=== PATIENT | female | born 1955 | race Caucasian/White ===

== ENCOUNTER 2020-05-12 14:00 | Outpatient (RCR) | payer MEDICAID, SELFPAY | END 2020-06-28 23:59 | disposition home or self-care (01) | LOC: ANHBWCAUD 14:00 | DX: Z46.1 Encounter for fitting and adjustment of hearing aid (principal) | CPT/HCPCS: 99199; V5160; V5260 ==

== ENCOUNTER 2021-01-02 08:55 | Outpatient (RCR) | payer MEDICARE, MEDICAID, SELFPAY | END 2021-04-02 23:59 | disposition home or self-care (01) | LOC: ANHBWCAUD 08:55 | DX: Z46.1 Encounter for fitting and adjustment of hearing aid (principal) | CPT/HCPCS: 99199 ==

== ENCOUNTER 2023-01-16 10:05 | Outpatient (CLI) | payer MEDICARE, MEDICAID, SELFPAY | END 2023-01-16 10:06 | disposition home or self-care (01) | LOC: ANHAUDIO 10:08 | PROVIDERS: PCP Nurse Practitioner Family; Visit Provider Nurse Practitioner Family | DX: H91.90 Unspecified hearing loss, unspecified ear (principal) | CPT/HCPCS: 99199 ==

== ENCOUNTER 2024-01-12 16:28 | Emergency (ER) | payer MEDICARE, MEDICAID, SELFPAY ==
--- NOTE | ~2024-01-12 | XR_ITS ---
EXAMINATION: XR chest 2V DATE: 01/12/2024 17:15 INDICATION: Chest pain. TECHNIQUE: Frontal and lateral views of the chest were obtained. COMPARISON: Chest 2 views 10/07/2012 FINDINGS: There is mild atelectasis in the lower lung zones. No pleural effusion or pneumothorax. The heart size is normal. IMPRESSION: 1. Mild atelectasis in the lower lung zones. Reviewed, dictated and finalized at location E.
--- NOTE | 2024-01-12 16:34 | ECG_ITS ---
Test Date: 2024-01-12 16:39:19 Measurements Intervals [place] Rate: 79 P: 127 [place]: 227 QRS: 217 QRSD: 94 T: 78 QT: 377 QTc: 434 Interpretive Statements SINUS RHYTHM WITH FIRST DEGREE AV BLOCK ARM LEADS REVERSED BORDERLINE ST ABNORMALITY- ANTEROLATERAL LEADS BASELINE ARTIFACT- I, II, III, AVR, AVL, AVF BORDERLINE ECG No previous ECG available for comparison Electronically Signed On 01-12-2024 17:40:42 CDT by Pacheco Dumont D.O.
--- NOTE | 2024-01-12 16:35 | ED.CHESTPAIN ---
HPI - Chest Pain General Chief Complaint: Chest Pain <Cyndi Hunt PA-C - Last Filed: 01/12/24 16:38> Stated Complaint: nausea, indigestion, chest pain <Cyndi Hunt PA-C - Last Filed: 01/12/24 16:38> Time Seen by Provider: 01/12/24 16:35 <Cyndi Hunt PA-C - Last Filed: 01/12/24 16:38> Focused HPI: Patient is a 68-year-old female, with past medical history of ESRD on hemodialysis, Parkinson's disease, bipolar disorder, intellectual disability, who presents the ED via EMS with report of chest pain. Patient lives in [facility]. began complaining of chest pain after her dialysis appointment today. Reports pain is midsternal. No radiation. She does also report feeling mildly short of breath. No pain or swelling in legs. No cough. Patient was given ASA en route to the ED. GENERAL: Chronically ill appearing, and in no acute distress. HEAD: Normocephalic, atraumatic. CHEST: Clear to auscultation. ?No respiratory distress. Decreased lung sounds in bases HEART: Regular rate and rhythm.? MSK: TTP along lower midsternum, reproducing pain. NEURO: ?Alert, answers questions, follow commands. Patient screened in triage and initial orders placed.? ?Additional care and disposition to be based upon?diagnostic testing and treatment. <Cyndi Hunt PA-C - Last Filed: 01/12/24 16:38> Focused HPI: Patient is a 68-year-old female, with past medical history of ESRD on hemodialysis, Parkinson's disease, bipolar disorder, intellectual disability, who presents the ED via EMS with report of chest pain. Patient lives in [facility]. began complaining of chest pain after her dialysis appointment today. Reports pain is midsternal. No radiation. She does also report feeling mildly short of breath. No pain or swelling in legs. No cough. Patient was given ASA en route to the ED. GENERAL: Chronically ill appearing, and in no acute distress. HEAD: Normocephalic, atraumatic. CHEST: Clear to auscultation. ?No respiratory distress. Decreased lung sounds in bases HEART: Regular rate and rhythm.? MSK: TTP along lower midsternum, reproducing pain. NEURO: ?Alert, answers questions, follow commands. Patient screened in triage and initial orders placed.? ?Additional care and disposition to be based upon?diagnostic testing and treatment. Agree with assesment. <Joseph Gloria MD - Last Filed: 01/12/24 23:18> Source: patient and old records reviewed <Cyndi Hunt PA-C - Last Filed: 01/12/24 16:38> Mode of arrival: EMS <Cyndi Hunt PA-C - Last Filed: 01/12/24 16:38> Limitations: no limitations and clinical condition <Cyndi Hunt PA-C - Last Filed: 01/12/24 16:38> Related Data Home Medications: Home Medications Medication Instructions Recorded Confirmed Lactobacillus acidophilus 100 mmu cells PO DAILY 08/29/22 (Acidophilus capsule) acetaminophen 325 mg capsule 325 mg PO Q6H PRN 08/29/22 albuterol sulfate 90 mcg/actuation 1 inh inhalation Q4H 08/29/22 aerosol inhaler aluminum-mag hydroxide-simethicone 5 ml PO ONCE PRN 08/29/22 200 mg-200 mg-20 mg/5 mL oral susp (Yin-Lanta) azelastine 205.5 mcg (0.15 %) 2 spray intranasal DAILY 08/29/22 nasal spray (Astepro Allergy) bisacodyl 5 mg tablet,delayed 5 mg PO QHS PRN constipation 08/29/22 release bismuth subsalicylate 262 mg/15 mL 524 mg PO Q1H PRN 08/29/22 oral suspension (Stomach Relief) carbidopa 10 mg-levodopa 100 mg 1 tablet PO BID 08/29/22 tablet dextromethorphan HBr 15 mg/5 mL 15 mg PO Q8H PRN cough 08/29/22 oral syrup diphenhydramine HCl 25 mg capsule 25 mg PO QHS PRN 08/29/22 (Allergy (diphenhydramine)) divalproex 250 mg tablet,delayed 250 mg PO Q12H 08/29/22 release (Depakote) famotidine 20 mg tablet 20 mg PO DAILY PRN 08/29/22 fenofibrate 160 mg tablet 160 mg PO DAILY 08/29/22 fluticasone propionate 50 2 spray intranasal DAILY
[2024-01-12 16:39] VITALS: BP 139/64; PULSE 82; RESP 16; TEMP 36.2; O2SAT 100
[2024-01-12 21:02] LABS: Basophils Percent Auto 0.2 % (0.2-1.2); Eosinophils Absolute Auto 0.1 K/mm3 (0-0.3); Eosinophils Percent Auto 1.1 % (0-4.4); Hemoglobin 11.7 g/dL (12.0-15.0); Immature Granulocyte Absolute 0.04 K/mm3 (0.00-0.031); Immature Granulocyte Percent A 0.7 % (0-0.5); Immature Platelet Fraction Pct 2.2 % (0.9-11.2); Lymphocytes Absolute Auto 1.53 K/mm3 (0.9-3.2); Lymphocytes Percent Auto 26.9 % (18.3-44.2); Mean Corpuscular HGB Conc 32.5 g/dl (32-36); Mean Corpuscular Hemoglobin 29.7 pg (26-34); Mean Corpuscular Volume 91.4 fl (80-100); Mean Platelet Volume 9.7 fl (7.4-10.4); Monocytes Absolute Auto 0.4 K/mm3 (0.1-0.6); Monocytes Percent Auto 7.2 % (2.6-8.5); Neutrophils Absolute Auto 3.6 K/mm3 (1.3-6.7); Neutrophils Percent Auto 63.9 % (45.5-73.1); Platelet Count Result 97 k/mm3 (150-375); Red Blood Count 3.94 M/mm3 (4.2-5.4); Red Cell Distribution Width 13.8 % (11.5-14.5); White Blood Count 5.7 K/mm3 (4.5-10.0)
[2024-01-12 21:11] LABS: Prothrombin Time 13.9 Seconds (11.1-14.7)
[2024-01-12 21:12] LABS: Partial Thromboplastin Time 27.2 Seconds (22.3-36.8)
[2024-01-12 21:21] LABS: Alanine Aminotransferase 14 U/L (6-35); Albumin Level 4.4 g/dL (3.5-5.1); Alkaline Phosphatase 113 U/L (38-126); Anion Gap 9 mmol/L (4-12); Aspartate Amino Transferase 25 U/L (14-36); Bilirubin,Total 0.5 mg/dL (0.2-1.3); Blood Urea Nitrogen 18 mg/dL (7-17); Calcium 9.5 mg/dL (8.4-10.2); Carbon Dioxide 37 mmol/L (22-30); Chloride 94 mmol/L (98-107); Estimated CRCL calculation 18 ml/min; Estimated Glomerular Filt Rate 19; Glucose 103 mg/dL (65-110); Lipase 109 U/L (23-300); Potassium 4.3 mmol/L (3.4-5.0); Sodium 140 mmol/L (137-145)
[2024-01-12 21:30] LABS: NT Pro B Type Natriuretic Pept 2210 pg/mL (19.9-100)
[2024-01-12 21:32] LABS: Troponin I < 0.012 ng/mL (0.000-0.034)
[2024-01-12 22:08] VITALS: O2SAT 100
--- NOTE | 2024-01-12 22:26 | ECG_ITS ---
Test Date: 2024-01-12 22:35:06 Measurements Intervals [place] Rate: 71 P: 55 [place]: 246 QRS: -10 QRSD: 101 T: 38 QT: 431 QTc: 471 Interpretive Statements SINUS RHYTHM WITH FIRST DEGREE AV BLOCK NONSPECIFIC ST & T-WAVE ABNORMALITY- DIFFUSE LEADS BASELINE ARTIFACT- I, II, AVR, AVF BORDERLINE ECG Compared to ECG 01/12/2024 16:39:19 NO SIGNIFICANT CHANGE Electronically Signed On 01-13-2024 06:12:30 CDT by Pacheco Dumont D.O.
[2024-01-12 23:07] LABS: Troponin I < 0.012 ng/mL (0.000-0.034)
[2024-01-12 23:26] VITALS: BP 137/68; PULSE 76; RESP 18; TEMP 36.3; O2SAT 98
== END 2024-01-12 23:29 | disposition home or self-care (01) ==
PROVIDERS: Emergency Medicine; Physician Assistant; Emergency Provider Emergency Medicine; PCP Nurse Practitioner Family
DX: R07.89 Other chest pain (principal); F31.9 Bipolar disorder, unspecified; I12.9 Hypertensive chronic kidney disease with stage 1 through stage 4 chronic kidney disease, or unspecified chronic kidney disease; N18.9 Chronic kidney disease, unspecified; E03.9 Hypothyroidism, unspecified; J44.9 Chronic obstructive pulmonary disease, unspecified; G20.A1 Parkinson's disease without dyskinesia, without mention of fluctuations; R06.02 Shortness of breath
CPT/HCPCS: 36415; 71046; 80053; 83690; 83880; 84484; 85025; 85055; 85610; 85730; 93005; 99284

== ENCOUNTER 2024-02-17 08:18 | Outpatient (CLI) | payer MEDICARE, MEDICAID, SELFPAY | END 2024-02-17 08:19 | disposition home or self-care (01) | LOC: ANHAUDIO 08:18 | PROVIDERS: Visit Provider Nurse Practitioner Family | DX: Z76.89 Persons encountering health services in other specified circumstances (principal); H90.3 Sensorineural hearing loss, bilateral | CPT/HCPCS: 92557; 92567 ==

== ENCOUNTER 2024-06-07 15:02 | Emergency (ER) | payer MEDICARE, MEDICAID, SELFPAY ==
--- NOTE | ~2024-06-07 | US_ITS ---
LEFT UPPER EXTREMITY VENOUS ULTRASOUND Ordering provider: Keren Em APRN History: . dialysis cath removal, swollen, painful LUE . Comparison: None. FINDINGS: --JUGULAR: Patent and free of thrombus. Normal compressibility, phasic flow and augmentation. --SUBCLAVIAN: Patent and free of thrombus. Normal compressibility, phasic flow and augmentation. --AXILLARY: Patent and free of thrombus. Normal compressibility, phasic flow and augmentation. --BRACHIAL: Patent and free of thrombus. Normal compressibility, phasic flow and augmentation. --CEPHALIC: Acute thrombosis is noted. --BASILIC: Patent and free of thrombus. Normal compressibility, phasic flow and augmentation. --RADIAL: Patent and free of thrombus. Normal compressibility, phasic flow and augmentation. --ULNAR: Patent and free of thrombus. Normal compressibility, phasic flow and augmentation. Large complex fluid collection suggestive of a hematoma is seen with possible fistula. IMPRESSION: Thrombosis in the left cephalic vein. No deep vein thrombosis. Large complex collection suggestive of a hematoma seen with possible fistula. Clinical correlation ad vised. Reviewed, dictated and finalized at location A. [facility] IMPRESSION: Thrombosis in the left cephalic vein. No deep vein thrombosis. Large complex collection suggestive of a hematoma seen with possible fistula. C linical correlation advised.
[2024-06-07 15:11] VITALS: BP 152/62; PULSE 80; RESP 18; TEMP 36.3; O2SAT 100
--- NOTE | 2024-06-07 17:32 | ED_ITS ---
HPI - Extremity Problem General Chief complaint: Extremity Problem,Nontraumatic <Keren Em APRN - Last Filed: 06/07/24 17:40> Stated complaint: left arm swelling and pain <Keren Em APRN - Last Filed: 06/07/24 17:40> Time Seen by Provider: 06/07/24 17:20 <Keren Em APRN - Last Filed: 06/07/24 17:40> Focused HPI: patient is a 69-year-old female who presents ER with left upper extremity swelling. Her caregiver reports she recently had her dialysis catheter removed from her left upper arm. Over the weekend patient's left upper, left lower, and left hand started becoming red and swollen. Patient endorses significant pain on the left upper extremity, along with chills. Her caregiver reports she had dialysis today and has a new catheter in her right chest. Patient's caregiver denies fevers, shortness of breath, chest pain. GENERAL: Well-appearing, well-nourished, and in mild distress d/t pain and chills. HEAD: Normocephalic, atraumatic. CHEST: Clear to auscultation. ?No respiratory distress. HEART: Regular rate and rhythm.? NEURO: ?Alert and oriented x3. Patient screened in triage and initial orders placed.? ?Additional care and disposition to be based upon?diagnostic testing and treatment. <Keren Em APRN - Last Filed: 06/07/24 17:40> History of Present Illness HPI Narrative: patient 69-year-old female presents emergency department with chief complaint of left upper extremity swelling. Patient had a dialysis access place d in the left upper extremity and reports that they have noticed that there has been swelling in the left upper extremity. <Osbaldo Reis MD - Last Filed: 06/07/24 22:09> Related Data Home medications: Home Medications Medication Instructions Recorded Confirmed Lactobacillus acidophilus 100 mmu cells PO DAILY 08/29/22 (Acidophilus capsule) acetaminophen 325 mg capsule 325 mg PO Q6H PRN 08/29/22 albuterol sulfate 90 mcg/actuation 1 inh inhalation Q4H 08/29/22 aerosol inhaler aluminum-mag hydroxide-simethicone 5 ml PO ONCE PRN 08/29/22 200 mg-200 mg-20 mg/5 mL oral susp (Yni-Lanta) azelastine 205.5 mcg (0.15 %) 2 spray intranasal DAILY 08/29/22 nasal spray (Astepro Allergy) bisacodyl 5 mg tablet,delayed 5 mg PO QHS PRN constipation 08/29/22 release bismuth subsalicylate 262 mg/15 mL 524 mg PO Q1H PRN 08/29/22 oral suspension (Stomach Relief) carbidopa 10 mg-levodopa 100 mg 1 tablet PO BID 08/29/22 tablet dextromethorphan HBr 15 mg/5 mL 15 mg PO Q8H PRN cough 08/29/22 oral syrup diphenhydramine HCl 25 mg capsule 25 mg PO QHS PRN 08/29/22 (Allergy (diphenhydramine)) divalproex 250 mg tablet,delayed 250 mg PO Q12H 08/29/22 release (Depakote) famotidine 20 mg tablet 20 mg PO DAILY PRN 08/29/22 fenofibrate 160 mg tablet 160 mg PO DAILY 08/29/22 fluticasone propionate 50 2 spray intranasal DAILY 08/29/22 mcg/actuation nasal spray,suspension (Allergy Relief (fluticasone)) levothyroxine 88 mcg capsule 88 mcg PO DAILY 08/29/22 pantoprazole 40 mg tablet,delayed 40 mg PO QAM 08/29/22 release polyethylene glycol 3350 17 17 g PO DAILY 08/29/22 gram/dose oral powder risperidone 0.5 mg tablet 0.5 mg PO QHS 08/29/22 sertraline 100 mg tablet 100 mg PO DAILY 08/29/22 sevelamer carbonate 800 mg tablet 800 mg PO TID 08/29/22 (Renvela) simvastatin 20 mg tablet 20 mg PO DAILY 08/29/22 <Keren Em, MANAN - Last Filed: 06/07/24 17:40> Allergies/Adverse reactions: Allergies Allergy/AdvReac Type Severity Reaction Status Date / Time NSAIDS (Non-Steroidal Allergy Mild Unknown Verified 06/07/24 15:16 Anti-Inflamma <Keren Em APRN - Last Filed: 06/07/24 17:40> Review of Systems Review of Systems: A 10 system review of systems was completed on the patient and is negative except for what is stated in the HPI. Nursing and ancillary documentation was reviewed. <Osbaldo Reis MD - Last Filed: 06/07/24 22:09> PMFSH Past Medical History Medical History: Medical History Bipolar disorder Chronic kidney disease Chronic venous insufficiency COPD (chronic obstructive pulmonary disease) Cyclothymia H/O gastroesophageal reflux (GERD) Hyperlipidemia Hypertension Hypothyroidism Low back pain Mild intellectual disability Parkinsons disease Personal history of dysmenorrhea Seasonal allergies <Keren Em, MANUFACTURING TECH - Last Filed: 06/07/24 17:40> Surgical History Surgical History: Surgical History History of removal of cyst abdominal Burton teeth removed <Keren Em APRN - Last Filed: 06/07/24 17:40> Social History Social History: Social History Smoking status: Never smoker Second hand tobacco smoke exposure: No Alcohol intake: never Substance use: never Lack of Transportation: No Lack of Food: Never True Current Housing: I Have Housing Concerned About Future Housing: No Difficulty Paying Gas/Electric Bills: No Difficulty Paying for Meds: No Currently Unemployed: No Living arrangements: half-way Additional living arrangements comments: Residential options Occupation/Education: retired Gender identity (if verbalized by the patient): Female Sexual Orientation (if Verbalized by the Patient): Straight or Heterosexual Spiritual care concerns: No <Keren Em APRN - Last Filed: 06/07/24 17:40> Exam Narrative: GENERAL: Well-appearing, well-nourished, and in no acute distress. HEAD: Normocephalic, atraumatic. EYES: PERRLA and EOMI. ENT: Nares clear, no rhinorrhea or epistaxis. Mucous membranes moist. NECK: Supple. CHEST: Clear to auscultation. No respiratory distress. HEART: Regular rate and rhythm. No murmur heard. Normal peripheral pulses. ABDOMEN: Soft, nontender, nondistended, normal active bowel sounds. EXTREMITIES: Normal range of motion. There is swelling present to the left upper extremity there is a palpable thrill. SKIN: Warm, dry, no rash. NEURO: No focal deficits. Alert and oriented x3. PSYCH: Normal mood and affect. <Osbaldo Reis MD - Last Filed: 06/07/24 22:09> Course Vital Signs Vital signs: Vital Signs Temperature 36.3 C L 06/07/24 15:11 Pulse Rate 80 06/07/24 15:11 Respiratory Rate 18 06/07/24 15:11 Blood Pressure 152/62 H 06/07/24 15:11 Pulse Oximetry 100 06/07/24 15:11 Oxygen Delivery Room Air 06/07/24 15:11 Temperature 36.5 C 06/07/24 21:10 Pulse Rate 83 06/07/24 21:10 Respiratory Rate 18 06/07/24 21:10 Blood Pressure 137/74 06/07/24 21:10 Pulse Oximetry 100 06/07/24 21:10 Oxygen Delivery Room Air 06/07/24 15:11 <Keren Em APRN - Last Filed: 06/07/24 17:40> Vital Signs Temperature 36.3 C L 06/07/24 15:11 Pulse Rate 80 06/07/24 15:11 Respiratory Rate 18 06/07/24 15:11 Blood Pressure 152/62 H 06/07/24 15:11 Pulse Oximetry 100 06/07/24 15:11 Oxygen Delivery Room Air 06/07/24 15:11 Temperature 36.5 C 06/07/24 21:10 Pulse Rate 83 06/07/24 21:10 Respiratory Rate 18 06/07/24 21:10 Blood Pressure 137/74 06/07/24 21:10 Pulse Oximetry 100 06/07/24 21:10 Oxygen Delivery Room Air 06/07/24 15:11 <Osbaldo Reis MD - Last Filed: 06/07/24 22:09> MDM - Extremity (Nontraumatic) MDM Narrative Medical decision making narrative: venous duplex was obtained that showed evidence of a hematoma around the fistula. There was no evidence of DVT there was a superficial vein thrombus the case was discussed with the on-call vascular surgeon at [facility] who recommended the patient come to the vascular surgery clinic in the morning she should call the office and to get the clinic as early as possible <Osbaldo Reis MD - Last Filed: 06/07/24 22:09> Lab Data Result diagrams: 06/07/24 18:36 06/07/24 18:36 <Keren Em APRN - Last Filed: 06/07/24 17:40> Labs: Lab Results 06/07/24 Range/Units 18:36 WBC 6.8 (4.5-10.0) K/mm3 RBC 3.32 L (4.2-5.4) M/mm3 Hgb 10.1 L (12.0-15.0) g/dL Hct 30.8 L (37.0-47.0) % MCV 92.8 (80-100) fl MCH 30.4 (26-34) pg MCHC 32.8 (32-36) g/dl RDW 13.5 (11.5-14.5) % Plt Count 106 L (150-375) k/mm3 MPV 9.1 (7.4-10.4) fl Immature Gran % (Auto) 1.2 H (0-0.5) % Neut % (Auto) 70.4 (45.5-73.1) % Lymph % (Auto) 21.4 (18.3-44.2) % Norton % (Auto) 5.7 (2.6-8.5) % Eos % (Auto) 0.9 (0-4.4) % Baso % (Auto) 0.4 (0.2-1.2) % Lymph # (Auto) 1.46 (0.9-3.2) K/mm3 Norton # (Auto) 0.4 (0.1-0.6) K/mm3 Eos # (Auto) 0.1 (0-0.3) K/mm3 Baso # (Auto) 0.0 (0.0-0.1) K/mm3 Abs Immat Gran (auto) 0.08 H (0.00-0.031) K/mm3 Absolute Neuts (auto) 4.8 (1.3-6.7) K/mm3 Absolute Nucleated RBC 0.000 (0.0-0.012) K/mm3 Nucleated RBC % 0.0 (0.0-0.2) % % Immature Plt Fraction 1.8 (0.9-11.2) % PT 14.4 (11.1-14.7) Seconds INR 1.1 APTT 27.7 (22.3-36.8) Seconds Sodium 133 L (137-145) mmol/L Potassium 4.0 (3.4-5.0) mmol/L Chloride 96 L (98-107) mmol/L Carbon Dioxide 35 H (22-30) mmol/L Anion Gap 2 L (4-12) mmol/L BUN 12 D (7-17) mg/dL Creatinine 2.40 H (0.7-1.0) mg/dL Estim Creat Clear Calc 20 ml/min Estimated GFR 20 L (59 - ) Glucose 96 (65-110) mg/dL Lactic Acid 0.9 (0.7-2.0) mmol/L Calcium 8.8 (8.4-10.2) mg/dL Total Bilirubin 0.4 (0.2-1.3) mg/dL AST 22 (14-36) U/L ALT 6 (6-35) U/L Alkaline Phosphatase 126 (38-126) U/L C-Reactive Protein 0.6 (<1.0) mg/dL Total Protein 7.0 (6.3-8.2) g/dL Albumin 4.0 (3.5-5.1) g/dL <Keren Em, MANUFACTURING TECH - Last Filed: 06/07/24 17:40> Lab Results 06/07/24 Range/Units 18:36 WBC 6.8 (4.5-10.0) K/mm3 RBC 3.32 L (4.2-5.4) M/mm3 Hgb 10.1 L (12.0-15.0) g/dL Hct 30.8 L (37.0-47.0) % MCV 92.8 (80-100) fl MCH 30.4 (26-34) pg MCHC 32.8 (32-36) g/dl RDW 13.5 (11.5-14.5) % Plt Count 106 L (150-375) k/mm3 MPV 9.1 (7.4-10.4) fl Immature Gran % (Auto) 1.2 H (0-0.5) % Neut % (Auto) 70.4 (45.5-73.1) % Lymph % (Auto) 21.4 (18.3-44.2) % Norton % (Auto) 5.7 (2.6-8.5) % Eos % (Auto) 0.9 (0-4.4) % Baso % (Auto) 0.4 (0.2-1.2) % Lymph # (Auto) 1.46 (0.9-3.2) K/mm3 Norton # (Auto) 0.4 (0.1-0.6) K/mm3 Eos # (Auto) 0.1 (0-0.3) K/mm3 Baso # (Auto) 0.0 (0.0-0.1) K/mm3 Abs Immat Gran (auto) 0.08 H (0.00-0.031) K/mm3 Absolute Neuts (auto) 4.8 (1.3-6.7) K/mm3 Absolute Nucleated RBC 0.000 (0.0-0.012) K/mm3 Nucleated RBC % 0.0 (0.0-0.2) % % Immature Plt Fraction 1.8 (0.9-11.2) % PT 14.4 (11.1-14.7) Seconds INR 1.1 APTT 27.7 (22.3-36.8) Seconds Sodium 133 L (137-145) mmol/L Potassium 4.0 (3.4-5.0) mmol/L Chloride 96 L (98-107) mmol/L Carbon Dioxide 35 H (22-30) mmol/L Anion Gap 2 L (4-12) mmol/L BUN 12 D (7-17) mg/dL Creatinine 2.40 H (0.7-1.0) mg/dL Estim Creat Clear Calc 20 ml/min Estimated GFR 20 L (59 - ) Glucose 96 (65-110) mg/dL Lactic Acid 0.9 (0.7-2.0) mmol/L Calcium 8.8 (8.4-10.2) mg/dL Total Bilirubin 0.4 (0.2-1.3) mg/dL AST 22 (14-36) U/L ALT 6 (6-35) U/L Alkaline Phosphatase 126 (38-126) U/L C-Reactive Protein 0.6 (<1.0) mg/dL Total Protein 7.0 (6.3-8.2) g/dL Albumin 4.0 (3.5-5.1) g/dL <Osbaldo Reis MD - Last Filed: 06/07/24 22:09> Discharge Plan Discharge Clinical Impression: Hematoma of left upper extremity <Keren Em APRN - Last Filed: 06/07/24 17:40> Patient Disposition: NH Intermediate/Asst Living <Keren Em APRN - Last Filed: 06/07/24 17:40> Condition: Stable <Keren Em APRN - Last Filed: 06/07/24 17:40> Instructions: Antibiotic Form <Keren Em APRN - Last Filed: 06/07/24 17:40> Additional Instructions: please call the vascular surgery clinic at [facility] in the morning where y bryant had your procedure at. They would like to see you in the morning please do not eat or drink after midnight as they may want to possibly remove the hematoma At the fistula site. Ideally they would like you to be there ideally around 9:00 a.m. but do try to be at the clinic as early as possible <Keren Em APRN - Last Filed: 06/07/24 17:40> Prescriptions: No Action Acidophilus Capsule 100 mmu cells PO DAILY albuterol sulfate 90 mcg/actuation HFA aerosol inhaler 1 inh inhalation Q4H azelastine [Astepro Allergy] 205.5 mcg (0.15 %) spray,non-aerosol 2 spray intranasal DAILY Rx Instructions: administer into each nostril carbidopa-levodopa 10-100 mg tablet 1 tablet PO BID divalproex [Depakote] 250 mg tablet,delayed release (DR/EC) 250 mg PO Q12H fenofibrate 160 mg tablet 160 mg PO DAILY fluticasone propionate [Allergy Relief (fluticasone)] 50 mcg/actuation spray,suspension 2 spray intranasal DAILY Rx Instructions: administer into each nostril levothyroxine 88 mcg capsule 88 mcg PO DAILY pantoprazole 40 mg tablet,delayed release (DR/EC) 40 mg PO QAM sevelamer carbonate [Renvela] 800 mg tablet 800 mg PO TID Rx Instructions: must administer with a meal/food risperidone 0.5 mg tablet 0.5 mg PO QHS sertraline 100 mg tablet 100 mg PO DAILY simvastatin 20 mg tablet 20 mg PO DAILY acetaminophen 325 mg capsule 325 mg PO Q6H PRN bisacodyl 5 mg tablet,delayed release (DR/EC) 5 mg PO QHS PRN (Reason: constipation) dextromethorphan HBr 15 mg/5 mL syrup 15 mg PO Q8H PRN (Reason: cough) diphenhydramine HCl [Allergy (diphenhydramine)] 25 mg capsule 25 mg PO QHS PRN famotidine 20 mg tablet 20 mg PO DAILY PRN alum-mag hydroxide-simeth [Yin-Lanta] 200-200-20 mg/5 mL suspension 5 ml PO ONCE PRN Rx Instructions: administer between meals and at bedtime polyethylene glycol 3350 17 gram/dose powder 17 g PO DAILY bismuth subsalicylate [Stomach Relief] 262 mg/15 mL suspension 524 mg PO Q1H PRN Rx Instructions: do not exceed 8 doses in a 24 hour period <Keren Em APRN - Last Filed: 06/07/24 17:40> Follow-up/Referrals: PHYSICIAN,SHIPPING AND RECEIVING SPECIALIST [Non-Staff] - <eKren Em APRN - Last Filed: 06/07/24 17:40>
[2024-06-07 18:34] VITALS: BP 136/57; PULSE 76; RESP 19; TEMP 36.5; O2SAT 100
[2024-06-07 18:49] LABS: Basophils Percent Auto 0.4 % (0.2-1.2); Eosinophils Absolute Auto 0.1 K/mm3 (0-0.3); Eosinophils Percent Auto 0.9 % (0-4.4); Hematocrit 30.8 % (37.0-47.0); Hemoglobin 10.1 g/dL (12.0-15.0); Immature Granulocyte Absolute 0.08 K/mm3 (0.00-0.031); Immature Granulocyte Percent A 1.2 % (0-0.5); Immature Platelet Fraction Pct 1.8 % (0.9-11.2); Lymphocytes Absolute Auto 1.46 K/mm3 (0.9-3.2); Lymphocytes Percent Auto 21.4 % (18.3-44.2); Mean Corpuscular HGB Conc 32.8 g/dl (32-36); Mean Corpuscular Hemoglobin 30.4 pg (26-34); Mean Corpuscular Volume 92.8 fl (80-100); Mean Platelet Volume 9.1 fl (7.4-10.4); Monocytes Absolute Auto 0.4 K/mm3 (0.1-0.6); Monocytes Percent Auto 5.7 % (2.6-8.5); Neutrophils Absolute Auto 4.8 K/mm3 (1.3-6.7); Neutrophils Percent Auto 70.4 % (45.5-73.1); Platelet Count Result 106 k/mm3 (150-375); Red Blood Count 3.32 M/mm3 (4.2-5.4); Red Cell Distribution Width 13.5 % (11.5-14.5); White Blood Count 6.8 K/mm3 (4.5-10.0)
[2024-06-07 18:59] LABS: INR 1.1; Partial Thromboplastin Time 27.7 Seconds (22.3-36.8); Prothrombin Time 14.4 Seconds (11.1-14.7)
[2024-06-07 19:02] VITALS: BP 154/62; PULSE 85; RESP 18; TEMP 35.9; O2SAT 100
[2024-06-07 19:04] LABS: Alanine Aminotransferase 6 U/L (6-35); Alkaline Phosphatase 126 U/L (38-126); Anion Gap 2 mmol/L (4-12); Aspartate Amino Transferase 22 U/L (14-36); Bilirubin,Total 0.4 mg/dL (0.2-1.3); Blood Urea Nitrogen 12 mg/dL (7-17); CRP 0.6 mg/dL (<1.0); Calcium 8.8 mg/dL (8.4-10.2); Carbon Dioxide 35 mmol/L (22-30); Chloride 96 mmol/L (98-107); Estimated CRCL calculation 20 ml/min; Estimated Glomerular Filt Rate 20; Glucose 96 mg/dL (65-110); Lactic Acid Reflex 0.9 mmol/L (0.7-2.0); Sodium 133 mmol/L (137-145)
[2024-06-07 21:10] VITALS: BP 137/74; PULSE 83; RESP 18; TEMP 36.5; O2SAT 100
== END 2024-06-07 22:16 ==
PROVIDERS: Registered Nurse; Emergency Provider Emergency Medicine
DX: S40.022A Contusion of left upper arm, initial encounter (principal); F31.9 Bipolar disorder, unspecified; J44.9 Chronic obstructive pulmonary disease, unspecified; E78.5 Hyperlipidemia, unspecified; E03.9 Hypothyroidism, unspecified; G20.A1 Parkinson's disease without dyskinesia, without mention of fluctuations; N18.9 Chronic kidney disease, unspecified; I12.9 Hypertensive chronic kidney disease with stage 1 through stage 4 chronic kidney disease, or unspecified chronic kidney disease; Z99.2 Dependence on renal dialysis
CPT/HCPCS: 36415; 80053; 83605; 85025; 85055; 85610; 85730; 86140; 93971; 99284

== ENCOUNTER 2024-11-30 22:09 | Emergency (ER) | payer MEDICARE, MEDICAID, SELFPAY ==
--- NOTE | ~2024-11-30 | XR_ITS ---
Clinical Indication: Wheezing AP and lateral views of the chest: Comparison: 01/12/2024 Findings:, Mild bibasilar pulmonary edema/atelectatic change. No pleural effusions.. Cardiomediastin al silhouette is within normal limits. Bones and soft tissues are unremarkable. Impression: Mild bibasilar pulmonary edema/atelectatic change. Reviewed, dictated and finalized at location . Impression: Mild bibasilar pulmonary edema/atelectatic change.
[2024-11-30 22:13] VITALS: BP 140/47; PULSE 109; RESP 18; TEMP 37.1; O2SAT 99
--- OUTSIDE RECORDS SUMMARY | 2024-11-30 22:13 | XMS_ITS | Encounter Summary ---
Author Organization [facility] Address [address] [place] [address] Care Team Providers Care Special Events Assistant Name Role Phone Billy Brewer COMMERCIAL LOAN CLOSER-BLOCKER AND POLISHER Primary Care Provider [phone]- [phone] Reason for Visit * Auth/Cert (Routine) Specialty Diagnoses / Procedures Referred By Rocio t Referred To Contact Procedures NV ANASTOMOSIS,AV,ANY SITE CREATION ARTERIOVENOUS (AV) FISTULA DIRECT Referral ID Status Reason Start Date Expiration Date Visits Re quested Visits Authorized [id number] 1 1 Encounter Details Date Type Department Care Team (Late st Contact Info) Description 11/30/2024 12:24 PM CDT Anesthesia Event [facility] - Perioperative Surgery [address] [place] [address] Oswaldo Uriarte MD [address] [place] [address] Woo Maria DO [address] [place] [address] Anesthesia Record Procedure Summary Procedure Name Responsible Anesthesiologist Anesthesia Start Time Anesthesia Stop Time EXPLORATION CEPHALIC VEIN AND CREATION BRACHIOBASILIC FISTULA (Right: Arm) Oswaldo Uriarte MD 11/30/24 1224 11/30/24 1344 Events Date Time Event Comment 11/30/2024 1212 1224 An Start 1224 An Start Data 1224 PT Reassessment 1230 An Induction 1231 LMA 1236 Timeout Anesthesia part icipated in timeout at the time documented in the record by nursing. 1330 An Emergence 1334 AN LMA REMOVE 1335 Electnc Sig This record is electronically signed by the providers listed under staff. 1335 an stop data 1335 ANPTO2 1344 An Stop Meds Name Total midazolam 2 mg/2mL injection 2 mg fentaNYL 100 mcg/2mL injection 100 mcg lidocaine 1% (PF) injection (50 mg/5mL) 100 mg propofol 200 mg/20mL injection 100 mg ondansetron 4 mg/2mL injection 4 mg phenylephrine 100 mcg/mL solution 500 mc g dexamethasone 4 mg/mL injection 4 mg heparin 1,000 units/mL - 1mL injection 3 ,000 Units ceFAZolin (Ancef) 2,000 mg in NaCl IV 0. 9 % 50 mL IVPB 2 g 0.9% NaCl infusion 0 mL * Agents Name Exp. Sevoflurane Exp. N2O O2 Insp. Sevoflurane * Blood No blood administrations on file. Lines, Drains, and Airways Type Details Placement Removal Hemodialysis AV Access 05/25/24; 1239; Graft; Left Upper Arm 05/25/24 1239 by Loida Broussard, JYOTI Peripheral IV Date: 11/30/24; Time : 1211; Orientation: Left, Posterior; Location: Hand; Gauge: 20 G 11/30/24 1211 by Pratima Motley RN 11/30/24 1454 by Emilie Mar, RN LMA 11/30/24; 1235 (created via procedure documentation); DEDE Green; 100% O2; Standard IV; mask not attempted; Gel LMA; 4.0; CO2 Monitor; 11/30/24; 1334 11/30/24 1235 by Naima Sanford APRN-CRNA 11/30/24 1334 by Naima Sanford APRN-CRNA Procedural Site (Incision) 11/30/24; 1240; Anterior, Right; Elbow; incision 1; 11/30/24; 205611/30/24 1240 by Domonique Nagel, JYOTI 11/30/242056 by Generic, Auto Release Hemodialysis AV Access 11/30/24; 1357; Fistula; Right Forearm; 11/30/24; 1417 11/30/24 1357 by Carley Hayes RN 11/30/24 1417 by Emilie Mar RN documented in this encounter Social History Tobacco Use Types Packs/Day Years Used Date Smoking Tobacco: Never Passive Smoke Exposure: Never Smokeless Tobacco: Never Alcohol Use Standard Drinks/Week Comments Never 0 (1 standard drink = 0.6 oz pur e alcohol) Comments No Sex and Gender Information Value Date Recorded Sex Assigned at Not on file Legal Sex Female 2:58 PM CDT Gender Identity Not on file Sexual Orientation Not on file documented as of this encounter Functional Status * Is person deaf or have serious hearing difficulty? Answer Date of Assessment Author Yes 05/25/2024 1:08 PM Gaston Andres RN * Is person blind or have serious difficulty seeing? Answer Date of Assessment Author No 05/25/2024 1:08 PM Gaston Andres RN * Does person have serious difficulty walking/climbing stairs? Answer Date of Assessment Author Yes 05/25/2024 1:08 PM Gaston Andres RN * Does person have difficulty dressing/bathing? Answer Date of Assessment Author No 05/25/2024 1:08 PM Gaston Andres RN * Does person have difficulty doing errands alone? Answer Date of Assessment Author Yes 05/25/2024 1:08 PM Gaston Andres RN documented as of this encounter Mental Status * Does person have difficulty concentrating/remembering/making decisions? Answer Entry Date Author Yes 05/25/2024 1:08 PM Gaston Andres RN documented in this encounter Progress Notes * Naima Sanford, COMMERCIAL LOAN CLOSER-ENGINEERING TECHNICIAN - 11/30/2024 1:45 PM CDT ANESTHESIA POSTOP EVALUATION NOTE Procedure: EXPLORATION CEPHALIC VEIN AND CREATION BRACHIOBASILIC FISTULA (Right: Arm) Aaliyah Enriquez is a 69 year old female Patient Vitals for the past 6 hrs: BP Temp Pulse Resp SpO2 Pain Rating Score #1 Pain Scale/Observation Pulse - (SPO2/Cuff) 11/30/24 1204 (!) 205/81 36.5 ??C 77 18 98 % -- No/denies pain -- 11/30/24 1342 133/76 36.5 ??C 76 21 100 % 0 No/denies pain;N 78 bpm Anesthesia Type: general LMA * No Diagnosis Codes entered * Mental Status: awake and neurologic status has returned to expected level of consciousness Neuro Status: No numbess, tingling or visual disturbances Respiratory Function: natural Cardiac Function: stable Postop Pain: adequate Postop Hydration: adequate Postop Nausea: none Assessment: no apparent anesthetic complications and patient tolerated procedure well Patient Disposition: Release from Anesthesia Care NOTABLE EVENTS: There were no known notable events for this encounter. Cosigned by Oswaldo Uriarte MD at 11/30/2024 2:01 PM CDT * Renetta Land DO - 11/30/2024 12:11 PM CDT ANESTHESIA PREOPERATIVE EVALUATION NOTE Procedure: RIGHT UPPER ARM ARTERIOVENOUS (AV) FISTULA DIRECT (Right: Arm) NPO status: Since Midnight (11/30/2024 12:07 PM) Vitals: Patient Vitals for the past 6 hrs: BP Temp Pulse Resp SpO2 11/30/24 1204 (!) 205/81 36.5 ??C 77 18 98 % LMP: No LMP recorded. Patient is postmenopausal. OB Status: Postmenopausal ANESTHESIA PRE-EVALUATION NOTE Physical Exam: No Orientation X3 Airway/Mallampati Score: II Mouth Opening Distance: 3 fingerwidths Neck ROM: full Teeth: chipped Heart: normal - S1 S2 Lungs: clear to ausculation bilaterally ANESTHESIA PLAN ASA Score: 4 NPO Status: No solids since midnight and No liquids within 2 hours Anesthesia Plan: MAC Planned Induction: intravenous Planned Postop Destination: OPS Anesthetic plan was discussed with: patient Anesthetic Plan discussion was: Consented (consents obtained from family) BMI, Height, Weight Tobacco History Estimated body mass index is 32.37 kg/m?? as calculated from the following: Height as of this encounter: 1.575 m (5' 2). Weight as of this encounter: 80.3 kg (177 lb). History[1] Alcohol History Drug History Social History Substance and Sexual Activity Alcohol Use Never Social History Substance and Sexual Activity Drug Use Never Outpatient Medications: Inpatient Medications: Medications[2] Medications[3] Allergies: Allergies[4] Relevant Problems Problem List: There are no active problems to display for this patient. Medical History: Past Medical History: Diagnosis Date Arthritis Bipolar disorder (HCC) Chronic venous insufficiency COPD (chronic obstructive pulmonary disease) ([facility]) Cyclothymic disorder Disorder of thyroid ESRD (end stage renal disease) ([facility]) [facility] 11/16/2024 ESRD on dialysis ([facility]) GERD (gastroesophageal reflux disease) [place] (hard of hearing) HTN (hypertension) Hypothyroidism Mild developmental delay Parkinson's disease ([facility]) Pure hypercholesterolemia Surgical History: Past Surgical History: Procedure Laterality Date A-V SHUNT CREATION Left 09/02/2023 Left; LEFT UPPER ARM CEPHALIC VEIN TRANSPOSITION Appendectomy INSERTION DIALYSIS CATHETER VASCULAR PROCEDURE/SURGERY Left 06/04/2023 Left; LEFT UPPER ARM DIALYSIS FISTULA VASCULAR PROCEDURE/SURGERY Left 05/25/2024 Left; LEFT UPPER ARM ARTERIOVENOUS (AV) GRAFT TOSSER Status: No LMP recorded. Patient is postmenopausal. Postmenopausal OB History No obstetric history on file. Covid Vaccine: Lab Results: Recent Labs Component Name 11/30/24 1210 PH 7.48* PO2VEN 39 JOO0WYG 46 IJQ5GPR 34.3* BEVEN 9.7* Z2IREOSGW 9.6 [id number] 66* No results found for requested labs within last 120 days. Recent Labs Result Component Current Result Anion Gap (AG) Arterial 6 (L) (11/30/2024) [1] Social History Tobacco Use Smoking Status Never Passive exposure: Never Smokeless Tobacco Never [2] Outpatient Medications Marked as Taking for the 11/30/24 encounter (Hospital Encounter) Medication Sig Last Dose/Taking acetaminophen Take 2 (two) tablets by mouth every 4 hours as needed Unknown alum & mag hydroxide-simeth Take 30 mL by mouth every 4 hours as needed for Heartburn Unknown azelastine Paris 2 (two) sprays into the nose 2 times daily 3pm & 9pm 11/29/2024 at 9:00 PM bisacodyl EC Take 1 (one) tablet by mouth as needed Unknown bismuth subsalicylate Take 524 mg by mouth every 1 hour as needed for Diarrhea Taking As Needed carbidopa-levodopa Take 1 (one) tablet by mouth 2 times daily 3pm and 9pm Taking vitamin D3 Take 1 (one) capsule by mouth every 14 days Taking diphenhydrAMINE Take 1 (one) tablet by mouth every 6 hours as needed Taking As Needed divalproex ER 24hr 1 (one) tablet 2 times daily 3 pm and 9 pm Taking famotidine Take 1 (one) tablet by mouth nightly as needed Taking As Needed fluticasone propionate Paris 2 (two) sprays into each nostril 2 times daily Taking guaiFENesin Take 10 mL by mouth every 4 hours as needed Taking As Needed Lactobacillus (ACIDOPHILUS PO) Take 75 mm by mouth once daily At 3 pm Taking levothyroxine Take 1 (one) tablet by mouth daily before breakfast 11/30/2024 at 6:00 AM nwzavqvs-otwgxralux-vubauetwt Apply to affected area every 4 hours as needed Affected area: topically to minor wounds every 4 hours as needed until healed max 2 doses 24 hours Taking As Needed nystatin Apply to affected area 3 times daily Taking pantoprazole EC Take 1 (one) tablet by mouth 2 times daily 3pm and 9pm Taking polyethylene glycol 3350 once daily as needed Taking As Needed Renvela Take 1 (one) tablet by mouth 3 times daily with meals Taking risperiDONE 1 (one) tablet at bedtime Taking sertraline Take 1 (one) tablet by mouth every afternoon At 3 pm Taking sevelamer Take 1 (one) tablet by mouth as needed With snacks Taking As Needed simvastatin Take 1 (one) tablet by mouth at bedtime Taking terbinafine 2 times daily Taking Ventolin HFA Inhale 2 (two) puffs by mouth at bedtime Taking [3] Current Facility-Administered Medications Medication Dose Last Admin NaCl IV 0.9% NaCl 3 mL And 0.9% NaCl 1-10 mL acetaminophen 1,000 mg ceFAZolin 2 g insulin regular (HumuLIN R; NovoLIN R) 100 units/mL subcutaneous injection 0-6 Units lidocaine 0.2 mL [4] Allergies Allergen Reactions Nsaids Other Hx, GI ulcers due to kidney function documented in this encounter Procedure Notes * Naima Sanford, COMMERCIAL LOAN CLOSER-ENGINEERING TECHNICIAN - 11/30/2024 12:34 PM CDTAssociated Order(s): LMA Placement LMA Placement Procedure/LDA Note: Patient Location: OR. Procedure: LMA Pretreatment: 100% O2 Induction: standard IV Patient position: supine. Mask Ventilation: not attempted Type: gel LMA Size: 4 Number of Attempts: 1. Placement verified by: CO2 monitor Dentition unchanged? Yes Staff Section Anesthesia Provider: Naima Sanford APRN-CRNA, Performed the procedure documented in this encounter Miscellaneous Notes * Anesthesia Transfer of Care - Naima Sanford APRN-CRNA - 11/30/2024 1:44 PM CDT ANESTHESIA TRANSFER OF CARE NOTE Today's Date: 11/30/2024 Date of : 1955 Patient: Aaliyah Enriquez Procedure(s): EXPLORATION CEPHALIC VEIN AND CREATION BRACHIOBASILIC FISTULA Surgeon(s): Primary: Chung Stinson MD Preop Diagnosis: * No Diagnosis Codes entered * Pre-op Meds (From admission, onward) Start Stop Status Route Frequency Ordered 11/30/24 1217 0.9% NaCl infusion -- Sent IV CONTINUOUS PRN 11/30/24 1236 11/30/24 1339 albuterol-ipratropium (Duo-Neb) nebulizer solution 3 mL 11/30/25 1338 Verified IN POST-OP MULTIPLE 11/30/24 1340 11/30/24 1232 ceFAZolin (Ancef) 2,000 mg in NaCl IV 0.9 % 50 mL IVPB -- Sent IV CONTINUOUS PRN 11/30/24 1236 11/30/24 1235 dexAMETHasone (Decadron) injection -- Sent IV PRN 11/30/24 1235 11/30/24 1339 dextrose IV 12.5 g Placed in Or Linked Group -- Verified IV PRN 11/30/24 1340 11/30/24 1339 dextrose IV 25 g Placed in Or Linked Group -- Verified IV PRN 11/30/24 1340 11/30/24 1339 diphenhydrAMINE (Benadryl) injection 25 mg 11/30/25 1338 Verified IV ONCE PRN 11/30/24 1340 11/30/24 1227 fentaNYL (PF) (Sublimaze) injection -- Sent IV PRN 11/30/24 1235 11/30/24 1340 fentaNYL (PF) (Sublimaze) injection 25 mcg -- Verified IV EVERY 10 MIN PRN 11/30/24 1340 11/30/24 1339 glucagon (Glucagen) injection 1 mg Placed in Or Linked Group -- Verified SC PRN 11/30/24 1340 11/30/24 1339 glucose (Diabetic Use) oral gel -- Verified PO PRN 11/30/24 1340 11/30/24 1251 heparin injection -- Sent IV PRN 11/30/24 1252 11/30/24 1339 HYDROmorphone (Dilaudid) injection 0.2 mg -- Verified IV EVERY 15 MIN PRN 11/30/24 1340 11/30/24 1339 HYDROmorphone (Dilaudid) injection 0.5 mg -- Verified IV EVERY 10 MIN PRN 11/30/24 1340 11/30/24 1339 insulin regular human 1 unit/mL injection -- Verified IV PRN 11/30/24 1340 11/30/24 1230 lidocaine PF (Xylocaine MPF) 1 % injection -- Sent IV PRN 11/30/24 1235 11/30/24 1222 midazolam (Versed) injection -- Sent IV PRN 11/30/24 1235 11/30/24 1339 naloxone (Narcan) injection 0.04 mg -- Verified IV POST-OP MULTIPLE 11/30/24 1340 11/30/24 1235 ondansetron (Zofran) injection -- Sent IV PRN 11/30/24 1235 11/30/24 1339 ondansetron (Zofran) injection 4 mg 11/30/25 1338 Verified IV ONCE PRN 11/30/24 1340 11/30/24 1250 phenylephrine 100 mcg/mL injection -- Sent IV PRN 11/30/24 1250 11/30/24 1339 prochlorperazine (Compazine) injection 10 mg 11/30/25 1338 Verified IV ONCE PRN 11/30/24 1340 11/30/24 1230 propofol (Diprivan) injection -- Sent IV PRN 11/30/24 1235 * No Diagnosis Codes entered * . Allergies[1] Vitals: Patient Vitals for the past 3 hrs: BP Temp Pulse Resp SpO2 11/30/24 1342 133/76 36.5 ??C 76 21 100 % 11/30/24 1204 (!) 205/81 36.5 ??C 77 18 98 % Lines, Drains, and Airways Type Details Placement Removal Peripheral IV Date: 11/30/24; Time: 1211; Orientation: Left, Posterior; Location: Hand; Gauge: 20 G011/30/24 1211 by Pratima Motley, RN LMA 11/30/24; 1235 (created via procedure documentation); DAVID Green CRNA; 100% O2; Standard IV; mask not attempted; Gel LMA; 4.0; CO2 Monitor; 11/30/24; 1334 11/30/24 1235 by Ivon Sanford APRN-CRNA 11/30/24 1334 by Naima Sanford APRN-CRNA Intraprocedure I/O Totals None Patient Transfer Location: PACU Transport Airway: spontaneous respirations and supplemental O2 Notable Events: None Handoff Given? Yes Checklist or Protocol - The sanchez handoff elements that must be included in the transfer of care checklist include: 1. Identification of patient. 2. Identification of responsible practitioner (PACU nurse or advanced practitioner). 3. Discussion of pertinent medical history. 4. Discussion of the surgical/procedure course (procedure, reason for surgery, procedure performed). 5. Intraoperative anesthetic management and issue/concerns. 6. Expectations/Plans for the early post-procedure period. 7. Opportunity for questions and acknowledgement of understanding of report from the receiving PACUteam. NOTABLE EVENTS: No notable events documented. DEDE Green [1] Allergies Allergen Reactions ??? Nsaids Other Hx, GI ulcers due to kidney function documented in this encounter Plan of Treatment Upcoming Encounters Date Type Department Care Team (Late st Contact Info) Description 12/14/2024 10:20 AM CDT Office Visit [facility] - Surgery [address] [place] [address], [address] [place] [address] [place] [address] [facility] [address] [place] [address] 01/25/2025 2:45 PM CDT Appointment [facility] Vascular Services [address] [facility] [place], [place] [id number] [place] [address] [facility] [address] [place] [address] [place] [address] [facility] [address] [place] [address] [place] [address] [place] [address] [place] [address] [facility] [address] [place] [address] Scheduled Procedures Name Priority Associated Diagnoses Date/Ti me CREATION ARTERIOVENOUS (AV) FISTULA DIRECT 11/30/2024 12:14 PM CDT documented as of this encounter Procedures Procedure Name Priority Date/Time Associated Diagnosis Comments LARYNGEAL MASK AIRWAY Routine 11/30/2024 12:34 PM CDT documented in this encounter Results * LARYNGEAL MASK AIRWAY (11/30/2024 12:34 PM CDT) Narrative Naima Sanford APRN-CRNA - 11/30/2024 12:34 PM CDT Naima Sanford APRN-CRNA 11/30/2024 12:35 PM LMA Placement Procedure/LDA Note: Patient Location: OR. Procedure: LMA Pretreatment: 100% O2 Induction: standard IV Patient position: supine. Mask Ventilation: not attempted Type: gel LMA Size: 4 Number of Attempts: 1. Placement verified by: CO2 monitor Dentition unchanged? Yes Staff Section Anesthesia Provider: Naima Sanford APRN-CRNA, Performed the procedure us Oswaldo Uriarte MD GENERAL ANESTHESIA ORDERABLES Fi nal Result documented in this encounter Visit Diagnoses Not on filedocumented in this encounter Administered Medications Inactive Administered Medications - up to 3 most recent administrations Medication Order MAR Action Action Date Dose Rate Site 0.9% NaCl infusion Intravenous, CONTINUOUS PRN, Starting on Fri11/30/24 at 1217, Until Fri11/30/24 at 1344, Anesthesia Intra-op $ New Bag/Syringe 11/30/2024 12:17 PM CDT ceFAZolin (Ancef) 2,000 mg in NaCl IV 0.9 % 50 mL IVPB Intravenous, CONTINUOUS PRN, Starting on Fri11/30/24 at 1232, Until Fri11/30/24 at 1344, Anesthesia Intra-op $ New Bag/Syringe 11/30/2024 12:32 PM CDT 2 g dexAMETHasone (Decadron) injection Intravenous, PRN, Starting on Fri11/30/24 at 1235, Until Fri11/30/24 at 1344, Anesthesia Intra-op $ Given 11/30/2024 12:35 PM CDT 4 mg fentaNYL (PF) (Sublimaze) injection Intravenous, PRN, Starting on Fri11/30/24 at 1227, Until Fri11/30/24 at 1344, Anesthesia Intra-op $ Given 11/30/2024 12:27 PM CDT 100 mcg heparin injection Intravenous, PRN, Starting on Fri11/30/24 at 1251, Until Fri11/30/24 at 1344, Anesthesia Intra-op $ Given 11/30/2024 12:51 PM CDT 3,000 Units lidocaine PF (Xylocaine MPF) 1 % injection Intravenous, PRN, Starting on Fri11/30/24 at 1230, Until Fri11/30/24 at 1344, Anesthesia Intra-op $ Given 11/30/2024 12:30 PM CDT 100 mg midazolam (Versed) injection Intravenous, PRN, Starting on Fri11/30/24 at 1222, Until Fri11/30/24 at 1344, Anesthesia Intra-op $ Given 11/30/2024 12:27 PM CDT 1 mg $ Given 11/30/2024 12:22 PM CDT 1 mg ondansetron (Zofran) injection Intravenous, PRN, Starting on Fri11/30/24 at 1235, Until Fri11/30/24 at 1344, Anesthesia Intra-op $ Given 11/30/2024 12:35 PM CDT 4 mg phenylephrine 100 mcg/mL injection Intravenous, PRN, Starting on Fri11/30/24 at 1250, Until Fri11/30/24 at 1344, Anesthesia Intra-op $ Given 11/30/2024 12:57 PM CDT 200 mcg $ Given 11/30/2024 12:52 PM CDT 200 mcg $ Given 11/30/2024 12:50 PM CDT 100 mcg propofol (Diprivan) injection Intravenous, PRN, Starting on Fri11/30/24 at 1230, Until Fri11/30/24 at 1344, Anesthesia Intra-op $ Given 11/30/2024 12:30 PM CDT 100 mg documented in this encounter Care Teams Special Events Assistant Relationship Specialty Start Date End Date Billy Brewer APRN-BLOCKER AND POLISHER [address] [place] [address] PCP - General 06/03/23 documented as of this encounter
--- OUTSIDE RECORDS SUMMARY | 2024-11-30 22:13 | XMS_ITS | Encounter Summary ---
Author Organization [facility] Address [address] [facility] [place] [address] Care Team Providers Care Appeals Representative Name Role Phone Billy Brewer REGIONAL ACCOUNT MANAGER-COSTUME SHOP COORDINATOR Primary Care Provider [phone]- [phone] Reason for Referral * Radiology Services (Routine) - Closed Specialty Diagnoses / Procedures Referred By Rocio dupree Referred To Contact Vascular Lab Diagnoses ESRD (end stage renal disease) on dialysis (HCC) Procedures IR Angio [facility] [place] [id number] [place] [address] [place] [address] Phone: tel: fax: [facility] Vascular Services [address] [place] [address], [address] [place] [address] Phone: tel: fax: Referral ID Status Reason Start Date Expiration Date Visits Re quested Visits Authorized [id number] Closed 11/16/2024 11/18/2024 1 1 Encounter Details Date Type Department Care Team (Late st Contact Info) Description 11/16/2024 Telephone [facility] Vascular Services [address] [place] [address], [address] [place] [address] Gloria Allen, RN Social History Tobacco Use Types Packs/Day Years [...] Gaston Andres RN documented in this encounter Plan of Treatment Upcoming Encounters Date Type Department Care Team (Late st Contact Info) Description 12/14/2024 10:20 AM CDT Office Visit [facility] - Surgery [address] [facility], [address] [place] [address] [place] [address] [address] 01/25/2025 2:45 PM CDT Appointment [facility] Vascular Services [id number] [place] [address], [address] [place] [address] [place] [address] [address] [place] [address] [facility] [address] [place] [address] [place] [address] [facility] [address] [place] [address] [place] [address] [facility] [address] [place] [address] Pending Results Name Type Priority Associated Diagnoses Date /Time IR Angio Av Shunt Imaging Imaging Routine ESRD (end stage renal disease) on dialysis ([facility]) 11/18/2024 3:24 PM CDT Scheduled Orders Name Type Priority Associated Diagnoses Orde r Schedule IR Angio Av Shunt Imaging Imaging Routine ESRD (end stage renal disease) on dialysis ([facility]) 1 Occurrences starting 11/16/2024 until 11/16/2025 Scheduled Procedures Name Priority Associated Diagnoses Date/Ti me CREATION ARTERIOVENOUS (AV) FISTULA DIRECT 11/30/2024 12:14 PM CDT documented as of this encounter Visit Diagnoses Diagnosis ESRD (end stage renal disease) on dialysis (HCC)- Primary End stage renal disease documented in this encounter Care Teams Appeals Representative Relationship Specialty Start Date End Date Billy Brewer APRN-COSTUME SHOP COORDINATOR [address] [place] [address] PCP - General 06/03/23 documented as of this encounter
--- OUTSIDE RECORDS SUMMARY | 2024-11-30 22:13 | XMS_ITS | Encounter Summary ---
Author Organization [facility] Address [address] [facility] [place] [address] Care Team Providers Care Consultant Intern Name Role Phone Billy Brewer BRAKE DRUM LATHE OPERATOR-FOLD SKIVER Primary Care Provider [phone] Reason for Visit * Auth/Cert (Routine) Specialty Diagnoses / Procedures Referred By Rocio t Referred To Contact Procedures DE ANASTOMOSIS,AV,ANY SITE CREATION ARTERIOVENOUS (AV) FISTULA DIRECT Referral ID Status Reason Start Date Expiration Date Visits Re quested Visits Authorized [id number] 1 1 Encounter Details Date Type Department Care Team (Late st Contact Info) Description 11/30/2024 1:22 PM CDT - 11/30/2024 2:54 PM CDT Surgery [facility] - Perioperative Surgery [address] [place] [address] [place] [id number] [facility] [address] [place] [id number] EXPLORATION CEPHALIC VEIN AND CREATION BRACHIOBASILIC FISTULA Social History Tobacco Use Types Packs/Day Years [...] on file documented as of this encounter Last Filed Vital Signs Vital Sign Reading Time Taken Comments Blood Pressure 188/87 11/30/2024 2:13 PM CDT Pulse 77 11/30/2024 2:13 PM CDT Temperature 36.1 C (96.9 F) 11/30/2024 2:13 PM CDT Respiratory Rate 16 11/30/2024 2:13 PM CDT Oxygen Saturation 93% 11/30/2024 2:13 PM CDT Inhaled Oxygen Concentration - - Weight 80.3 kg (177 lb) 11/30/2024 12:04 PM CDT Height 157.5 cm (5' 2) 11/30/2024 12:04 PM CDT Body Mass Index 32.37 11/30/2024 12:04 PM CDT documented in this encounter Functional Status * Is person [...] Gaston Andres RN documented in this encounter Medications at Time of Discharge acetaminophen (Tylenol) 500 MG tablet Take 1 (one) tablet by mouth every 6 hours as needed for Fever or Pain Maximum allowable Acetaminophen amount = 4 Grams (4000 mg) / 24 hours. alum & mag hydroxide-simeth (Maalox Advanced) 200-200-20 MG/5ML suspension Take 30 mL by mouth every 4 hours as needed for Heartburn azelastine (Astepro) 205.5 MCG/SPRAY nasal spray [place] 2 (two) sprays into the nose 2 times daily 3pm & 9pm bisacodyl EC (Dulcolax) 5 MG tablet Take 1 (one) tablet by mouth as needed bismuth subsalicylate (Pepto-Bismol) 262 MG/15ML suspension Take 524 mg by mouth every 1 hour as needed for Diarrhea carbidopa-levodopa (Sinemet) 10-100 MG tablet Take 1 (one) tablet by mouth 2 times daily 3pm and 9pm 3 Cholecalciferol (vitamin D3) 1.25 MG (30139 UT) capsule Take 1 (one) capsule by mouth every 14 days diphenhydrAMINE (Benadryl) 25 MG tablet Take 1 (one) tablet by mouth every 6 hours as needed divalproex ER 24hr (Depakote ER) 250 MG tablet 1 (one) tablet 2 times daily 3 pm and 9 pm 3 Doxercalciferol (HECTOROL IV) 2 mcg 4 12/30/19 25 famotidine (Pepcid) 20 MG tablet Take 1 (one) tablet by mouth nightly as needed 3 fluticasone propionate (Flonase) 50 MCG/ACT nasal spray [place] 2 (two) sprays into each nostril 2 times daily 3 guaiFENesin (Robitussin) 100 MG/5ML syrup Take 10 mL by mouth every 4 hours as needed HYDROcodone-acetam inophen (Sharon) 5-325 MG tabletIndications: Pre-op exam Take 1 (one) tablet by mouth every 6 hours as needed for Pain 12 tablet 5 HYDROcodone-acetam inophen (Sharon) 5-325 MG tabletIndications: ESRD (end stage renal disease) ([facility]) Take 1 (one) tablet by mouth every 6 hours as needed for Pain 30 tablet 4 HYDROcodone-acetam inophen (Sharon) 5-325 MG tabletIndications: ESRD (end stage renal disease) ([facility]) Take 1 (one) tablet by mouth every 6 hours as needed for Pain 30 tablet 4 Lactobacillus (ACIDOPHILUS PO) Take 75 mm by mouth once daily At 3 pm Lactobacillus (Acidophilus Probiotic) 10 MG CAPS 4 levothyroxine (Synthroid) 88 MCG tablet Take 1 (one) tablet by mouth daily before breakfast 3 Methoxy PEG-Epoetin Beta (MIRCERA IJ) 30 mcg 4 04/11/20 25 neomycin-bacitraci n-polymyxin (Neosporin) 3.5-400-5000 topical ointment Apply to affected area every 4 hours as needed Affected area: topically to minor wounds every 4 hours as needed until healed max 2 doses 24 hours nystatin (Mycostatin) 029454 UNIT/GM powder Apply to affected area 3 times daily 3 pantoprazole EC (Protonix) 40 MG tablet Take 1 (one) tablet by mouth 2 times daily 3pm and 9pm polyethylene glycol 3350 (Miralax) 17 GM/SCOOP powder once daily as needed 3 Renvela 800 MG Take 1 (one) tablet by mouth 3 times daily with meals 3 risperiDONE (RisperDAL) 0.5 MG tablet 1 (one) tablet at bedtime 3 sertraline (Zoloft) 100 MG tablet Take 1 (one) tablet by mouth every afternoon At 3 pm 3 sevelamer (Renagel) 800 MG tablet Take 1 (one) tablet by mouth as needed With snacks simvastatin (Zocor) 20 MG tablet Take 1 (one) tablet by mouth at bedtime 4 terbinafine (LamISIL) 1 % cream 2 times daily 3 Ventolin HFA 108 (90 Base) MCG/ACT inhaler Inhale 2 (two) puffs by mouth at bedtime 3 documented as of this encounter H&P Notes * Chung Stinson MD - 11/30/2024 11:47 AM CDT Patient examined, H&P reviewed and remains current and/or changes noted Chung Stinson MD 11/30/2024 11:48 AM * Chung Stinson MD - 11/23/2024 12:32 PM CDT Surgical H&P Chief Complaint: Left arm swelling History and Physical: Aaliyah Enriquez is a 69 year old female who is referred by Juan J Obregon MD. Patient with ESRD ondialysis via left arm dialysis graft (by Dr. Schilling 05/2024). Presents with swelling and redness left forearm. Patient last had fistulogram 10/26/2024 showing moderately high stenosis was identifiedat the venous anastomosis between the graft and the brachial veins. Past Medical & Surgical History Past Medical History: Diagnosis Date Arthritis Bipolar disorder ([facility]) Chronic venous insufficiency COPD (chronic obstructive pulmonary disease) ([facility]) Cyclothymic disorder Disorder of thyroid ESRD (end stage renal disease) ([facility]) [facility] 11/16/2024 ESRD on dialysis ([facility]) GERD (gastroesophageal reflux disease) SALAMATOF (hard of hearing) HTN (hypertension) Hypothyroidism Mild developmental delay Parkinson's disease ([facility]) Pure hypercholesterolemia [Past Medical & Surgical History] [Past Medical & Surgical History] Past Surgical History Procedure Laterality Date A-V SHUNT CREATION Left 09/02/2023 Left; LEFT UPPER ARM CEPHALIC VEIN TRANSPOSITION Appendectomy INSERTION DIALYSIS CATHETER VASCULAR PROCEDURE/SURGERY Left 06/04/2023 Left; LEFT UPPER ARM DIALYSIS FISTULA VASCULAR PROCEDURE/SURGERY Left 05/25/2024 Left; LEFT UPPER ARM ARTERIOVENOUS (AV) GRAFT [Allergies] [Allergies] Allergen Reactions Nsaids Other Hx, GI ulcers due to kidney function [Medications] [Medications] Outpatient Medications Marked as Taking for the 11/16/24 encounter (Office Visit) with Chung Stinson MD Medication Sig Dispense Refill acetaminophen (Tylenol) 325 MG tablet Take 2 (two) tablets by mouth every 4 hours as needed acetaminophen (Tylenol) 500 MG tablet Take 1 (one) tablet by mouth every 6 hours as needed for Fever or Pain Maximum allowable Acetaminophen amount = 4 Grams (4000 mg) / 24 hours. alum & mag hydroxide-simeth (Maalox Advanced) 200-200-20 MG/5ML suspension Take 20 mL by mouth every 4 hours as needed azelastine (Astepro) 205.5 MCG/SPRAY nasal spray [place] 2 (two) sprays into the nose 2 times daily 3pm & 9pm bisacodyl EC (Dulcolax) 5 MG tablet Take 1 (one) tablet by mouth as needed carbidopa-levodopa (Sinemet) 10-100 MG tablet Take 1 (one) tablet by mouth 2 times daily 3pm and 9pm diphenhydrAMINE (Benadryl) 25 MG tablet Take 1 (one) tablet by mouth every 6 hours as needed divalproex ER 24hr (Depakote ER) 250 MG tablet 1 (one) tablet 2 times daily 3 pm and 9 pm Doxercalciferol (HECTOROL IV) 2 mcg famotidine (Pepcid) 20 MG tablet Take 1 (one) tablet by mouth as needed fluticasone propionate (Flonase) 50 MCG/ACT nasal spray [place] 2 (two) sprays into each nostril 2 times daily guaiFENesin (Robitussin) 100 MG/5ML syrup Take 10 mL by mouth every 4 hours as needed HYDROcodone-acetaminophen (Sharon) 5-325 MG tablet Take 1 (one) tablet by mouth every 6 hours as needed for Pain 30 tablet 0 HYDROcodone-acetaminophen (Sharon) 5-325 MG tablet Take 1 (one) tablet by mouth every 6 hours as needed for Pain 30 tablet 0 Lactobacillus (Acidophilus Probiotic) 10 MG CAPS levothyroxine (Synthroid) 88 MCG tablet Methoxy PEG-Epoetin Beta (MIRCERA IJ) 30 mcg nystatin (Mycostatin) 309397 UNIT/GM powder Apply to affected area 3 times daily pantoprazole EC (Protonix) 40 MG tablet Take 1 (one) tablet by mouth 2 times daily 3pm and 9pm polyethylene glycol 3350 (Miralax) 17 GM/SCOOP powder once daily as needed Renvela 800 MG Take 1 (one) tablet by mouth 3 times daily with meals risperiDONE (RisperDAL) 0.5 MG tablet 1 (one) tablet at bedtime sertraline (Zoloft) 100 MG tablet Take 1 (one) tablet by mouth every afternoon simvastatin (Zocor) 20 MG tablet Take 1 (one) tablet by mouth at bedtime Ventolin HFA 108 (90 Base) MCG/ACT inhaler Inhale 2 (two) puffs by mouth at bedtime [Social History] [Social History] Tobacco Use Smoking status: Never Passive exposure: Never Smokeless tobacco: Never Vaping Use Vaping status: Never Used Substance Use Topics Alcohol use: Never Drug use: Never [Family History] [Family History] Problem Relation Name Age of Onset Other Neg Hx neg family history Physical Examination: BMI Body mass index is 31.09 kg/m??. Constitutional: Awake and alert in no acute distress Respiratory: Lungs are clear, no distress Cardiovascular:Regular rate and rhythm. GI: Abdomen is soft and non tender. Musculoskeletal:All four extremities are warm and well perfused. Left arm with swelling down to thelevel of the wrist. There is a palpable thrill in the dialysis graft. Superficial veins and scarring noted left chest wall. Neurologic: Intact. Data Reviewed Today: fistulogram 10/26/2024 reviewed today in Epic Vein mapping ordered today and results reviewed today, showed patent right upper arm cephalic vein Impression/Plan: ESRD on hemodialysis via left arm access. It is my concern that due to recurrent central venous stenoses on the left the longevity of the access is questionable. She does have a good right arm cephalic vein. I will plan right upper arm dialysis fistula brachial artery to cephalic vein. I have discussed the risks, benefits and alternatives to surgery with the patient who understands and wishes to proceed. We will try to continue to preserve the left extremity access until the right extremity access matures. documented in this encounter OR Notes * Brief Op Note - Chung Stinson MD - 11/30/2024 12:40 PM CDT Post-Operative Note Preoperative Diagnosis: ESRD Postoperative Diagnosis: ESRD Procedure: Exploration right cephalic vein. Creation brachiobasilic fistula Surgeon: Chung Stinson MD Electrolysis Operator: MASSIEL Type of anesthesia: General, Local Complications: none EBL: 25 cc documented in this encounter Plan of Treatment Upcoming Encounters Date Type Department Care Team (Late st Contact Info) Description 12/14/2024 10:20 AM CDT Office Visit [facility] - Surgery [address] [place] [address], [address] [place] [address] [place] [address] [address] 01/25/2025 2:45 PM CDT Appointment [facility] Services [address] [facility], [address] [place] [address] [place] [address] [facility] [address] [address] [place] [id number] [place] [address] [place] [address] [address] [place] [id number] [place] [address] Scheduled Orders Name Type Priority Associated Diagnoses Orde r Schedule BASIC METABOLIC PANEL (CALCIUM TOTAL) Lab STAT Pre-op exam ONCE for 1 Occurrences starting 11/30/2024 until 11/30/2024 Scheduled Procedures Name Priority Associated Diagnoses Date/Ti me CREATION ARTERIOVENOUS (AV) FISTULA DIRECT 11/30/2024 12:14 PM CDT documented as of this encounter Procedures Procedure Name Priority Date/Time Associated Diagnosis Comments BLOOD GAS+COOX+ELECTROLYT ES+METAB VENOUS Routine 11/30/2024 12:10 PM CDT documented in this encounter Results * (ABNORMAL) BLOOD GAS+COOX+ELECTROLYTES+METAB VENOUS (11/30/2024 12:10 PM CDT) pH Venous 7.48(H) 7.32 - 7.42 pH 11/30/2024 12:10 PM CDT [facility] pO2 Venous 39 35 - 40 mmHg 11/30/2024 12:10 PM CDT [facility] pCO2 Venous 46 40 - 50 mmHg 11/30/2024 12:10 PM CDT [facility] HCO3 Venous 34.3(H) 24 - 26 mmol/L 11/30/2024 12:10 PM CDT [facility] Base Excess Venous 9.7(H) -2.0 - 2.0 mmol/L 11/30/2024 12:10 PM CDT [facility] Oxyhemoglobin Venous 64.7 % 11/05 12:10 PM CDT [facility] Deoxyhemoglobin (HHB) Venous % 33.4 % 11/30/2024 12:10 PM CDT [facility] Methemoglobin <0.8 0.0 - 2.0 % 11/30/2024 12:10 PM CDT [facility] Carboxyhemoglobin 1.9 0.0 - 2.0 % 11/30/2024 12:10 PM CDT [facility] O2 Content Venous 9.6 ml/dL 025 12:10 PM CDT [facility] Hemoglobin by COOX 10.5(L) 12.0 - 15.6 g/dL 11/30/2024 12:10 PM CDT [facility] O2 Saturation Venous 66(L) >=70 % 11/05 12:10 PM CDT [facility] Sodium Whole Blood 137 135 - 145 mmol/L 11/30/2024 12:10 PM CDT [facility] Potassium Whole Blood 4.6 3.5 - 5.5 mmol/L 11/30/2024 12:10 PM CDT [facility] Chloride WB 101 101 - 111 mmol/L 11/30/2024 12:10 PM CDT [facility] Calcium Ionized 1.18 mmol/L 12:10 PM CDT [facility] Ionized Calcium pH Adjusted 1.22 1.19 - 1.34 mmol/L 11/30/2024 12:10 PM CDT [facility] Anion Gap (AG) Arterial 6(L) 8 - 18 mmol/L 11/30/2024 12:10 PM CDT [facility] Glucose WB 88 70 - 99 mg/dL 11/30/2024 12:10 PM CDT [facility] Lactic Acid Whole Blood 1.7 <=2.0 mmol/L 11/30/2024 12:10 PM CDT [facility] Blood BLOOD SPECIMEN / Unknown 11/30/2024 12:10 PM CDT 11/30/2024 12:11 PM CDT Narrative [facility] - 11/30/2024 12:10 PM CDT Test performed by a Licensed Healthcare Provider us Chung Stinson MD LAB - BLOOD GASES ORDERA BLES Final Result [facility] [address] [phone] documented in this encounter Visit Diagnoses Not on filedocumented in this encounter Administered Medications Inactive Administered Medications - up to 3 most recent administrations Medication Order MAR Action Action Date Dose Rate Site 0.9% NaCl infusion at 20 mL/hr, Intravenous, PRE-OP CONTINUOUS, Starting on Fri11/30/24 at 1200, Until Fri11/30/24 at 1339, For Dialysis or Chronic Renal Failure patients. Use 500 ml bag and micro drip tubing Please order 2 bags for all dialysis robotic patients, Pre-op $ New Bag/Syringe 11/30/2024 12:14 PM CDT 20 mL/hr 0.9% NaCl irrigation solution PRN, Starting on Fri11/30/24 at 1246, Until Fri11/30/24 at 1339, Intra-op $ Given 11/30/2024 12:46 PM CDT 1,000 mL fentaNYL (PF) (Sublimaze) injection 25 mcg 25 mcg, Intravenous, EVERY 10 MIN PRN, Mild Pain, 4 doses, Starting on Fri11/30/24 at 1340, Until Fri11/30/24 at 1404, Maximum total of 4 doses. If patient reaches max total dose, please consult anesthesiologist prior to further administration of pain meds. Hold pain meds if there are signs of hypoventilation. Patient preference for lesser PRN pain meds may be honored when the patient requests a less strong medication, a lower dose, or a less intrusive route of administration when the lesser drug, dose and route have been ordered for the patient. This patient request must be documented in the MAR. If both oral and IV options are ordered for the same pain severity, give oral first unless patient cannot tolerate oral intake, PACU $ Given 11/30/2024 1:46 PM CDT 25 mcg heparin 5,000 Units in 0.9% NaCl irrigation 500 mL irrigation PRN, Starting on Fri11/30/24 at 1250, Until Fri11/30/24 at 1339, Intra-op $ Given 11/30/2024 12:50 PM CDT lidocaine 1% (Xylocaine) - EPINEPHrine 1:100,000 injection PRN, Starting on Fri11/30/24 at 1240, Until Fri11/30/24 at 1339, Intra-op $ Given 11/30/2024 12:40 PM CDT 2 mL thrombin (Thrombogen; Thrombostat) kit PRN, Starting on Fri11/30/24 at 1325, Until Fri11/30/24 at 1339, Intra-op $ Given 11/30/2024 1:25 PM CDT 5,000 Units documented in this encounter Active and Recently Administered Medications Times are shown in CDT. Continuous Medication Order 11/28/2024 11/29/2024 11/30/2024 0.9% NaCl infusion (CANCELED) at 20 mL/hr, Intravenous, PRE-OP CONTINUOUS, Starting on Fri11/30/24 at 1200, Until Fri11/30/24 at 1339, For Dialysis or Chronic Renal Failure patients. Use 500 ml bag and micro drip tubing Please order 2 bags for all dialysis robotic patients, Pre-op 1214 ($ New Bag/Syri nge - Provider: Pratima Motley RN) PRN Medication Order 11/28/2024 11/29/2024 11/30/2024 0.9% NaCl irrigation solution (CANCELED) PRN, Starting on Fri11/30/24 at 1246, Until Fri11/30/24 at 1339, Intra-op 1246 ($ Given - Prov ider: Chung Stinson MD) fentaNYL (PF) (Sublimaze) injection 25 mcg (CANCELED) 25 mcg, Intravenous, EVERY 10 MIN PRN, Mild Pain, 4 doses, Starting on 11/30/24 at 1340, Until 11/30/24 at 1404, Maximum total of 4 doses. If patient reaches max total dose, please consult anesthesiologist prior to further administration of pain meds. Hold pain meds if there are signs of hypoventilation. Patient preference for lesser PRN pain meds may be honored when the patient requests a less strong medication, a lower dose, or a less intrusive route of administration when the lesser drug, dose and route have been ordered for the patient. This patient request must be documented in the MAR. If both oral and IV options are ordered for the same pain severity, give oral first unless patient cannot tolerate oral intake, PACU 1346 ($ Given - Prov ider: Carley Hayes RN) heparin 5,000 Units in 0.9% NaCl irrigation 500 mL irrigation (CANCELED) PRN, Starting on 11/30/24 at 1250, Until 11/30/24 at 1339, Intra-op 1250 ($ Given - Prov ider: Chung Stinson MD) lidocaine 1% (Xylocaine) - EPINEPHrine 1:100,000 injection (CANCELED) PRN, Starting on e 11/30/24 at 1240, Until 11/30/24 at 1339, Intra-op 1240 ($ Given - Prov ider: Chung Stinson MD) thrombin (Thrombogen; Thrombostat) kit (CANCELED) PRN, Starting on e 11/30/24 at 1325, Until 11/30/24 at 1339, Intra-op 1325 ($ Given - Prov ider: Chung Stinson MD) documented in this encounter Care Teams Consultant Intern Relationship Specialty Start Date End Date Billy Brewer APRN-ELVIA [address] [id number] PCP - General 06/03/23 documented as of this encounter
--- OUTSIDE RECORDS SUMMARY | 2024-11-30 22:13 | XMS_ITS | Data Portability ---
Author Organization [place] - [facility] Mashed jobs, Main Office Address [address] [place] [address] Care Team Providers Care Public Relations Account Executive Name Role Phone FRANCK WHATLEY Primary Care Provider Assessment No assessment recorded. Plan of Treatment Reminders Order Date Submit Date Provider Last Modified By Organization Details Last Modified Time Details Appointments Follow Up 30 2024 09:30A M MAXIME Wallace Not available Not available Not available Lab lipid panel, serum 2024 025 [facility] (Lab), [address] [place], [address], 10/08/2024 05:28:50 CMP, serum or plasma 2024 025 [facility] (Lab), [address] [place], [address], 10/08/2024 05:28:50 CBC w/ auto diff 2024 025 [facility] (Lab), [address] [place], [address], 10/08/2024 05:28:50 glycohemo globin, total, blood [address] (Lab), [address] [place], [address], 10/14/2024 08:07:08 noninvasi ve colorecta l cancer DNA + occult blood screening , QL, stool 2024 025 [place] [id number] [place] (Cologuard Orders Only), [address], [address], [place], [address], 10/14/2024 08:07:08 TSH, serum or plasma 2024 025 [facility] (Lab), [address] [place], [address], 10/08/2024 05:28:50 hepatic function panel, serum 2023 024 [facility] (Lab), [address] [place], [address], 04/29/2024 19:20:12 Referral pulmonolo gist referral - Please call patient to schedule an appointme nt. Thank you. 2024 025 [email or web address] Bharat Bowen MD, [address] [place], [address], 10/14/2024 12:45:59 Procedures None recorded. Surgeries None recorded. Imaging None recorded. Medication Orders None recorded. Patient TargetsNo targets recorded. Patient InstructionsNo instructions recorded. 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 Thank you. Referring Physician: Heather Owusu, Family Medicine, Encounter Date: 10/07/2024 Results Created Date Observation Date Name Description Value Unit Range Abnormal Flag Note LastModifiedBy Organization Detail LastModifiedTime 09/30/1909/30/2023 COMPR EHENS JENNIE METAB OLIC PANEL sodium 135 mmol/ L 137-14 5 low Not Available [facility] (Lab) [address] [place], [address], 09/30/2023 20:11:21 09/30/19 24 09/30/2023 COMPR EHENS JENNIE METAB OLIC PANEL potassium 4.4 mmol/ L 3.5-5. 1 Not Available [facility] (Lab) [address] [place], [address], 09/30/2023 20:11:21 09/30/19 24 09/30/2023 COMPR EHENS JENNIE METAB OLIC PANEL chloride 100 mmol/ L 98-107 Not Available [facility] (Lab) [address] [place], [address], 09/30/2023 20:11:21 09/30/19 24 09/30/2023 COMPR EHENS JENNIE METAB OLIC PANEL carbon dioxide 33 mmol/ L 22-30 high Not Available [facility] (Lab) [address] [place], [address], 09/30/2023 20:11:21 09/30/19 24 09/30/2023 COMPR EHENS JENNIE METAB OLIC PANEL anion gap 6.4 mmol/ L 14-22 low Not Available [facility] (Lab) [address] [place], [address], 09/30/2023 20:11:21 09/30/19 24 09/30/2023 COMPR EHENS JENNIE METAB OLIC PANEL glucose 94 mg/dL 70-99 Not Available [facility] (Lab) [address] [place], [address], 09/30/2023 20:11:21 09/30/19 24 09/30/2023 COMPR EHENS JENNIE METAB OLIC PANEL BUN 14 mg/dL 8-19 Not Available [facility] (Lab) [address] [place], [address], 09/30/2023 20:11:21 09/30/19 24 09/30/2023 COMPR EHENS JENNIE METAB OLIC PANEL creatinine 2.96 mg/dL 0.66-1 .25 high Not Available [facility] (Lab) [address] [place], [address], 09/30/2023 20:11:21 09/30/19 24 09/30/2023 COMPR EHENS JENNIE METAB OLIC PANEL GFR 16 Refer ence Range : [place] ge GFR Healt hy Adult : >60 mL/mi n/1.7 3 m2 Chron ic Kidne y Disea se: 15-60 mL/mi n/1.7 3 m2 Kidne y Failu re: <15/m L/min /1.73 m2 www.n iddk. nih.g ov The MDRD study equat ion has not been valid ated in child piyush <18 years of age; pregn ant women ; the elder ly >85 years of age; or in some racia l or ethni c subgr oups, such as Hispa nics. Outsi de the valid ated sanket eters , estim ated GFR is less accur ate, requi ring clini uzair judgm ent on a case- by-ca se basis . Clini uzair inter preta tion for other races and ages must be made by the clini sammy. The MDRD study equat ion has not been valid ated for the evalu ation of serum creat inine relat ed to nutri nia l statu s or medic ation usage . For perso ns <18 years of age, a pedia tric GFR calcu lator is avail able on the [facility] websi te: https ://marie w.isma steven.o bhanu/pr ofess ional s/kdo qi/gf r_cal culat or Not Available [facility] (Lab) [address] [place], [address], 09/30/2023 20:11:21 09/30/19 24 09/30/2023 COMPR EHENS JENNIE METAB OLIC PANEL alkaline phosphatase 129 U/L 38-126 high Not Available [facility] (Lab) [address] [place], [address], 09/30/2023 20:11:21 09/30/19 24 09/30/2023 COMPR EHENS JENNIE METAB OLIC PANEL alanine aminotransfe rase 13 U/L 0-35 Not Available [facility] (Lab) [address] [place], [address], 09/30/2023 20:11:21 09/30/19 24 09/30/2023 COMPR EHENS JENNIE METAB OLIC PANEL aspartate aminotransfe rase 25 U/L 15-37 Not Available [facility] (Lab) [address] [place], [address], 09/30/2023 20:11:21 09/30/19 24 09/30/2023 COMPR EHENS JENNIE METAB OLIC PANEL bilirubin, total 0.40 mg/dL 0.20-1 .30 Not Available [facility] (Lab) [address] [place], [address], 09/30/2023 20:11:21 09/30/19 24 09/30/2023 COMPR EHENS JENNIE METAB OLIC PANEL calcium 9.8 mg/dL 8.4-10 .2 Not Available [facility] (Lab) [address] [place], [address], 09/30/2023 20:11:21 09/30/19 24 09/30/2023 COMPR EHENS JENNIE METAB OLIC PANEL total protein 6.6 g/dL 6.3-8. 2 Not Available [facility] (Lab) [address] [place], [address], 09/30/2023 20:11:21 09/30/19 24 09/30/2023 COMPR EHENS JENNIE METAB OLIC PANEL albumin 4.0 g/dL 3.0-4. 4 Not Available [facility] (Lab) [address] [place], [address], 09/30/2023 20:11:21 09/30/19 24 09/30/2023 COMPR EHENS JENNIE METAB OLIC PANEL globulin 2.6 g/dL 2.6-4. 2 Not Available [facility] (Lab) [address] [place], [address], 09/30/2023 20:11:21 09/30/19 24 09/30/2023 COMPR EHENS JENNIE METAB OLIC PANEL A/G ratio 1.5 ratio 1.0-2. 0 Not Available [facility] (Lab) [address] [place], [address], 09/30/2023 20:11:21 09/30/19 24 09/30/2023 LIPID PANEL cholesterol 103 mg/dL 140-19 9 low NIH TORSTEN NSUS RECOM MENDA TION FOR BIBIANA STERO L: ADULT CHILD LOW RISK: <200 <170 BORDE RLINE : <200- 239 ----- HIGH RISK: >240 >200 Not Available [facility] (Lab) [address] [place], [address], 09/30/2023 20:11:22 09/30/19 24 09/30/2023 LIPID PANEL triglyceride s 187 mg/dL 0-150 high NIH TORSTEN NSUS REPOR T RECOM MENDA TION FOR TRIGL YCERI SHEN: ADULT CHILD LOW RISK: <150 ----- BODER LINE: 150-1 99 ----- HIGH RISK: >200 ----- Not Available [facility] (Lab) [address] [place], [address], 09/30/2023 20:11:22 09/30/19 24 09/30/2023 LIPID PANEL HDL cholesterol 52 mg/dL 40- Not Available [facility] (Lab) [address] [place], [address], 09/30/2023 20:11:22 09/30/19 24 09/30/2023 LIPID PANEL LDL cholesterol, calculated 14 mg/dL 0-130 NIH TORSTEN NSUS REPOR T RECOM MENDA TIONS FOR LDL: ADULT CHILD LOW RISK <130 <110 (OPTI MAL LDL) <100 ----- BORDE RLINE : 130-1 59 ----- HIGH RISK: >160 >130 A TRIGL YCERI DE RESUL T >400 INVAL IDATE S THE CALCU LATIO N FOR LDL FRACT IONAT ION - THE LDL RESUL T WILL NOT BE REPOR ZAY. Not Available [facility] (Lab) [address] [place], [address], 09/30/2023 20:11:22 09/30/19 24 09/30/2023 TSH thyroid-stim ulating hormone 4.200 uIU/m L 0.465- 4.680 Not Available [facility] (Lab) [address] [place], [address], 09/30/2023 20:40:10 09/30/19 24 09/30/2023 CBC/C OMPLE TE BLD COUNT W/DIF F white blood cells 5.0 x10'3 /uL 4.2-10 .8 Not Available [facility] (Lab) [address] [place], [address], 09/30/2023 21:17:27 09/30/19 24 09/30/2023 CBC/C OMPLE TE BLD COUNT W/DIF F red blood cells 4.14 x10'6 /uL 3.80-5 .20 Not Available [facility] (Lab) [address] [place], [address], 09/30/2023 21:17:27 09/30/19 24 09/30/2023 CBC/C OMPLE TE BLD COUNT W/DIF F hemoglobin 12.2 g/dL 12.0-1 5.6 Not Available [facility] (Lab) [address] [place], [address], 09/30/2023 21:17:27 09/30/19 24 09/30/2023 CBC/C OMPLE TE BLD COUNT W/DIF F hematocrit 38.2 % 35.7-4 5.7 Not Available [facility] (Lab) [address] [place], [address], 09/30/2023 21:17:27 09/30/19 24 09/30/2023 CBC/C OMPLE TE BLD COUNT W/DIF F mean red cell volume 92.3 fL 82.0-9 9.0 Not Available [facility] (Lab) [address] [place], [address], 09/30/2023 21:17:27 09/30/19 24 09/30/2023 CBC/C OMPLE TE BLD COUNT W/DIF F mean red cell hemoglobin 29.5 pg 27.0-3 3.0 Not Available [facility] (Lab) [address] [place], [address], 09/30/2023 21:17:27 09/30/19 24 09/30/2023 CBC/C OMPLE TE BLD COUNT W/DIF F mean RBC HGB concentratio n 31.9 g/dL 31.0-3 6.0 Not Available [facility] (Lab) [address] [place], [address], 09/30/2023 21:17:27 09/30/19 24 09/30/2023 CBC/C OMPLE TE BLD COUNT W/DIF F red cell distribution width 14.3 % 11.8-1 5.5 Not Available [facility] (Lab) [address] [place], [address], 09/30/2023 21:17:27 09/30/19 24 09/30/2023 CBC/C OMPLE TE BLD COUNT W/DIF F platelets 81 x10'3 /uL 150-40 0 low Not Available [facility] (Lab) [address] [place], [address], 09/30/2023 21:17:27 09/30/19 24 09/30/2023 CBC/C OMPLE TE BLD COUNT W/DIF F mean platelet volume 11.4 fL 9.0-12 .4 Not Available [facility] (Lab) [address] [place], [address], 09/30/2023 21:17:27 09/30/19 24 09/30/2023 CBC/C OMPLE TE BLD COUNT W/DIF F neutrophils 49.0 % 39.0-7 2.0 Not Available [facility] (Lab) [address] [place], [address], 09/30/2023 21:17:27 09/30/19 24 09/30/2023 CBC/C OMPLE TE BLD COUNT W/DIF F lymphocytes 39.3 % 16.0-4 7.0 Not Available [facility] (Lab) [address] [place], [address], 09/30/2023 21:17:27 09/30/19 24 09/30/2023 CBC/C OMPLE TE BLD COUNT W/DIF F monocytes 8.5 % 5.0-12 .0 Not Available [facility] (Lab) [address] [place], [address], 09/30/2023 21:17:27 09/30/19 24 09/30/2023 CBC/C OMPLE TE BLD COUNT W/DIF F eosinophils 2.4 % 1.0-7. 0 Not Available [facility] (Lab) [address] [place], [address], 09/30/2023 21:17:27 09/30/19 24 09/30/2023 CBC/C OMPLE TE BLD COUNT W/DIF F basophils 0.6 % 0.0-2. 0 Not Available [facility] (Lab) [address] [place], [address], 09/30/2023 21:17:27 09/30/19 24 09/30/2023 CBC/C OMPLE TE BLD COUNT W/DIF F immature granulocytes 0.2 % 0.00-0 .50 Not Available [facility] (Lab) [address] [place], [address], 09/30/2023 21:17:27 09/30/19 24 09/30/2023 CBC/C OMPLE TE BLD COUNT W/DIF F neutrophils, absolute count 2.47 x10'3 /uL 1.5-8. 0 Not Available [facility] (Lab) [address] [place], [address], 09/30/2023 21:17:27 09/30/19 24 09/30/2023 CBC/C OMPLE TE BLD COUNT W/DIF F lymphocytes, absolute count 1.98 x10'3 /uL 1.07-3 .43 Not Available [facility] (Lab) [address] [place], [address], 09/30/2023 21:17:27 09/30/19 24 09/30/2023 CBC/C OMPLE TE BLD COUNT W/DIF F monocytes, absolute count 0.43 x10'3 /uL 0.29-0 .99 Not Available [facility] (Lab) [address] [place], [address], 09/30/2023 21:17:27 09/30/19 24 09/30/2023 CBC/C OMPLE TE BLD COUNT W/DIF F eosinophils, absolute count 0.12 x10'3 /uL 0.02-0 .53 Not Available [facility] (Lab) [address] [place], [address], 09/30/2023 21:17:27 09/30/19 24 09/30/2023 CBC/C OMPLE TE BLD COUNT W/DIF F basophils, absolute count 0.03 x10'3 /uL 0.01-0 .08 Not Available [facility] (Lab) [address] [place], [address], 09/30/2023 21:17:27 09/30/19 24 09/30/2023 CBC/C OMPLE TE BLD COUNT W/DIF F immature granulocytes ,absolute 0.01 x10'3 /uL 0.00-0 .05 Not Available [facility] (Lab) [address] [place], [address], 09/30/2023 21:17:27 09/30/19 24 09/30/2023 CBC/C OMPLE TE BLD COUNT W/DIF F nucleated red blood cells 0.0 % -0 Not Available [facility] (Lab) [address] [place], [address], 09/30/2023 21:17:27 09/30/19 24 09/30/2023 CBC/C OMPLE TE BLD COUNT W/DIF F NRBC# 0.00 x10'3 /uL Not Available [facility] (Lab) [address] [place], [address], 09/30/2023 21:17:27 09/30/19 24 09/30/2023 HEMOG LOBIN A1C HA1C 4.5 % 4.0-6. 0 Diabe rory Screjerald ivania Crite vitor: <5.7% Consi stent with absen ce of diabe rory 5.7-6 .4% Consi stent with incre ased risk for diabe rory (pred iabet es) >OR=6 .5% Consi stent with diabe rory REFER ENCE: Diabe rory Care 2016, 39(Ralph ppl.1 ):s13 -s22 Not Available [facility] (Lab) [address] [place], [address], 09/30/2023 22:12:47 10/16/19 25 10/15/2024 COLOG UARD cologuard result reportable NEGATI VE negati ve normal The Colog uard Plus (TM) test was perfo rmed on this speci men. NEGAT JENNIE TEST RESUL T. A negat jennie (norm al) Colog uard Plus resul t means the patie nt has a less- than- avera ge chanc e of havin g color ectal cance r (CRC) or advan aminah preca ncer (poly ps or lesio ns that could becom e cance r). Negat jennie is the donald l value (refe rence range ) for this assay . Guide lines recom mend jona redd again 3 years after a negat jennie Colog uard Plus resul t. Rose nued scree ivania incre ases the [facility] [facility] e of findi ng CRC early or preve nting it entir karla. A clini uzair valid ation study showe d the Colog uard Plus test is effec tive at [facility] g out CRC. Out of every 10,00 0 patie nts testi ng negat jennie, appro ximat karla 2 will be false ly reass ured that they do not have CRC, and out of every 100 patie nts testi ng negat jennie, appro ximat karla 7 patie nts will be false ly reass ured they do not have advan aminah preca ncer. TEST DESCR IPTIO N: The Colog uard Plus test is a multi -targ et stool DNA (mt-s DNA) test that zabrina zes DNA and hemog lobin bioma rkers in stool . It uses a propr ietar y algor ithm to quali tativ karla detec t CRC and advan aminah preca ncer. It is FDA-a pprov ed and indic ated for use in adult s 45 years or older at [facility] risk for CRC. A posit jennie (abno rmal) resul t shoul d be follo wed by a colon oscop y. Patie nts with a negat jennie (norm al) resul t shoul d scree n again in 3 years . False posit jennie and false negat jennie resul ts may occur . The USPST F recom mends the Colog uard test as a CRC scree ivania optio n. Their model ing estim ates that scree ivania with the test every 3 years from ages 45-85 could preve nt up to 73% of CRC and avoid up to 85% of CRC s. A 18 1-pat ient clini uzair trial found the Colog uard Plus test effec tivel y detec ts CRC and preca ncer. The study found the test was 95% sensi tive for CRC, 43% sensi tive for advan aminah preca ncer, and had a 91% speci ficit y ([facility] sammy Moore ure. Exact Scien sarah Corpo ratio joshua [place], [place] Visit www.c [facility] pPaciniancom /abou t/acc uracy -sens itivi ty-sp avera [facility] for more test infor duke siu, refer al boles, and elio acosta s. Not Available [facility] (Cologuard Orders Only) [address], [place], [address], 10/23/2024 23:16:59 01/12/20 24 01/12/2024 XR, chest , 2 view No observ ation record ed. [address], [place], [address], 01/27/2024 09:22:40 Result Notes None recorded. Problems Name Problem SNOMED Code Status Onset Date Resolution Date Notes Provider Name and Address Organization Details Recorded Time Hearing difficult y 646872921 Active 2022 MAXIME Moreau [address], [address], [place], [address] , [employer] 3 11:24:18 Chronic kidney disease 578250172 Active 2022 MAXIME Moreau [address], [address], [place], [address] , [employer] 3 11:24:43 Mild intellect ual disabilit y 83644426 Active 2022 MAXIME Moreau [address], [place], [address] , [employer] 3 11:26:22 Cyclothym ia 13628100 Active 2022 MAXIME Moreau [address], [address], [place], [address] , [employer] 3 11:26:31 Essential hypertens ion 23887306 Active 2022 MAXIME Moreau [address], [address], [place], [address] , [employer] 3 11:26:34 Hypothyro idism 40601806 Active 2022 MAXIME Moreau [address], [address], [place], [address] , [facility] 3 11:26:40 Dysmenorr hea 304758829 Active 2022 MAXIME Moreau [address], [address], [place], [address] , [place] [facility] 3 11:26:47 Arthritis 9995361 Active 2022 MAXIME Moreau [address], [address], [place], [address] , [facility] 3 11:27:40 Chronic obstructi ve pulmonary disease 06436442 Active 2022 MAXIME Moreau [address], [address], [place], [address] , [facility] - [facility] 3 11:27:47 Seasonal allergy 875783696 Active 2022 MAXIME Moreau [address], [address], [place], [address] , [facility] 3 11:27:54 Gastroeso phageal reflux disease without esophagit is 509865850 Active 2022 MAXIME Moreau [address], [address], [place], [address] , [facility] - [facility] 3 11:28:03 Hyperlipi demia 17278904 Active 2022 MAXIME Moreau [address], [address], [place], [address] , [facility] 3 11:28:09 Bipolar disorder 41603310 Active 2022 MAXIME Moreau [address], [address], [place], [address] , [facility] 3 11:28:16 Parkinson 's disease 35802691 Active 2022 MAXIME Moreau [address], [address], [place], [address] , [facility] [employer] [facility] 3 11:28:25 Low back pain 997184841 Active 2022 MAXIME Moreau [address], [address], [place], [address] , [facility] [employer] [facility] [employer] [facility] 3 11:39:56 Elevated blood-pre ssure reading without diagnosis of hypertens ion 228467027 Completed 202210/07/2024 MAXIME Wallace [address], [address], [place], [address] , [facility] [employer] [facility] [employer] [facility] 5 11:21:38 Impacted cerumen of bilateral ears 09252487216 [address] Active 2022 MAXIME Moreau [address], [address], [place], [address] , [facility] [employer] [facility] 3 11:21:33 Hearing loss 42865551 Active 2022 MAXIME Moreau [address], [address], [place], [address] , [facility] [employer] [facility] [employer] [facility] 3 11:22:26 Hearing loss 86048897 Active 2022 MAXIME Moreau [address], [place], [address] , [facility] [employer] [facility] 3 11:25:53 Toenail thickened 191482003 Active 2022 MAXIME Moreau [address], [address], [place], [address] , [facility] 3 16:54:13 Periphera l venous insuffici ency 52759102 Active 2022 Randa alarcon, [facility] 3 12:12:34 Foot callus 207456227 Active 2022 Frank Maza DPM [address], [address], [place], [address] , [employer] 3 15:24:47 Dystrophi a unguium 27217489 Active 2022 Frank Maza DPM [address], [address], [place], [address] , [employer] 3 15:24:51 Bunion 350017605 Active 2022 Frank Maza DPM [address], [address], [place], [address] , [employer] 3 15:24:54 Bunion 934674250 Active 2022 Frank Maza DPM [address], [address], [place], [address] , [employer] 3 15:25:00 Liver enzymes level above reference range 946153696 Active 2023 Billy Brewer [employer] [address], [address], [place], [address] , [employer] 4 11:46:53 Sleep apnea 85743418 Active 2024 MAXIME Wallace [address], [address], [place], [address] , [employer] 5 11:19:01 Problem Notes None recorded. Procedures Surgical History Date Name Laterality Status Provider Name and Address Organization Details Recorded Time 02/10/20 24 Ear Irrigation completed Billy Brewer [employer] [address], [address], [place], [address], [employer] 02/10/2024 14:16:41 09/30/19 24 Medicare Wellness CPT Code, subsequent completed Billy Brewer [employer] [address], [address], [place], [address], [employer] 10/07/2023 09:39:16 05/13/20 23 Nail Debridement completed Frank Maza DPM [address], [address], [place], [address], [facility] [employer] [facility] 05/13/2023 15:23:14 05/13/20 23 Callus Debridement, One completed Frank Maza DPM [address], [place], [address], [facility] [employer] [facility] 05/13/2023 15:23:06 02/12/20 23 Ear Irrigation completed MAXIME Moreau [address], [address], [place], [address], [facility] [employer] [facility] 02/11/2023 12:42:54 Appendectomy completed Randa Rendon [facility] [employer] [facility] 05/13/2023 12:09:57 Imaging Results None recorded. Procedure Notes None recorded. Medical Equipment None Reported. Allergies Allergen ID Allergen Name Allergen Category Reaction Reaction Severity Criticality Documentation Date Start Date Code Code System Note Provider Name and Address Organization Details Recorded Time 91992 Non-stero idal anti-infl ammatory agent (product) medicatio n Not available Not available Not available 11/19/2022 46409 005 SNOMED Ana Bhatt RN [facility], [facility] [employer] [facility] 11:02:22 Medications Name Sig Start Date Stop Date Status Note LastModified by Organization Details LastModified Time terbinafine HCl 1 % topical cream 10/07 completed Not Available Not Available Not Available divalproex 250 mg tablet,delay ed release Take 1 tablet twice a day by oral route. active Not Available Not Available No t Available ofloxacin 0.3 % eye drops 05/13 completed Not Available Not Available Not Available benzonatate 200 mg capsule 05/13 completed Not Available Not Available Not Available hydrocodone 5 mg-acetamino phen 325 mg tablet active Not Available Not Available Not Available Nystop 100,000 unit/gram topical powder 10/07 completed Not Available Not Available Not Available sertraline 100 mg tablet active Not Available Not Available Not Available clopidogrel 75 mg tablet 10/07 completed Not Available Not Available Not Available fenofibrate micronized 134 mg capsule 05/13 completed Not Available Not Available Not Available ketorolac 0.5 % eye drops 05/13 completed Not Available Not Available Not Available levothyroxin e 88 mcg tablet active Not Available Not Available Not Available amoxicillin 875 mg tablet 11/19 completed Not Available Not Available Not Available famotidine 20 mg tablet active Not Available Not Available Not Available prednisolone acetate 1 % eye drops,suspen bashir 05/13 completed Not Available Not Available Not Available hydrocodone 7.5 mg-acetamino phen 325 mg tablet 10/07 completed Not Available Not Available Not Available pantoprazole 40 mg tablet,delay ed release 10/07 completed Not Available Not Available Not Available simvastatin 20 mg tablet active Not Available Not Available Not Available diphenhydram ine 25 mg capsule Take 1 capsule every 4 hours by oral route. active Not Available Not Available No t Available carbidopa 10 mg-levodopa 100 mg tablet active Not Available Not Available Not Available polyethylene glycol 3350 17 gram/dose oral powder active Not Available Not Available Not Available fluticasone propionate 50 mcg/actuatio n nasal spray,suspen bashir 2024 active Not Available Not Available Not Avai lable risperidone 0.5 mg tablet 1 tab at bedtime active Not Available Not Available No t Available Ventolin HFA 90 mcg/actuatio n aerosol inhaler 10/07 completed Not Available Not Available Not Available bisacodyl 5 mg tablet Take 1 tablet as needed by oral route. active Not Available Not Available No t Available divalproex ER 250 mg tablet,exten ded release 24 hr active Not Available Not Available Not Available fenofibrate 160 mg tablet 05/13 completed Not Available Not Available Not Available Acidophilus 05/13 completed Not Available Not Available Not Available polyethylene glycol 3350 05/13 completed Not Available Not Available Not Available Yin-Lanta 10/07 completed Not Available Not Available Not Available Renvela 800 mg tablet 3 tabs TID active Not Available Not Available No t Available acetaminophe n 325 mg capsule Take as needed by oral route. active Not Available Not Available No t Available Acidophilus- Pectin 75 million cell-100 mg capsule active Not Available Not Available Not Available Lactobacillu s acidophilus 500 million cell capsule 10/07 completed Not Available Not Available Not Available Astepro Allergy 205.5 mcg (0.15 %) nasal spray active Not Available Not Available Not Available Vitals Date Recorded Body height Body mass index (BMI) Body weight Body temperature Heart rate Respiratory rate Oxygen saturation Oxygen saturation in Arterial blood by Pulse oximetry Systolic And Diastolic Provider Name and Address Organization Details Last Updated DateTime 5 162.56 cm 29.8 kg/m2 50137.6 3 g 96.9 [degF] 78 /min 20 /min 97 % 97 % 124/62 mm[Hg] Rani Zamudio RN [facility] [employer] [facility] 5 10:52:26 Date Recorded Body height Body mass index (BMI) Body weight Body temperature Heart rate Oxygen saturation Oxygen saturation in Arterial blood by Pulse oximetry Systolic And Diastolic Provider Name and Address Organization Details Last Updated DateTime 4 162.56 cm 28.7 kg/m2 84058.9 3 g 95.8 [degF] 80 /min 97 % 97 % 162/94 mm[Hg] Dina Ballesteros RN [facility] [employer] [facility] 4 11:25:10 Date Recorded Body height Body mass index (BMI) Body weight Body temperature Heart rate Oxygen saturation Oxygen saturation in Arterial blood by Pulse oximetry Systolic And Diastolic Provider Name and Address Organization Details Last Updated DateTime 4 162.56 cm 29.4 kg/m2 59243.3 g 96.3 [degF] 82 /min 98 % 98 % 142/84 mm[Hg] Dina Ballesteros RN [facility] [employer] [facility] 4 10:30:15 Date Recorded Body height Body mass index (BMI) Body weight Body temperature Heart rate Oxygen saturation Oxygen saturation in Arterial blood by Pulse oximetry Systolic And Diastolic Provider Name and Address Organization Details Last Updated DateTime 4 162.56 cm 29.2 kg/m2 68477.7 g 96.2 [degF] 89 /min 96 % 96 % 146/84 mm[Hg] Dina Ballesteros RN [facility] [employer] [facility] 4 14:07:18 Date Recorded Body height Body mass index (BMI) Body weight Body temperature Heart rate Oxygen saturation Oxygen saturation in Arterial blood by Pulse oximetry Systolic And Diastolic Provider Name and Address Organization Details Last Updated DateTime 4 162.56 cm 29.5 kg/m2 76666.8 9 g 96.8 [degF] 88 /min 96 % 96 % 140/72 mm[Hg] Dina Ballesteros RN [facility] [employer] [facility] 11:30:08 Social History Question Answer Notes LastModified by Aigou Details LastModified Time Tobacco Smoking Status Never Smoker Ana Bhatt RN [facility], [facility] [employer] [facility] 11/19/2022 11:07:45 Are You Blind Or Do You Have Difficulty Seeing? No Information n ot available 10/07/2024 In The 14 Days Before Symptom Onset, Have You Had Close Contact With A Laboratory-confirm ed COVID-19 While That Case Was Ill? No Information n ot available 10/07/2024 In The 14 Days Before Symptom Onset, Have You Had Close Contact With A Person Who Is Under Investigation For COVID-19 While That Person Was Ill? No Information not available 10/07/2024 Are You Deaf Or Do You Have Serious Difficulty Hearing? Yes Information not available 10/07/2024 Do You Have Any Pets? No Information not available 10/07/2024 What Is Your Relationship Status? Single Information not available 10/07/2024 Do You Use Your Seat Belt Or Car Seat Routinely? Yes Information not available 10/07/2024 Do You Have Smoke And Carbon Monoxide Detectors In Your Home? Yes Information not available 10/07/2024 Do You Participate In Social Media? No Information not available 10/07/2024 Have You Recently Traveled Abroad? No Information not available 10/07/2024 Do You Have Difficulty Walking Or Climbing Stairs? Yes Information not available 10/07/2024 Sex: Unknown Functional Status Question Answer Note LastModified by A[employer]ou Details LastModified Time What is your level of alcohol consumption? None [email or web address] Information not available 11/19/2022 Are you currently employed? No Information not available 10/07/2024 Do you have transportation difficulties? Yes Information not available 10/07/2024 Are you able to walk? YESLIMIT Information not available 10/07/2024 Do you have difficulty doing errands alone? Yes Information not available 10/07/2024 Are you able to care for yourself? Yes Information not available 10/07/2024 Do you have difficulty dressing or bathing? Yes Information not available 10/07/2024 Mental Status Question Answer Note LastModified by Organizat ion Details LastModified Time Do you feel stressed (tense, restless, nervous, or anxious, or unable to sleep at night)? [id number] Information not available 10/07/2024 Do you have difficulty concentrating, remembering or making decisions? Yes Information no t available 10/07/2024 Family History Nothing Reported. Medical History Condition Response ALLERGIES/HAYFEVER Y OBESITY Y DIALYSIS Y MUSCLE,JOINT OR BONE PROBLEMS Y Gynecological HistoryNo gynecological history recorded. Obstetrics History GPAL:G 0 P 0 0 0 0 Immunizations Vaccine Type Date Status Note Provider Nam e and Address Organization Details Recorded Time Tdap 5 completed Rani Zamudio RN [facility], [place] [employer] [facility] [employer] 10/07/2024 11:58:14 Influenza, split virus, quadrivalent, preservative 6 completed Heather Vegas APRN [address], [address], [facility] [employer] 03/16/2024 13:44:51 COVID-19, mRNA, LNP-S, PF, 100 mcg/0.5mL dose or 50 mcg/0.25mL dose 1 completed Heather Vegas APRN [address], [address], [place], [address], [facility] [employer] 03/16/2024 13:44:51 COVID-19, mRNA, LNP-S, PF, 100 mcg/0.5mL dose or 50 mcg/0.25mL dose 1 completed Heather Vegas APRN [address], [address], [place], [address], [facility] 03/16/2024 13:44:51 COVID-19, mRNA, LNP-S, PF, 100 mcg/0.5mL dose or 50 mcg/0.25mL dose 1 completed Heather Vegas APRN [address], [address], [place], [address], [facility] [employer] [facility] 03/16/2024 13:44:51 Pneumococcal conjugate PCV20, polysaccharide [id number] conjugate, adjuvant, PF 3 completed Heather Vegas APRN [address], [address], [place], [address], [facility] [employer] [facility] 03/16/2024 13:44:51 pneumococcal polysaccharide PPV23 4 completed Heather Vegas APRN [address], [address], [place], [address], [facility] [employer] [facility] 03/16/2024 13:44:51 influenza, unspecified formulation 8 completed Heather Vegas APRN [address], [address], [place], [address], [facility] [employer] [facility] 03/16/2024 13:44:51 Tdap 8 miguel Vegas APRN [address], [address], [place], [address], [facility] [employer] [facility] 03/16/2024 13:44:51 Pneumococcal conjugate PCV 13 5 completed Heather Vegas APRN [address], [address], [place], [address], [facility] 03/16/2024 13:44:51 varicella [address], [place], [address], [facility] 03/16/2024 13:44:51 varicella 4 completed Heather Vegas APRN [address], [address], [place], [address], [facility] [employer] [facility] 03/16/2024 13:44:51 zoster live 6 completed Heather Vegas APRN [address], [address], [place], [address], [facility] [employer] [facility] 03/16/2024 13:44:51 zoster live 9 completed Heather Vegas APRN [address], [address], [place], [address], [facility] [employer] [facility] 03/16/2024 13:44:51 Influenza, split virus, trivalent, preservative 3 completed Heather Vegas APRN [address], [address], [place], [address], [facility] [employer] [facility] 03/16/2024 13:44:51 Influenza, split virus, trivalent, preservative 4 completed [address], [place], [address], [facility] [employer] [facility] [employer] [facility] 03/16/2024 13:44:51 Td (adult), 2 Lf tetanus toxoid, preservative free, adsorbed 8 completed Heather Vegas APRN [address], [address], [place], [address], [facility] [employer] [facility] 03/16/2024 13:44:51 DTaP [address], [place], [address], [facility] [employer] [facility] 03/16/2024 13:44:51 Influenza, split virus, quadrivalent, PF 2 completed Heather Vegas APRN [address], [address], [place], [address], [facility] [employer] [facility] 03/16/2024 13:44:51 Influenza, split virus, quadrivalent, PF 7 completed Heather Vegas APRN [address], [place], [address], [place] [facility] [employer] [facility] 03/16/2024 13:44:51 Influenza, split virus, quadrivalent, PF 1 completed Heather Vegas APRN [address], [place], [address], [employer] [facility] [employer] [facility] 03/16/2024 13:44:51 Influenza, split virus, quadrivalent, PF 5 completed Heather Vegas APRN [address], [place], [address], [employer] [facility] 03/16/2024 13:44:51 COVID-19, mRNA, LNP-S, PF, 50 mcg/0.5 mL 3 completed Heather Vegas APRN [address], [place], [address], [employer] [facility] [employer] 03/16/2024 13:44:58 Influenza, split virus, quadrivalent, PF 3 completed Heather Vegas APRN [address] [facility] [address], [place], [address], [employer] 03/16/2024 13:44:58 Past Encounters Encounter ID Performer Location Encounter Start Date Encounter Closed Date Diagnosis/Indication Diagnosis SNOMED-CT Code Diagnosis ICD10 Code Diagnosis Note [id number] MAXIME Moreau [facility] Primary Care [address] [place] [address] 11/19/2022 10:52:25 11/19/2022 11:52:47 Hearing difficulty 046612100 H91.90 ChronicRec ommend f/u with audiology. Referral generated. Chronic ki dney disease 028346735 N18.9 ChronicRec eives dialysis 3x/week through [facility] Mild intel lectual disability 43897651 F70 Chronic, stablePt resides in [facility] and is under [facility] ip.No interventi ons indicated at this time.[employer]i al [employer] form completed (see scanned documentat ion) Cyclothymia 28432735 F34 .0 Sees psychiatry Essential hypertension 93564420 I10 Slightly elevated in office today.Asym ptomatic at this timeEncour aged pt to increase water intake, reduce caffeine intake, exercise regularly, decrease/e liminate sodium intake, work on weight loss and stress reductionW ill continue to monitor closely. Hypothyroidism 98433828 E03.9 Chronic, current status unknownCon tinue levothyrox ine 88mcg Low back pain 047331084 M54.50 Chronic, stable Arthritis 1631570 M19.90 Chronic, stableDisc ussed medication regimen as well as diet and exercise modificati on. Patient will apply heat/ice as needed for pain relief. Follow up in 3 months. Chronic ob structive pulmonary disease 81207496 J44.9 Discussed progressiv e nature of COPD at length. Encouraged proper breathing techniques . Advised compliance with inhaled medication s as directed. Encouraged patient to avoid cigarette smoke, allergens, and environmen anibal pollutants . Advised HVAC filters be changed seasonally as well. Seasonal allergy 0144562 04 J30.2 Chronic, stableSeas onal allergies can be mild with symptoms that do not affect our quality of life however they can be severe affecting quality of life and daily activities ..... medication s that help control the symptoms include intranasal and oral formulatio ns of antihistam devin, decongesta nts, and cortical steroids, and intranasal cromolyn, intranasal anticholin ergics and oral leukotrien e receptor antagonist s..... medication s well known to the public and go by the names of Flonase, Zyrtec, Sudafed, prednisone , and Singulair. Allergic rhinitis is an inflammato ry process of the nasal mucosa triggered by environmen anibal allergens. ... symptoms of allergic rhinitis can be intermitte nt mild persistent and moderate to severe. Gastroesop hageal reflux disease without esophagitis 555048484 K21.9 Anti-reflu x measures reviewed: avoid spicy foods, recumbency after eating. Small meals recommende d. Take medication on empty stomach with full glass water. Hyperlipidemia 68382752 E78.5 Recommend diet/exerc ise modificati ons. Increase intake of water/vege tables, decrease intake of greasy/fat ty/fried foods, and consider addition of daily fish oil supplement . Bipolar disorder 7607422 4 F31.9 ChronicSee s psych Parkinson's disease 4904 9000 G20 Chronic, current status unknownCon tinue to use walker for balance/am bulationMa y need to consider PT/OT. [id number] MAXIME Moreau [facility] Primary Care [facility] [address] [facility] [address] [place] [address] 02/11/2023 11:11:22 02/11/2023 11:49:47 Impacted cerumen of bilateral ears 7089264557 709881 H61.23 New problemAdv ised to avoid use of cotton swabs. Ok to use peroxide 2-3x/week to soften/marilou anse ear wax as needed between irrigation s. Irrigation performed in office today per procedure documentat ion. Hearing loss 59030979 H9 1.90 ChronicNor alexis wears hearing aids, but current devices need new batteries. Caregiver reports audiology unable to complete exam d/t cerumen. Essential hypertension 82680161 I10 New finding on exam todayNot currently on medication .Asymptoma tic at this timeElevat ion may be due, in part, to being due for renal dialysis.E ncouraged pt to increase water intake, reduce caffeine intake, exercise regularly, decrease/e liminate sodium intake, work on weight loss and stress reduction. Will continue to monitor closely and reach out to renal specialist if medication needed. [id number] Frank Maza DPM [facility] Podiatry [place] [address] [facility] [address] [place] [address] 05/13/2023 11:47:56 05/13/2023 15:31:37 Foot callus 779864471 L84 Right footdebrid ed without incidentof floadingmo nitor for wounds it presents seeking medical attention immediatel y Dystrophia unguium 41348 009 L60.3 Nails 1 through 10 were debrided with sharp mechanical debridemen t without incident. Nails were debrided and greater than 50% length and thickness where needed. Bunion 505959066 M21.61 1 educatedco nservative therapyoff loadingmon itor for wounds infectionf ollow-up 3 months [id number] TONO Carrillo [facility] Primary Care [facility] [address] [facility] [address] [place] [address] 07/15/2023 10:18:20 07/15/2023 11:38:04 Essential hypertension 78161427 I10 -bp 126/64, 67, no NIX, cp, sob-dialys is 3 times/week -Not currently on medication .-Asymptom atic at this time-Will continue to monitor closely and reach out to renal specialist if medication needed. Chronic ki dney disease 170695413 N18.9 -Chronic, stable-Rec eives dialysis 3x/week through [facility] Mild intel lectual disability 60571222 F70 -Chronic, stable-Pt resides in [facility] and is under [facility] ip.-No interventi ons indicated at this time Parkinson's disease 4904 9000 G20.A1 -Chronic, current status unknown-Co ntinue to use walker for balance/am bulation-M ay need to consider PT/OT, staff believes she is okay without PT at this time Hypothyroidism 99508373 E03.9 Chronic, current status unknownCon tinue levothyrox ine 88mcg Chronic ob structive pulmonary disease 99430577 J44.9 -chronic stable Hyperlipidemia 25926133 E78.5 Recommend diet/exerc ise modificati ons. Increase intake of water/vege tables, decrease intake of greasy/fat ty/fried foods, and consider addition of daily fish oil supplement . Bipolar disorder 3694720 4 F31.9 Chronic, stableSees psych [id number] Bella Lewis MD [facility] Primary Care [place] [address] [place] [address] 09/30/2023 10:51:55 09/30/2023 12:00:52 Adult health examination 021158200 Z00.00 Encouraged fresh fruits and veggies-lo w intakeIncr ease daily water intakeEnco urage 30 mins of daily exercise-d oes not exerciseCo lonoscopy- cologuard orderedWel l woman exams-decl devin pap and mammogramD EXA-declin edLDCT-not needed-lab s obtained Screening for malignant neoplasm of colon 573081850 Z12.11 [id number] Bella Lewis MD [facility] Primary Care [place] [address] [place] [address] 10/30/2023 11:17:47 10/30/2023 12:08:21 Essential hypertension 30112788 I10 10-30-23-ch ronic, stable-con tinues dialysis 3 times/week -bp checks at home weekly-tod ay bp 162/94, 80 no nix/cp/sob- per she drinks a lot of water, unsure how many glasses-en couraged staff to make appt with renal specials and keep journal of bps until that time 07-15-23-bp 126/64, 67, no NIX, cp, sob-dialys is 3 times/week -Not currently on medication .-Asymptom at at this time-Will continue to monitor closely and reach out to renal specialist if medication needed. [id number] TONO Carrillo [facility] Primary Care [facility] [address] [facility] [address] [facility] [address] 01/29/2024 10:22:50 01/29/2024 10:47:49 Essential hypertension 58660747 I10 01-31-24-ch ronic, stable-xenia lysis 3 times/day- bp weekly, ranges in the normal-no further interventi on needed 10-30-23-ch ronic, stable-con tinues dialysis 3 times/week -bp checks at home weekly-tod ay bp 162/94, 80 no nix/cp/sob- per she drinks a lot of water, unsure how many glasses-en couraged staff to make appt with renal specials and keep journal of bps until that time 07-15-23-bp 126/64, 67, no NIX, cp, sob-dialys is 3 times/week -Not currently on medication .-Asymptom at at this time-Will continue to monitor closely and reach out to renal specialist if medication needed. [id number] BRADLY Gardiner [facility] Primary Care [facility] [address] [facility] [address] [facility] [address] 02/10/2024 14:00:45 02/10/2024 16:08:51 Impacted cerumen of bilateral ears 2649370250 592777 H61.23 irrigated bilaterall y-cleared [id number] TONO Carrillo [facility] Primary Care [facility] [address] [facility] [address] [facility] [place] [address] 04/29/2024 11:20:30 04/29/2024 11:55:46 Liver enzymes level above reference range 560770132 R74.01 labs obtained Mild intel lectual disability 37502844 F70 -Chronic, stable-Pt resides in [facility] and is under [facility] ip.-No interventi ons indicated at this time [id number] Charanjit Hernandez MD [facility] [address] [address] 10/07/2024 10:41:31 10/07/2024 11:54:24 Adult health examination 236326718 Z00.00 Overall fair condition - intellectu al delay. Lives in a group homeDiscus sed diet and exerciseHe alth maintenanc e reviewedPa tient and caregiver questions answered Screening for malignant neoplasm of colon 076419879 Z12.11 Sleep apnea 40451605 G47 .30 Severely restricted oropharynx . Aaliyah does note snoring episodes. Chronic ki dney disease 636474532 N18.9 Undergoing dialysis, concerns of muscle cramping - likely hypo magnesium. Will check labs Essential hypertension 04899965 I10 Well controlled Hyperlipidemia 36562645 E78.5 Hypothyroidism 52618936 E03.9 Mild intel lectual disability 32270160 F70 Lives in [facility].Disab ility forms completed today and sent back with caregiverR alvin q 3 months Administra tion of tetanus vaccine 206757191 Z23 Health Concerns Section Related Observation LastModified by Organization Detai ls LastModified Time None Recorded Concern Status LastModified by Organization Details LastModified Time None Recorded Advance Directives Directive None Recorded Payers Encounter Date Sequence Insurance Name Policy Number Policy Garsia Covered Member ID Garsia Member ID Guarantor Name 10/30/2023 1 [place] Aaliyah Enriquez [id number] Aaliyah Enriquez 10/30/2023 2 [place] OR MEDIC[place] REPLACEMENT PRIMARY) Aaliyah Enriquez [id number] Aaliyah Enriquez 01/29/2024 1 [place] Aaliyah Enriquez [id number] Aaliyah Enriquez 01/29/2024 2 [place]IC[place]ACEMENT PR[place]) Aaliyah Enriquez [id number] Aaliyah Enriquez 02/10/2024 1 [place] Aaliyah K Enriquez [id number] Aaliyah Enriquez 02/10/2024 2 [place]IC[place]PLACEMENT PRIMARY) Aaliyah Enriquez [id number] Aaliyah Enriquez 04/29/2024 1 [place] Aaliyah K Enriquez [id number] Aaliyah Enriquez 04/29/2024 2 [place] OR MEDIC[place] REPLACEMENT PRIMARY) Aaliyah Enriquez [id number] Aaliyah Enriquez 10/07/2024 1 [place] Aaliyah K Enriquez [id number] Aaliyah Enriquez 10/07/2024 2 [place] MEDIC[place] REPLACEMENT PRIMARY) Aaliyah Enriquez [id number] Aaliyah Enriquez Notes Date Note Type Note Provider Name and Address Organization Details Recorded Time 10/30/2023 text/html pt is here for b p f/u TONO Carrillo [address] [facility] [address], [place], [address], [employer] 11/04/2023 08:57:28 01/29/2024 text/html pt is here for f/u TONO Patel [address] [facility] [facility] [address], [place], [address], [employer] 01/29/2024 10:56:42 02/10/2024 text/html pt is here for e ar TONO Smalls [address], [place], [address], [employer] 02/10/2024 14:35:53 04/29/2024 text/html Pt is here for f/u. No concerns MAXIME Carrillo-C [address], [place], [address], [employer] 04/29/2024 11:54:17 10/07/2024 text/html Aaliyah Enriquez is a 69 year old female patient here today to establish care. She has an intellectual disability and lives at [facility] with muscle cramping. Worse on dialysis days. She does see a doctor on dialysis days. Does consume a low sodium doctors. She does see a psychiatrist She does see a armature straightener Primary care manages constipation, GERD, cholesterol, and thyroid. Labs checked today MAXIME Wallace [address], [place], [address], [employer] 11/11/2024 17:04:52 OBGyn Episode No OBEpisode recorded.
--- OUTSIDE RECORDS SUMMARY | 2024-11-30 22:13 | XMS_ITS | Encounter Summary ---
Author Organization [facility] Address [address] [facility] [place] [address] Care Team Providers Care Senior Java Web Developer Name Role Phone Tate Butt CERTIFIED MAINTENANCE WELDER-HAND ENGRAVER Primary Care Provider Billy Brewer CERTIFIED MAINTENANCE WELDER-HAND ENGRAVER Primary Care Provider [phone]- [phone] Encounter Details Date Type Department Care Team (Late st Contact Info) Description 04/24/2018 Lab Requisition [facility] - Laboratory [address] [place] [address] Juan J Obregon MD [address] [place] [address] [address] Anemia in chronic kidney disease (CODE) Social History Tobacco Use Types Packs/Day Years Used Date Smoking Tobacco: Never Assessed Comments Unknown Sex and Gender Information Value Date Recorded Sex Assigned at Not on file Legal Sex Female 2:58 PM CDT Gender Identity Not on file Sexual Orientation Not on file documented as of this encounter Plan of Treatment Upcoming Encounters Date Type Department Care Team (Late st Contact Info) Description 12/14/2024 10:20 AM CDT Office Visit [facility] - Surgery [address] [facility], [address] [place] [address] [place] [address] [facility] [address] [place] [address] 01/25/2025 2:45 PM CDT Appointment [facility] Health Vascular Services [address] [facility], [address] [place] [address] Ben Titus [address] [place] [address] [place] [address] [facility] [address] [place] [address] [place] [address] [place] [address] [place] [address] [facility] [address] [place] [address] Scheduled Procedures Name Priority Associated Diagnoses Date/Ti me CREATION ARTERIOVENOUS (AV) FISTULA DIRECT 11/30/2024 12:14 PM CDT documented as of this encounter Procedures Procedure Name Priority Date/Time Associated Diagnosis Comments HEMOGLOBIN Routine 04/24/2018 9:52 AM CDT Anemia in chronic kidney disease (CODE) documented in this encounter Results * HEMOGLOBIN (04/24/2018 9:52 AM CDT) Hemoglobin 12.0 12.0 - 15.6 gm/dL 04/24/2018 9:59 AM CDT [facility] Blood BLOOD SPECIMEN / Unknown Venipuncture / Unknown 04/24/2018 9:52 AM CDT 04/24/2018 9:55 AM CDT us Juan J Obregon MD LAB - HEMATOLOGY ORDERABLES Fi nal Result [facility] [address] [place] [address] documented in this encounter Visit Diagnoses Diagnosis Anemia in chronic kidney disease (CODE) documented in this encounter Care Teams Senior Java Web Developer Relationship Specialty Start Date End Date Tate Butt, CERTIFIED MAINTENANCE WELDER-HAND ENGRAVER [address] [place] [address] PCP - General Nurse Practitioner Family 05/26/23 Billy Brewer APRN-CNP [address] [place] [address] PCP - General 06/03/23 documented as of this encounter
--- OUTSIDE RECORDS SUMMARY | 2024-11-30 22:13 | XMS_ITS | Clinical Summary ---
Author Organization [facility] Address [address] [facility] [place] [address] Care Team Providers Care Child Care Leader Name Role Phone Billy Brewer QUANTITATIVE CONSULTANT-ELECTRICIAN OUTSIDE Primary Care Provider [phone]- [phone] Source Comments [facility],non-owned Affiliates and Associated Physician Practices is amultiple site organization consisting of ambulatory clinics and hospital sitesin [place], [place], [place] and [place]. This disclosure is being madepursuant to the Care Everywhere program and may not contain all information available regarding this patient. Last updated 18.[facility] Allergies Active Allergy Reactions Criticality Noted Date Comments Nsaids Other Medium 12/31/2017 Hx, GI ulcers due to kidney function Medications * Be aware that medications may not be up to date on this document. Alwaysverify current medications with the patient. Ventolin HFA 108 (90 Base) MCG/ACT inhaler Inhale 2 (two) puffs by mouth at bedtime 03/08/20 23 Active alum & mag hydroxide-simeth (Maalox Advanced) 200-200-20 MG/5ML suspension Take 30 mL by mouth every 4 hours as needed for Heartburn Active azelastine (Astepro) 205.5 MCG/SPRAY nasal spray Gobler 2 (two) sprays into the nose 2 times daily 3pm & 9pm Active bisacodyl EC (Dulcolax) 5 MG tablet Take 1 (one) tablet by mouth as needed Active carbidopa-levodop a (Sinemet) 10-100 MG tablet Take 1 (one) tablet by mouth 2 times daily 3pm and 9pm 04/23/20 23 Active diphenhydrAMINE (Benadryl) 25 MG tablet Take 1 (one) tablet by mouth every 6 hours as needed Active divalproex ER 24hr (Depakote ER) 250 MG tablet 1 (one) tablet 2 times daily 3 pm and 9 pm 04/23/20 23 Active famotidine (Pepcid) 20 MG tablet Take 1 (one) tablet by mouth nightly as needed 03/11/20 23 Active fluticasone propionate (Flonase) 50 MCG/ACT nasal spray Gobler 2 (two) sprays into each nostril 2 times daily 04/10/20 23 Active guaiFENesin (Robitussin) 100 MG/5ML syrup Take 10 mL by mouth every 4 hours as needed Active levothyroxine (Synthroid) 88 MCG tablet Take 1 (one) tablet by mouth daily before breakfast 04/23/20 23 Active pantoprazole EC (Protonix) 40 MG tablet Take 1 (one) tablet by mouth 2 times daily 3pm and 9pm Active polyethylene glycol 3350 (Miralax) 17 GM/SCOOP powder once daily as needed 02/26/20 23 Active risperiDONE (RisperDAL) 0.5 MG tablet 1 (one) tablet at bedtime 04/23/20 23 Active sertraline (Zoloft) 100 MG tablet Take 1 (one) tablet by mouth every afternoon At 3 pm 04/23/20 23 Active Renvela 800 MG Take 1 (one) tablet by mouth 3 times daily with meals 03/19/20 23 Active terbinafine (LamISIL) 1 % cream 2 times daily 04/21/20 23 Active nystatin (Mycostatin) 090400 UNIT/GM powder Apply to affected area 3 times daily 07/02/20 23 Active Lactobacillus (Acidophilus Probiotic) 10 MG CAPS 10/23/19 24 Active simvastatin (Zocor) 20 MG tablet Take 1 (one) tablet by mouth at bedtime 11/22/19 24 Active Doxercalciferol (HECTOROL IV) 2 mcg 12/31/19 24 Active Methoxy PEG-Epoetin Beta (MIRCERA IJ) 30 mcg 04/12/20 24 025 Active HYDROcodone-aceta minophen ([place]) 5-325 MG tabletIndications :ESRD (end stage renal disease) (HCC) Take 1 (one) tablet by mouth every 6 hours as needed for Pain 30 tablet 05/25/20 24 Active Additional Information Patient not taking.Reason: Other, Informant: Other, Reported on 11/26/2024 HYDROcodone-aceta minophen ([place]) 5-325 MG tabletIndications :ESRD (end stage renal disease) (HCC) Take 1 (one) tablet by mouth every 6 hours as needed for Pain 30 tablet 05/25/20 24 Active Additional Information Patient not taking.Reason: Other, Informant: Other, Reported on 11/26/2024 acetaminophen (Tylenol) 500 MG tablet Take 1 (one) tablet by mouth every 6 hours as needed for Fever or Pain Maximum allowable Acetaminophen amount = 4 Grams (4000 mg) / 24 hours. 07/30/19 25 Active Lactobacillus (ACIDOPHILUS PO) Take 75 mm by mouth once daily At 3 pm Active Cholecalciferol (vitamin D3) 1.25 MG (77307 UT) capsule Take 1 (one) capsule by mouth every 14 days Active sevelamer (Renagel) 800 MG tablet Take 1 (one) tablet by mouth as needed With snacks Active bismuth subsalicylate (Pepto-Bismol) 262 MG/15ML suspension Take 524 mg by mouth every 1 hour as needed for Diarrhea Active neomycin-bacitrac in-polymyxin (Neosporin) 3.5-400-5000 topical ointment Apply to affected area every 4 hours as needed Affected area: topically to minor wounds every 4 hours as needed until healed max 2 doses 24 hours Active HYDROcodone-aceta minophen ([place]) 5-325 MG tabletIndications :Pre-op exam Take 1 (one) tablet by mouth every 6 hours as needed for Pain 12 tablet 12/01/19 25 Active acetaminophen (Tylenol) 325 MG tablet Take 2 (two) tablets by mouth every 4 hours as needed 025 Discontin ued(Clini uzair Decision) Active Problems No known active problems Encounters Date Type Department Care Team Description 11/30/2024 1:22 PM CDT - 11/30/2024 2:[address] [facility] - Perioperative Surgery [address] [place] [address] Chung Stinson MD EXPLORATION CEPHALIC VEIN AND CREATION BRACHIOBASILIC FISTULA 11/30/2024 12:24 PM CD[address]hesia Event [facility] - Perioperative Surgery [address] [place] [address] Oswaldo Uriarte MD Shaw, Thomas J, DO 11/30/2024 11:23 AM CDT - 11/30/2024 2:56 PM CDT Hospital Encounter [facility] - Perioperative Surgery [address] [place] [address] Chung Stinson MD Surgery General Discharge Disposition: Home or Self Care 11/18/2024 2:06 PM CDT - 11/18/2024 11:59 PM CDT Hospital Encounter [facility] Vascular Services [address] [place] [address], [address] [place] [address] Kasie Dempsey DO Discharge Disposition: Home or Self Care 11/18/2024 Travel 11/16/2024 12:04 PM CDT - 11/16/2024 11:59 PM CDT Hospital En[facility] [address] [place] [address], [address] [place] [address] Chung Stinson MD Discharge Disposition: Home or Self Care 11/16/2024 10:10 AM CDT Office Visit [facility] - Surgery [address] [place] [address], [address] [place] [address] Chung Stinson MD ESRD (end stage renal disease) (HCC) (Primary Dx) 11/16/2024 Telephone [facility] Vascular Services [address] [place] [address], [address] [place] [address] Gloria Allen RN 11/16/2024 Travel 10/26/2024 8:58 AM CDT - 10/26/2024 11:59 PM CDT Hospital Encounter [facility] Vascular Services [address] [place] [address], [address] [place] [address] Ben Titus DO Reynolds, Michael D, MD Javed, Mohammad Ali, DO Kayode, Woo B, MD Discharge Disposition: Home or Self Care 10/26/2024 Travel from Last 3 Months Family History Medical History Relation Name Comments Other Neg Hx neg family hist ory Social History Tobacco Use Types Packs/Day Years Used Date Smoking Tobacco: Never Passive Smoke Exposure: Never Smokeless Tobacco: Never Tobacco Cessation:Counseling Given: No Alcohol Use Standard Drinks/Week Comments Never 0 (1 standard drink = 0.6 oz pur e alcohol) Comments No Sex and Gender Information Value Date Recorded Sex Assigned at Not on file Legal Sex Female 2:58 PM CDT Gender Identity Not on file Sexual Orientation Not on file Last Filed Vital Signs Vital Sign Reading Time Taken Comments Blood Pressure 178/82 11/30/2024 2:55 PM CDT Pulse 82 11/30/2024 2:55 PM CDT Temperature 36.1 C (96.9 F) 11/30/2024 2:13 PM CDT Respiratory Rate 18 11/30/2024 2:55 PM CDT Oxygen Saturation 92% 11/30/2024 2:55 PM CDT Inhaled Oxygen Concentration - - Weight 80.3 kg (177 lb) 11/30/2024 12:04 PM CDT Height 157.5 cm (5' 2) 11/30/2024 12:04 PM CDT Body Mass Index 32.37 11/30/2024 12:04 PM CDT Plan of Treatment Upcoming Encounters Date Type Department Care Team (Late st Contact Info) Description 12/14/2024 10:20 AM CDT Office Visit [facility] - Surgery [address] [facility], [address] [place] [address] [place] [address] [facility] [address] [place] [address] 01/25/2025 2:45 PM CDT Appointment [facility] Vascular Services [address] [facility], [address] [place] [address] [place] [address] [facility] [address] [place] [address] [place] [address] [facility] [address] [place] [address] [place] [address] [address] [place] [address] [place] [address] [facility] [address] [place] [address] Scheduled Procedures Name Priority Associated Diagnoses Date/Ti me CREATION ARTERIOVENOUS (AV) FISTULA DIRECT 11/30/2024 12:14 PM CDT Health Maintenance Due Date Last Done Comments COLOGUARD (AGES 45-75) - COLON CA SCREENING 1955 COLON MONITORING 1954 COLONOSCOPY - COLON CA SCREENING 1954 CT COLONOGRAPHY - COLON CA SCREENING 1955 Colorectal Cancer Screening 1955 FIT - COLON CA SCREENING 1954 FLEX SIG - COLON CA SCREENING 1954 LIPID TESTING 1955 MEDICARE AWV 12 MONTHS 1955 HEPATITIS C SCREENING 03/06/1972 DTAP/TDAP/TD VACCINES (1 - Tdap) 1973 PNEUMOCOCCAL VACCINE 50+ (1 of 2 - PCV) 1973 HEPATITIS B VACCINE (1 of 3 - Risk Dialysis 4-dose series) 1974 ZOSTER VACCINE (1 of 2) 2004 COVID-19 VACCINE (2 - season) 2024 05/29/2021 DEPRESSION SCREENING 07/07/2024 MAMMOGRAM 10/21/2024 10/21/2022, 10/05, 05/16/2021, Additional history exists SCREENING FOR DIABETES 05/25/2027 , 09/02/2023, 06/04/2023, Additional history exists Respiratory Syncytial Virus (RSV) Vaccine Pt: or over 60 yrs (1 - 1-dose 75+ series) 2029 BONE DENSITY TESTING Completed 10/02/2021, 03/01/20 16 INFLUENZA VACCINE Completed 04/23/2024, , 03/25/2022, Additional history exists HIB VACCINE Aged Out No longer eligi ble based on patient's age to complete this topic HPV VACCINE Aged Out No longer eligi ble based on patient's age to complete this topic MENINGOCOCCAL (Group B) VACCINE SHARED DECISION-MAKING Aged Out No longer eligible based on patient's age to complete this topic MENINGOCOCCAL GROUPS A/C/Y/W VACCINE Aged Out No longer eligible based on patient's age to complete this topic Medical Devices Implanted Type Area Curb Supervisor Device Identifier Shelf Expiration Date Model / Serial / Lot Graft Vasc 4-7mm 45cm Grtx Std Wl Tpr - [id number] Implanted:Qty: 1 on 05/25/2024 by Ramy Schilling MD at [facility] Left: Arm [employer] 12/28/2028 [id number] / [id number] / Procedures Procedure Name Priority Date/Time Associated Diagnosis Comments LARYNGEAL MASK AIRWAY Routine 11/30/2024 12:34 PM CDT BLOOD GAS+COOX+ELECTROLYTES +METAB VENOUS Routine 11/30/2024 12:10 PM CDT CARDIAC RHYTHM STRIP ORDER 11/23/2024 9:10 PM CDT VAS BILAT MAPPING FOR HEMODIALYSIS Routine 11/16/2024 12:04 PM CDT ESRD (end stage renal disease) (HCC) CARDIAC RHYTHM STRIP ORDER 10/28/2024 2:46 PM CDT BASIC METABOLIC PANEL (CALCIUM TOTAL) STAT 05/25/2024 10:45 AM GLASS BLOWING INSTRUCTOR Preop testing from Last 3 Months or Most Recently Relevant to Health Maintenance Results * LARYNGEAL MASK AIRWAY (11/30/2024 12:34 [...] unchanged? Yes Staff Section Anesthesia Provider: Naima Sanford, QUANTITATIVE CONSULTANT-HEALTHCARE NETWORK PRICING CONSULTANT, Performed the procedure us Oswaldo Uriarte MD GENERAL ANESTHESIA ORDERABLES Fi nal Result * (ABNORMAL) BLOOD GAS+COOX+ELECTROLYTES+METAB VENOUS (11/30/2024 12:10 [...] Test performed by a Licensed Healthcare Provider Chung Stinson MD LAB - BLOOD GASES ORDERA BLES Final Result [facility] [address] [phone] * CARDIAC RHYTHM STRIP ORDER (11/23/2024 9:10 PM CDT) Only the most recent of2 resultswithin the time period is included. Narrative 11/23/2024 9:10 PM CDT Ordered by an unspecified provider. us Scanned Document CARDIAC SERVICES ORDERABLES Fin al Result * VAS Bilat Mapping for Hemodialysis (11/16/2024 12:04 PM CDT) Anatomical Region Laterality Modality Lower Extremity, Upper Extremity Ultrasound 11/16/2024 10:0 4 AM CDT Narrative Procedure Note Chung Stinson MD - 11/16/2024 [facility] [address] [facility], [address] [place] [address] Vessel Mapping for Hemodialysis Report Pat.Name: AALIYAH CASTILLO Pat.ID: [id number] St.Date: 11/16/2024 Exam Time: 10:04:00 AM Study Type:Vessel Mapping for Hemodialysis Age: 9 1955,69Y Sex: FEMALE Sonogrphr: Javed Arreaga RVT Pat. Stat.:Outpatient CPT - 4: 97039 Reason for Study: End Stage Renal Disease Procedures: Vessel Mapping for Hemodialysis Race: 1 Visit ID: [id number] ++++++++++++++++++++++++++++++++++++ SUMMARY: ++++++++++++++++++++++++++++++++++++ The right upper arm cephalic vein appears suitable for fistula creation. ++++++++++++++++++++++++++++++++++++ FINDINGS: ++++++++++++++++++++++++++++++++++++ Procedure: Duplex vein mapping was carried out in the right upper extremity. Study Quality: This study is of adequate technical quality. Mapping Rt: The right cephalic vein is patent and compressible. The right basilic vein is patent and compressible. The right cephalic vein measured .33cm at the antecubital fossa and .28 cm in the upper arm. The basilic vein measured .32 cm at the antecubital fossa. The brachial artery measured .32 cm. Signed 11/16/2024 12:45 PM Chung Stinson MD Chung Stinson MD VASCULAR LAB ORDERABLES Edited * (ABNORMAL) BASIC METABOLIC PANEL (CALCIUM TOTAL) (05/25/2024 10:45 AM GLASS BLOWING INSTRUCTOR) [facility] Glucose 97 70 - 99 mg/dL 05/25/2024 11:09 AM GLASS BLOWING INSTRUCTOR [facility] Sodium 137 136 - 145 mmol/L 05/25/2024 11:09 AM [facility] Potassium 4.3 3.5 - 5.1 mmol/L 05/25/2024 11:09 AM [facility] Chloride 102 98 - 107 mmol/L 05/25/2024 11:09 AM [facility] CO2 24 22 - 29 mmol/L 05/25/2024 11:09 AM [facility] Calcium 9.9 8.4 - 10.4 mg/dL 05/25/2024 11:09 AM [facility] Anion Gap 11 6 - 16 mmol/L 05/25/2024 11:09 AM [facility] BUN 16 7 - 26 mg/dL 05/25/2024 11:09 AM [facility] Creatinine 3.09(H) 0.57 - 1.11 mg/dL 05/25/2024 11:09 AM [facility] eGFR by CKD-EPI 16(L) >=90 mL/min/1.7 3 m2 05/25/2024 11:09 AM [facility] Blood BLOOD SPECIMEN / Unknown Venipuncture / Unknown 05/25/2024 10:45 AM GLASS BLOWING INSTRUCTOR 05/25/2024 10:48 AM [facility] Renetta Land DO LAB - CHEMISTRY ORDERABLES Yesy graves Result [facility] [address] [place] [address] from Last 3 Months or Most Recently Relevant to Health Maintenance Insurance MEDICARE MEDICAID - [place] Care Teams Child Care Leader Relationship Specialty Start Date End Date Billy Brewer APRN-ELVIA [address] [place] [phone] PCP - General 06/03/23
--- OUTSIDE RECORDS SUMMARY | 2024-11-30 22:13 | XMS_ITS | Encounter Summary ---
Author Organization [facility] Address [address] [place] [address] Care Team Providers Care Chainsaw Mechanic Name Role Phone Billy Brewer ELECT EQUIP MAINT ENG-PRIVATE WEALTH ADVISOR Primary Care Provider [phone] Reason for Referral * (Routine) - Open Specialty Diagnoses / Procedures Referred By Rocio t Referred To Contact Procedures Follow up with [place]ung [place] [id number] [place] [address] [place] [phone] Phone: tel: fax: Chung Stinson MD [address] [place] [address] [place] [phone] Phone: tel: fax: Referral ID Status Reason Start Date Expiration Date Visits Re quested Visits Authorized [id number] Open 11/30/2024 11/30/2025 1 1 Reason for Visit * Auth/Cert (Routine) Specialty Diagnoses / Procedures Referred By Contsugar t Referred To Contact Procedures WA ANASTOMOSIS,AV,ANY SITE CREATION ARTERIOVENOUS (AV) FISTULA DIRECT Referral ID Status Reason Start Date Expiration Date Visits Re quested Visits Authorized [id number] 1 1 Encounter Details Date Type Department Care Team (Latest Contact Info) Description 11/30/2024 11:23 AM CDT - 11/30/2024 2:56 PM CDT Hospital Encounter [facility] - Perioperative Surgery [address] [place], [place] [id number] [place] [address] [facility] [address] [place] [id number] Surgery General Discharge Disposition: Home or Self Care Social History Tobacco Use Types Packs/Day Years [...] 4 Grams (4000 mg) / 24 hours. 5 alum & mag hydroxide-simeth (Maalox Advanced) 200-200-20 MG/5ML suspension Take 30 mL by mouth every 4 hours as needed for Heartburn azelastine (Astepro) 205.5 MCG/SPRAY nasal spray [place] 2 (two) sprays into the nose 2 [...] 9pm 3 Cholecalciferol (vitamin D3) 1.25 MG (79074 UT) capsule Take 1 (one) capsule by [...] fluticasone propionate (Flonase) 50 MCG/ACT nasal spray [place] 2 (two) sprays into each nostril 2 times daily 3 guaiFENesin (Robitussin) 100 MG/5ML syrup Take 10 mL by mouth every 4 hours as needed HYDROcodone-acetam inophen (Drasco) 5-325 MG tabletIndications: Pre-op exam Take 1 (one) tablet by mouth every 6 hours as needed for Pain 12 tablet 5 HYDROcodone-acetam inophen (Drasco) 5-325 MG tabletIndications: ESRD (end stage renal disease) ([facility]) Take 1 (one) tablet by mouth every 6 hours as needed for Pain 30 tablet 4 HYDROcodone-acetam inophen (Drasco) 5-325 MG tabletIndications: ESRD (end stage renal [...] max 2 doses 24 hours nystatin (Mycostatin) 010487 UNIT/GM powder Apply to affected area 3 [...] Medical History: Diagnosis Date Arthritis Bipolar disorder ([facility]) Chronic venous insufficiency COPD (chronic obstructive pulmonary disease) ([facility]) Cyclothymic disorder Disorder of thyroid ESRD (end stage renal disease) ([facility]) [facility] 11/16/2024 ESRD on dialysis ([facility]) GERD (gastroesophageal reflux disease) [place] (hard of hearing) HTN (hypertension) Hypothyroidism Mild developmental delay Parkinson's disease ([facility]) Pure hypercholesterolemia [Past Medical & [...] needed azelastine (Astepro) 205.5 MCG/SPRAY nasal spray [place] 2 (two) sprays into the nose 2 [...] fluticasone propionate (Flonase) 50 MCG/ACT nasal spray [place] 2 (two) sprays into each nostril 2 times daily guaiFENesin (Robitussin) 100 MG/5ML syrup Take 10 mL by mouth every 4 hours as needed HYDROcodone-acetaminophen (Drasco) 5-325 MG tablet Take 1 (one) tablet by mouth every 6 hours as needed for Pain 30 tablet 0 HYDROcodone-acetaminophen (Drasco) 5-325 MG tablet Take 1 (one) tablet by mouth every 6 hours as needed for Pain 30 tablet 0 Lactobacillus (Acidophilus Probiotic) 10 MG CAPS levothyroxine (Synthroid) 88 MCG tablet Methoxy PEG-Epoetin Beta (MIRCERA IJ) 30 mcg nystatin (Mycostatin) 224271 UNIT/GM powder Apply to affected area 3 [...] Creation brachiobasilic fistula Surgeon: Chung Stinson MD Yard Conductor: MASSIEL Type of anesthesia: General, Local Complications: none EBL: 25 cc documented in this encounter Plan of Treatment Upcoming Encounters Date Type Department Care Team (Late st Contact Info) Description 12/14/2024 10:20 AM CDT Office Visit [facility] - Surgery [address] [place] [address], [address] [address] Chung Stinson MD [address] [place] [phone] 01/25/2025 2:45 PM CDT Appointment [facility] Services [address] [place] [address], [address] [place] [address] Ben Titus DO [facility] KINSEY SANTOS [address] [place] [phone] [place] [id number] [place] [phone] [place] [address] [place] [phone] [place] [id number] [place] [address] Scheduled Orders Name Type Priority Associated [...] ORDERA BLES Final Result [facility] [address] [phone] documented in this encounter Visit Diagnoses Diagnosis Pre-op exam- Primary Preoperative examination, unspecified documented in this encounter Administered Medications Inactive Administered [...] Bag/Syringe 11/30/2024 12:14 PM CDT 20 mL/hr fentaNYL (PF) (Sublimaze) injection 25 mcg 25 mcg, Intravenous, EVERY 10 MIN PRN, Mild Pain, 4 doses, Starting on e 11/30/24 at 1340, Until Tu11/30/24 at 1404, Maximum total of 4 doses. [...] Given 11/30/2024 1:46 PM CDT 25 mcg documented in this encounter Active and Recently [...] PRN, Starting on Fri11/30/24 at 1246, Until Tu11/30/24 at 1339, Intra-op 1246 ($ Given - Prov ider: Chung Stinson MD) fentaNYL (PF) (Sublimaze) injection 25 mcg (CANCELED) 25 mcg, Intravenous, EVERY 10 MIN PRN, Mild Pain, 4 doses, Starting on Fri11/30/24 at 1340, Until Tu11/30/24 at 1404, Maximum total of 4 doses. [...] 500 mL irrigation (CANCELED) PRN, Starting on Fri11/30/24 at 1250, Until Fri11/30/24 at 1339, Intra-op 1250 ($ Given - Prov ider: Chung Stinson MD) lidocaine 1% (Xylocaine) - EPINEPHrine 1:100,000 injection (CANCELED) PRN, Starting on Fri11/30/24 at 1240, Until 11/30/24 at 1339, Intra-op 1240 ($ Given - Prov ider: Chung Stinson MD) thrombin (Thrombogen; Thrombostat) kit (CANCELED) PRN, Starting on Fri11/30/24 at 1325, Until Tu11/30/24 at 1339, Intra-op 1325 ($ Given - Prov ider: Chung Stinson MD) documented in this encounter Care Teams Chainsaw Mechanic Relationship Specialty Start Date End Date Billy Brewer APRN-PRIVATE WEALTH ADVISOR [address] [place] [address] [place] [phone] PCP - General 06/03/23 documented as of this encounter
--- OUTSIDE RECORDS SUMMARY | 2024-11-30 22:13 | XMS_ITS | Patient Health Record ---
Author Organization [facility] As [employer] Address [address] [place] [address] Care Team Providers Care Lead Database Developer Name Role Phone Migration, Provider Unavailable Unavailable Pao [place] Unavailable [phone] Bettina Preston Unavailable [phone] Allergies Allergen (clinical drug ingredient) Drug/Non Drug Allergy documented on EMR Reaction Allergy Type Onset Date Status Non-steroidal anti-inflammatory agent (FN) NSAIDS (NON-STEROIDAL ANTI-INFLAMMATORY DRUG) (uncoded) Unknown Allergy 11/20/2023 Active Reason For Referral No Information Medications Medication SIG (Take, Route, Frequency, Duration) Notes Start Date End Date Status Terbinafine HCl 1% External 11/20/2023 Active Ofloxacin 0.30% Ophthalmic 11/20/2023 Ac tive Polyethylene Glycol 3350 Oral 11/20/2023 Active Sertraline HCl 100 MG 1 tablet Oral Once a day for 30 days Active Ketorolac Tromethamine 0.5 % Ophthalmic 11/20/2023 Active Divalproex Sodium ER 250 MG 1 tablet Oral twice a day for 30 days Active Carbidopa-Levodopa 10-100 MG Oral 11/20/2023 Active risperiDONE 0.5 MG 1 tablet at bedtime Oral Once a day for 30 days Active Nystatin 693318 UNIT/GM External 11/20/2023 Active Famotidine 20 MG Oral 11/20/2023 Ac tive Simvastatin 20 MG Oral 11/20/2023 A ctive prednisoLONE Acetate 1 % Ophthalmic 11/20/2023 Active ACIDOPHILUS-PECTIN 75 million cell -100 mg Oral *Reorder from [facility] for eRx and Interaction Alerts* 11/20/2023 Active Renvela 800 MG Oral 11/20/2023 Acti ve ASTEPRO ALLERGY 205.5 MCG (0.15 %) NASAL SPRAY *Reorder from [facility] for eRx and Interaction Alerts* 11/20/2023 Active Nystop 158912 UNIT/GM External 11/20/2023 Active Fluticasone Propionate Diskus 50 MCG/ACT Inhalation *Reorder from [facility] for eRx and Interaction Alerts* 11/20/2023 Active Ventolin HFA 108 (90 Base) MCG/ACT Inhalation 11/20/2023 Active Levothyroxine Sodium 88 MCG Oral 11/20/2023 Active Pantoprazole Sodium 40 MG Oral 11/20/2023 Active Clopidogrel Bisulfate 75 MG Oral 11/20/2023 Active Immunizations Vaccine Route Administration Date Status Comme nts DTaP Unknown 10/06/2007 Administered Influenza virus vaccine, quadrivalent (IIV4), split virus, 0.25 mL dosage Unknown 05/03/2016 Administered Influenza, seasonal, injecta ble, preservative free, 3 yrs and above Unknown 03/07/2013 Administered Influenza, seasonal, injecta ble, preservative free, 3 yrs and above Unknown 04/22/2014 Administered Influenza, unspecified formulation Unknown 04/06/2018 A dministered Moderna Covid-19 Vaccine 1st dose Unknown 08/08/2020 Ad ministered Moderna Covid-19 Vaccine 1st dose Unknown 09/06/2020 Ad ministered Moderna Covid-19 Vaccine 1st dose Unknown 05/29/2021 Ad ministered Novel [id number], preservative free Unknown 04/24/2015 Administered Novel Kijkhyqix-[id number], preservative free Unknown 04/07/2017 Administered Pneumococcal conjugate PCV 13 Unknown 09/04/2013 Admini stered Pneumococcal conjugate PCV 13 Unknown 04/10/2015 Admini stered Pneumococcal polysaccharide PPV23 Unknown 09/04/2013 Ad ministered Td (adult), adsorbed Unknown 10/06/2007 Administered Tdap Unknown 10/28/2007 Administered Varicella Unknown 12/19/2003 Administered Varicella Unknown 01/24/2004 Administered Zoster Unknown 04/11/2009 Administered Zoster Unknown 08/03/2015 Administered Social History Tobacco Use: Social History Observation Description Date Details (start date - stop date) Never Smoker NA - NA Sex Assigned At : Social History Observation Description Sex Assigned At Female Tobacco Control (Standard) Question Answer Notes Tobacco use: Nonsmoker Section Notes: Substance UseDo you or have you ever smoked tobacco?: Never smokerHow much tobacco do you smoke?: NoneDo you or have you ever used e-cigarettes or vape?: Never used electronic cigarettesWhat was the date of your most recent tobacco screening?: 11/20/2023Has tobacco cessation counseling been provided?: NoWhat is your level of alcohol consumption?: NoneDo you use any illicit or recreational drugs?: NoHave you used IV drugs?: NoWhat is your level of caffeine consumption?: OccasionalEducation and OccupationWhat is the highest grade or level of school you have completed or the highest degree you have received?: Don't knowAre you currently employed?: YesWho is your employer?: Not employedMarriage and SexualityWhat is your relationship status?: UnknownAre you sexually active?: NoHow many children do you have?: 0Home and EnvironmentAre there any guns present in your home?: NoAdvance DirectiveDo you have an advance directive?: NoDo you have a medical power of brake coupler road freight?: NoPublic Health and TravelHave you been to an area known to be high risk for COVID-19?: NoGender Identity and LGBTQ IdentityGender identity: Identifies as FemaleAssigned sex at : Female Substance Use Do you or have you ever smoked tobacco?: Never smoker What is your level of alcohol consumption?: None Do you use any illicit or recreational drugs?: No Have you used IV drugs?: No What is your level of caffeine consumption?: Occasional Education and Occupation What is the highest grade or level of school you have completed or the highest degree you have received?: Don't know How many children do you have?: 0 Home and Environment Are there any guns present in your home?: No Advance Directive Do you have an advance directive?: No Do you have a medical power of brake coupler road freight?: No Gender Identity and LGBTQ Identity Gender identity: Identifies as Female Assigned sex at : Female Problems Problem Type SNOMED Code ICD Code Onset Dates Problem Status W/U Status Risk Notes Problem Schizoaffective disorder, bipolar type (46782933) Schizoaffective disorder, bipolar type (F25.0) 11/20/19 24 Active confirmed Problem Generalized anxiety disorder (37803397) Generalized anxiety disorder (F41.1) 11/20/19 24 Active confirmed Problem End stage renal disease (14442105) End stage renal disease (N18.6) 11/20/19 Active confirmed Problem Intellectual functioning disability (F79) Active confirmed Vital Signs Heart Rate 74 /min 02/17/2024 Height-cm 160.02 cm 05/04/2024 Blood pressure diastolic 79 mm Hg 02/17/2024 Weight-kg 78.47 kg 02/17/2024 Height 63.00 in 05/04/2024 Blood pressure systolic 141 mm Hg 02/17/2024 Weight 173 lbs 02/17/2024 BMI 30.64 kg/m2 02/17/2024 Encounters Encounter Location Date Provider Diagnosis [facility] [address] [address] 02/17/2024 Pao Gene Schizoaffective disorder, bipolar type F25.0 ; Generalized anxiety disorder F41.1 ; Intellectual functioning disability F79 and End stage renal disease N18.6 [facility] [address] [address] 05/04/2024 Pao Gene Schizoaffective disorder, bipolar type F25.0 ; Generalized anxiety disorder F41.1 ; Intellectual functioning disability F79 and End stage renal disease N18.6 [facility] [address] [address] 08/03/2024 Bettina Preston Assessments Encounter Date Diagnosis (ICD Code) Assessment Notes Treatment Notes Treatment Clinical Notes Section Notes 02/17/2024 Schizoaffective disorder, bipolar type (ICD-10 - F25.0) cont depakote er 250mg bid cont risperidone 0.5mg hs resides [facility] on friday, friday and friday stable, cont current meds f/u in 3 months, earlier if concerns 02/17/2024 Generalized anxiety disorder (ICD-10 - F41.1) cont sertraline 100mg daily 05/04/2024 Schizoaffective disorder, bipolar type (ICD-10 - F25.0) cont depakote ER 250mg bid cont risperidone 0.5mg hs resides [facility] on friday, friday and fridaystable, cont current meds; education on meds/treatment coursef/u in 3 months, earlier if concerns -discussed transition to new provider as I am leaving the practice after this month 05/04/2024 Generalized anxiety disorder (ICD-10 - F41.1) cont sertraline 100mg daily 02/17/2024 Intellectual functioning disability (ICD-10 - F79) supportive care 05/04/2024 Intellectual functioning disability (ICD-10 - F79) supportive care 02/17/2024 End stage renal disease (ICD-10 - N18.6) dialysis m-w-f 05/04/2024 End stage renal disease (ICD-10 - N18.6) dialysis m-w-f Plan Of Treatment No Information Insurance Providers Payer Name Payer Address Payer Phone Subscriber Number Group Number Insured Name Patient Relationship to Insured Coverage Start Date Coverage End Date Medicare-I l Medicare [address] [place] [address] [id number] PRATIK CASTILLO Self - patient is the insured Medicaid-I l Medicaid [address] [address] [place] [address] [id number] PRATIK CASTILLO Self - patient is the insured Medical (General) History Medical History History ICD Code Problems: End stage renal failure on xenia lysis Generalized anxiety disorder Intellectual functioning disability Long-term current use of drug therapy Schizoaffective disorder, bipolar type Surgical History Surgery Date(Month/Year) dialysis port removed 12/2023
[2024-12-01] VITALS (9 sets, daily range): BP systolic 110–130; BP diastolic 54–82; PULSE 86–99; RESP 22–36; TEMP 36.9–37.7; O2SAT 80–100
--- NOTE | 2024-12-01 02:21 | ECG_ITS ---
Test Date: 2024-12-01 03:28:10 Measurements Intervals [place] Rate: 95 P: 57 DC: 235 QRS: -24 QRSD: 101 T: 68 QT: 366 QTc: 462 Interpretive Statements SINUS RHYTHM WITH FIRST DEGREE AV BLOCK BORDERLINE LEFT AXIS DEVIATION [QRS AXIS < -20] NONSPECIFIC ST AND T-WAVE ABNORMALITY Compared to ECG 01/12/2024 22:35:06 NO SIGNIFICANT CHANGES Electronically Signed On 12-01-2024 16:39:42 CDT by Chiquita Hernandez M.D.
[2024-12-01 02:40] LABS: Basophils Percent Auto 0.3 % (0.2-1.2); Eosinophils Percent Auto 0.1 % (0-4.4); Hematocrit 30.1 % (37.0-47.0); Hemoglobin 9.4 g/dL (12.0-15.0); Immature Granulocyte Absolute 0.06 K/mm3 (0.00-0.031); Immature Granulocyte Percent A 0.7 % (0-0.5); Immature Platelet Fraction Pct 2.4 % (0.9-11.2); Lymphocytes Absolute Auto 0.59 K/mm3 (0.9-3.2); Lymphocytes Percent Auto 6.5 % (18.3-44.2); Mean Corpuscular HGB Conc 31.2 g/dl (32-36); Mean Corpuscular Volume 99.3 fl (80-100); Mean Platelet Volume 9.8 fl (7.4-10.4); Monocytes Absolute Auto 0.5 K/mm3 (0.1-0.6); Monocytes Percent Auto 5.9 % (2.6-8.5); Neutrophils Absolute Auto 7.9 K/mm3 (1.3-6.7); Neutrophils Percent Auto 86.5 % (45.5-73.1); Platelet Count Result 76 k/mm3 (150-375); Red Blood Count 3.03 M/mm3 (4.2-5.4); Red Cell Distribution Width 14.7 % (11.5-14.5); White Blood Count 9.1 K/mm3 (4.5-10.0)
[2024-12-01 02:56] LABS: Alanine Aminotransferase 12 U/L (6-35); Alkaline Phosphatase 92 U/L (38-126); Anion Gap 9 mmol/L (4-12); Aspartate Amino Transferase 40 U/L (14-36); Bilirubin,Total 0.5 mg/dL (0.2-1.3); Blood Urea Nitrogen 30 mg/dL (7-17); Calcium 8.7 mg/dL (8.4-10.2); Carbon Dioxide 24 mmol/L (22-30); Chloride 100 mmol/L (98-107); Estimated CRCL calculation 12 ml/min; Estimated Glomerular Filt Rate 10; Glucose 94 mg/dL (65-110); Potassium 4.6 mmol/L (3.4-5.0); Sodium 133 mmol/L (137-145)
--- OUTSIDE RECORDS SUMMARY | 2024-12-01 03:32 | XMS_ITS | Continuity of Care Document ---
Author Organization [facility] Address [address] [place] [phone] Phone Care Team Providers Care Research Executive Name Role Phone Jose Luis MORAN, Liss [...] Coded Prq av fstl crtj uxtr [address] [facility] [address] Mod sed same phys/qhp 5/>yrs Mod sed same phys/qhp ea Prq av fstl crtj uxtr [address] [facility] [address] Mod sed same phys/qhp 5/>yrs Mod sed [...] Diagnoses Date Provider Providers Copied on Encounter [facility], [address] [place] [address], [id number], tel:[phone] [facility] No Information 3 Amaya Liss. [address] [place], [place], [id number] , [place]. tel:[phone] [facility], [address] [place], [place], [id number], tel:[phone] [facility] End stage renal diseaseStricture of Artery 3 Amaya Liss. [address] [place], [place], [id number] , [place]. tel:[phone] Referring Provider: Juan J Ayala, [address] [facility] [address] [facility], [place], [address]. tel:[phone] [facility], [address] [place] [address], [id number], [place] tel:[phone] [facility] Stricture of ArteryEnd stage renal disease 3 Amaya Liss. [address] [place], [place], [id number] , [place]. tel:[phone] Referring Provider: Juan J Ayala, [address] [facility] [address] [facility], [place], [address]. tel:[phone] [facility], [address] [place] [address], [id number], [place] tel:[phone] [facility] Oct-0 3 Amaya Liss. [address] [place], [place], [id number] , [place]. tel:[phone] Referring Provider: Juan J Ayala, [address] [place] [address] [address], [place], [address]. tel:[phone] [facility], [address] [place] [address], [id number], [place] tel:[phone] [facility] Oct-0 3-202 3 Amaya [address]iss[address] [place] [address], [id number] , [place]. tel:[phone] Referring Provider: Juan J Ayala, [address] [place] [address] [address] [facility], [place], [address]. tel:[phone] [facility], [address] [place] [address], [id number], [place] tel:[phone] [facility] Sep-0 5-202 3 Amaya Liss. [address] [place] [address], [id number] , [place]. tel: [phone] Referring Provider: Juan J Ayala, [address] [place] [address] [address] [facility], [place], [address]. tel:[phone] [facility], [address] [place] [address], [id number], [place] tel:[phone] [facility] Sep-0 5-202 3 Amaya Liss. [address] [place] [address], [id number] , [place]. tel:[phone] Referring Provider: Juan J Ayala, [address] [place] [address] [place] [address], [address]. tel:[phone] [facility], [address] [place] [address], [id number], [place] tel:[phone] [facility] Shahram-0 202 1 Albovias Jostin. [address] [place] [address], [id number] , [place]. tel:[phone] Referring Provider: Juan J Ayala, [address] [place] [address] [address] [facility], [place], [address]. tel:[phone] [facility], [address] [place] [address], [id number], tel:[phone] [facility] 0 202 1 Albovias Jostin. [address] [facility], [place], [id number] , [place]. tel:[phone] Referring Provider: Juan J Ayala, [address] [facility] [address], [place], [address]. tel:[phone] As per patient privacy policy some of the clinical information may not be visible. Family History Family Member Type Diagnosis Age At Onset No Information Payers Payer name Insurance type Covered constitution party ID Authoriza tion(s) [place] [id number] Medicaid [place] [id number] Social History Type Description Quantity Date Captured Comments Sex Female Smoking Status No Information Gender Identity Female Chief Complaint And Reason For Visit No Information Reason For Referral Reason For Referral No Information Plan Of Treatment Date Type Action Status Future Order: Radiology Order Up per Body Flouroscopy ([id number]), Ordered on: Ordered Future Order: Radiology Order Up per Body Flouroscopy ([id number]), Ordered on: Ordered Future Order: Radiology Order Up per Body Flouroscopy ([id number]), Ordered on: Ordered History Of Present Illness Encounter Date Complaint History Of Prese nt Illness No Information Functional Status Date Functional Assessmen t No Information Instructions Date Instruction Additional Infor mation No Information Assessments Type Assessment Date No Information Patient Care Teams Name Effective Dates (start - stop) Status Members No Information
--- OUTSIDE RECORDS SUMMARY | 2024-12-01 03:32 | XMS_ITS | Clinical Summary ---
Author Organization [facility] Address [address] [facility] [place] [address] Care Team Providers Care Fan Installer Name Role Phone Billy Brewer SECRETARY BOARD OF COMMISSIONERS-DISTANCE EDUCATION TEACHER Primary Care Provider +1- [phone] Source Comments [facility],non-owned Affiliates and Associated Physician Practices is amultiple site organization consisting of ambulatory clinics and hospital sitesin [place], [place], [place] and [place]. This disclosure is being madepursuant to the Care Everywhere program and may not contain all information available regarding this patient. Last updated 18.[facility] Allergies Active Allergy Reactions Criticality Noted Date [...] Active azelastine (Astepro) 205.5 MCG/SPRAY nasal spray [place] 2 (two) sprays into the nose 2 [...] fluticasone propionate (Flonase) 50 MCG/ACT nasal spray [place] 2 (two) sprays into each nostril 2 [...] times daily 04/21/20 23 Active nystatin (Mycostatin) 637324 UNIT/GM powder Apply to affected area 3 times daily 07/02/20 23 Active Lactobacillus (Acidophilus Probiotic) 10 MG CAPS 10/23/19 24 Active simvastatin (Zocor) 20 MG tablet Take 1 (one) tablet by mouth at bedtime 11/22/19 24 Active Doxercalciferol (HECTOROL IV) 2 mcg 12/31/19 24 Active Methoxy PEG-Epoetin Beta (MIRCERA IJ) 30 mcg 04/12/20 24 025 Active HYDROcodone-aceta minophen ([place]) 5-325 MG tabletIndications :ESRD (end stage renal disease) (HCC) Take 1 (one) tablet by mouth every 6 hours as needed for Pain 30 tablet 05/25/20 24 Active Additional Information Patient not taking.Reason: Other, Informant: Other, Reported on 11/26/2024 HYDROcodone-aceta minophen ([place]) 5-325 MG tabletIndications :ESRD (end stage renal [...] pm Active Cholecalciferol (vitamin D3) 1.25 MG (17808 UT) capsule Take 1 (one) capsule by [...] 2 doses 24 hours Active HYDROcodone-aceta minophen ([place]) 5-325 MG tabletIndications :Pre-op exam Take 1 [...] CDT - 11/30/2024 2:54 PM CDT Surgery [facility] - Perioperative Surgery [address] [place] [address] Chung Stinson MD EXPLORATION CEPHALIC VEIN AND CREATION BRACHIOBASILIC FISTULA 11/30/2024 12:24 PM CDT Anesthesia Event [facility] - Perioperative Surgery [address] [place] [address] Oswaldo Uriarte MD Shaw, Thomas J, DO 11/30/2024 11:23 AM CDT - 11/30/2024 2:56 PM CDT Hospital Encounter [facility] - Perioperative Surgery [address] [place] [address] Chung Stinson MD Surgery General Discharge Disposition: Home or Self Care 11/18/2024 2:06 PM CDT - 11/18/2024 11:59 PM CDT Hospital Encounter [facility] V[facility] Services [address] [place] [address], [address] [place] [address] Kasie Dempsey DO Discharge Disposition: Home or Self Care 11/18/2024 Travel 11/16/2024 12:04 PM CDT - 11/16/2024 11:59 PM CDT Hospital Encounter [facility] Vascular Services [address] [place] [address], [address] [place] [address] Chung Stinson MD Discharge Disposition: Home or Self Care 11/16/2024 10:10 AM CDT Office Visit [facility] - Surgery [address] [place] [address], [address] [place] [address] Chung Stinson MD ESRD (end stage renal disease) (HCC) (Primary Dx) 11/16/2024 Telephone [facility] Services [address] [place] [address], [address] [place] [address] Gloria Allen RN 11/16/2024 Travel 10/26/2024 8:58 AM CDT - 10/26/2024 11:59 PM CDT Hospital Encounter [facility] [address] [place] [address], [address] [place] [address] Ben Titus DO Reynolds, Michael D, MD [...] Description 12/14/2024 10:20 AM CDT Office Visit [facility] - Surgery [address] [facility], [address] [place] [address] [place] [address] [facility] [address] [place] [address] 01/25/2025 2:45 PM CDT Appointment [facility] Services [address] [facility], [address] [place] [address] [place] [address] [facility] [address] [place] [address] [place] [address] [facility] [address] [place] [address] [place] [address] [place] [address] [place] [address] [facility] [address] [place] [address] Health Maintenance Due Date Last Done Comments [...] this topic Medical Devices Implanted Type Area Marine Engine Driver Device Identifier Shelf Expiration Date Model / Serial / Lot Graft Vasc 4-7mm 45cm Grtx Std [facility] - [id number] Implanted:Qty: 1 on 05/25/2024 by Ramy Schilling MD at [facility] Left: Arm [employer] 12/28/2028 [id number] / [id number] / Procedures Procedure Name Priority Date/Time Associated Diagnosis Comments LARYNGEAL MASK AIRWAY Routine 11/30/2024 12:34 PM CDT BLOOD GAS+COOX+ELECTROLYTES +METAB VENOUS Routine 11/30/2024 12:10 PM CDT CARDIAC RHYTHM STRIP ORDER 11/23/2024 9:10 PM CDT VAS BILAT MAPPING FOR HEMODIALYSIS Routine 11/16/2024 12:04 PM CDT ESRD (end stage renal disease) ([facility]) CARDIAC RHYTHM STRIP ORDER 10/28/2024 2:46 PM CDT BASIC METABOLIC PANEL (CALCIUM TOTAL) STAT 05/25/2024 10:45 AM CRULLER MAKER Preop testing from Last 3 Months or [...] Dentition unchanged? Yes Staff Section Anesthesia Provider: Juvenal, Naima M, SECRETARY BOARD OF COMMISSIONERS-PHOTOVOLTAIC PANEL INSTALLER, Performed the procedure us Oswaldo Uriarte MD [...] ORDERA BLES Final Result [facility] [address] [phone] * CARDIAC RHYTHM STRIP ORDER (11/23/2024 9:10 [...] Procedure Note Chung Stinson MD - 11/16/2024 [facility] [address] [facility], [address] [place] [address] Vessel Mapping for Hemodialysis Report Pat.Name: AALIYAH CASTILLO Pat.ID: [id number] St.Date: 11/16/2024 Exam Time: 10:04:00 AM Study Type:Vessel Mapping for Hemodialysis Age: 9 1955,69Y Sex: FEMALE Sonogrphr: Javed Arreaga RVT Pat. Stat.:Outpatient CPT - 4: 59569 Reason for Study: End Stage Renal Disease Procedures: Vessel Mapping for Hemodialysis Race: 1 Visit ID: [id number] ++++++++++++++++++++++++++++++++++++ SUMMARY: ++++++++++++++++++++++++++++++++++++ The right upper arm [...] METABOLIC PANEL (CALCIUM TOTAL) (05/25/2024 10:45 AM CRULLER MAKER) [facility] Glucose 97 70 - 99 mg/dL 05/25/2024 11:09 AM CRULLER MAKER [facility] Sodium 137 136 - 145 mmol/L 05/25/2024 11:09 AM CRULLER MAKER [facility] Potassium 4.3 3.5 - 5.1 mmol/L 05/25/2024 11:09 AM [facility] Chloride 102 98 - 107 mmol/L 05/25/2024 11:09 AM [facility] CO2 24 22 - 29 mmol/L 05/25/2024 11:09 AM [facility] Calcium 9.9 8.4 - 10.4 mg/dL 05/25/2024 11:09 AM [facility] Anion Gap 11 6 - 16 mmol/L 05/25/2024 11:09 AM [facility] BUN 16 7 - 26 mg/dL 05/25/2024 11:09 AM [facility] Creatinine 3.09(H) 0.57 - 1.11 mg/dL 05/25/2024 11:09 AM [facility] eGFR by CKD-EPI 16(L) >=90 mL/min/1.7 3 m2 05/25/2024 11:09 AM [facility] Blood BLOOD SPECIMEN / Unknown Venipuncture / Unknown 05/25/2024 10:45 AM CRULLER MAKER 05/25/2024 10:48 AM CRULLER MAKER Renetta Land DO LAB - CHEMISTRY ORDERABLES Yesy graves Result [facility] [address] [place] [address] from Last 3 Months or Most Recently Relevant to Health Maintenance Insurance MEDICARE MEDICAID - [place] Care Teams Fan Installer Relationship Specialty Start Date End Date Billy Brewer APRN-ELVIA [address] [place] [phone] PCP - General 06/03/23
--- OUTSIDE RECORDS SUMMARY | 2024-12-01 03:32 | XMS_ITS | Encounter Summary ---
Author Organization [facility] Address [address] [place] [address] Care Team Providers Care Conveyor Attendant Name Role Phone Tate Butt GUN FERTILIZER-LODGE ATTENDANT Primary Care Provider Billy Brewer GUN FERTILIZER-LODGE ATTENDANT Primary Care Provider +1- [phone] Encounter Details Date Type Department Care Team (Late st Contact Info) Description 04/24/2018 Lab Requisition [facility] - Laboratory [address] [place] [address] Juan J Obregon MD [address] [place] [address] [address] Anemia in chronic kidney disease (CODE) Social [...] Description 12/14/2024 10:20 AM CDT Office Visit [facility] - Surgery [address] [facility], [address] [place] [address] [place] [address] [facility] [address] [place] [address] 01/25/2025 2:45 PM CDT Appointment [facility] Vascular Services [address] [facility], [address] [place] [address] [place] [address] [facility] [address] [place] [address] [place] [address] [facility] [address] [place] [address] [place] [address] [address] [place] [address] [place] [address] [facility] [address] [place] [address] documented as of this encounter Procedures Procedure [...] Fi nal Result [facility] [address] [place] [address] documented in this encounter Visit Diagnoses Diagnosis Anemia in chronic kidney disease (CODE) documented in this encounter Care Teams Conveyor Attendant Relationship Specialty Start Date End Date Tate Butt, GUN FERTILIZER-LODGE ATTENDANT [address] [place] [address] [place] [phone] PCP - General Nurse Practitioner Family 05/26/23 Billy Brewer APRN-LODGE ATTENDANT [address] [place] [address] CAND[place] Forbes [phone] PCP - General 06/03/23 documented as of this encounter
--- OUTSIDE RECORDS SUMMARY | 2024-12-01 03:32 | XMS_ITS | Encounter Summary ---
Author Organization [facility] Address [address] [facility] [place] [address] Care Team Providers Care Offbearer Name Role Phone Billy Brewer POLICY ANALYST-ENERGY DIRECTOR Primary Care Provider +1- [phone] Reason for Referral * Radiology Services (Routine) - Closed Specialty Diagnoses / Procedures Referred By Rocio dupree Referred To Contact Vascular Lab Diagnoses ESRD (end stage renal disease) on dialysis (HCC) Procedures IR Angio Av Shunt [place] [id number] [place] [address] [place] [address] Phone: tel: fax: [facility] Vascular Services [address] [place] [address], [address] [place] [address] Phone: tel: fax: Referral ID Status Reason Start Date Expiration Date Visits Re quested Visits Authorized [id number] Closed 11/16/2024 11/18/2024 1 1 Encounter Details Date Type Department Care Team (Late st Contact Info) Description 11/16/2024 Telephone [facility] Health Vascular Services [address] [place] [address], [address] [place] [address] Gloria Allen, RN Social History [...] Description 12/14/2024 10:20 AM CDT Office Visit [facility] Medical Group - Surgery [address] [facility], [address] [place] [address] [place] [address] [address] 01/25/2025 2:45 PM CDT Appointment [facility] Vascular Services [address] [place] [address], [address] [place] [address] [place] [address] [address] [place] [address] [facility] [address] [place] [address] [place] [address] [facility] [address] [place] [address] [place] [address] [facility] [address] [place] [address] Pending Results Name Type Priority Associated Diagnoses Date /Time IR Angio Av Shunt Imaging Imaging Routine ESRD (end stage renal disease) on dialysis ([facility]) 11/18/2024 3:24 PM CDT Scheduled Orders Name Type Priority Associated Diagnoses Orde r Schedule IR Angio Av Shunt Imaging Imaging Routine ESRD (end stage renal disease) on dialysis ([facility]) 1 Occurrences starting 11/16/2024 until 11/16/2025 documented as of this encounter Visit Diagnoses Diagnosis ESRD (end stage renal disease) on dialysis (HCC)- Primary End stage renal disease documented in this encounter Care Teams Offbearer Relationship Specialty Start Date End Date Billy Brewer APRN-ENERGY DIRECTOR [address] [place] [address] CAND[place] Forbes [phone] PCP - General 06/03/23 documented as of this encounter
--- OUTSIDE RECORDS SUMMARY | 2024-12-01 03:32 | XMS_ITS | Encounter Summary ---
Author Organization [facility] Address [address] [facility] [place] [address] Care Team Providers Care Salesperson Meats Name Role Phone Billy Brewer CULINARY ARTS TEACHER-ROCKET ENGINE COMPONENT MECHANIC Primary Care Provider +1- [phone] Reason for Visit * Auth/Cert (Routine) Specialty Diagnoses / Procedures Referred By Rocio t Referred To Contact Procedures [place] ANASTOMOSIS,AV,ANY SITE CREATION ARTERIOVENOUS (AV) FISTULA DIRECT Referral ID Status Reason Start Date Expiration Date Visits Re quested Visits Authorized [id number] 1 1 Encounter Details Date Type Department Care Team (Late st Contact Info) Description 11/30/2024 1:22 PM CDT - 11/30/2024 2:[address] [facility] - Perioperative Surgery [address] [place] [address] [place] [address] [facility] [address] [place] [address] EXPLORATION CEPHALIC VEIN AND CREATION BRACHIOBASILIC [...] Heartburn azelastine (Astepro) 205.5 MCG/SPRAY nasal spray [place] 2 (two) sprays into the nose 2 [...] 9pm 3 Cholecalciferol (vitamin D3) 1.25 MG (97857 UT) capsule Take 1 (one) capsule by [...] fluticasone propionate (Flonase) 50 MCG/ACT nasal spray [place] 2 (two) sprays into each nostril 2 times daily 3 guaiFENesin (Robitussin) 100 MG/5ML syrup Take 10 mL by mouth every 4 hours as needed HYDROcodone-acetam inophen ([place]) 5-325 MG tabletIndications: Pre-op exam Take 1 (one) tablet by mouth every 6 hours as needed for Pain 12 tablet 5 HYDROcodone-acetam inophen ([place]) 5-325 MG tabletIndications: ESRD (end stage renal disease) ([facility]) Take 1 (one) tablet by mouth every 6 hours as needed for Pain 30 tablet 4 HYDROcodone-acetam inophen ([place]) 5-325 MG tabletIndications: ESRD (end stage renal [...] max 2 doses 24 hours nystatin (Mycostatin) 278800 UNIT/GM powder Apply to affected area 3 [...] Medical History: Diagnosis Date Arthritis Bipolar disorder ([facility]) Chronic venous insufficiency COPD (chronic obstructive pulmonary disease) ([facility]) Cyclothymic disorder Disorder of thyroid ESRD (end stage renal disease) ([facility]) [facility] 11/16/2024 ESRD on dialysis ([facility]) GERD (gastroesophageal reflux disease) [place] (hard of hearing) HTN (hypertension) Hypothyroidism Mild developmental delay Parkinson's disease ([facility]) Pure hypercholesterolemia [Past Medical & Surgical History] [...] needed azelastine (Astepro) 205.5 MCG/SPRAY nasal spray [place] 2 (two) sprays into the nose 2 [...] fluticasone propionate (Flonase) 50 MCG/ACT nasal spray [place] 2 (two) sprays into each nostril 2 times daily guaiFENesin (Robitussin) 100 MG/5ML syrup Take 10 mL by mouth every 4 hours as needed HYDROcodone-acetaminophen ([place]) 5-325 MG tablet Take 1 (one) tablet by mouth every 6 hours as needed for Pain 30 tablet 0 HYDROcodone-acetaminophen ([place]) 5-325 MG tablet Take 1 (one) tablet by mouth every 6 hours as needed for Pain 30 tablet 0 Lactobacillus (Acidophilus Probiotic) 10 MG CAPS levothyroxine (Synthroid) 88 MCG tablet Methoxy PEG-Epoetin Beta (MIRCERA IJ) 30 mcg nystatin (Mycostatin) 619347 UNIT/GM powder Apply to affected area 3 [...] Creation brachiobasilic fistula Surgeon: Chung Stinson MD Circuit Walker: MASSIEL Type of anesthesia: General, Local Complications: none EBL: 25 cc documented in this encounter Plan of Treatment Upcoming Encounters Date Type Department Care Team (Late st Contact Info) Description 12/14/2024 10:20 AM CDT Office Visit [facility] Group - Surgery [address] [place] [address], [address] [place] [address] [place] [address] [address] 01/25/2025 2:45 PM CDT Appointment [facility] Vascular Services [address] [facility], [address] [place] [address] [place] [address] [facility] [address] [address] [place] [id number] [place] [address] [place] [address] [address] [place] [id number] [place] [address] Scheduled Orders Name Type Priority Associated Diagnoses Orde r Schedule BASIC METABOLIC PANEL (CALCIUM TOTAL) Lab STAT Pre-op exam ONCE for 1 Occurrences starting 11/30/2024 until 11/30/2024 documented as of this encounter Procedures Procedure [...] ORDERA BLES Final Result [facility] [address] [place] [address], [facility] [phone] documented in this encounter Visit Diagnoses Not [...] PRN, Starting on Fri11/30/24 at 1325, Until 11/30/24 at 1339, Intra-op 1325 ($ Given - Prov ider: Chung Stinson MD) documented in this encounter Care Teams Salesperson Meats Relationship Specialty Start Date End Date Billy Brewer APRN-ROCKET ENGINE COMPONENT MECHANIC [address] [place] [phone] PCP - General 06/03/23 documented as of this encounter
--- OUTSIDE RECORDS SUMMARY | 2024-12-01 03:32 | XMS_ITS | Encounter Summary ---
Author Organization [facility] Address [address] [facility] [place] [address] Care Team Providers Care Superintendent Radio Communications Name Role Phone Billy Brewer CONTROLLER MECHANIC-DISK RECOATER Primary Care Provider +1- [phone] Reason for Visit * Auth/Cert (Routine) Specialty Diagnoses / Procedures Referred By Rocio t Referred To Contact Procedures [place] ANASTOMOSIS,AV,ANY SITE CREATION ARTERIOVENOUS (AV) FISTULA DIRECT Referral ID Status Reason Start Date Expiration Date Visits Re quested Visits Authorized [id number] 1 1 Encounter Details Date Type Department Care Team (Late st Contact Info) Description 11/30/2024 12:24 PM CDT Anesthesia Event [facility] - Perioperative Surgery [address] [place] [address] Oswaldo Uriarte MD [address] [address] [place] [address] Woo Maria DO [address] [facility] [address] [place] [address] Anesthesia Record Procedure Summary Procedure [...] Naima Sanford APRN-CRNA 11/30/24 1334 by Naima Sanofrd APRN-CRNA Procedural Site (Incision) 11/30/24; 1240; Anterior, [...] this encounter Progress Notes * Naima Sanford, CONTROLLER MECHANIC-VALET ATTENDANT - 11/30/2024 1:45 PM CDT ANESTHESIA POSTOP [...] COPD (chronic obstructive pulmonary disease) ([facility]) Cyclothymic disorder Disorder of thyroid ESRD (end stage renal disease) ([facility]) [facility] 11/16/2024 ESRD on dialysis ([facility]) GERD (gastroesophageal reflux disease) [place] (hard of hearing) HTN (hypertension) Hypothyroidism Mild developmental delay Parkinson's disease ([facility]) Pure hypercholesterolemia Surgical History: Past Surgical History: Procedure Laterality Date A-V SHUNT CREATION Left 09/02/2023 Left; LEFT UPPER ARM CEPHALIC VEIN TRANSPOSITION Appendectomy INSERTION DIALYSIS CATHETER VASCULAR PROCEDURE/SURGERY Left 06/04/2023 Left; LEFT UPPER ARM DIALYSIS FISTULA VASCULAR PROCEDURE/SURGERY Left 05/25/2024 Left; LEFT UPPER ARM ARTERIOVENOUS (AV) GRAFT DOCK WORKER Status: No LMP recorded. Patient is postmenopausal. Postmenopausal OB History No obstetric history on file. Covid Vaccine: Lab Results: Recent Labs Component Name 11/30/24 1210 PH 7.48* PO2VEN 39 ASW8MEM 46 BBY1DZM 34.3* BEVEN 9.7* W7TTBQAEB 9.6 X5GMAOFJ 66* No results found for requested labs [...] hours as needed for Heartburn Unknown azelastine [place] 2 (two) sprays into the nose 2 [...] as needed Taking As Needed fluticasone propionate [place] 2 (two) sprays into each nostril 2 times daily Taking guaiFENesin Take 10 mL by mouth every 4 hours as needed Taking As Needed Lactobacillus (ACIDOPHILUS PO) Take 75 mm by mouth once daily At 3 pm Taking levothyroxine Take 1 (one) tablet by mouth daily before breakfast 11/30/2024 at 6:00 AM cuyjeose-twyqvewobu-[id number] Apply to affected area every 4 hours [...] this encounter Procedure Notes * Naima Sanford, CONTROLLER MECHANIC-VALET ATTENDANT - 11/30/2024 12:34 PM CDTAssociated Order(s): LMA [...] Description 12/14/2024 10:20 AM CDT Office Visit [facility] - Surgery [address] [place] [address], [address] [place] [address] [place] [address] [facility] [address] [place] [address] 01/25/2025 2:45 PM CDT Appointment [facility] Vascular Services [address] [facility], [address] [place], [place] [address] [place] [address] [facility] [address] [place] [address] [place] [address] [facility] [address] [place] [address] [place] [address] [place] [address] [place] [address] [facility] [address] [place] [address] documented as of this encounter [...] mg documented in this encounter Care Teams Superintendent Radio Communications Relationship Specialty Start Date End Date Billy Brewer APRN-DISK RECOATER [address] [place] [address] PCP - General 06/03/23 documented as of this encounter
--- OUTSIDE RECORDS SUMMARY | 2024-12-01 03:32 | XMS_ITS | Encounter Summary ---
Author Organization [facility] Address [address] [place] [address] Care Team Providers Care Clinical Science Liaison Name Role Phone Billy Brewer SUBMARINE ELEMENT COORDINATOR-CHAIN MAKER Primary Care Provider [phone] Reason for Referral * (Routine) - Open Specialty Diagnoses / Procedures Referred By Rocio t Referred To Contact Procedures Follow up with [place] Chung Stinson [place] [id number] [place] [address] [place] [phone] Phone: tel: fax: Chung Stinson MD [address] [place] [address] [place] [phone] Phone: tel: fax: Referral ID Status Reason Start Date Expiration Date Visits Re quested Visits Authorized [id number] Open 11/30/2024 11/30/2025 1 1 Reason for Visit * Auth/Cert (Routine) Specialty Diagnoses / Procedures Referred By Contsugar t Referred To Contact Procedures VA ANASTOMOSIS,AV,ANY SITE CREATION ARTERIOVENOUS (AV) FISTULA DIRECT Referral ID Status Reason Start Date Expiration Date Visits Re quested Visits Authorized [id number] 1 1 Encounter Details Date Type Department Care Team (Latest Contact Info) Description 11/30/2024 11:23 AM CDT - 11/30/2024 2:56 PM CDT Hospital Encounter [facility] - Perioperative Surgery [address] [place], [place] [id number] [place] [address] [facility] [address] [place] [phone] Surgery General Discharge Disposition: Home or Self [...] Heartburn azelastine (Astepro) 205.5 MCG/SPRAY nasal spray [place] 2 (two) sprays into the nose 2 [...] 9pm 3 Cholecalciferol (vitamin D3) 1.25 MG (52214 UT) capsule Take 1 (one) capsule by [...] fluticasone propionate (Flonase) 50 MCG/ACT nasal spray [place] 2 (two) sprays into each nostril 2 times daily 3 guaiFENesin (Robitussin) 100 MG/5ML syrup Take 10 mL by mouth every 4 hours as needed HYDROcodone-acetam inophen ([place]ona) 5-325 MG tabletIndications: Pre-op exam Take 1 (one) tablet by mouth every 6 hours as needed for Pain 12 tablet 5 HYDROcodone-acetam inophen ([place]) 5-325 MG tabletIndications: ESRD (end stage renal disease) ([facility]) Take 1 (one) tablet by mouth every 6 hours as needed for Pain 30 tablet 4 HYDROcodone-acetam inophen ([place]) 5-325 MG tabletIndications: ESRD (end stage renal [...] max 2 doses 24 hours nystatin (Mycostatin) 305585 UNIT/GM powder Apply to affected area 3 [...] Medical History: Diagnosis Date Arthritis Bipolar disorder ([facility]) Chronic venous insufficiency COPD (chronic obstructive pulmonary disease) ([facility]) Cyclothymic disorder Disorder of thyroid ESRD (end stage renal disease) ([facility]) [facility] 11/16/2024 ESRD on dialysis ([facility]) GERD (gastroesophageal reflux disease) INUPIAT (hard of hearing) HTN (hypertension) Hypothyroidism Mild developmental delay Parkinson's disease ([facility]) Pure hypercholesterolemia [Past Medical & Surgical History] [...] needed azelastine (Astepro) 205.5 MCG/SPRAY nasal spray [place] 2 (two) sprays into the nose 2 [...] fluticasone propionate (Flonase) 50 MCG/ACT nasal spray [place] 2 (two) sprays into each nostril 2 times daily guaiFENesin (Robitussin) 100 MG/5ML syrup Take 10 mL by mouth every 4 hours as needed HYDROcodone-acetaminophen ([place]) 5-325 MG tablet Take 1 (one) tablet by mouth every 6 hours as needed for Pain 30 tablet 0 HYDROcodone-acetaminophen ([place]) 5-325 MG tablet Take 1 (one) tablet by mouth every 6 hours as needed for Pain 30 tablet 0 Lactobacillus (Acidophilus Probiotic) 10 MG CAPS levothyroxine (Synthroid) 88 MCG tablet Methoxy PEG-Epoetin Beta (MIRCERA IJ) 30 mcg nystatin (Mycostatin) 176616 UNIT/GM powder Apply to affected area 3 [...] Creation brachiobasilic fistula Surgeon: Chung Stinson MD Trustee Of Estate: MASSIEL Type of anesthesia: General, Local Complications: none EBL: 25 cc documented in this encounter Plan of Treatment Upcoming Encounters Date Type Department Care Team (Late st Contact Info) Description 12/14/2024 10:20 AM CDT Office Visit [facility] - Surgery [address] [place] [address], [address] [phone] Chung Stinson MD [address] [place] [phone] 01/25/2025 2:45 PM CDT Appointment [facility] [address] [place] [address], [address] [place] [address] Ben Titus DO [facility] KINSEY SANTOS [address] [place] [phone] [place]y [place] [id number] [place] [phone] [place] [address] [place] [phone] [place]oo Headley [place] [id number] [place] [id number] Scheduled Orders Name Type Priority Associated [...] ORDERA BLES Final Result [facility] [id number] [phone] documented in this encounter Visit Diagnoses Diagnosis [...] PRN, Starting on Fri11/30/24 at 1250, Until 11/30/24 at 1339, Intra-op [...] MD) documented in this encounter Care Teams Clinical Science Liaison Relationship Specialty Start Date End Date Billy Brewer APRN-ELVIA [address] [place] [phone] PCP - General 06/03/23 documented as of this encounter
--- OUTSIDE RECORDS SUMMARY | 2024-12-01 03:32 | XMS_ITS | Patient Health Record ---
Author Organization [facility] [place] Address [address] [place] [address] Care Team Providers Care Commission Associate Name Role Phone Migration, Provider Unavailable Unavailable [place] Unavailable [phone] Bettina Preston Unavailable [phone] Allergies Allergen (clinical drug ingredient) Drug/Non Drug [...] a day for 30 days Active Nystatin 688704 UNIT/GM External 11/20/2023 Active Famotidine 20 MG Oral 11/20/2023 Ac tive Simvastatin 20 MG Oral 11/20/2023 A ctive prednisoLONE Acetate 1 % Ophthalmic 11/20/2023 Active ACIDOPHILUS-PECTIN 75 million cell -100 mg Oral *Reorder from [employer] for eRx and Interaction Alerts* 11/20/2023 Active Renvela 800 MG Oral 11/20/2023 Acti ve ASTEPRO ALLERGY 205.5 MCG (0.15 %) NASAL SPRAY *Reorder from [facility] for eRx and Interaction Alerts* 11/20/2023 Active Nystop 322895 UNIT/GM External 11/20/2023 Active Fluticasone Propionate Diskus 50 MCG/ACT Inhalation *Reorder from [facility] for eRx and Interaction Alerts* 11/20/2023 Active Ventolin HFA 108 (90 Base) MCG/ACT Inhalation 11/20/2023 Active Levothyroxine Sodium 88 MCG Oral 11/20/2023 Active Pantoprazole Sodium 40 MG Oral 11/20/2023 Active Clopidogrel Bisulfate 75 MG Oral 11/20/2023 Active Immunizations Vaccine Route Administration Date Status Comme nts Zoster Unknown 04/11/2009 Administered Zoster Unknown 08/03/2015 Administered Varicella Unknown 12/19/2003 Administered Varicella Unknown 01/24/2004 Administered Tdap Unknown 10/28/2007 Administered Td (adult), adsorbed Unknown 10/06/2007 Administered Pneumococcal polysaccharide PPV23 Unknown 09/04/2013 Ad ministered Pneumococcal conjugate PCV 13 Unknown 09/04/2013 Admini stered Pneumococcal conjugate PCV 13 Unknown 04/10/2015 Admini stered Novel [id number], preservative free Unknown 04/24/2015 Administered Novel [id number], preservative free Unknown 04/07/2017 Administered Moderna Covid-19 Vaccine 1st dose Unknown 08/08/2020 Ad ministered Moderna Covid-19 Vaccine 1st dose Unknown 09/06/2020 Ad ministered Moderna Covid-19 Vaccine 1st dose Unknown 05/29/2021 Ad ministered Influenza, unspecified formulation Unknown 04/06/2018 A dministered Influenza, seasonal, injecta ble, preservative free, 3 yrs and above Unknown 03/07/2013 Administered Influenza, seasonal, injecta ble, preservative free, 3 yrs and above Unknown 04/22/2014 Administered Influenza virus vaccine, quadrivalent (IIV4), split virus, 0.25 mL dosage Unknown 05/03/2016 Administered DTaP Unknown 10/06/2007 Administered Social History Tobacco Use: Social History [...] NoDo you have a medical power of contract attorney?: NoPublic Health and TravelHave you been to [...] Do you have a medical power of contract attorney?: No Gender Identity and LGBTQ Identity Gender identity: Identifies as Female Assigned sex at : Female Problems Problem Type SNOMED Code ICD Code Onset Dates Problem Status W/U Status Risk Notes Problem Schizoaffective disorder, bipolar type (20595927) Schizoaffective disorder, bipolar type (F25.0) 11/20/19 24 Active confirmed Problem Generalized anxiety disorder (25837050) Generalized anxiety disorder (F41.1) 11/20/19 24 Active confirmed Problem End stage renal disease (N18.6) 11/20/19 24 Active confirmed Problem Intellectual functioning disability (063337858) Intellectual functioning disability (F79) Active confirmed Vital Signs Heart Rate 74 /min 02/17/2024 Height-cm 160.02 cm 05/04/2024 Blood pressure diastolic 79 mm Hg 02/17/2024 Weight-kg 78.47 kg 02/17/2024 Height 63.00 in 05/04/2024 Blood pressure systolic 141 mm Hg 02/17/2024 Weight 173 lbs 02/17/2024 BMI 30.64 kg/m2 02/17/2024 Encounters Encounter Location Date Provider Diagnosis [facility] [address] [phone] 02/17/2024 Pao Gene Schizoaffective disorder, bipolar type F25.0 ; Generalized anxiety disorder F41.1 ; Intellectual functioning disability F79 and End stage renal disease N18.6 [facility] [address] [address] 05/04/2024 Pao Gene Schizoaffective disorder, bipolar type F25.0 ; Generalized anxiety disorder F41.1 ; Intellectual functioning disability F79 and End stage renal disease N18.6 [facility] [address] [address] 08/03/2024 Bettina Preston Assessments Encounter Date Diagnosis (ICD Code) Assessment Notes Treatment Notes Treatment Clinical Notes Section Notes 02/17/2024 Schizoaffective disorder, bipolar type (ICD-10 - F25.0) cont depakote er 250mg bid cont risperidone 0.5mg hs resides at [facility] dialysis on friday, friday and friday stable, cont current meds f/u in 3 months, earlier if concerns 02/17/2024 Generalized anxiety disorder (ICD-10 - F41.1) cont sertraline 100mg daily 05/04/2024 Schizoaffective disorder, bipolar type (ICD-10 - F25.0) cont depakote ER 250mg bid cont risperidone 0.5mg hs resides at [facility] dialysis on friday, friday and fridaystable, cont [...] Date Medicare-I l Medicare [address] [place] [address] [id number] PRATIK CASTILLO Self - patient is the insured Medicaid-I l Medicaid [address] [address] [place] [address] [id number] PRATIK CASTILLO Self - patient is the insured Medical (General) History Medical History History ICD Code Problems: End stage renal failure on xenia lysis Generalized anxiety disorder Intellectual functioning disability Long-term current use of drug therapy Schizoaffective disorder, bipolar type Surgical History Surgery Date(Month/Year) dialysis port removed 12/2023
--- NOTE | 2024-12-01 03:44 | ED.GENADULT ---
HPI - General Adult General Chief complaint: Unspecified Stated complaint: Had Fistula placed-fever chills, elevated HR Time Seen by Provider: 12/01/24 02:59 History of Present Illness HPI narrative: 69-year-old female with a past medical history including dialysis from end-stage renal disease. She goes Friday. She has a history of bipolar depression and cognitive impairment and resides at a correction. She presents to the emergency department today for concerns of subjective fever and chills after having a dialysis port placed in her right upper extremity yesterday. Patient was otherwise in her normal state of health, denies any nausea, vomiting, vision changes, chest pain, abdominal pain, back pain. She has not missed any hemodialysis sessions and still uses her left upper extremity previous fistula. She follows with her vascular doctor at [facility]. Patient has no acute complaints at this time but patient's care facility was concerned and sent her to the hospital for evaluation. Patient received 2 Tylenol prior today with resolution of symptoms which is reassuring. Related Data Home Medications ?Medication ?Instructions ?Recorded ?Confirmed ?Last Taken ?Type Lactobacillus acidophilus 100 mmu cells PO DAILY 08/29/22 Unknown History (Acidophilus capsule) acetaminophen 325 mg capsule 325 mg PO Q6H PRN 08/29/22 Unknown History albuterol sulfate 90 mcg/actuation 1 inh inhalation Q4H 08/29/22 Unknown History aerosol inhaler aluminum-mag hydroxide-simethicone 5 ml PO ONCE PRN 08/29/22 Unknown History 200 mg-200 mg-20 mg/5 mL oral susp (Yin-Lanta) azelastine 205.5 mcg (0.15 %) 2 spray intranasal DAILY 08/29/22 Unknown History nasal spray (Astepro Allergy) bisacodyl 5 mg tablet,delayed 5 mg PO QHS PRN constipation 08/29/22 Unknown History release bismuth subsalicylate 262 mg/15 mL 524 mg PO Q1H PRN 08/29/22 Unknown History oral suspension (Stomach Relief) carbidopa 10 mg-levodopa 100 mg 1 tablet PO BID 08/29/22 Unknown History tablet dextromethorphan HBr 15 mg/5 mL 15 mg PO Q8H PRN cough 08/29/22 Unknown History oral syrup diphenhydramine HCl 25 mg capsule 25 mg PO QHS PRN 08/29/22 Unknown History (Allergy (diphenhydramine)) divalproex 250 mg tablet,delayed 250 mg PO Q12H 08/29/22 Unknown History release (Depakote) famotidine 20 mg tablet 20 mg PO DAILY PRN 08/29/22 Unknown History fenofibrate 160 mg tablet 160 mg PO DAILY 08/29/22 Unknown History fluticasone propionate 50 2 spray intranasal DAILY 08/29/22 Unknown History mcg/actuation nasal spray,suspension (Allergy Relief (fluticasone)) levothyroxine 88 mcg capsule 88 mcg PO DAILY 08/29/22 Unknown History pantoprazole 40 mg tablet,delayed 40 mg PO QAM 08/29/22 Unknown History release polyethylene glycol 3350 17 17 g PO DAILY 08/29/22 Unknown History gram/dose oral powder risperidone 0.5 mg tablet 0.5 mg PO QHS 08/29/22 Unknown History sertraline 100 mg tablet 100 mg PO DAILY 08/29/22 Unknown History sevelamer carbonate 800 mg tablet 800 mg PO TID 08/29/22 Unknown History (Renvela) simvastatin 20 mg tablet 20 mg PO DAILY 08/29/22 Unknown History Allergies Allergy/AdvReac Type Severity Reaction Status Date / Time NSAIDS (Non-Steroidal Allergy Mild Unknown Verified 11/30/24 22:11 Anti-Inflamma Review of Systems Review of Systems: As reviewed above in HPI [facility] Past Medical History Medical History Parkinsons disease Bipolar disorder Hyperlipidemia Chronic kidney disease H/O gastroesophageal reflux (GERD) Seasonal allergies COPD (chronic obstructive pulmonary disease) Low back pain Chronic venous insufficiency Personal history of dysmenorrhea Hypothyroidism Hypertension Cyclothymia Mild intellectual disability Surgical History Surgical History [place] teeth removed History of removal of cyst abdominal Social History Social History Smoking status: Never smoker Second hand tobacco smoke exposure: No Alcohol intake: never Substance use: never Lack of Transportation: No Lack of Food: Never True Current Housing: I Have Housing Concerned About Future Housing: No Difficulty Paying Gas/Electric Bills: No Difficulty Paying for Meds: No Currently Unemployed: No Living arrangements: correction Additional living arrangements comments: Residential options Occupation/Education: retired Gender identity (if verbalized by the patient): Female Sexual Orientation (if Verbalized by the Patient): Straight or Heterosexual Spiritual care concerns: No Exam Narrative: GENERAL: [Well-appearing, well-nourished, and in no acute distress.] HEAD: [Normocephalic, atraumatic.] EYES: [PERRLA and EOMI.] ENT: Nares clear, no rhinorrhea or epistaxis. Mucous membranes moist. NECK: Supple. CHEST: [Clear to auscultation. No respiratory distress.] HEART: [Regular rate and rhythm]. No murmur heard. [Normal peripheral pulses.] ABDOMEN: [Soft, nondistended], [nontender], [No rigidity or guarding] EXTREMITIES: Normal range of motion. [No edema.] Left upper extremity AV access, right upper extremity with postoperative site that is clean dry and intact at the AC fossa with good distal neuro vasculature and perfusion. Sutures are in place, no active bleeding, no purulent drainage or any redness or tenderness of palpation. SKIN: Warm, dry, no rash. NEURO: [No focal deficits]. Alert and oriented at baseline and answering questions appropriately. Hard of hearing. PSYCH: [Normal mood and affect.] Course Vital Signs Vital signs: Vital Signs Temperature 37.1 C 11/30/24 22:13 Pulse Rate 109 H 11/30/24 22:13 Respiratory Rate 18 11/30/24 22:13 Blood Pressure 140/47 L 11/30/24 22:13 Pulse Oximetry 99 11/30/24 22:13 Oxygen Delivery Room Air 11/30/24 22:13 Temperature 37.7 C H 12/01/24 05:10 Pulse Rate 99 12/01/24 05:10 Respiratory Rate 22 H 12/01/24 05:10 Blood Pressure 123/54 L 12/01/24 05:10 Pulse Oximetry 100 12/01/24 05:10 Oxygen Delivery Room Air 11/30/24 22:13 Medical Decision Making MDM Narrative Medical decision making narrative: 69-year-old female with history of end-stage renal disease on dialysis Friday as well as bipolar disorder, COPD, hypertension, mild cognitive impairment. Patient has been acting appropriately but received a new right upper extremity AV graft/fistula with her vascular provider at [facility]. This happened earlier this morning and she was having some subjective fever and chills after the fact. She took 2 Tylenol which completely resolved her symptoms and presently she is asymptomatic. She does express that she wishes to have a breathing treatment and she feels like her COPD might be acting up on her but she has clear breath sounds throughout. Her fistula appears clean dry and intact without any signs of inflammation, dehiscence or any bleeding. Distal neuro vasculature is intact. She has afebrile here, vital signs are reassuring. She is resting comfortably and I discussed with her and the caregiver at bedside the plan of care at this time will be to evaluate with her laboratory studies including CBC and CMP had x-ray of her chest to rule out any kind of potential infectious causes although low suspicion given the acute postoperative nature without any apparent complications. She will have to follow-up with her primary care provider and vascular provider and sent continue with her dialysis after likely discharge upon completion of workup. Patient's workup was reassuring there is no leukocytosis or fever here in the emergency depart. Hemoglobin 9.4 with around baseline compared to previous. Platelets are also low but around baseline thrombocytopenia. BUN and creatinine reflective of her normal end-stage renal disease that she gets dialysis for otherwise her electrolytes are normal. LFTs normal. Patient's chest x-ray was independently reviewed and I do not appreciate any consolidations suspicious for pneumonia and there appears to be no pneumothorax. Patient re-evaluated and she is expressing desire for discharge home at this time. She has not had a fever here and been asymptomatic. Encouraged her to take Tylenol as needed for any aches pains or subjective fevers/chills and follow up with regular doctors. She is given return precautions which caregiver verbalized understanding and she was discharged back to her facility. Medical Records Medical records reviewed: Yes I reviewed the external patient's medical records. Vital Signs Vital Signs: Vital Signs Temperature 37.1 C 11/30/24 22:13 Pulse Rate 109 H 11/30/24 22:13 Respiratory Rate 18 11/30/24 22:13 Blood Pressure 140/47 L 11/30/24 22:13 Pulse Oximetry 99 11/30/24 22:13 Oxygen Delivery Room Air 11/30/24 22:13 Temperature 37.7 C H 12/01/24 05:10 Pulse Rate 99 12/01/24 05:10 Respiratory Rate 22 H 12/01/24 05:10 Blood Pressure 123/54 L 12/01/24 05:10 Pulse Oximetry 100 12/01/24 05:10 Oxygen Delivery Room Air 11/30/24 22:13 Lab Data Lab results reviewed: Yes I reviewed the patient's lab results. 12/01/24 02:33 12/01/24 02:33 Labs: Lab Results 12/01/24 Range/Units 02:33 WBC 9.1 (4.5-10.0) K/mm3 RBC 3.03 L (4.2-5.4) M/mm3 Hgb 9.4 L (12.0-15.0) g/dL Hct 30.1 L (37.0-47.0) % MCV 99.3 (80-100) fl MCH 31.0 (26-34) pg MCHC 31.2 L (32-36) g/dl RDW 14.7 H (11.5-14.5) % Plt Count 76 L (150-375) k/mm3 MPV 9.8 (7.4-10.4) fl Immature Gran % (Auto) 0.7 H (0-0.5) % Neut % (Auto) 86.5 H (45.5-73.1) % Lymph % (Auto) 6.5 L (18.3-44.2) % [place] % (Auto) 5.9 (2.6-8.5) % Eos % (Auto) 0.1 (0-4.4) % Baso % (Auto) 0.3 (0.2-1.2) % Lymph # (Auto) 0.59 L (0.9-3.2) K/mm3 [place] # (Auto) 0.5 (0.1-0.6) K/mm3 Eos # (Auto) 0.0 (0-0.3) K/mm3 Baso # (Auto) 0.0 (0.0-0.1) K/mm3 Abs Immat Gran (auto) 0.06 H (0.00-0.031) K/mm3 Absolute Neuts (auto) 7.9 H (1.3-6.7) K/mm3 Absolute Nucleated RBC 0.000 (0.0-0.012) K/mm3 Nucleated RBC % 0.0 (0.0-0.2) % % Immature Plt Fraction 2.4 (0.9-11.2) % Sodium 133 L (137-145) mmol/L Potassium 4.6 (3.4-5.0) mmol/L Chloride 100 (98-107) mmol/L Carbon Dioxide 24 (22-30) mmol/L Anion Gap 9 (4-12) mmol/L BUN 30 H D (7-17) mg/dL Creatinine 4.28 H (0.7-1.0) mg/dL Estim Creat Clear Calc 12 ml/min Estimated GFR 10 L (59 - ) Glucose 94 (65-110) mg/dL Calcium 8.7 (8.4-10.2) mg/dL Total Bilirubin 0.5 (0.2-1.3) mg/dL AST 40 H (14-36) U/L ALT 12 (6-35) U/L Alkaline Phosphatase 92 (38-126) U/L Total Protein 7.0 (6.3-8.2) g/dL Albumin 4.0 (3.5-5.1) g/dL Imaging Data Attestation: I personally reviewed and interpreted this imaging study as follows: My impression: Impressions Chest X-Ray 12/01/24 05:24 Impression: Mild bibasilar pulmonary edema/atelectatic change. Discharge Plan Discharge Clinical Impression: Subjective fever, End stage chronic kidney disease Patient Disposition: Home Condition: Stable Instructions: Antibiotic Form Additional Instructions: Your laboratory studies are reassuring. Follow-up with regular doctor and vascular surgeon. Return with any persistent fevers or developing new symptoms or concerns. Continue with your regular scheduled dialysis sessions. Return with any emergencies. Take Tylenol as needed for aches pains and fever. Patient Language: Citizen Of [place] Prescriptions: No Action Acidophilus Capsule 100 mmu cells PO DAILY albuterol sulfate 90 mcg/actuation HFA aerosol inhaler 1 inh inhalation Q4H azelastine [Astepro Allergy] 205.5 mcg (0.15 %) spray,non-aerosol 2 spray intranasal DAILY Rx Instructions: administer into each nostril carbidopa-levodopa 10-100 mg tablet 1 tablet PO BID divalproex [Depakote] 250 mg tablet,delayed release (DR/EC) 250 mg PO Q12H fenofibrate 160 mg tablet 160 mg PO DAILY fluticasone propionate [Allergy Relief (fluticasone)] 50 mcg/actuation spray,suspension 2 spray intranasal DAILY Rx Instructions: administer into each nostril levothyroxine 88 mcg capsule 88 mcg PO DAILY pantoprazole 40 mg tablet,delayed release (DR/EC) 40 mg PO QAM sevelamer carbonate [Renvela] 800 mg tablet 800 mg PO TID Rx Instructions: must administer with a meal/food risperidone 0.5 mg tablet 0.5 mg PO QHS sertraline 100 mg tablet 100 mg PO DAILY simvastatin 20 mg tablet 20 mg PO DAILY acetaminophen 325 mg capsule 325 mg PO Q6H PRN bisacodyl 5 mg tablet,delayed release (DR/EC) 5 mg PO QHS PRN (Reason: constipation) dextromethorphan HBr 15 mg/5 mL syrup 15 mg PO Q8H PRN (Reason: cough) diphenhydramine HCl [Allergy (diphenhydramine)] 25 mg capsule 25 mg PO QHS PRN famotidine 20 mg tablet 20 mg PO DAILY PRN alum-mag hydroxide-simeth [Yin-Lanta] 200-200-20 mg/5 mL suspension 5 ml PO ONCE PRN Rx Instructions: administer between meals and at bedtime polyethylene glycol 3350 17 gram/dose powder 17 g PO DAILY bismuth subsalicylate [Stomach Relief] 262 mg/15 mL suspension 524 mg PO Q1H PRN Rx Instructions: do not exceed 8 doses in a 24 hour period Follow-up/Referrals: UNKNOWN,DOCTOR [Primary Care Provider] - Time of Disposition: 04:49
[2024-12-01] MEDS: IPRATROPIUM 0.5 MG/ALBUTEROL SULFATE 2.5 MG AMPUL.NEB 3 ML INHALATION (03:50)
--- NOTE | 2024-12-01 04:40 | PC.NURSE ---
This RN spoke to Idalia from [facility] and gave update/report on pt. Idalia reports she is on the way to pick pt up.
== END 2024-12-01 05:05 | disposition home or self-care (01) ==
PROVIDERS: Emergency Provider Student in an Organized Health Care Education/Training Program
DX: R50.9 Fever, unspecified (principal); I12.0 Hypertensive chronic kidney disease with stage 5 chronic kidney disease or end stage renal disease; N18.6 End stage renal disease; Z99.2 Dependence on renal dialysis; G20.A1 Parkinson's disease without dyskinesia, without mention of fluctuations; I87.2 Venous insufficiency (chronic) (peripheral); E78.5 Hyperlipidemia, unspecified; E03.9 Hypothyroidism, unspecified; J44.9 Chronic obstructive pulmonary disease, unspecified; K21.9 Gastro-esophageal reflux disease without esophagitis; F31.9 Bipolar disorder, unspecified; F70 Mild intellectual disabilities; Z79.899 Other long term (current) drug therapy
CPT/HCPCS: 36415; 71046; 80053; 85025; 85055; 93005; 94640; 99284

== ENCOUNTER 2024-12-22 06:47 | Inpatient (IN) | payer MEDICARE, MEDICAID, SELFPAY ==
[2024-12-22] VITALS (26 sets, daily range): BP systolic 94–172; BP diastolic 53–84; PULSE 76–93; RESP 14–24; TEMP 36.3–37; O2SAT 96–100; BMI 33.0
--- NOTE | ~2024-12-22 | CT_ITS ---
CT diagnostic chest wo con Ordering provider: Joseph Herring MD History: 69 years Female with . Cough . Comparison: None. Technique: CT chest without IV contrast. Radiation reduction technique utilized.The dose-length product was 534 mGy-cm. FINDINGS: VISUALIZED THORACIC INLET: Normal. Left axillary lymph nodes are noted measuring 1.2 cm. MEDIASTINUM: Aorta/coronary arteries: Mild atheromatous disease. Heart/other: The heart is not enlarged. Lymph nodes: No mediastinal or hilar adenopathy. Small paratracheal and prevascular lymph nodes with the largest measuring 1 cm is noted. LUNGS: Groundglass appearance nodules are seen in the right apical area posteriorly with the largest measures 8.4 mm. No pulmonary masses. Atelectatic changes seen in the middle lobe. No infiltrates or effusions. No pneumothorax. VISUALIZED UPPER ABDOMEN: Cholelithiasis. Otherwise, the visualized upper abdomen is normal. MUSCULOSKELETAL: Soft tissues: The superficial soft tissues are normal. Bones: Age appropriate degenerative changes of the spine. Dextroscoliosis. IMPRESSION: 1. Groundglass nodules in the right apical area. 6 months follow-up CT is advised. Atelectatic fair es in the middle lobe. 2. Cholelithiasis. Reviewed, dictated and finalized at location A. IMPRESSION: 1. Groundglass nodules in the right apical area. 6 months follow-up CT is advi sed. Atelectatic changes in the middle lobe. 2. Cholelithiasis.
--- NOTE | ~2024-12-22 | NM_ITS ---
EXAMINATION: NM loida stress w perfusion DATE: 12/23/2024 12:08 INDICATION: Chest pain TECHNIQUE: Rest images were obtained following intravenous administration of 9.4 mCi Tc99m tetrofosmi n (Myoview). The patient was infused intravenously with Lexiscan (Regadenoson). Then, 29.7 mCi Tc99m tetrofosmin (Myoview) was administered intravenously, and stress images were obtained. Data was recon structed into short axis and horizontal and vertical long axis SPECT images. Gated SPECT images were also obtained. COMPARISON: None. FINDINGS: There is a small mild partially comminution of ischemia and infarct. Reversible perfusion d efect at the mid inferolateral segment consistent with. There is normal left ventricular chamber siz e, wall motion and ejection fraction. Left ventricular ejection fraction measures >70%. IMPRESSION: 1. Small mild infarct with associated mild reversible ischemia at the mid inferolateral segment.. 2. Left ventricular ejection fraction measuring >70%. Reviewed, dictated and finalized at location A. IMPRESSION: 1. Small mild infarct with associated mild reversible ischemia at the mid infer olateral segment.. 2. Left ventricular ejection fraction measuring >70%.
--- NOTE | ~2024-12-22 | XR_ITS ---
XR chest 1V portable 12/22/2024 08:00 Indication: Shortness of breath Procedure: AP portable chest Comparison: 12/01/2024 Findings: Borderline heart size. Mild interstitial edema. No pleural effusion or pneumothorax. No acu te osseous abnormality. Impression: 1: Cardiomegaly with mild interstitial edema. Reviewed, dictated and finalized at location A. Impression: 1: Cardiomegaly with mild interstitial edema.
--- OUTSIDE RECORDS SUMMARY | 2024-12-22 06:50 | XMS_ITS | Encounter Summary ---
Author Organization [facility] Address [address] [place] [address] Care Team Providers Care Brigadier Name Role Phone Billy Brewer HELICOPTER PILOT-INVENTORY ASSOCIATE Primary Care Provider +1- [phone] Reason for Referral * Radiology Services (Routine) - Closed Specialty Diagnoses / Procedures Referred By Rocio dupree Referred To Contact Vascular Lab Diagnoses ESRD (end stage renal disease) on dialysis (HCC) Procedures IR Angio Av [facility] [place] [id number] [place] [address] [place] [address] Phone: tel: fax: [facility] Vascular Services [address] [place] [address], [address] [place] [address] Phone: tel: fax: Referral ID Status Reason Start Date Expiration Date Visits Re quested Visits Authorized [id number] Closed 11/16/2024 11/18/2024 1 1 Encounter Details Date Type Department Care Team (Late st Contact Info) Description 11/16/[address] [facility] Vascular Services [address] [place] [address], [address] [place] [address] Gloria Allen, RN Social History [...] Care Team (Late st Contact Info) Description 01/11/2025 10:00 AM CDT Appointment [facility] Vascular Services [address] [place] [address] 01/11/2025 10:30 AM CDT Office Visit [facility] Medical Group - Surgery [address] [place] [address], [address] [phone] Chung Stinson MD [address] [place] [phone] 01/25/2025 2:45 PM CDT Appointment [facility] Vascular Services [address] [place] [address] [place] [id number] [place] [address] [place] [address] [place] [address] [facility] [address] [place] [address] [place] [address] [address] [place] [address] [place] [address] [facility] [address] [place] [address] Pending Results Name Type Priority Associated Diagnoses Date /Time IR Angio Av Shunt Imaging Imaging Routine ESRD (end stage renal disease) on dialysis ([facility]) 11/18/2024 3:24 PM CDT Scheduled Orders Name Type Priority Associated Diagnoses Orde r Schedule IR Angio Av Shunt Imaging Imaging Routine ESRD (end stage renal disease) on dialysis ([facility]) 1 Occurrences starting 11/16/2024 until 11/16/2025 documented as of this encounter Visit Diagnoses Diagnosis ESRD (end stage renal disease) on dialysis (HCC)- Primary End stage renal disease documented in this encounter Care Teams Brigadier Relationship Specialty Start Date End Date Billy Brewer APRN-INVENTORY ASSOCIATE [address] [place] [address] [place] [address] PCP - General 06/03/23 documented as of this encounter
--- OUTSIDE RECORDS SUMMARY | 2024-12-22 06:50 | XMS_ITS | Patient Health Record ---
Author Organization [facility] Address [address] [place] [address] Care Team Providers Care Electronic News Gathering Editor Name Role Phone Migration, Provider Unavailable Unavailable Pao Mills Unavailable [phone] Bettina Preston Unavailable [phone] Allergies Allergen (clinical drug ingredient) Drug/Non Drug [...] a day for 30 days Active Nystatin 206666 UNIT/GM External 11/20/2023 Active Famotidine 20 MG Oral 11/20/2023 Ac tive Simvastatin 20 MG Oral 11/20/2023 A ctive prednisoLONE Acetate 1 % Ophthalmic 11/20/2023 Active ACIDOPHILUS-PECTIN 75 million cell -100 mg Oral *Reorder from [employer] for eRx and Interaction Alerts* 11/20/2023 Active Renvela 800 MG Oral 11/20/2023 Acti ve ASTEPRO ALLERGY 205.5 MCG (0.15 %) NASAL SPRAY *Reorder from [facility] for eRx and Interaction Alerts* 11/20/2023 Active Nystop 492455 UNIT/GM External 11/20/2023 Active Fluticasone Propionate Diskus 50 MCG/ACT Inhalation *Reorder from [facility] for eRx and Interaction Alerts* [...] 1st dose Unknown 05/29/2021 Ad ministered Novel [id number], preservative free Unknown 04/24/2015 Administered Novel [id number]-[id number], preservative free Unknown 04/07/2017 Administered Pneumococcal conjugate [...] Notes Tobacco use: Nonsmoker Section Notes: Substance Use Do you or have you [...] Do you have a medical power of attorney law clerk?: No Gender Identity and LGBTQ Identity Gender identity: Identifies as Female Assigned sex at : Female Substance UseDo you or have you ever [...] NoDo you have a medical power of attorney law clerk?: NoPublic Health and TravelHave you been to an area known to be high risk for COVID-19?: NoGender Identity and LGBTQ IdentityGender identity: Identifies as FemaleAssigned sex at : Female Problems Problem Type SNOMED Code ICD Code Onset Dates Problem Status W/U Status Risk Notes Problem Schizoaffective disorder, bipolar type (92832033) Schizoaffective disorder, bipolar type (F25.0) 11/20/19 24 Active confirmed Problem Generalized anxiety disorder (53307056) Generalized anxiety disorder (F41.1) 11/20/19 24 Active confirmed Problem End stage renal disease (31846522) End stage renal disease (N18.6) 11/20/19 24 Active confirmed Problem Intellectual functioning disability (217336747) Intellectual functioning disability (F79) Active confirmed Vital Signs Heart Rate 74 /min 02/17/2024 Height-cm 160.02 cm 05/04/2024 Blood pressure diastolic 79 mm Hg 02/17/2024 Weight-kg 78.47 kg 02/17/2024 Height 63.00 in 05/04/2024 Blood pressure systolic 141 mm Hg 02/17/2024 Weight 173 lbs 02/17/2024 BMI 30.64 kg/m2 02/17/2024 Encounters Encounter Location Date Provider Diagnosis [facility] [address] [address] 02/17/2024 Pao Mills Schizoaffective disorder, bipolar type F25.0 ; Generalized anxiety disorder F41.1 ; Intellectual functioning disability F79 and End stage renal disease N18.6 [facility] [employer] [address] [address] 05/04/2024 Pao Gene Schizoaffective disorder, bipolar type F25.0 ; Generalized anxiety disorder F41.1 ; Intellectual functioning disability F79 and End stage renal disease N18.6 [facility] [employer] [address] [address] 08/03/2024 Bettina Preston Assessments Encounter Date Diagnosis (ICD Code) Assessment Notes Treatment Notes Treatment Clinical Notes Section Notes 02/17/2024 Schizoaffective disorder, bipolar type (ICD-10 - F25.0) cont depakote er 250mg bid cont risperidone 0.5mg hs resides at [facility] on friday, friday and friday stable, cont current meds f/u in 3 months, earlier if concerns 02/17/2024 Generalized anxiety disorder (ICD-10 - F41.1) cont sertraline 100mg daily 05/04/2024 Schizoaffective disorder, bipolar type (ICD-10 - F25.0) cont depakote ER 250mg bid cont risperidone 0.5mg hs resides at [facility] on friday, friday and fridaystable, cont [...] stage renal disease (ICD-10 - N18.6) dialysis -w- Plan Of Treatment No Information Insurance Providers Payer Name Payer Address Payer Phone Subscriber Number Group Number Insured Name Patient Relationship to Insured Coverage Start Date Coverage End Date Medicare-I l Medicare [address] [place] [address] [id number] PRATIK CASTILLO Self - patient is the insured Medicaid-I l Medicaid [address] [address] [place] [address] [id number] PRATIK CASTILLO Self - patient is the insured Medical (General) History Medical History History ICD Code Problems: End stage renal failure on xenia lysis Generalized anxiety disorder Intellectual functioning disability Long-term current use of drug therapy Schizoaffective disorder, bipolar type Surgical History Surgery Date(Month/Year) dialysis port removed 12/2023
--- OUTSIDE RECORDS SUMMARY | 2024-12-22 06:50 | XMS_ITS | Encounter Summary ---
Author Organization [facility] Address [address] [facility] [place] [address] Care Team Providers Care Escalator Attendant Name Role Phone Tate Butt BANK VAULT CLERK-FLORAL ASSISTANT Primary Care Provider Billy Brewer BANK VAULT CLERK-FLORAL ASSISTANT Primary Care Provider +- [phone] Encounter Details Date Type Department Care Team (Late st Contact Info) Description 04/24/2018 Lab Requisition [facility] - Laboratory [address] [place] [address] Juan J Obregon MD [address] [place] [address] [address] Anemia in chronic kidney disease (CODE) Social [...] Encounters Date Type Department Care Team (Late Contact Info) Description 01/11/2025 10:00 AM CDT Appointment [facility] Vascular Services [address] [facility], [address] [place] [address] 01/11/2025 10:30 AM CDT Office Visit [facility] Medical Group - Surgery [address] [facility], [address] [place] [phone] [place] [address] [facility] [address] [place] [address] 01/25/2025 2:45 PM CDT Appointment [facility] Health Vascular Services [address] [facility], [address] [place], [place] [phone] [place] [address] [address] [place] [address] [place] [address] [facility] [address] [place] [address] [place] [address] [place] [address] [place] [address] [facility] [address] [place] [address] documented as of this encounter Procedures Procedure Name Priority Date/Time Associated Diagnosis Comments HEMOGLOBIN Routine 04/24/2018 9:52 AM CDT Anemia in chronic kidney disease (CODE) documented in this encounter Results * HEMOGLOBIN (04/24/2018 9:52 AM CDT) Hemoglobin 12.0 12.0 - 15.6 gm/dL 04/24/2018 9:59 AM CDT [facility] Blood BLOOD SPECIMEN / Unknown Venipuncture / Unknown 04/24/2018 9:52 AM CDT 04/24/2018 9:55 AM CDT Juan J Obregon MD LAB - HEMATOLOGY ORDERABLES Fi nal Result [facility] [address] [place], [place] [phone] documented in this encounter Visit Diagnoses Diagnosis Anemia in chronic kidney disease (CODE) documented in this encounter Care Teams Escalator Attendant Relationship Specialty Start Date End Date Tate Butt APRN-FLORAL ASSISTANT [address] [place] [phone] PCP - General Nurse Practitioner Family 05/26/23 Billy Brewer APRN-ELVIA [address] [place] [phone] PCP - General 06/03/23 documented as of this encounter
--- OUTSIDE RECORDS SUMMARY | 2024-12-22 06:50 | XMS_ITS | Clinical Summary ---
Author Organization [facility] Address [address] [place] [address] Care Team Providers Care Earthmoving Plant Operator Name Role Phone Billy Brewer MEDICAL MANAGER-WEATHER FORCASTER Primary Care Provider [phone]- [phone] Source Comments [facility],non-owned Affiliates and Associated Physician Practices is amultiple site organization consisting of ambulatory clinics and hospital sitesin [place], [place], [place] and [place]. This disclosure is being madepursuant to the Care Everywhere program and may not contain all information available regarding this patient. Last updated 18.[facility] Allergies Active Allergy Reactions Criticality Noted Date [...] Active azelastine (Astepro) 205.5 MCG/SPRAY nasal spray Wirtz 2 (two) sprays into the nose 2 [...] fluticasone propionate (Flonase) 50 MCG/ACT nasal spray Wirtz 2 (two) sprays into each nostril 2 [...] times daily 04/21/20 23 Active nystatin (Mycostatin) 255871 UNIT/GM powder Apply to affected area 3 times daily 07/02/20 23 Active Lactobacillus (Acidophilus Probiotic) 10 MG CAPS 10/23/19 24 Active simvastatin (Zocor) 20 MG tablet Take 1 (one) tablet by mouth at bedtime 11/22/19 24 Active Doxercalciferol (HECTOROL IV) 2 mcg 12/31/19 24 Active Methoxy PEG-Epoetin Beta (MIRCERA IJ) 30 mcg 04/12/20 24 025 Active HYDROcodone-aceta minophen (Griffith) 5-325 MG tabletIndications :ESRD (end stage renal disease) (HCC) Take 1 (one) tablet by mouth every 6 hours as needed for Pain 30 tablet 05/25/20 24 Active Additional Information Patient not taking.Reason: Other, Informant: Other, Reported on 12/14/2024 HYDROcodone-aceta minophen (Griffith) 5-325 MG tabletIndications :ESRD (end stage renal disease) (HCC) Take 1 (one) tablet by mouth every 6 hours as needed for Pain 30 tablet 05/25/20 24 Active Additional Information Patient not taking.Reason: Other, Informant: Other, Reported on 12/14/2024 acetaminophen (Tylenol) 500 MG tablet Take 1 (one) tablet by mouth every 6 hours as needed for Fever or Pain Maximum allowable Acetaminophen amount = 4 Grams (4000 mg) / 24 hours. 07/30/19 25 Active Lactobacillus (ACIDOPHILUS PO) Take 75 mm by mouth once daily At 3 pm Active Cholecalciferol (vitamin D3) 1.25 MG (68868 UT) capsule Take 1 (one) capsule by [...] 2 doses 24 hours Active HYDROcodone-aceta minophen (Griffith) 5-325 MG tabletIndications :Pre-op exam Take 1 (one) tablet by mouth every 6 hours as needed for Pain 12 tablet 12/01/19 25 Active acetaminophen (Tylenol) 325 MG tablet Take 2 (two) tablets by mouth every 4 hours as needed 025 Discontin ued(Clini uzair Decision) Active Problems Problem Noted Date Diagnosed Date ESRD (end stage renal disease) 11/30/2024 Encounters Date Type Department Care Team Description 12/14/2024 10:20 AM CDT Office Visit [facility] - Surgery [address] [facility], [address] [place] [phone] Chung Stinson MD ESRD (end stage renal disease) (HCC) (Primary Dx) 12/14/2024 Travel 11/30/2024 1:22 PM CDT - 11/30/2024 2:54 PM CDT Surgery [facility] - Perioperative Surgery [address] [place] [address] Chung Stinson MD EXPLORATION CEPHALIC VEIN AND CREATION BRACHIOBASILIC FISTULA 11/30/2024 12:24 PM CDT Anesthesia Event [facility] - Perioperative Surgery [address] [place] [address] Oswaldo Uriarte MD Shaw, Thomas J, 11/30/2024 11:23 AM CDT - 11/30/2024 2:56 PM CDT Hospital Encounter [facility] - Perioperative Surgery [address] [place] [address] Chung Stinson MD Surgery General Discharge Disposition: Home or Self Care 11/18/2024 2:06 PM CDT - 11/18/2024 11:59 PM CDT Hospital Encounter [facility] Vascular Services [address] [place] [address], [address] [place] [address] Kasie Dempsey DO Discharge Disposition: Home or Self Care 11/18/2024 Travel 11/16/2024 12:04 PM CDT - 11/16/2024 11:59 PM CDT Hospital Encounter [facility] Vascular Services [address] [place] [address], [address] [place] [address] Chung Stinson MD Discharge Disposition: Home or Self Care 11/16/2024 10:10 AM CDT Office Visit [facility] Medical [facility] - Surgery [address] [place] [address], [address] [place] [address] Chung Stinson MD ESRD (end stage renal disease) (HCC) (Primary Dx) 11/16/2024 Telephone [facility] Vascular Services [address] [place] [address], [address] [place] [address] Gloria Allen RN 11/16/2024 Travel 10/26/2024 8:58 AM CDT - 10/26/2024 11:59 PM CDT Hospital Encounter [facility] Vascular Services [address] [facility], [address] [place] [address] Ben Titus DO Reynolds, Michael D, MD Javed, Mohammad Ali, DO Charles, Thomas B, MD Discharge Disposition: Home or Self [...] - - Weight 80.3 kg (177 lb) 12/14/2024 9:49 AM CDT Height 157.5 cm (5' 2) 12/14/2024 9:49 AM CDT Body Mass Index 32.37 12/14/2024 9:49 AM CDT Plan of Treatment Upcoming Encounters Date Type Department Care Team (Late st Contact Info) Description 01/11/2025 10:00 AM CDT Appointment [facility] Vascular Services [address] [place] [address], [address] [place] [address] 01/11/2025 10:30 AM CDT Office Visit [facility] Medical Group - Surgery [address] [place] [address], [address] [place] [address] [place] [address] [facility] [address] [place] [address] 01/25/2025 2:45 PM CDT Appointment [facility] Vascular Services [address] [facility], [address] [place], [place] [phone] [place] [address] [facility] [address] [place] [address] [place] [address] [facility] [address] [place] [address] [place] [address] [facility] [address] [place] [address] [place] [address] [facility] [address] [place] [address] Health Maintenance Due Date Last Done Comments COLOGUARD (AGES 45-75) - COLON CA SCREENING 1954 COLON MONITORING 1954 COLONOSCOPY - COLON CA SCREENING 1954 CT COLONOGRAPHY - COLON CA SCREENING 1954 Colorectal Cancer Screening 1954 FIT - COLON CA SCREENING 1954 FLEX SIG - COLON CA SCREENING 1954 MEDICARE AWV 12 MONTHS 1954 HEPATITIS C SCREENING 03/06/1972 DTAP/TDAP/TD VACCINES (1 - Tdap) 1973 PNEUMOCOCCAL VACCINE 50+ (1 of 2 - PCV) 1973 HEPATITIS B VACCINE (1 of 3 - Risk Dialysis 4-dose series) 1974 ZOSTER VACCINE (1 of 2) 2004 COVID-19 VACCINE (4 - 2023- season) 2024 05/29/2021, 09/06/2020, 08/08/2020 DEPRESSION SCREENING 07/07/2024 MAMMOGRAM 10/21/2024 10/21/2022, 10/05, 05/16/2021, Additional history exists SCREENING FOR DIABETES 05/25/2027 , 09/02/2023, 06/04/2023, Additional history exists Respiratory Syncytial Virus (RSV) Vaccine Pt: or over 60 yrs (1 - 1-dose 75+ series) 2029 BONE DENSITY TESTING Completed 10/02/2021, 03/01/20 16 INFLUENZA VACCINE Completed 04/23/2024, , 03/28/2023, Additional history exists HIB VACCINE Aged Out [...] this topic Medical Devices Implanted Type Area Mechanical Press Operator Device Identifier Shelf Expiration Date Model / Serial / Lot Graft Vasc 4-7mm 45cm Grtx Std Wl Tpr - [id number] Implanted:Qty: 1 on 05/25/2024 by Ramy Schilling MD at [facility] Left: Arm [employer] 12/28/2028 [id number] / [id number] / Procedures Procedure Name Priority Date/Time Associated Diagnosis Comments LARYNGEAL MASK AIRWAY Routine 11/30/2024 12:34 PM CDT OR ANASTOMOSIS,AV,ANY SITE 11/30/2024 12:14 PM CDT BLOOD GAS+COOX+ELECTROLYTES +METAB VENOUS Routine 11/30/2024 12:10 PM CDT CARDIAC RHYTHM STRIP ORDER 11/23/2024 9:10 PM CDT VAS BILAT MAPPING FOR HEMODIALYSIS Routine 11/16/2024 12:04 PM CDT ESRD (end stage renal disease) (HCC) CARDIAC RHYTHM STRIP ORDER 10/28/2024 2:46 PM CDT BASIC METABOLIC PANEL (CALCIUM TOTAL) STAT 05/25/2024 10:45 AM DELIVERY CONSULTANT Preop testing from Last 3 Months or [...] RESP THERAPY O2 Content Venous 9.6 ml/dL 05/27/2 025 12:10 PM CDT [facility] RESP THERAPY [...] ORDERA BLES Final Result [facility] RESP THERAPY [address] [place] [id number] [phone] * CARDIAC RHYTHM STRIP ORDER (11/23/2024 9:10 [...] Procedure Note Chung Stinson MD - 11/16/2024 [facility] Vascular [place] [facility] [address] [facility], [address] [place] [address] Vessel Mapping for Hemodialysis Report Pat.Name: AALIYAH CASTILLO Pat.ID: [id number] .Date: 11/16/2024 Exam Time: 10:04:00 AM Study Type:Vessel Mapping for Hemodialysis Age: 9 1955,69Y Sex: FEMALE Sonogrphr: Javed Arreaga RVT Pat. Stat.:Outpatient CPT - 4: 70055 Reason for Study: End Stage Renal Disease Procedures: Vessel Mapping for Hemodialysis Race: 1 Visit ID: [id number] ++++++++++++++++++++++++++++++++++++ SUMMARY: ++++++++++++++++++++++++++++++++++++ The right upper arm [...] METABOLIC PANEL (CALCIUM TOTAL) (05/25/2024 10:45 AM DELIVERY CONSULTANT) [facility] [address] Glucose 97 70 - 99 mg/dL 05/25/2024 11:09 AM [facility] Sodium 137 136 - 145 mmol/L 05/25/2024 11:09 AM [facility] Potassium 4.3 3.5 - 5.1 mmol/L 05/25/2024 11:09 AM [facility] Chloride 102 98 - 107 mmol/L 05/25/2024 11:09 AM [facility] CO2 24 22 - 29 mmol/L 05/25/2024 11:09 AM [facility] Calcium 9.9 8.4 - 10.4 mg/dL 05/25/2024 11:09 AM [facility] Anion Gap 11 6 - 16 mmol/L 05/25/2024 11:09 AM [facility] BUN 16 7 - 26 mg/dL 05/25/2024 11:09 AM [facility] Creatinine 3.09(H) 0.57 - 1.11 mg/dL 05/25/2024 11:09 AM [facility] eGFR by CKD-EPI 16(L) >=90 mL/min/1.7 3 m2 05/25/2024 11:09 AM [facility] Blood BLOOD SPECIMEN / Unknown Venipuncture / Unknown 05/25/2024 10:45 AM DELIVERY CONSULTANT 05/25/2024 10:48 AM [facility] Renetta Land DO LAB - CHEMISTRY ORDERABLES Yesy graves Result [facility] [address] [place] [address] from Last 3 Months or Most Recently Relevant to Health Maintenance Insurance MEDICARE MEDICAID - [place] Care Teams Earthmoving Plant Operator Relationship Specialty Start Date End Date Billy Brewer APRN-ELVIA [address] [place] [phone] PCP - General 06/03/23
--- OUTSIDE RECORDS SUMMARY | 2024-12-22 06:50 | XMS_ITS | Continuity of Care Document ---
Author Organization [facility] Address [address] [place] [id number] Phone Care Team Providers Care [employer] Name Role Phone Jose Luis MORAN, [...] Coded Prq av fstl crtj uxtr 1 [facility] Mod sed same phys/qhp 5/>yrs Mod sed same phys/qhp ea Prq av fstl crtj uxtr 1 [facility] Mod sed same phys/qhp 5/>yrs Mod sed [...] Diagnoses Date Provider Providers Copied on Encounter [facility], [address] [place] [address], [id number], tel:[phone] [facility] No Information Amaya Liss. [address] [place] [address], [id number], . tel:[phone] [facility], [address] [place] [address], [id number], tel:[phone] [facility] Stricture of ArteryEnd stage renal disease Amaya Liss. [address] [place] [address], [id number], [place]. tel:[phone] Referring Provider: Juan J Ayala, [address] [place] [address], [id number]. tel:[phone] [facility], [address] [place] [address], [id number], [place] tel:[phone] [facility] Stricture of ArteryEnd stage renal disease Amaya Liss. [address] [place] [address], [id number], [place]. tel:[phone] Referring Provider: Juan J Ayala, [address] [facility] [address] [facility], [place], [address]. tel:[phone] [facility], [address] [place] [address], [id number], tel:[phone] [facility] Amaya Liss. [address] [place] [address], [id number], . tel:[phone] Referring Provider: Juan J Ayala, [address] [address], [place], [address]. tel:[phone] [facility], [address] [place] [address], [id number], [place] tel:[phone] [facility] Amaya Liss. [address] [place] [address], [id number], . tel:[phone] Referring Provider: Juan J Ayala, [address] [place] [address] [address] [facility], [place], [address]. tel:[phone] [facility], [address] [place] [address], [id number], [place] tel:[phone] [facility] Amaya Liss. [address] [place] [address], [id number], [place]. tel:[phone] Referring Provider: Juan J Ayala, [address] [place] [address], [place], [address]. tel:[phone] [facility], [address] [place] [address], [id number], [place] tel:[phone] [facility] Amaya Liss. [address] [place] [address], [id number], [place]. tel:[phone] Referring Provider: Juan J Ayala, [address] [place] [address], [place], [address]. tel:[phone] [facility], [address] [place] [address], [id number], [place] tel:[phone] [facility] Albovias Jostin. [address] [place] [address], [id number], [place]. tel:[phone] Referring Provider: Juan J Ayala, [address] [place] [address] [address] [facility], [place], [address]. tel:[phone] [facility], [address] [place] [address], [id number], [place] tel:[phone] [facility] Albovias Jostin. [address] [place] [address], [id number], [place]. tel:[phone] Referring Provider: Juan J Ayala, [address] [facility] [address], [place], [address]. tel:[phone] As per patient privacy policy some of the clinical information may not be visible. Family History Family Member Type Diagnosis Age At Onset No Information Payers Payer name Insurance type Covered republican ID Authoriza tion(s) Medicare [facility] [id number] Medicaid [place] [id number] Social History Type Description Quantity Date Captured Comments Sex Female Smoking Status No Information Gender Identity Female Chief Complaint And Reason For Visit No Information Reason For Referral Reason For Referral No Information Plan Of Treatment Date Type Action Status Future Order: Radiology Order Up per Body Flouroscopy ([id number]), Ordered on: Ordered Future Order: Radiology Order Up per Body Flouroscopy ([id number]), Ordered on: Ordered Future Order: Radiology Order Up per Body Flouroscopy ([id number]), Ordered on: Ordered History Of Present Illness Encounter Date Complaint History Of Prese nt Illness No Information Functional Status Date Functional Assessmen t No Information Instructions Date Instruction Additional Infor mation No Information Assessments Type Assessment Date No Information Patient Care Teams Name Effective Dates (start - stop) Status Members No Information
--- OUTSIDE RECORDS SUMMARY | 2024-12-22 06:50 | XMS_ITS | Data Portability ---
Author Organization [facility], Main Office Address [address] [place] [address] Care Team Providers Care Supervisor Picking Crew Name Role Phone FRANCK WHATLEY Primary Care Provider Assessment No assessment recorded. Plan of Treatment Reminders Order Date Submit Date Provider Last Modified By Organization Details Last Modified Time Details Appointments Follow Up 30 2024 09:30A M MAXIEM Wallace Not available Not available Not available Lab lipid panel, serum 2024 025 [facility] (Lab), [address] [place], [address], 10/08/2024 05:28:50 CMP, serum or plasma 2024 025 [facility] (Lab), [address] [place], [address], 10/08/2024 05:28:50 CBC w/ auto diff 2024 025 [facility] (Lab), [address] [place], [address], 10/08/2024 05:28:50 glycohemo globin, total, blood [address] (Lab), [address] [place], [address], 10/14/2024 08:07:08 noninvasi ve colorecta l cancer DNA + occult blood screening , QL, stool 2024 025 [place] [address] [facility] [employer] (Cologuard Orders Only), [address], [address], [place], [address], 10/14/2024 08:07:08 TSH, serum or plasma 2024 025 [facility] (Lab), [address] [place], [address], 10/08/2024 05:28:50 hepatic function panel, serum 2023 024 [facility] (Lab), [address] [place], [address], 04/29/2024 19:20:12 Referral pulmonolo gist referral - Please call patient to schedule an appointme nt. Thank you. 2024 025 [email or web address] Bharat Bowen MD, [address] [place], [address], 10/14/2024 12:45:59 Procedures None recorded. Surgeries None recorded. Imaging None recorded. Medication Orders None recorded. Patient TargetsNo targets recorded. Patient InstructionsNo instructions recorded. 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 Thank you. Referring Physician: Heather Owusu, Family Medicine, Encounter Date: 10/07/2024 Results Created Date Observation Date Name Description Value Unit Range Abnormal Flag Note LastModifiedBy Organization Detail LastModifiedTime 09/30/1909/30/2023 COMPR EHENS JENNIE METAB OLIC PANEL sodium 135 mmol/ L 137-14 5 low Not Available [facility] (Lab) [address] [place], [address], 09/30/2023 20:11:21 09/30/19 24 09/30/2023 COMPR EHENS JENNIE METAB OLIC PANEL potassium 4.4 mmol/ L 3.5-5. 1 Not Available [facility] (Lab) [address] [place], [address], 09/30/2023 20:11:21 09/30/19 24 09/30/2023 COMPR EHENS JENNIE METAB OLIC PANEL chloride 100 mmol/ L 98-107 Not Available [facility] (Lab) [address] [place], [address], 09/30/2023 20:11:21 09/30/19 24 09/30/2023 COMPR EHENS JENNIE METAB OLIC PANEL carbon dioxide 33 mmol/ L 22-30 high Not Available [facility] (Lab) [address] [place], [address], 09/30/2023 20:11:21 09/30/19 24 09/30/2023 COMPR EHENS JENNIE METAB OLIC PANEL anion gap 6.4 mmol/ L 14-22 low Not Available [facility] (Lab) [address] [place], [address], 09/30/2023 20:11:21 09/30/19 24 09/30/2023 COMPR EHENS JENNIE METAB OLIC PANEL glucose 94 mg/dL 70-99 Not Available [facility] (Lab) [address] [place], [address], 09/30/2023 20:11:21 09/30/19 24 09/30/2023 COMPR EHENS JENNIE METAB OLIC PANEL BUN 14 mg/dL 8-19 Not Available [facility] (Lab) [address] [place], [address], 09/30/2023 20:11:21 09/30/19 24 09/30/2023 COMPR EHENS JENNIE METAB OLIC PANEL creatinine 2.96 mg/dL 0.66-1 .25 high Not Available [facility] (Lab) [address] [place], [address], 09/30/2023 20:11:21 09/30/19 24 09/30/2023 COMPR EHENS JENNIE METAB OLIC PANEL GFR 16 Refer ence Range : [place] ge GFR Healt hy Adult : >60 [...] calcu lator is avail able on the [facility] websi te: [email or web address] :[email or web address] [email or web address] [email or web address] bhanu/pr ofess ional s/kdo qi/gf r_cal culat or Not Available [facility] (Lab) [address] [place], [address], 09/30/2023 20:11:21 09/30/19 24 09/30/2023 COMPR EHENS JENNIE METAB OLIC PANEL alkaline phosphatase 129 U/L 38-126 high Not Available [facility] (Lab) [address] [place], [address], 09/30/2023 20:11:21 09/30/19 24 09/30/2023 COMPR EHENS JENNIE METAB OLIC PANEL alanine aminotransfe rase 13 U/L 0-35 Not Available [facility] (Lab) [address] [place], [address], 09/30/2023 20:11:21 09/30/19 24 09/30/2023 COMPR EHENS JENNIE METAB OLIC PANEL aspartate aminotransfe rase 25 U/L 15-37 Not Available [facility] (Lab) [address] [place], [address], 09/30/2023 20:11:21 09/30/19 24 09/30/2023 COMPR EHENS JENNIE METAB OLIC PANEL bilirubin, total 0.40 mg/dL 0.20-1 .30 Not Available [facility] (Lab) [address] [place], [address], 09/30/2023 20:11:21 09/30/19 24 09/30/2023 COMPR EHENS JENNIE METAB OLIC PANEL calcium 9.8 mg/dL 8.4-10 .2 Not Available [facility] (Lab) [address] [place], [address], 09/30/2023 20:11:21 09/30/19 24 09/30/2023 COMPR EHENS JENNIE METAB OLIC PANEL total protein 6.6 g/dL 6.3-8. 2 Not Available [facility] (Lab) [address] [place], [address], 09/30/2023 20:11:21 09/30/19 24 09/30/2023 COMPR EHENS JENNIE METAB OLIC PANEL albumin 4.0 g/dL 3.0-4. 4 Not Available [facility] (Lab) [address] [place], [address], 09/30/2023 20:11:21 09/30/19 24 09/30/2023 COMPR EHENS JENNIE METAB OLIC PANEL globulin 2.6 g/dL 2.6-4. 2 Not Available [facility] (Lab) [address] [place], [address], 09/30/2023 20:11:21 09/30/19 24 09/30/2023 COMPR EHENS JENNIE METAB OLIC PANEL A/G ratio 1.5 ratio 1.0-2. 0 Not Available [facility] (Lab) [address] [place], [address], 09/30/2023 20:11:21 09/30/19 24 09/30/2023 LIPID PANEL cholesterol 103 mg/dL 140-19 9 low NIH TORSTEN NSUS RECOM MENDA TION FOR BIBIANA STERO L: ADULT CHILD LOW RISK: <200 <170 BORDE RLINE : <200- 239 ----- HIGH RISK: >240 >200 Not Available [facility] (Lab) [address] [place], [address], 09/30/2023 20:11:22 09/30/19 24 09/30/2023 LIPID PANEL triglyceride s 187 mg/dL 0-150 high NIH TORSTEN NSUS REPOR T RECOM MENDA TION FOR TRIGL YCERI SHEN: ADULT CHILD LOW RISK: <150 ----- BODER LINE: 150-1 99 ----- HIGH RISK: >200 ----- Not Available [facility] (Lab) [address] [place], [address], 09/30/2023 20:11:22 09/30/19 24 09/30/2023 LIPID PANEL HDL cholesterol 52 mg/dL 40- Not Available [facility] (Lab) [address] [place], [address], 09/30/2023 20:11:22 09/30/19 24 09/30/2023 LIPID PANEL [...] WILL NOT BE REPOR ZAY. Not Available [facility] (Lab) [address] [place], [address], 09/30/2023 20:11:22 09/30/19 24 09/30/2023 TSH thyroid-stim ulating hormone 4.200 uIU/m L 0.465- 4.680 Not Available [facility] (Lab) [address] [place], [address], 09/30/2023 20:40:10 09/30/19 24 09/30/2023 CBC/C OMPLE TE BLD COUNT W/DIF F white blood cells 5.0 x10'3 /uL 4.2-10 .8 Not Available [facility] (Lab) [address] [place], [address], 09/30/2023 21:17:27 09/30/19 24 09/30/2023 CBC/C OMPLE TE BLD COUNT W/DIF F red blood cells 4.14 x10'6 /uL 3.80-5 .20 Not Available [facility] (Lab) [address] [place], [address], 09/30/2023 21:17:27 09/30/19 24 09/30/2023 CBC/C OMPLE TE BLD COUNT W/DIF F hemoglobin 12.2 g/dL 12.0-1 5.6 Not Available [facility] (Lab) [address] [place], [address], 09/30/2023 21:17:27 09/30/19 24 09/30/2023 CBC/C OMPLE TE BLD COUNT W/DIF F hematocrit 38.2 % 35.7-4 5.7 Not Available [facility] (Lab) [address] [place], [address], 09/30/2023 21:17:27 09/30/19 24 09/30/2023 CBC/C OMPLE TE BLD COUNT W/DIF F mean red cell volume 92.3 fL 82.0-9 9.0 Not Available [facility] (Lab) [address] [place], [address], 09/30/2023 21:17:27 09/30/19 24 09/30/2023 CBC/C OMPLE TE BLD COUNT W/DIF F mean red cell hemoglobin 29.5 pg 27.0-3 3.0 Not Available [facility] (Lab) [address] [place], [address], 09/30/2023 21:17:27 09/30/19 24 09/30/2023 CBC/C OMPLE TE BLD COUNT W/DIF F mean RBC HGB concentratio n 31.9 g/dL 31.0-3 6.0 Not Available [facility] (Lab) [address] [place], [address], 09/30/2023 21:17:27 09/30/19 24 09/30/2023 CBC/C OMPLE TE BLD COUNT W/DIF F red cell distribution width 14.3 % 11.8-1 5.5 Not Available [facility] (Lab) [address] [place], [address], 09/30/2023 21:17:27 09/30/19 24 09/30/2023 CBC/C OMPLE TE BLD COUNT W/DIF F platelets 81 x10'3 /uL 150-40 0 low Not Available [facility] (Lab) [address] [place], [address], 09/30/2023 21:17:27 09/30/19 24 09/30/2023 CBC/C OMPLE TE BLD COUNT W/DIF F mean platelet volume 11.4 fL 9.0-12 .4 Not Available [facility] (Lab) [address] [place], [address], 09/30/2023 21:17:27 09/30/19 24 09/30/2023 CBC/C OMPLE TE BLD COUNT W/DIF F neutrophils 49.0 % 39.0-7 2.0 Not Available [facility] (Lab) [address] [place], [address], 09/30/2023 21:17:27 09/30/19 24 09/30/2023 CBC/C OMPLE TE BLD COUNT W/DIF F lymphocytes 39.3 % 16.0-4 7.0 Not Available [facility] (Lab) [address] [place], [address], 09/30/2023 21:17:27 09/30/19 24 09/30/2023 CBC/C OMPLE TE BLD COUNT W/DIF F monocytes 8.5 % 5.0-12 .0 Not Available [facility] (Lab) [address] [place], [address], 09/30/2023 21:17:27 09/30/19 24 09/30/2023 CBC/C OMPLE TE BLD COUNT W/DIF F eosinophils 2.4 % 1.0-7. 0 Not Available [facility] (Lab) [address] [place], [address], 09/30/2023 21:17:27 09/30/19 24 09/30/2023 CBC/C OMPLE TE BLD COUNT W/DIF F basophils 0.6 % 0.0-2. 0 Not Available [facility] (Lab) [address] [place], [address], 09/30/2023 21:17:27 09/30/19 24 09/30/2023 CBC/C OMPLE TE BLD COUNT W/DIF F immature granulocytes 0.2 % 0.00-0 .50 Not Available [facility] (Lab) [address] [place], [address], 09/30/2023 21:17:27 09/30/19 24 09/30/2023 CBC/C OMPLE TE BLD COUNT W/DIF F neutrophils, absolute count 2.47 x10'3 /uL 1.5-8. 0 Not Available [facility] (Lab) [address] [place], [address], 09/30/2023 21:17:27 09/30/19 24 09/30/2023 CBC/C OMPLE TE BLD COUNT W/DIF F lymphocytes, absolute count 1.98 x10'3 /uL 1.07-3 .43 Not Available [facility] (Lab) [address] [place], [address], 09/30/2023 21:17:27 09/30/19 24 09/30/2023 CBC/C OMPLE TE BLD COUNT W/DIF F monocytes, absolute count 0.43 x10'3 /uL 0.29-0 .99 Not Available [facility] (Lab) [address] [place], [address], 09/30/2023 21:17:27 09/30/19 24 09/30/2023 CBC/C OMPLE TE BLD COUNT W/DIF F eosinophils, absolute count 0.12 x10'3 /uL 0.02-0 .53 Not Available [facility] (Lab) [address] [place], [address], 09/30/2023 21:17:27 09/30/19 24 09/30/2023 CBC/C OMPLE TE BLD COUNT W/DIF F basophils, absolute count 0.03 x10'3 /uL 0.01-0 .08 Not Available [facility] (Lab) [address] [place], [address], 09/30/2023 21:17:27 09/30/19 24 09/30/2023 CBC/C OMPLE TE BLD COUNT W/DIF F immature granulocytes ,absolute 0.01 x10'3 /uL 0.00-0 .05 Not Available [facility] (Lab) [address] [place], [address], 09/30/2023 21:17:27 09/30/19 24 09/30/2023 CBC/C OMPLE TE BLD COUNT W/DIF F nucleated red blood cells 0.0 % -0 Not Available [facility] (Lab) [address] [place], [address], 09/30/2023 21:17:27 09/30/19 24 09/30/2023 CBC/C OMPLE TE BLD COUNT W/DIF F NRBC# 0.00 x10'3 /uL Not Available [facility] (Lab) [address] [place], [address], 09/30/2023 21:17:27 09/30/19 24 09/30/2023 HEMOG LOBIN A1C HA1C 4.5 % 4.0-6. 0 Diabe rory Screjerald ivania Crite vitor: <5.7% Consi stent with absen ce of diabe rory 5.7-6 .4% Consi stent with incre ased risk for diabe rory (pred iabet es) >OR=6 .5% Consi stent with diabe rory REFER ENCE: Diabe rory Care 2016, 39(Ralph ppl.1 ):s13 -s22 Not Available [facility] (Lab) [address] [place], [address], 09/30/2023 22:12:47 10/16/19 25 10/15/2024 COLOG UARD [...] Rose nued scree ivania incre ases the [facility] of findi ng CRC early or preve nting it entir karla. A clini uzair valid ation study showe d the Colog uard Plus test is effec tive at [facility] g out CRC. Out of every 10,00 [...] adult s 45 years or older at [facility] risk for CRC. A posit jennie (abno [...] and had a 91% speci ficit y ([facility] sammy Moore ure. Exact Scien sarah Cor[employer] ratio joshua [place], [place] Visit www.c [facility] pSeguricelcom /abou t/acc uracy -sens itivi ty-sp [facility] for more test infor duke siu, refer al boles, and elio acosta s. Not Available [email or web address] (Cologuard Orders Only) [address], [place], [address], 10/23/2024 23:16:59 01/12/20 24 01/12/2024 XR, chest , 2 view No observ ation record ed. [id number], [place], [address], 01/27/2024 09:22:40 Result Notes None recorded. Problems Name Problem SNOMED Code Status Onset Date Resolution Date Notes Provider Name and Address Organization Details Recorded Time Hearing difficult y 067178587 Active 2022 MAXIME Moreau [address], [address], [place], [address] , [employer] 3 11:24:18 Chronic kidney disease 578801229 Active 2022 MAXIME Moreau [address], [address], [place], [address] , [employer] 3 11:24:43 Mild intellect ual disabilit y 71470350 Active 2022 MAXIME Moreau [address] [employer] [employer], [place], [address] , [employer] 3 11:26:22 Cyclothym ia 45029643 Active 2022 MAXIME Moreau [address], [address], [place], [address] , [employer] 3 11:26:31 Essential hypertens ion 26784435 Active 2022 MAXIME Moreau [address], [address], [place], [address] , [employer] 3 11:26:34 Hypothyro idism 31180803 Active 2022 MAXIME Moreau [address], [address], [place], [address] , [facility] - [facility] 3 11:26:40 Dysmenorr hea 389157869 Active 2022 MAXIME Moreau [address], [address], [place], [address] , [place] [facility] 3 11:26:47 Arthritis 9697720 Active 2022 MAXIME Moreau [address], [address], [place], [address] , [facility] - [facility] 3 11:27:40 Chronic obstructi ve pulmonary disease 29726831 Active 2022 MAXIME Moreau [address], [address], [place], [address] , [facility] - [facility] 3 11:27:47 Seasonal allergy 259345343 Active 2022 MAXIME Moreau [address], [address], [place], [address] , [facility] 3 11:27:54 Gastroeso phageal reflux disease without esophagit is 027817258 Active 2022 MAXIME Moreau [address], [address], [place], [address] , [facility] - [facility] 3 11:28:03 Hyperlipi demia 71600402 Active 2022 MAXIME Moreau [address], [address], [place], [address] , [facility] 3 11:28:09 Bipolar disorder 07676325 Active 2022 MAXIME Moreau [address], [address], [place], [address] , [facility] 3 11:28:16 Parkinson 's disease 75238873 Active 2022 MAXIME Moreau [address], [address], [place], [address] , [facility] [employer] [facility] 3 11:28:25 Low back pain 685205045 Active 2022 MAXIME Moreau [address], [address], [place], [address] , [facility] [employer] [facility] 3 11:39:56 Elevated blood-pre ssure reading without diagnosis of hypertens ion 291679253 Completed 202210/07/2024 MAXIME Wallace [address], [place], [address] , [facility] [employer] [facility] 5 11:21:38 Impacted cerumen of bilateral ears 61419946974 42014 Active 2022 MAXIME Moreau [address], [address], [place], [address] , [facility] [employer] [facility] 3 11:21:33 Hearing loss 48604282 Active 2022 MAXIME Moreau [address], [address], [place], [address] , [facility] [employer] [facility] 3 11:22:26 Hearing loss 90283060 Active 2022 MAXIME Moreau [address], [place], [address] , [facility] [employer] [facility] 3 11:25:53 Toenail thickened 532194692 Active 2022 MAXIME Moreau [address], [address], [place], [address] , [facility] 3 16:54:13 Periphera l venous insuffici ency 56042886 Active 2022 Randa alarcon, [facility] 3 12:12:34 Foot callus 282711192 Active 2022 Frank Maza DPM [address], [place], [address] , [facility] 3 15:24:47 Dystrophi a unguium 70277913 Active 2022 Frank Maza DPM [address], [address], [place], [address] , [facility] 3 15:24:51 Bunion 792387683 Active 2022 Frank Maza DPM [address], [address], [place], [address] , [employer] 3 15:24:54 Bunion 435039925 Active 2022 Frank Maza DPM [address], [address], [place], [address] , [facility] 3 15:25:00 Liver enzymes level above reference range 334545433 Active 2023 TONO Carrillo [address], [address], [place], [address] , [employer] 4 11:46:53 Sleep apnea 96434016 Active 2024 MAXIME Wallace [address], [address], [place], [address] , [employer] 5 11:19:01 Allergic rhinitis 19801470 Active 2024 MAXIME Wallace [address], [address], [place], [address] , [employer] 5 11:23:11 Problem Notes None recorded. Procedures Surgical History Date Name Laterality Status Provider Name and Address Organization Details Recorded Time 02/10/20 Ear Irrigation completed MAXIME Carrillo-C [address], [address], [place], [address], [employer] 02/10/2024 14:16:41 09/30/19 24 Medicare Wellness CPT Code, subsequent completed MAXIME Carrillo-C [address], [place], [address], [facility] [employer] [facility] 10/07/2023 09:39:16 05/13/20 23 Nail Debridement completed Frank Maza DPM [address], [place], [address], [facility] [employer] [facility] 05/13/2023 15:23:14 05/13/20 23 Callus Debridement, One completed Frank Maza DPM [address], [place], [address], [facility] [employer] [facility] 05/13/2023 15:23:06 02/12/20 23 Ear Irrigation completed MAXIME Moreau [address], [place], [address], [facility] [facility] [employer] 02/11/2023 12:42:54 Appendectomy completed Randa Rendon [facility] [employer] 05/13/2023 12:09:57 Imaging Results None recorded. Procedure Notes None recorded. Medical Equipment None Reported. Allergies Allergen ID Allergen Name Allergen Category Reaction Reaction Severity Criticality Documentation Date Start Date Code Code System Note Provider Name and Address Organization Details Recorded Time 59167 Non-stero idal anti-infl ammatory agent (product) medicatio n Not available Not available Not available 11/19/2022 73463 005 SNOMED Ana Bhatt RN [facility], [facility] [employer] [facility] 11:02:22 Medications Name Sig Start Date Stop Date Status Note LastModified by Organization Details LastModified Time terbinafine HCl 1 % topical cream 10/07 completed Not Available Not Available Not Available divalproex 250 mg tablet,payton yed release Take 1 tablet twice a day by oral route. active Not Available Not Available No t Available ofloxacin 0.3 % eye drops 05/13 completed Not Available Not Available Not Available benzonatate 200 mg capsule 05/13 completed Not Available Not Available Not Available hydrocodone 5 mg-acetamin ophen 325 mg tablet active Not Available Not Available No t Available Nystop 100,000 unit/gram topical powder 10/07 completed Not Available Not Available Not Available sertraline 100 mg tablet active Not Available Not Available Not Available clopidogrel 75 mg tablet 10/07 completed Not Available Not Available Not Available fenofibrate micronized 134 mg capsule 05/13 completed Not Available Not Available Not Available ketorolac 0.5 % eye drops 05/13 completed Not Available Not Available Not Available levothyroxi ne 88 mcg tablet active Not Available Not Available Not Available amoxicillin 875 mg tablet 11/19 completed Not Available Not Available Not Available famotidine 20 mg tablet active Not Available Not Available Not Available prednisolon e acetate 1 % eye drops,suspe nsion 05/13 completed Not Available Not Available Not Available hydrocodone 7.5 mg-acetamin ophen 325 mg tablet 10/07 completed Not Available Not Available Not Available pantoprazol e 40 mg tablet,payton yed release 10/07 completed Not Available Not Available Not Available simvastatin 20 mg tablet active Not Available Not Available Not Available diphenhydra mine 25 mg capsule Take 1 capsule every 4 hours by oral route. active Not Available Not Available No t Available carbidopa 10 mg-levodopa 100 mg tablet active Not Available Not Available Not Available azelastine 137 mcg (0.1 %) nasal spray [place] 2 sprays twice a day by intranasa l route as needed for 30 days. 2024 active Not Available Not Available Not Avai lable polyethylen e glycol 3350 17 gram/dose oral powder active Not Available Not Available Not Available fluticasone propionate 50 mcg/actuati on nasal spray,suspe nsion 2024 active Not Available Not Available Not Avai lable risperidone 0.5 mg tablet 1 tab at bedtime active Not Available Not Available No t Available Ventolin HFA 90 mcg/actuati on aerosol inhaler 10/07 completed Not Available Not Available Not Available bisacodyl 5 mg tablet Take 1 tablet as needed by oral route. active Not Available Not Available No t Available divalproex ER 250 mg tablet,exte nded release 24 hr active Not Available Not Available Not Available fenofibrate 160 mg tablet 05/13 completed Not Available Not Available Not Available Acidophilus 05/13 completed Not Available Not Available Not Available polyethylen e glycol 3350 05/13 completed Not Available Not Available Not Available Yin-Lanta 10/07 completed Not Available Not Available Not Available Renvela 800 mg tablet 3 tabs TID active Not Available Not Available No t Available acetaminoph en 325 mg capsule Take as needed by oral route. active Not Available Not Available No t Available Acidophilus -Pectin 75 million cell-100 mg capsule active Not Available Not Available Not Available Lactobacill acidophilus 500 million cell capsule 10/07 completed Not Available Not Available Not Available Astepro Allergy 205.5 mcg (0.15 %) nasal spray active Not Available Not Available Not Available Vitals Date Recorded Body height Body mass index (BMI) Body weight Body temperature Heart rate Respiratory rate Oxygen saturation Oxygen saturation in Arterial blood by Pulse oximetry Systolic blood pressure Diastolic blood pressure Provider Name and Address Organization Details Last Updated DateTime 5 162.56 cm 29.8 kg/m2 74898.6 3 g 96.9 [degF] 78 /min 20 /min 97 % 97 % 124 mm[Hg] 62 mm[Hg] Rani Zamudio RN [facility] 5 10:52:26 Date Recorded Body height Body mass index (BMI) Body weight Body temperature Heart rate Oxygen saturation Oxygen saturation in Arterial blood by Pulse oximetry Systolic blood pressure Diastolic blood pressure Provider Name and Address Organization Details Last Updated DateTime 4 162.56 cm 28.7 kg/m2 32261.9 3 g 95.8 [degF] 80 /min 97 % 97 % 162 mm[Hg] 94 mm[Hg] Dina Ballesteros RN [facility] 4 11:25:10 Date Recorded Body height Body mass index (BMI) Body weight Body temperature Heart rate Oxygen saturation Oxygen saturation in Arterial blood by Pulse oximetry Systolic blood pressure Diastolic blood pressure Provider Name and Address Organization Details Last Updated DateTime 4 162.56 cm 29.4 kg/m2 90727.3 g 96.3 [degF] 82 /min 98 % 98 % 142 mm[Hg] 84 mm[Hg] Dina Ballesteros RN [facility] 4 10:30:15 Date Recorded Body height Body mass index (BMI) Body weight Body temperature Heart rate Oxygen saturation Oxygen saturation in Arterial blood by Pulse oximetry Systolic blood pressure Diastolic blood pressure Provider Name and Address Organization Details Last Updated DateTime 4 162.56 cm 29.2 kg/m2 23770.7 g 96.2 [degF] 89 /min 96 % 96 % 146 mm[Hg] 84 mm[Hg] Dina Ballesteros RN [facility] 4 14:07:18 Date Recorded Body height Body mass index (BMI) Body weight Body temperature Heart rate Oxygen saturation Oxygen saturation in Arterial blood by Pulse oximetry Systolic blood pressure Diastolic blood pressure Provider Name and Address Organization Details Last Updated DateTime 4 162.56 cm 29.5 kg/m2 48035.8 9 g 96.8 [degF] 88 /min 96 % 96 % 140 mm[Hg] 72 mm[Hg] Dina Ballesteros RN [facility] 4 11:30:08 Social History Question Answer Notes LastModified by [employer] Details LastModified Time Tobacco Smoking Status Never Smoker Ana Bhatt RN [facility], [facility] 11/19/2022 11:07:45 Are You Blind [...] Functional Status Question Answer Note LastModified by Organizat ion Details LastModified Time What is your level [...] anxious, or unable to sleep at night)? [id number] Information not available 10/07/2024 Do you have [...] Time Tdap 5 completed Rani Zamudio RN [facility], [employer] 10/07/2024 11:58:14 Influenza, split virus, quadrivalent, preservative 6 completed Heather Vegas, [employer] [address], [address], [employer] [employer] 03/16/2024 13:44:51 COVID-19, mRNA, LNP-S, PF, 100 mcg/0.5mL dose or 50 mcg/0.25mL dose 1 completed Heather Vegas APRN [address], [address], [place], [address], [facility] 03/16/2024 13:44:51 COVID-19, mRNA, LNP-S, PF, 100 mcg/0.5mL dose or 50 mcg/0.25mL dose [address], [place], [address], [facility] 03/16/2024 13:44:51 COVID-19, mRNA, LNP-S, PF, 100 mcg/0.5mL dose or 50 mcg/0.25mL dose 1 [address], [place], [address], [facility] 03/16/2024 13:44:51 Pneumococcal conjugate PCV20, polysaccharide WPE510 conjugate, adjuvant, PF 3 completed [address], [place], [address], [facility] 03/16/2024 13:44:51 pneumococcal polysaccharide PPV23 4 completed MANAN [address], [address], [place], [address], [facility] 03/16/2024 13:44:51 influenza, unspecified formulation 8 completed MANAN [address], [place], [address], [facility] 03/16/2024 13:44:51 Tdap 8 completed MA[address]N [address], [place], [address], [facility] [employer] [facility] 03/16/2024 13:44:51 Pneumococcal conjugate PCV 13 5 completed Heather Vegas APRN [address], [address], [place], [address], [facility] 03/16/2024 13:44:51 varicella 4 completed Heather Vegas APRN [address], [address], [place], [address], [facility] 03/16/2024 13:44:51 varicella 4 completed Heather Vegas APRN [address], [address], [place], [address], [facility] [employer] [facility] 03/16/2024 13:44:51 zoster live 6 completed Heather Vegas APRN [address], [address], [place], [address], [facility] 03/16/2024 13:44:51 zoster live 9 completed Heather Vegas APRN [address], [address], [place], [address], [facility] [employer] [facility] [employer] [facility] 03/16/2024 13:44:51 Influenza, split virus, trivalent, preservative 3 completed Heather Vegas APRN [address], [address], [place], [address], [facility] [employer] [facility] [employer] [facility] 03/16/2024 13:44:51 Influenza, split virus, trivalent, preservative 4 completed Heather Vegas APRN [address], [address], [place], [address], [facility] 03/16/2024 13:44:51 Td (adult), 2 Lf tetanus toxoid, preservative free, adsorbed 8 completed Heather Vegas APRN [address], [address], [place], [address], [facility] [employer] [facility] [employer] [facility] 03/16/2024 13:44:51 DTaP 04/01/200 8 miguel Vegas APRN [address], [address], [place], [address], [facility] [employer] [facility] [employer] [facility] 03/16/2024 13:44:51 Influenza, split virus, quadrivalent, PF 2 completed Heather Vegas APRN [address], [address], [place], [address], [facility] [employer] [facility] [employer] [facility] 03/16/2024 13:44:51 Influenza, split virus, quadrivalent, PF 7 completed Heather Vegas APRN [address], [address], [place], [address], [facility] [employer] [facility] [employer] [facility] 03/16/2024 13:44:51 Influenza, split virus, quadrivalent, PF 1 completed Heather Vegas APRN [address], [address], [place], [address], [employer] [facility] [employer] [facility] 03/16/2024 13:44:51 Influenza, split virus, quadrivalent, PF 5 completed Heather Vegas APRN [address], [place], [address], [facility] [employer] [facility] [employer] [facility] 03/16/2024 13:44:51 COVID-19, mRNA, LNP-S, PF, 50 mcg/0.5 mL 3 completed Heather Vegas APRN [address], [address], [place], [address], [facility] [employer] [facility] [employer] [facility] 03/16/2024 13:44:58 Influenza, split virus, quadrivalent, PF 3 completed Heather Vegas APRN [address], [address], [place], [address], [facility] [employer] [facility] [employer] [facility] 03/16/2024 13:44:58 Past Encounters Encounter ID Performer Location Encounter Start Date Encounter Closed Date Diagnosis/Indication Diagnosis SNOMED-CT Code Diagnosis ICD10 Code Diagnosis Note [id number] MAXIME Moreau [facility] [address] [facility] [address] [place] [address] 11/19/2022 10:52:25 11/19/2022 11:52:47 Hearing difficulty 215135436 H91.90 ChronicRec ommend f/u with audiology. Referral generated. Chronic ki dney disease 751927146 N18.9 ChronicRec eives dialysis 3x/week through [facility] Mild intel lectual disability 26556305 F70 Chronic, stablePt resides in long-term and is under [facility] ip.No interventi ons indicated at this time.[employer]i al [employer] form completed (see scanned documentat ion) Cyclothymia 95238413 F34 .0 Sees psychiatry Essential hypertension 55964676 I10 Slightly elevated in office today.Asym ptomatic at this timeEncour aged pt to increase water intake, reduce caffeine intake, exercise regularly, decrease/e liminate sodium intake, work on weight loss and stress reductionW ill continue to monitor closely. Hypothyroidism 02540514 E03.9 Chronic, current status unknownCon tinue levothyrox ine 88mcg Low back pain 418830136 M54.50 Chronic, stable Arthritis 4634617 M19.90 Chronic, stableDisc ussed medication regimen as well as diet and exercise modificati on. Patient will apply heat/ice as needed for pain relief. Follow up in 3 months. Chronic ob structive pulmonary disease 37141693 J44.9 Discussed progressiv e nature of COPD at length. Encouraged proper breathing techniques . Advised compliance with inhaled medication s as directed. Encouraged patient to avoid cigarette smoke, allergens, and environmen anibal pollutants . Advised HVAC filters be changed seasonally as well. Seasonal allergy 8496903 04 J30.2 Chronic, stableSeas onal allergies can [...] severe. Gastroesop hageal reflux disease without esophagitis 469593977 K21.9 Anti-reflu x measures reviewed: avoid spicy foods, recumbency after eating. Small meals recommende d. Take medication on empty stomach with full glass water. Hyperlipidemia 70431866 E78.5 Recommend diet/exerc ise modificati ons. Increase intake of water/vege tables, decrease intake of greasy/fat ty/fried foods, and consider addition of daily fish oil supplement . Bipolar disorder 7604516 4 F31.9 ChronicSee s psych Parkinson's disease 4904 9000 G20 Chronic, current status unknownCon tinue to use walker for balance/am bulationMa y need to consider PT/OT. [id number] MAXIME Moreau [facility] Primary [facility] [address] [facility] [address] [place] [address] 02/11/2023 11:11:22 02/11/2023 11:49:47 Impacted cerumen of bilateral ears 9002025868 034299 H61.23 New problemAdv ised to avoid use of cotton swabs. Ok to use peroxide 2-3x/week to soften/marilou anse ear wax as needed between irrigation s. Irrigation performed in office today per procedure documentat ion. Hearing loss 44424619 H9 1.90 ChronicNor alexis wears hearing aids, but current devices need new batteries. Caregiver reports audiology unable to complete exam d/t cerumen. Essential hypertension 51070786 I10 New finding on exam todayNot currently on medication .Asymptoma tic at this timeElevat ion may be due, in part, to being due for renal dialysis.E ncouraged pt to increase water intake, reduce caffeine intake, exercise regularly, decrease/e liminate sodium intake, work on weight loss and stress reduction. Will continue to monitor closely and reach out to renal specialist if medication needed. [id number] Frank Maza DPM [facility] Podiat[facility] [place] [address] [facility] [address] [place] [address] 05/13/2023 11:47:56 05/13/2023 15:31:37 Foot callus 837382617 L84 Right footdebrid ed without incidentof floadingmo nitor for wounds it presents seeking medical attention immediatel y Dystrophia unguium 83665 009 L60.3 Nails 1 through 10 were debrided with sharp mechanical debridemen t without incident. Nails were debrided and greater than 50% length and thickness where needed. Bunion 162573584 M21.61 1 educatedco nservative therapyoff loadingmon itor for wounds infectionf ollow-up 3 months [id number] TONO Carrillo [facility] Primary Care [facility] [address] [facility] [address] [place] [address] 07/15/2023 10:18:20 07/15/2023 11:38:04 Essential hypertension 33027785 I10 -bp 126/64, 67, no NIX, cp, sob-dialys is 3 times/week -Not currently on medication .-Asymptom atic at this time-Will continue to monitor closely and reach out to renal specialist if medication needed. Chronic ki dney disease 502652353 N18.9 -Chronic, stable-Rec eives dialysis 3x/week through [facility] Mild intel lectual disability 07336093 F70 -Chronic, stable-Pt resides in long-term and is under [facility] ip.-No interventi ons indicated at this time Parkinson's disease 4904 9000 G20.A1 -Chronic, current status unknown-Co ntinue to use walker for balance/am bulation-M ay need to consider PT/OT, staff believes she is okay without PT at this time Hypothyroidism 06888818 E03.9 Chronic, current status unknownCon tinue levothyrox ine 88mcg Chronic ob structive pulmonary disease 32683920 J44.9 -chronic stable Hyperlipidemia 14975274 E78.5 Recommend diet/exerc ise modificati ons. Increase intake of water/vege tables, decrease intake of greasy/fat ty/fried foods, and consider addition of daily fish oil supplement . Bipolar disorder 8229898 4 F31.9 Chronic, stableSees psych [id number] Bella Lewis MD [facility] Primary Care [facility] [address] [facility] [address] [place] [address] 09/30/2023 10:51:55 09/30/2023 12:00:52 Adult health examination 551544052 Z00.00 Encouraged fresh fruits and veggies-lo w intakeIncr ease daily water intakeEnco urage 30 mins of daily exercise-d oes not exerciseCo lonoscopy- cologuard orderedWel l woman exams-decl devin pap and mammogramD EXA-declin edLDCT-not needed-lab s obtained Screening for malignant neoplasm of colon 789568875 Z12.11 [id number] Bella Lewis MD [facility] Primary Care [address] [place] [address] 10/30/2023 11:17:47 10/30/2023 12:08:21 Essential hypertension 45808601 I10 10-30-23-ch ronic, stable-con tinues dialysis 3 [...] out to renal specialist if medication needed. [id number] TONO Carrillo [facility] Primary Care [address] [place] [address] 01/29/2024 10:22:50 01/29/2024 10:47:49 Essential hypertension 53865850 I10 01-31-24-ch ronic, stable-xenia lysis 3 times/day- [...] out to renal specialist if medication needed. [id number] BRADLY Gardiner [facility] Primary Care [facility] [address] [facility] [address] [place] [address] 02/10/2024 14:00:45 02/10/2024 16:08:51 Impacted cerumen of bilateral ears 4379897554 044153 H61.23 irrigated bilaterall y-cleared [id number] RIGO CarrilloP-Timi [facility] Primary Care [facility] [address] [facility] [address] [place] [address] 04/29/2024 11:20:30 04/29/2024 11:55:46 Liver enzymes level above reference range 863114495 R74.01 labs obtained Mild intel lectual disability 96100258 F70 -Chronic, stable-Pt resides in long-term and is under [facility] ip.-No interventi ons indicated at this time [id number] Charanjit Hernandez MD [facility] [address] [place] [address] 10/07/2024 10:41:31 10/07/2024 11:54:24 Adult health examination 309543572 Z00.00 Overall fair condition - intellectu al delay. Lives in a group homeDiscus sed diet and exerciseHe alth maintenanc e reviewedPa tient and caregiver questions answered Screening for malignant neoplasm of colon 827451717 Z12.11 Sleep apnea 10822924 G47 .30 Severely restricted oropharynx . Aaliyah does note snoring episodes. Chronic ki dney disease 287924458 N18.9 Undergoing dialysis, concerns of muscle cramping - likely hypo magnesium. Will check labs Essential hypertension 61992387 I10 Well controlled Hyperlipidemia 21316693 E78.5 Hypothyroidism 21222372 E03.9 Mild intel lectual disability 51438272 F70 Lives in long-term.Disab ility forms completed today and sent back with caregiverR alvin q 3 months Administra tion of tetanus vaccine 031858555 Z23 Health Concerns Section Related Observation LastModified by Organization Detai ls LastModified Time None Recorded Concern Status LastModified by Organization Details LastModified Time None Recorded Advance Directives Directive None Recorded Payers Insurance Date Sequence Insurance Name Policy Number Policy Garsia Covered Member ID Garsia Member ID Guarantor Name 10/07/2024 1 [place] Aaliyah Enriquez [id number] Aaliyah Enriquez 11/15/2024 2 [place] WHEN MEDICARE OR MEDICARE REPLACEMENT PRIMARY) Aaliyah Enriquez [id number] Aaliyah Enriquez Notes Date Note Type Note Provider Name and Address Organization Details Recorded Time 10/30/2023 text/html pt is here for b p f/u RIGO CarrilloP-C [employer], [place], [place], [place], [address] [place] [address], [employer] 11/04/2023 08:57:28 01/29/2024 text/html pt is here for f/u RIGO PatelP-C [email or web address], [place], [place], [place], [address] [place] [address], [employer] 01/29/2024 10:56:42 02/10/2024 text/html pt is here for e ar cleaning Billy Brewer [employer] ASSURANCE MONITOR [employer], [place], [place], [place], [address] [place] [address], [employer] 02/10/2024 14:35:53 04/29/2024 text/html Pt is here for f/u. No concerns Billy Brewer [employer] ASSURANCE MONIT[employer], [place], [place], [place], [address] [place] [address], [employer] 04/29/2024 11:54:17 10/07/2024 text/html Aaliyah Enriquez is a 69 year old female patient here today to establish care. She has an intellectual disability and lives at [facility] Concerns with muscle cramping. Worse on dialysis days. She does see a doctor on dialysis days. Does consume a low sodium doctors. She does see a psychiatrist She does see a mastercam programmer Primary care manages constipation, GERD, cholesterol, and thyroid. Labs checked today MAXIME Wallace [address] [facility], [facility] [address], [place], [address], [place] [facility] 11/11/2024 17:04:52 OBGyn Episode No OBEpisode recorded.
--- NOTE | 2024-12-22 07:18 | ECG_ITS ---
Test Date: 2024-12-22 07:25:30 Measurements Intervals [place] Rate: 73 P: 60 AR: 266 QRS: -16 QRSD: 95 T: 47 QT: 405 QTc: 449 Interpretive Statements SINUS RHYTHM WITH FIRST DEGREE AV BLOCK NONSPECIFIC ST & T-WAVE ABNORMALITY- DIFFUSE LEADS BASELINE ARTIFACT- I, II, AVR BORDERLINE ECG Compared to ECG 12/01/2024 03:28:10 NO SIGNIFICANT CHANGE Electronically Signed On 12-22-2024 07:41:26 CDT by Pacheco Dumont D.O.
[2024-12-22] MEDS: IPRATROPIUM BR 0.02% INH SOLN 0.5 MG/2.5 ML VIAL 1.5 MG INHALATION (07:31)
[2024-12-22] MEDS: IPRATROPIUM BR 0.02% INH SOLN 0.5 MG/2.5 ML VIAL (07:31)
[2024-12-22] MEDS: ALBUTEROL SULFATE NEB 2.5 MG/3 ML INH 15 MG INHALATION (07:31)
--- OUTSIDE RECORDS SUMMARY | 2024-12-22 07:37 | XMS_ITS | Clinical Summary ---
Author Organization [facility]works Address [address] [place] [address] Care Team Providers Care Stogy Maker Name Role Phone Billy Brewer EMU FARM WORKER-RUBBER STAMPS AND DIES SUPERVISOR Primary Care Provider [phone]- [phone] Source Comments [facility],non-owned Affiliates and Associated Physician Practices is amultiple site organization consisting of ambulatory clinics and hospital sitesin [place], [place], [place] and [place]. This disclosure is being madepursuant to the Care Everywhere program and may not contain all information available regarding this patient. Last updated 18.[facility] Allergies Active Allergy Reactions Criticality Noted Date [...] Active azelastine (Astepro) 205.5 MCG/SPRAY nasal spray [place] 2 (two) sprays into the nose 2 [...] fluticasone propionate (Flonase) 50 MCG/ACT nasal spray [place] 2 (two) sprays into each nostril 2 [...] times daily 04/21/20 23 Active nystatin (Mycostatin) 402158 UNIT/GM powder Apply to affected area 3 times daily 07/02/20 23 Active Lactobacillus (Acidophilus Probiotic) 10 MG CAPS 10/23/19 24 Active simvastatin (Zocor) 20 MG tablet Take 1 (one) tablet by mouth at bedtime 11/22/19 24 Active Doxercalciferol (HECTOROL IV) 2 mcg 12/31/19 24 Active Methoxy PEG-Epoetin Beta (MIRCERA IJ) 30 mcg 04/12/20 24 025 Active HYDROcodone-aceta minophen (Vance) 5-325 MG tabletIndications :ESRD (end stage renal disease) (HCC) Take 1 (one) tablet by mouth every 6 hours as needed for Pain 30 tablet 05/25/20 24 Active Additional Information Patient not taking.Reason: Other, Informant: Other, Reported on 12/14/2024 HYDROcodone-aceta minophen (Vance) 5-325 MG tabletIndications :ESRD (end stage renal [...] pm Active Cholecalciferol (vitamin D3) 1.25 MG (16856 UT) capsule Take 1 (one) capsule by [...] 2 doses 24 hours Active HYDROcodone-aceta minophen (Vance) 5-325 MG tabletIndications :Pre-op exam Take 1 [...] Description 12/14/2024 10:20 AM CDT Office Visit [facility] - Surgery [address] [facility], [address] [place] [phone] Chung Stinson MD ESRD (end stage renal disease) (HCC) (Primary Dx) 12/14/2024 Travel 11/30/2024 1:22 PM CDT - 11/30/2024 2:54 PM CDT Surgery [facility] - Perioperative Surgery [address] [place] [address] Chung Stinson MD EXPLORATION CEPHALIC VEIN AND CREATION BRACHIOBASILIC FISTULA 11/30/2024 12:24 PM CDT Anesthesia Event [facility] - Perioperative Surgery [address] [place] [address] Oswaldo Uriarte MD Shaw, Thomas J, 11/30/2024 11:23 AM CDT - 11/30/2024 2:56 PM CDT Hospital Encounter [facility] - Perioperative Surgery [address] [place] [address] Chung Stinson MD Surgery General Discharge Disposition: Home or Self Care 11/18/2024 2:06 PM CDT - 11/18/2024 11:59 PM CDT Hospital Encounter [facility] [address] [place] [address], [address] [place] [address] Kasie Dempsey DO Discharge Disposition: Home or Self Care 11/18/2024 Travel 11/16/2024 12:04 PM CDT - 11/16/2024 11:59 PM CDT Hospital Encounter [facility] [address] [place] [address], [address] [place] [address] Chung Stinson MD Discharge Disposition: Home or Self Care 11/16/2024 10:10 AM CDT Office Visit [facility] - Surgery [address] [place] [address], [address] [place] [address] Chung Stinson MD ESRD (end stage renal disease) (HCC) (Primary Dx) 11/16/2024 Telephone [facility] [address] [place] [address], [address] [place] [address] Gloria Allen RN 11/16/2024 Travel 10/26/2024 8:58 AM CDT - 10/26/2024 11:59 PM CDT Hospital Encounter [facility] Vascular Services [address] [facility], [address] [place] [address] Ben Titus DO Reynolds, Michael D, MD [...] Info) Description 01/11/2025 10:00 AM CDT Appointment [facility] Vascular Services [address] [place] [address], [address] [place] [address] 01/11/2025 10:30 AM CDT Office Visit [facility] - Surgery [address] [place] [address], [address] [place] [address] [place] [address] [facility] [address] [place] [address] 01/25/2025 2:45 PM CDT Appointment [facility] Vascular Services [address] [facility], [address] [place], [place] [id number] [place] [address] [facility] [address] [place] [address] [place] [address] [facility] [address] [place] [address] [place] [address] [facility] [address] [place] [address] [place] [address] [facility] [address] [place] [address] Health Maintenance Due Date Last [...] this topic Medical Devices Implanted Type Area Information Technology Instructor Device Identifier Shelf Expiration Date Model / Serial / Lot Graft Vasc 4-7mm 45cm Grtx Std Wl Tpr - [id number] Implanted:Qty: 1 on 05/25/2024 by Ramy Schilling MD at [facility] Left: Arm [employer] 12/28/2028 [id number] / [id number] / Procedures Procedure Name Priority Date/Time Associated Diagnosis Comments LARYNGEAL MASK AIRWAY Routine 11/30/2024 12:34 PM CDT NC ANASTOMOSIS,AV,ANY SITE 11/30/2024 12:14 PM CDT BLOOD GAS+COOX+ELECTROLYTES +METAB VENOUS Routine 11/30/2024 12:10 PM CDT CARDIAC RHYTHM STRIP ORDER 11/23/2024 9:10 PM CDT VAS BILAT MAPPING FOR HEMODIALYSIS Routine 11/16/2024 12:04 PM CDT ESRD (end stage renal disease) (HCC) CARDIAC RHYTHM STRIP ORDER 10/28/2024 2:46 PM CDT BASIC METABOLIC PANEL (CALCIUM TOTAL) STAT 05/25/2024 10:45 AM ARC TRIMMER Preop testing from Last 3 Months or [...] ORDERA BLES Final Result [facility] [address] [id number] [phone] * CARDIAC RHYTHM STRIP ORDER (11/23/2024 9:10 [...] Procedure Note Chung Stinson MD - 11/16/2024 [facility] [address] [facility], [address] [place] [address] Vessel Mapping for Hemodialysis Report Pat.Name: AALIYAH CASTILLO Pat.ID: [id number] .Date: 11/16/2024 Exam Time: 10:04:00 AM Study Type:Vessel Mapping for Hemodialysis Age: 9 1955,69Y Sex: FEMALE Sonogrphr: Javed Arreaga RVT Pat. Stat.:Outpatient CPT - 4: 33551 Reason for Study: End Stage Renal Disease Procedures: Vessel Mapping for Hemodialysis Race: 1 Visit ID: [id number] ++++++++++++++++++++++++++++++++++++ SUMMARY: ++++++++++++++++++++++++++++++++++++ The right upper arm [...] METABOLIC PANEL (CALCIUM TOTAL) (05/25/2024 10:45 AM ARC TRIMMER) [facility] Glucose 97 70 - 99 mg/dL 05/25/2024 11:09 AM [facility] Sodium 137 136 - 145 mmol/L 05/25/2024 11:09 AM [facility] Potassium 4.3 3.5 - 5.1 mmol/L 05/25/2024 11:09 AM [facility] Chloride 102 98 - 107 mmol/L 05/25/2024 11:09 AM [facility] CO2 24 22 - 29 mmol/L 05/25/2024 11:09 AM [facility] Calcium 9.9 8.4 - 10.4 mg/dL 05/25/2024 11:09 AM [facility] Anion Gap 11 6 - 16 mmol/L 05/25/2024 11:09 AM [facility] BUN 16 7 - 26 mg/dL 05/25/2024 11:09 AM [facility] Creatinine 3.09(H) 0.57 - 1.11 mg/dL 05/25/2024 11:09 AM [facility] eGFR by CKD-EPI 16(L) >=90 mL/min/1.7 3 m2 05/25/2024 11:09 AM [facility] Blood BLOOD SPECIMEN / Unknown Venipuncture / Unknown 05/25/2024 10:45 AM ARC TRIMMER 05/25/2024 10:48 AM [facility] Renetta Land DO LAB - CHEMISTRY ORDERABLES Yesy graves Result [facility] [address] [place] [address] from Last 3 Months or Most Recently Relevant to Health Maintenance Insurance MEDICARE MEDICAID - [place] Care Teams Stogy Maker Relationship Specialty Start Date End Date Billy Brewer APRN-ELVIA [address] [phone] PCP - General 06/03/23
--- OUTSIDE RECORDS SUMMARY | 2024-12-22 07:37 | XMS_ITS | Continuity of Care Document ---
Author Organization [facility] Address [address] [place] [phone] Phone Care Team Providers Care Solar Manufacturer'S Representative Name Role Phone Jose Luis MORAN, Liss [...] Coded Prq av fstl crtj uxtr 1 [facility] Mod sed same phys/qhp 5/>yrs Mod sed same phys/qhp ea Prq av fstl crtj uxtr 1 [facility] Mod sed same phys/qhp 5/>yrs Mod [...] Diagnoses Date Provider Providers Copied on Encounter [facility], [address] [place] [address], [id number], tel:[phone] [facility] No Information 3 Amaya Liss. [address] [place], [place], [id number] , [place]. tel:[phone] [facility], [address] [place], [place], [id number], tel:[phone] [facility] End stage renal diseaseStricture of Artery 3 Amaya Liss. [address], [place], [id number] , [place]. tel:[phone] Referring Provider: Juan J Ayala, [address] [facility] Suite [facility], [place], [address]. tel:[phone] [facility], [address] [place] [address], [id number], [place] tel:[phone] [facility] Stricture of ArteryEnd stage renal disease 3 Amaya Liss. [address], [place], [id number] , [place]. tel:[phone] Referring Provider: Juan J Ayala, [address] [facility] Suite [facility], [place], [address]. tel:[phone] [facility], [address] [place] [address], [id number], [place] tel:[phone] [facility] Oct-0 3 Amaya Liss. [address], [place], [id number] , [place]. tel:[phone] Referring Provider: Juan J Ayala, [address] [place] [address] [address], [place], [address]. tel:[phone] [facility], [address] [place] [address], [id number], [place] tel:[phone] [facility] Oct-0 3-202 3 Amaya [address] [place] [address], [id number] , [place]. tel:[phone] Referring Provider: Juan J Ayala, [address] [place] [address] Suite [facility], [place], [address]. tel:[phone] [facility], [address] [place] [address], [id number], [place] tel:[phone] [facility] Sep-0 5-202 3 Amaya Liss. [address] [place] [address], [id number] , [place]. tel: [phone] Referring Provider: Juan J Ayala, [address] [place] [address] Suite [facility], [place], [address]. tel:[phone] [facility], [address] [place] [address], [id number], [place] tel:[phone] [facility] Sep-0 5-202 3 Amaya Liss. [address] [place] [address], [id number] , [place]. tel:[phone] Referring Provider: Juan J Ayala, [address] [place] [address] [place] [address], [address]. tel:[phone] [facility], [address] [place] [address], [id number], [place] tel:[phone] [facility] Shahram-0 202 1 Albovias Jostin. [address] [place] [address], [id number] , [place]. tel:[phone] Referring Provider: Juan J Ayala, [address] [place] [address] Suite [facility], [place], [address]. tel:[phone] [facility], [address] [place] [address], [id number], tel:[phone] [facility] 0 [phone] 1 Albovias Jostin. [address] [facility] t, [place], [id number] , [place]. tel:[phone] Referring Provider: Juan J Ayala, [address] [facility] [address], [place], [address]. tel:[phone] As per patient privacy policy some of the clinical information may not be visible. Family History Family Member Type Diagnosis Age At Onset No Information Payers Payer name Insurance type Covered democrat ID Authoriza tion(s) Medicare [place] [id number] Medicaid [place] [id number] Social History Type Description Quantity Date Captured Comments Sex Female Smoking Status No Information Gender Identity Female Chief Complaint And Reason For Visit No Information Reason For Referral Reason For Referral No Information Plan Of Treatment Date Type Action Status Future Order: Radiology Order Up per Body Flouroscopy ([id number]), Ordered on: Ordered Future Order: Radiology Order Up per Body Flouroscopy ([id number]), Ordered on: Ordered Future Order: Radiology Order Up per Body Flouroscopy ([id number]), Ordered on: Ordered History Of Present Illness Encounter Date Complaint History Of Prese nt Illness No Information Functional Status Date Functional Assessmen t No Information Instructions Date Instruction Additional Infor mation No Information Assessments Type Assessment Date No Information Patient Care Teams Name Effective Dates (start - stop) Status Members No Information
--- OUTSIDE RECORDS SUMMARY | 2024-12-22 07:37 | XMS_ITS | Encounter Summary ---
Author Organization [facility] Address [address] [facility] [place] [address] Care Team Providers Care Sonar Subsystem Equipment Operator Name Role Phone Billy Brewer WOMEN'S SOCCER COACH-ENTRY LEVEL Primary Care Provider [phone] Reason for Referral * Radiology Services (Routine) - Closed Specialty Diagnoses / Procedures Referred By Rocio dupree Referred To Contact Vascular Lab Diagnoses ESRD (end stage renal disease) on dialysis (HCC) Procedures IR Angio Av Shunt [place] [id number] [place] [address] [place] [phone] Phone: tel: fax: [facility] Vascular Services [address] [place] [address], [address] [place] [address] Phone: tel: fax: Referral ID Status Reason Start Date Expiration Date Visits Re quested Visits Authorized [id number] Closed 11/16/2024 11/18/2024 1 1 Encounter Details Date Type Department Care Team (Late st Contact Info) Description 11/16/2024 Telephone [facility] Health Vascular Services [address] [place] [address], [address] [place] [address] Gloria Allen, RN Social History [...] Info) Description 01/11/2025 10:00 AM CDT Appointment [facility] Services [address] [place] [address] 01/11/2025 10:30 AM CDT Office Visit [facility] - Surgery [address] [place] [address], [address] [phone] Chung Stinson MD [address] [place] [phone] 01/25/2025 2:45 PM CDT Appointment [facility] Services [address] [place] [address] [place] [id number] [place] [address] [place] [address] [place] [address] [facility] [address] [place] [address] [place] [address] [address] [place] [address] [place] [address] [facility] [address] [place] [address] Pending Results Name Type Priority Associated Diagnoses Date /Time IR Angio Av Shunt Imaging Imaging Routine ESRD (end stage renal disease) on dialysis ([facility]) 11/18/2024 3:24 PM CDT Scheduled Orders Name Type Priority Associated Diagnoses Orde r Schedule IR Angio Av Shunt Imaging Imaging Routine ESRD (end stage renal disease) on dialysis ([facility]) 1 Occurrences starting 11/16/2024 until 11/16/2025 documented as of this encounter Visit Diagnoses Diagnosis ESRD (end stage renal disease) on dialysis (HCC)- Primary End stage renal disease documented in this encounter Care Teams Sonar Subsystem Equipment Operator Relationship Specialty Start Date End Date Billy Brewer APRN-ENTRY LEVEL [address] [place] [address] [place] [phone] PCP - General 06/03/23 documented as of this encounter
--- OUTSIDE RECORDS SUMMARY | 2024-12-22 07:37 | XMS_ITS | Encounter Summary ---
Author Organization [facility] Address [address] [facility] [place] [address] Care Team Providers Care City Controller Name Role Phone Tate Butt NEEDLEMAKER-RIVETER HAND Primary Care Provider Billy Brewer NEEDLEMAKER-RIVETER HAND Primary Care Provider [phone]- [phone] Encounter Details Date Type Department Care Team (Late st Contact Info) Description 04/24/2018 Lab Requisition [facility] - Laboratory [address] [place] [address] Juan J Obregon MD [address] [place] [address] [address] Anemia in chronic kidney disease (CODE) Social [...] Info) Description 01/11/2025 10:00 AM CDT Appointment [facility] [address] [facility], [address] [place] [address] 01/11/2025 10:30 AM CDT Office Visit [facility] - Surgery [address] [facility], [address] [place] [phone] [place] [address] [facility] [address] [place] [address] 01/25/2025 2:45 PM CDT Appointment [facility] Health Vascular Services [address] [facility], [address] [place], [place] [id number] [place] [address] [address] [place] [address] [place] [address] [facility] [address] [place] [address] [place] [address] [place] [address] [place] [address] [facility] [address] [place] [address] documented as of this encounter Procedures Procedure Name Priority Date/Time Associated Diagnosis Comments HEMOGLOBIN Routine 04/24/2018 9:52 AM CDT Anemia in chronic kidney disease (CODE) documented in this encounter Results * HEMOGLOBIN (04/24/2018 9:52 AM CDT) Hemoglobin 12.0 12.0 - 15.6 gm/dL 04/24/2018 9:59 AM CDT [facility] Blood BLOOD SPECIMEN / Unknown Venipuncture / Unknown 04/24/2018 9:52 AM CDT 04/24/2018 9:55 AM CDT Juan J Obregon MD LAB - HEMATOLOGY ORDERABLES Fi nal Result [facility] [address] [place], [place] [id number] documented in this encounter Visit Diagnoses Diagnosis Anemia in chronic kidney disease (CODE) documented in this encounter Care Teams City Controller Relationship Specialty Start Date End Date Tate Butt APRN-RIVETER HAND [address] [place] [phone] PCP - General Nurse Practitioner Family 05/26/23 Billy Brewer APRN-ELVIA [address] [phone] PCP - General 06/03/23 documented as of this encounter
--- NOTE | 2024-12-22 07:50 | ED_ITS ---
HPI - General Adult General Chief complaint: Upper Respiratory Infection Stated complaint: cough, chest pain, SOB Time Seen by Provider: 12/22/24 06:59 History of Present Illness HPI narrative: Patient is a 69-year-old female who presents ER with cough and chest pain. Ongoing over last week. No improvement with inhaler at home. She uses it schedule but does not have it p.r.n.. Patient has home health with her. Patient receives dialysis Friday/Friday/Friday. Patient reports productive cough and has chest pain when she is coughing. No leg edema. No known sick on this. Related Data Home Medications ?Medication ?Instructions ?Recorded ?Confirmed ?Last Taken ?Type Lactobacillus acidophilus 100 mmu cells PO DAILY 08/29/22 Unknown History (Acidophilus capsule) acetaminophen 325 mg capsule 325 mg PO Q6H PRN 08/29/22 Unknown History albuterol sulfate 90 mcg/actuation 1 inh inhalation Q4H 08/29/22 Unknown History aerosol inhaler aluminum-mag hydroxide-simethicone 5 ml PO ONCE PRN 08/29/22 Unknown History 200 mg-200 mg-20 mg/5 mL oral susp (Yin-Lanta) azelastine 205.5 mcg (0.15 %) 2 spray intranasal DAILY 08/29/22 Unknown History nasal spray (Astepro Allergy) bisacodyl 5 mg tablet,delayed 5 mg PO QHS PRN constipation 08/29/22 Unknown History release bismuth subsalicylate 262 mg/15 mL 524 mg PO Q1H PRN 08/29/22 Unknown History oral suspension (Stomach Relief) carbidopa 10 mg-levodopa 100 mg 1 tablet PO BID 08/29/22 Unknown History tablet dextromethorphan HBr 15 mg/5 mL 15 mg PO Q8H PRN cough 08/29/22 Unknown History oral syrup diphenhydramine HCl 25 mg capsule 25 mg PO QHS PRN 08/29/22 Unknown History (Allergy (diphenhydramine)) divalproex 250 mg tablet,delayed 250 mg PO Q12H 08/29/22 Unknown History release (Depakote) famotidine 20 mg tablet 20 mg PO DAILY PRN 08/29/22 Unknown History fenofibrate 160 mg tablet 160 mg PO DAILY 08/29/22 Unknown History fluticasone propionate 50 2 spray intranasal DAILY 08/29/22 Unknown History mcg/actuation nasal spray,suspension (Allergy Relief (fluticasone)) levothyroxine 88 mcg capsule 88 mcg PO DAILY 08/29/22 Unknown History pantoprazole 40 mg tablet,delayed 40 mg PO QAM 08/29/22 Unknown History release polyethylene glycol 3350 17 17 g PO DAILY 08/29/22 Unknown History gram/dose oral powder risperidone 0.5 mg tablet 0.5 mg PO QHS 08/29/22 Unknown History sertraline 100 mg tablet 100 mg PO DAILY 08/29/22 Unknown History sevelamer carbonate 800 mg tablet 800 mg PO TID 08/29/22 Unknown History (Renvela) simvastatin 20 mg tablet 20 mg PO DAILY 08/29/22 Unknown History Allergies Allergy/AdvReac Type Severity Reaction Status Date / Time NSAIDS (Non-Steroidal Allergy Mild Unknown Verified 12/22/24 06:48 Anti-Inflamma Review of Systems 2 Review of Systems: All systems reviewed & are unremarkable except as noted in HPI and below Constitutional: Constitutional: Reports no additional constitutional complaints ENT: Reports system reviewed and no additional complaints, except as documented Cardiovascular: Cardiovascular: Reports no additional cardiovascular complaints Respiratory: Respiratory: Reports no additional respiratory complaints Musculoskeletal: Musculoskeletal: Reports no additional musculoskeletal complaints [facility] Past Medical History Medical History Parkinsons disease Bipolar disorder Hyperlipidemia Chronic kidney disease H/O gastroesophageal reflux (GERD) Seasonal allergies COPD (chronic obstructive pulmonary disease) Low back pain Chronic venous insufficiency Personal history of dysmenorrhea Hypothyroidism Hypertension Cyclothymia Mild intellectual disability Surgical History Surgical History [place] teeth removed History of removal of cyst abdominal Social History Social History Smoking status: Never smoker Second hand tobacco smoke exposure: No Alcohol intake: never Substance use: never Lack of Transportation: No Lack of Food: Never True Current Housing: I Have Housing Concerned About Future Housing: No Difficulty Paying Gas/Electric Bills: No Difficulty Paying for Meds: No Currently Unemployed: No Living arrangements: usp Additional living arrangements comments: Residential options Occupation/Education: retired Gender identity (if verbalized by the patient): Female Sexual Orientation (if Verbalized by the Patient): Straight or Heterosexual Spiritual care concerns: No Exam 2 Narrative: GENERAL: Chronically ill-appearing, well-nourished, and in no acute distress. HEAD: Normocephalic, atraumatic. EYES: PERRL and EOMI. NECK: Supple. CHEST: Coarse expiratory wheezing bilaterally. No respiratory distress. HEART: Regular rate and rhythm. Normal peripheral pulses. ABDOMEN: Soft, nontender, nondistended. EXTREMITIES: Normal range of motion. No edema. SKIN: Warm, dry, no rash. NEURO: Alert and oriented x3. PSYCH: Normal mood and affect. Course Course Emergency Course: Lungs clear after hour long nebulizer treatment. Imaging with pulmonary edema. Missed her dialysis today. Feel she be better served having dialysis here before going back to facility. Discussed with nephrology. Admit to hospitalist. Vital Signs Vital signs: Vital Signs Pulse Rate 78 12/22/24 06:53 Respiratory Rate 24 H 12/22/24 06:53 Blood Pressure 141/66 H 12/22/24 06:53 Pulse Oximetry 100 12/22/24 06:53 Oxygen Delivery Room Air 12/22/24 06:53 Pulse Rate 82 12/22/24 09:40 Respiratory Rate 22 H 12/22/24 09:40 Blood Pressure 113/80 12/22/24 09:40 Pulse Oximetry 99 12/22/24 09:40 Oxygen Delivery Room Air 12/22/24 06:53 Medical Decision Making Vital Signs Vital Signs: Vital Signs Pulse Rate 78 12/22/24 06:53 Respiratory Rate 24 H 12/22/24 06:53 Blood Pressure 141/66 H 12/22/24 06:53 Pulse Oximetry 100 12/22/24 06:53 Oxygen Delivery Room Air 12/22/24 06:53 Pulse Rate 82 12/22/24 09:40 Respiratory Rate 22 H 12/22/24 09:40 Blood Pressure 113/80 12/22/24 09:40 Pulse Oximetry 99 12/22/24 09:40 Oxygen Delivery Room Air 12/22/24 06:53 Lab Data 12/22/24 07:36 12/22/24 07:36 Labs: Lab Results 12/22/24 12/22/24 Range/Units 07:36 07:36 WBC 6.7 (4.5-10.0) K/mm3 RBC 2.92 L (4.2-5.4) M/mm3 Hgb 9.1 L (12.0-15.0) g/dL Hct 27.5 L (37.0-47.0) % MCV 94.2 (80-100) fl MCH 31.2 (26-34) pg MCHC 33.1 (32-36) g/dl RDW 14.6 H (11.5-14.5) % Plt Count 97 L (150-375) k/mm3 MPV 9.1 (7.4-10.4) fl Immature Gran % (Auto) 0.6 H (0-0.5) % Neut % (Auto) 65.4 (45.5-73.1) % Lymph % (Auto) 24.1 (18.3-44.2) % [place] % (Auto) 8.9 H (2.6-8.5) % Eos % (Auto) 0.8 (0-4.4) % Baso % (Auto) 0.2 (0.2-1.2) % Lymph # (Auto) 1.60 (0.9-3.2) K/mm3 [place] # (Auto) 0.6 (0.1-0.6) K/mm3 Eos # (Auto) 0.1 (0-0.3) K/mm3 Baso # (Auto) 0.0 (0.0-0.1) K/mm3 Abs Immat Gran (auto) 0.04 H (0.00-0.031) K/mm3 Absolute Neuts (auto) 4.4 (1.3-6.7) K/mm3 Absolute Nucleated RBC 0.000 (0.0-0.012) K/mm3 Nucleated RBC % 0.0 (0.0-0.2) % % Immature Plt Fraction 1.9 (0.9-11.2) % Sodium 131 L (137-145) mmol/L Potassium 3.9 (3.4-5.0) mmol/L Chloride 93 L (98-107) mmol/L Carbon Dioxide 28 (22-30) mmol/L Anion Gap 10 (4-12) mmol/L BUN 22 H (7-17) mg/dL Creatinine 3.91 H (0.7-1.0) mg/dL Estim Creat Clear Calc 12 ml/min Estimated GFR 11 L (59 - ) Glucose 90 (65-110) mg/dL Calcium 9.3 (8.4-10.2) mg/dL Total Bilirubin 0.4 (0.2-1.3) mg/dL AST 18 (14-36) U/L ALT 7 (6-35) U/L Alkaline Phosphatase 84 (38-126) U/L Troponin I Cancelled < 0.012 NT-Pro-B Natriuret Pep 3930 H (19.9-100) pg/mL Total Protein 7.0 (6.3-8.2) g/dL Albumin 3.8 (3.5-5.1) g/dL Hep Bs Antigen Pending Hep Bs Antibody Pending Influenza A (RT-PCR) Negative (Negative) Influenza B (RT-PCR) Negative (Negative) RSV (RT-PCR) Negative (Negative) SARS-CoV-2 RNA (RT-PCR) Negative (Negative) Imaging Data Radiologist's impression: ITS Impressions Chest X-Ray 12/22/24 08:05 Impression: 1: Cardiomegaly with mild interstitial edema. ECG Data EKG #1: ECG completion date: 12/22/24 ECG completion time: 07:25 EKG Interpretation: normal rate (73), sinus rhythm, non-specific ST changes, normal QRS and normal QT Discharge Plan Discharge Clinical Impression: Pulmonary edema, Wheezing Patient Disposition: Still a Patient Condition: Stable
[2024-12-22 07:56] LABS: Basophils Percent Auto 0.2 % (0.2-1.2); Eosinophils Absolute Auto 0.1 K/mm3 (0-0.3); Eosinophils Percent Auto 0.8 % (0-4.4); Hematocrit 27.5 % (37.0-47.0); Hemoglobin 9.1 g/dL (12.0-15.0); Immature Granulocyte Absolute 0.04 K/mm3 (0.00-0.031); Immature Granulocyte Percent A 0.6 % (0-0.5); Immature Platelet Fraction Pct 1.9 % (0.9-11.2); Lymphocytes Percent Auto 24.1 % (18.3-44.2); Mean Corpuscular HGB Conc 33.1 g/dl (32-36); Mean Corpuscular Hemoglobin 31.2 pg (26-34); Mean Corpuscular Volume 94.2 fl (80-100); Mean Platelet Volume 9.1 fl (7.4-10.4); Monocytes Absolute Auto 0.6 K/mm3 (0.1-0.6); Monocytes Percent Auto 8.9 % (2.6-8.5); Neutrophils Absolute Auto 4.4 K/mm3 (1.3-6.7); Neutrophils Percent Auto 65.4 % (45.5-73.1); Platelet Count Result 97 k/mm3 (150-375); Red Blood Count 2.92 M/mm3 (4.2-5.4); Red Cell Distribution Width 14.6 % (11.5-14.5); White Blood Count 6.7 K/mm3 (4.5-10.0)
[2024-12-22 08:05] LABS: Alanine Aminotransferase 7 U/L (6-35); Albumin Level 3.8 g/dL (3.5-5.1); Alkaline Phosphatase 84 U/L (38-126); Anion Gap 10 mmol/L (4-12); Aspartate Amino Transferase 18 U/L (14-36); Bilirubin,Total 0.4 mg/dL (0.2-1.3); Blood Urea Nitrogen 22 mg/dL (7-17); Calcium 9.3 mg/dL (8.4-10.2); Carbon Dioxide 28 mmol/L (22-30); Chloride 93 mmol/L (98-107); Estimated CRCL calculation 12 ml/min; Estimated Glomerular Filt Rate 11; Glucose 90 mg/dL (65-110); Potassium 3.9 mmol/L (3.4-5.0); Sodium 131 mmol/L (137-145)
[2024-12-22 08:14] LABS: NT Pro B Type Natriuretic Pept 3930 pg/mL (19.9-100)
[2024-12-22 08:17] LABS: Troponin I < 0.012 ng/mL (0.000-0.034)
[2024-12-22 08:31] LABS: Influenza A QL RT-PCR Negative (Negative); Influenza B QL RT-PCR Negative (Negative); RSV RNA, RT-PCR Negative (Negative); SARS-CoV-2 RNA PCR Negative (Negative)
--- NOTE | 2024-12-22 10:54 | ADMGEN ---
This patient, Aaliyah Enriquez, was admitted to Medical Room 250-01. Patient/family oriented to hospital policies and general routines including ID bracelet, bed and alarms, visiting hours, pain management, procedures, bathroom and other care routines, personal items, smoking policy, room service/diet, and visiting hours. Information on how to activate the Rapid Response Team has been discussed. Patient/Family are encouraged to report perceived risks to care and to ask questions if they do not understand what they are told or what they should do.
[2024-12-22 11:21] LABS: Hepatitis B Surface Antigen Negative (Negative)
--- NOTE | 2024-12-22 12:16 | PC.NURSE ---
Patient off floor via bed to dialysis unit.
[2024-12-22 12:35] LABS: Hepatitis B Surface Anti Res Positive
[2024-12-22 13:01] LABS: MRSA (PCR) DETECTED (NOT DETECTE)
--- NOTE | 2024-12-22 13:30 | PM.IMHP ---
H&P: HPI History of Present Illness Date/Time: 12/22/24 13:30 Chief Complaint: Upper respiratory infection Narrative: The patient is a 69-year-old female with a past medical history of Parkinson's, bipolar, hyperlipidemia, COPD, hypothyroidism, hypertension, mild intellectual disability, cyclothymia, end-stage renal disease, dialysis-dependent presented to the ED due to cough and chest pain. . Pertinent ED labs: WBC 6.7, hemoglobin 9.1, platelet 97, sodium 131, potassium 3.9, chloride 93, creatinine 3.9, GFR 11 Nasal MRSA positive Positive for HBS antibody, possibly due to vaccination. Troponin <0.012 The patient is admitted due to shortness of breath and chest pain. A contributing factor to shortness of breath may be missed dialysis. The patient has a past medical history of COPD but no home O2 at baseline and no smoking hx as well. I will continue the home regimen. Regarding the chest pain, there is no evidence of acute coronary syndrome (ACS), possibly due to MSK but still her atypical chest pain has to excluded with Jodee scan. Last year, she visited the ER due to chest pain. Troponin is less than 0.012, and repeated troponin. EKG shows sinus rhythm with first-degree AV block. Chest x-ray shows cardiomegaly with mild interstitial edema. The patient underwent dialysis today. The patient is a poor historian due to intellectual disability. Unable to reach the Legal Guardian. I called the railways assistant, who reported that the patient has no history of stent, CABG, or CVA. She didn't know the reason for her kidney failure. She reports that she recently underwent surgery(November 2024) in her left or right arm due to a rupture of the fistula at [facility]. I called dialysis, and they reported dialysis had been done through her left fistula, and the right fistula could not be used.Ordered PICC line Review of Systems Review of Systems: All systems reviewed & are unremarkable except as noted in HPI and below Constitutional: Constitutional: Reports no additional constitutional complaints ENT: Reports system reviewed and no additional complaints, except as documented Cardiovascular: Cardiovascular: Reports no additional cardiovascular complaints Respiratory: Respiratory: Reports no additional respiratory complaints Musculoskeletal: Musculoskeletal: Reports no additional musculoskeletal complaints [facility] Past Medical History Medical History (Updated 12/22/24 @ 16:06 by Joseph Herring MD) Parkinsons disease Bipolar disorder Hyperlipidemia Chronic kidney disease H/O gastroesophageal reflux (GERD) Seasonal allergies COPD (chronic obstructive pulmonary disease) Low back pain Chronic venous insufficiency Personal history of dysmenorrhea Hypothyroidism Hypertension Cyclothymia Mild intellectual disability Surgical History Surgical History [place] teeth removed History of removal of cyst abdominal Social History Social History Smoking status: Never smoker Second hand tobacco smoke exposure: No Alcohol intake: never Substance use: never Do You Feel Safe in your Home?: Yes Lack of Transportation: No Lack of Food: Never True Current Housing: I Have Housing Concerned About Future Housing: No Difficulty Paying Gas/Electric Bills: No Difficulty Paying for Meds: No Currently Unemployed: No Education: Decline to Answer Difficulty w/ Childcare or Family Care: No Living arrangements: intermediate Additional living arrangements comments: Residential options Occupation/Education: retired Gender identity (if verbalized by the patient): Female Sexual Orientation (if Verbalized by the Patient): Straight or Heterosexual Spiritual care concerns: No Meds Home Medications and Allergies Home Medications ?Medication ?Instructions ?Recorded ?Confirmed ?Type Lactobacillus acidophilus 100 mmu cells PO DAILY 08/29/22 12/22/24 History (Acidophilus capsule) acetaminophen 325 mg capsule 650 mg PO Q6H PRN fever or pain 08/29/22 12/22/24 History albuterol sulfate 90 mcg/actuation 1 inh inhalation HS 08/29/22 12/22/24 History aerosol inhaler aluminum-mag hydroxide-simethicone 5 ml PO ONCE 08/29/22 12/22/24 History 200 mg-200 mg-20 mg/5 mL oral susp (Yin-Lanta) azelastine 205.5 mcg (0.15 %) 2 spray intranasal BID 08/29/22 12/22/24 History nasal spray (Astepro Allergy) bisacodyl 5 mg tablet,delayed 10 mg PO Q12-24H PRN constipation 08/29/22 12/22/24 History release bismuth subsalicylate 262 mg/15 mL 524 mg PO Q1H 08/29/22 12/22/24 History oral suspension (Stomach Relief) carbidopa 10 mg-levodopa 100 mg 1 tablet PO BID 08/29/22 12/22/24 History tablet dextromethorphan HBr 15 mg/5 mL 15 mg PO Q8H PRN cough 08/29/22 12/22/24 History oral syrup diphenhydramine HCl 25 mg capsule 25 mg PO QHS 08/29/22 12/22/24 History (Allergy (diphenhydramine)) divalproex 250 mg tablet,delayed 250 mg PO BID 08/29/22 12/22/24 History release (Depakote) famotidine 20 mg tablet 20 mg PO HS PRN indigestion 08/29/22 12/22/24 History fenofibrate 160 mg tablet 160 mg PO DAILY 08/29/22 12/22/24 History fluticasone propionate 50 2 spray intranasal BID 08/29/22 12/22/24 History mcg/actuation nasal spray,suspension (Allergy Relief (fluticasone)) levothyroxine 88 mcg capsule 88 mcg PO DAILY 08/29/22 12/22/24 History pantoprazole 40 mg tablet,delayed 40 mg PO BID 08/29/22 12/22/24 History release polyethylene glycol 3350 17 17 g PO DAILY PRN constipation 08/29/22 12/22/24 History gram/dose oral powder risperidone 0.5 mg tablet 0.5 mg PO QHS 08/29/22 12/22/24 History sertraline 100 mg tablet 100 mg PO DAILY 08/29/22 12/22/24 History sevelamer carbonate 800 mg tablet 800 mg PO TID 08/29/22 12/22/24 History (Renvela) simvastatin 20 mg tablet 20 mg PO HS 08/29/22 12/22/24 History aluminum-mag hydroxide-simethicone 30 ml PO Q4H PRN indigestion 12/22/24 12/22/24 History 200 mg-200 mg-20 mg/5 mL oral susp (Advanced Antacid-Antigas) bismuth subsalicylate 525 mg/15 mL 262 mg PO Q3H6XD PRN diarrhea 12/22/24 12/22/24 History oral suspension (Stomach Relief) cholecalciferol (vitamin D3) 1,250 50,000 unit PO .Q14 days 12/22/24 12/22/24 History mcg (50,000 unit) capsule diphenhydramine HCl 25 mg capsule 25 mg PO Q6H PRN congestion 12/22/24 12/22/24 History (Banophen) guaifenesin 100 mg/5 mL oral 100 mg PO Q4H PRN cough 12/22/24 12/22/24 History liquid (Chest Congestion Relief) hydrocodone 5 mg-acetaminophen 325 1 tablet PO Q6H PRN pain 12/22/24 12/22/24 History mg tablet sevelamer carbonate 800 mg tablet 800 mg PO PRN PRN kidney failure 12/22/24 12/22/24 History Allergies Allergy/AdvReac Type Severity Reaction Status Date / Time NSAIDS (Non-Steroidal Allergy Mild Unknown Verified 12/22/24 06:48 Anti-Inflamma Vital Signs Vital Signs - 24 hr 12/22/24 06:53 12/22/24 09:40 12/22/24 12:00 Pulse Rate 78 82 88 Respiratory Rate 24 H 22 H Blood Pressure 141/66 H 113/80 Pulse Oximetry 100 99 Oxygen Delivery Room Air Exam Narrative: GENERAL: Chronically ill-appearing, well-nourished, and in no acute distress. HEAD: Normocephalic, atraumatic. EYES: PERRL and EOMI. NECK: Supple. CHEST: Coarse expiratory wheezing bilaterally. No respiratory distress. HEART: Regular rate and rhythm. Normal peripheral pulses. ABDOMEN: Soft, nontender, nondistended. EXTREMITIES: Normal range of motion. No edema. SKIN: Warm, dry, no rash. NEURO: Alert and oriented x3. PSYCH: Normal mood and affect. H&P: Results Labs Labs: Short CBC 12/22/24 Range/Units 07:36 WBC 6.7 (4.5-10.0) K/mm3 Hgb 9.1 L (12.0-15.0) g/dL Hct 27.5 L (37.0-47.0) % Plt Count 97 L (150-375) k/mm3 BMP 12/22/24 07:36 Sodium 131 L Potassium 3.9 Chloride 93 L Carbon Dioxide 28 BUN 22 H Creatinine 3.91 H Glucose 90 Calcium 9.3 Cardiac Enzymes 12/22/24 12/22/24 Range/Units 07:36 07:36 Troponin I Cancelled < 0.012 Liver Function 12/22/24 Range/Units 07:36 Total Bilirubin 0.4 (0.2-1.3) mg/dL AST 18 (14-36) U/L ALT 7 (6-35) U/L Alkaline Phosphatase 84 (38-126) U/L Albumin 3.8 (3.5-5.1) g/dL Assessment and Plan Assessment and plan (1) Chest pain: Code(s): R07.9 - Chest pain, unspecified Status: Acute Assessment and Plan: Possible MSK Troponin less than 0.012 Repeated troponin Reviewed EKG Reviewed his chest x-ray Order echo Order Lexiscan (2) Chronic kidney disease: Code(s): N18.9 - Chronic kidney disease, unspecified Status: Acute Assessment and Plan: Chest x-ray shows cardiomegaly with interstitial edema BNP 3930 On dialysis (3) Hyperlipidemia: Code(s): E78.5 - Hyperlipidemia, unspecified Status: Acute Assessment and Plan: Continue simvastatin 20 mg p.o. q.h.s. (4) Hypothyroidism: Code(s): E03.9 - Hypothyroidism, unspecified Status: Acute Assessment and Plan: Continue levothyroxine 88 mcg (5) Pulmonary edema: Code(s): J81.1 - Chronic pulmonary edema Status: Acute Assessment and Plan: Given Lasix in ED Currently undergoing dialysis Will order BNP and if necessary will give Lasix tomorrow (6) COPD (chronic obstructive pulmonary disease): Code(s): J44.9 - Chronic obstructive pulmonary disease, unspecified Status: Acute Assessment and Plan: Continue the home medication Hospitalist [facility] Advance Care Plan I have confirmed that the patient's Advanced Care Plan is present, code status is documented, or surrogate decision maker is listed in patient medical record.: Yes Medication Reconciliation I have utilized all available resources to obtain, update and review the patients current medications (includes all prescriptions, OTC, herbals, cannabis, and nutritional supplements).: Yes
--- NOTE | 2024-12-22 13:56 | P.CONNP_ITS ---
Assessment and Plan Assessment and plan (1) End stage renal disease: Code(s): N18.6 - End stage renal disease Status: Chronic Assessment and Plan: * HD today * continue Fri/Fri/Friday schedule while hospitalized * follow electrolytes, volume status, and clearance (2) Chest pain: Code(s): R07.9 - Chest pain, unspecified Status: Acute Assessment and Plan: * as noted on admission * trend troponins * EKG noted * Cardiology consulted * follow clinical symptoms (3) Pulmonary edema: Code(s): J81.1 - Chronic pulmonary edema Status: Acute Assessment and Plan: * presumably secondary to missed dialysis treatment * s/p IV lasix in ER * dialysis for fluid removal/ultrafiltration * follow respiratory status (4) Anemia: Code(s): D64.9 - Anemia, unspecified Status: Chronic Assessment and Plan: * due to ESRD * Epogen with HD * follow trend of H/H I will continue to follow the patient with you while she remains hospitalized and make further recommendations as deemed necessary. Thank you for allowing me to participate in the care of this patient. L History of Present Illness Reason for Consult Consult date: 12/22/24 Reason for consult: end stage renal disease Chief Complaint Chief complaint: volume overload,wheezing History of Present Illness Narrative: Most of the information I have obtained is from review the electronic medical record as well as discussion with the physicians and nurses involved in the patient's care as is difficult to get a full and complete history from the patient as she is a poor historian and has some mild intellectual disability. The patient is a 69-year-old female with a past medical history as outlined below who presented to [facility] Emergency Room due to complaints of cough and chest discomfort.How long the symptoms were present prior to her presentation to the emergency room is not entirely clear. It should be noted the patient apparently missed her last dialysis treatment as well which may be a contributing factor to her symptoms. In any case, due to these symptoms, she presented to the ER for further assessment. Workup and evaluation emergency room demonstrated the patient be hemodynamically stable and in no acute distress. Routine blood work demonstrated white blood cell count of 6.7, hemoglobin 9.1, platelet count 97, and chemistry labs consistent with her known history of end-stage renal disease without any critical electrolyte abnormalities. Her troponins were negative and her chest x-ray demonstrated cardiomegaly with mild interstitial edema. Given these constellation of symptoms and laboratory/imaging findings, she was admitted to the hospital for further evaluation and therapy. Renal consultation was requested due to her history of end-stage renal disease. As already mentioned above, due to her intellectual disability, is difficult to get a full history with regard to her known history of dialysis. She apparently dialyzes on a Friday, Friday, Friday dialysis schedule although I am not entirely sure where she goes for dialysis. It is noted though she apparently missed her dialysis treatment on Friday for unclear reasons. She recently had access surgery on her arms for ongoing use for her maintenance hemodialysis treatments. She is due for dialysis today. Currently, at the time my evaluation, she is receiving dialysis and appears in no apparent distress (seen on HD at 1:45pm). Review of Systems 2 Review of Systems: As per HPI. [facility] Past Medical History Medical History (Updated 01/13/25 @ 10:59 by Bernie Winter MD) Parkinsons disease Bipolar disorder Hyperlipidemia Chronic kidney disease H/O gastroesophageal reflux (GERD) Seasonal allergies COPD (chronic obstructive pulmonary disease) Low back pain Chronic venous insufficiency Personal history of dysmenorrhea Hypothyroidism Hypertension Cyclothymia Mild intellectual disability Surgical History Surgical History [place] teeth removed History of removal of cyst abdominal Social History Social History Smoking status: Never smoker Second hand tobacco smoke exposure: No Alcohol intake: never Substance use: never Do You Feel Safe in your Home?: Yes Lack of Transportation: No Lack of Food: Never True Current Housing: I Have Housing Concerned About Future Housing: No Difficulty Paying Gas/Electric Bills: No Difficulty Paying for Meds: No Currently Unemployed: No Education: Decline to Answer Difficulty w/ Childcare or Family Care: No Living arrangements: senior care Additional living arrangements comments: Residential options Occupation/Education: retired Gender identity (if verbalized by the patient): Female Sexual Orientation (if Verbalized by the Patient): Straight or Heterosexual Spiritual care concerns: No Meds Home Medications and Allergies Home Medications ?Medication ?Instructions ?Recorded ?Confirmed ?Type Lactobacillus acidophilus 100 mmu cells PO DAILY 08/29/22 12/22/24 History (Acidophilus capsule) acetaminophen 325 mg capsule 650 mg PO Q6H PRN fever or pain 08/29/22 12/22/24 History albuterol sulfate 90 mcg/actuation 1 inh inhalation HS 08/29/22 12/22/24 History aerosol inhaler aluminum-mag hydroxide-simethicone 5 ml PO ONCE 08/29/22 12/22/24 History 200 mg-200 mg-20 mg/5 mL oral susp (Yin-Lanta) azelastine 205.5 mcg (0.15 %) 2 spray intranasal BID 08/29/22 12/22/24 History nasal spray (Astepro Allergy) bisacodyl 5 mg tablet,delayed 10 mg PO Q12-24H PRN constipation 08/29/22 12/22/24 History release bismuth subsalicylate 262 mg/15 mL 524 mg PO Q1H 08/29/22 12/22/24 History oral suspension (Stomach Relief) carbidopa 10 mg-levodopa 100 mg 1 tablet PO BID 08/29/22 12/22/24 History tablet dextromethorphan HBr 15 mg/5 mL 15 mg PO Q8H PRN cough 08/29/22 12/22/24 History oral syrup diphenhydramine HCl 25 mg capsule 25 mg PO QHS 08/29/22 12/22/24 History (Allergy (diphenhydramine)) divalproex 250 mg tablet,delayed 250 mg PO BID 08/29/22 12/22/24 History release (Depakote) famotidine 20 mg tablet 20 mg PO HS PRN indigestion 08/29/22 12/22/24 History fenofibrate 160 mg tablet 160 mg PO DAILY 08/29/22 12/22/24 History fluticasone propionate 50 2 spray intranasal BID 08/29/22 12/22/24 History mcg/actuation nasal spray,suspension (Allergy Relief (fluticasone)) levothyroxine 88 mcg capsule 88 mcg PO DAILY 08/29/22 12/22/24 History pantoprazole 40 mg tablet,delayed 40 mg PO BID 08/29/22 12/22/24 History release polyethylene glycol 3350 17 17 g PO DAILY PRN constipation 08/29/22 12/22/24 History gram/dose oral powder risperidone 0.5 mg tablet 0.5 mg PO QHS 08/29/22 12/22/24 History sertraline 100 mg tablet 100 mg PO DAILY 08/29/22 12/22/24 History sevelamer carbonate 800 mg tablet 800 mg PO TID 08/29/22 12/22/24 History (Renvela) simvastatin 20 mg tablet 20 mg PO HS 08/29/22 12/22/24 History aluminum-mag hydroxide-simethicone 30 ml PO Q4H PRN indigestion 12/22/24 12/22/24 History 200 mg-200 mg-20 mg/5 mL oral susp (Advanced Antacid-Antigas) bismuth subsalicylate 525 mg/15 mL 262 mg PO Q3H6XD PRN diarrhea 12/22/24 12/22/24 History oral suspension (Stomach Relief) cholecalciferol (vitamin D3) 1,250 50,000 unit PO .Q14 days 12/22/24 12/22/24 History mcg (50,000 unit) capsule diphenhydramine HCl 25 mg capsule 25 mg PO Q6H PRN congestion 12/22/24 12/22/24 History (Banophen) guaifenesin 100 mg/5 mL oral 100 mg PO Q4H PRN cough 12/22/24 12/22/24 History liquid (Chest Congestion Relief) hydrocodone 5 mg-acetaminophen 325 1 tablet PO Q6H PRN pain 12/22/24 12/22/24 History mg tablet sevelamer carbonate 800 mg tablet 800 mg PO PRN PRN kidney failure 12/22/24 12/22/24 History Allergies Allergy/AdvReac Type Severity Reaction Status Date / Time NSAIDS (Non-Steroidal Allergy Mild Unknown Verified 12/22/24 06:48 Anti-Inflamma Vital Signs Vital Signs Temp Pulse Resp BP Pulse Ox O2 Del Method 12/22/24 13:45 81 127/84 12/22/24 13:30 86 94/72 L 12/22/24 13:15 84 105/62 12/22/24 13:00 80 124/67 12/22/24 12:45 97.5 F L 83 16 148/59 H 12/22/24 12:00 88 12/22/24 09:40 82 22 H 113/80 99 12/22/24 06:53 78 24 H 141/66 H 100 Room Air Exam 2 Narrative: GENERAL APPEARANCE: mildly ill-appearing female in no acute distress HEENT: normocephalic, atraumatic, normal conjunctiva and sclera, nares patient NECK: no lymphadenopathy, thyromegaly, or JVD MOUTH: normal lips, teeth, and gums CARDIOVASCULAR: RRR, normal S1 and S2, no rub RESPIRATORY: coarse breath sounds with scattered wheezes ABDOMEN: soft, nontender, nondistended, positive bowel sounds present EXTREMITIES: no evidence of cyanosis, clubbing, or edema NEUROLOGICAL: alert and oriented x 2 - 3; CN II - XII intact bilaterally; no focal deficits noted Results Lab Results 12/24/24 05:08 12/24/24 05:08 Lab results: Most recent lab results Calcium 9.3 mg/dL (8.4-10.2) 12/22/24 07:36
[2024-12-22] MEDS: EPOETIN ALFA-EPBX 10,000 UNITS/ML VIAL 10000 UNITS IV PUSH (15:12)
[2024-12-22] MEDS: SODIUM CHLORIDE 0.9% IV 1,000 ML 999 ML IV CONT (15:13)
[2024-12-22] MEDS: SEVELAMER CARBONATE 800 MG TABLET PO (17:53)
[2024-12-22] MEDS: PANTOPRAZOLE 40 MG TABLET PO (17:53)
[2024-12-22] MEDS: DIVALPROEX SODIUM DR 250 MG TABEC PO (17:53)
[2024-12-22] MEDS: FLUTICASONE PROPIONATE 0.05% NA SPR 16 GM BTL (*BKC) 2 SPRAY NASAL (17:54)
[2024-12-22] MEDS: AZELASTINE HCL NASAL 0.1% 137 MCG/SPR 30 ML BTL 2 SPRAY NASAL (17:54)
[2024-12-22] MEDS: CARBIDOPA/LEVODOPA 10/100 MG TABLET 1 TABLET PO (17:54)
[2024-12-22] MEDS: IPRATROPIUM 0.5 MG/ALBUTEROL SULFATE 2.5 MG AMPUL.NEB 3 ML INHALATION (20:35)
[2024-12-22] MEDS: ALBUTEROL SULFATE (*SP) AEROSOL 1 PUFF INHALATION (20:35)
[2024-12-22] MEDS: risperiDONE 0.5 MG TABLET PO (21:06)
[2024-12-22] MEDS: SIMVASTATIN 20 MG TABLET PO (21:06)
[2024-12-22 21:13] LABS: Troponin I < 0.012 ng/mL (0.000-0.034)
[2024-12-23] VITALS (19 sets, daily range): BP systolic 119–147; BP diastolic 53–65; PULSE 77–93; RESP 17–20; TEMP 36.7–37.1; O2SAT 96–99
--- NOTE | 2024-12-23 | ECHO_ITS ---
Patient Info Name: Aaliyah Enriquez Age: 69 years : 1955 Gender: Female Ht: 62 in Wt: 180 lbs BSA: 1.92 m2 HR: 108 bpm BP: 120 / 59 mmHg Technical Quality: Fair Exam Date: 12/23/2024 2:03 PM Patient Status: I Admit Date: 12/22/2024 Exam Type: CA echo doppler color flow Complete two-dimensional, color flow and Doppler transthoracic echocardiogram is performed. Staff Referring Physician: Joseph Herring Recovery Room Rn: Stacia Reyes Attending Provider: Joseph Herring Summary 1. Complete two-dimensional, color flow and Doppler transthoracic echocardiogram is performed. 2. Left ventricular chamber dimension is normal. 3. Left ventricular systolic function is normal, estimated at 60-65. 4. The left ventricular diastolic function is grade I diastolic dysfunction. 5. E/e' 13 is mildly elevated. 6. There is moderate aortic valve sclerosis. 7. The mitral valve has a moderately calcified annulus. 8. There is trace mitral valve regurgitation. Left Ventricle E/e' 13 is mildly elevated. Left ventricular chamber dimension is normal. Left ventricular systolic function is normal, estimated at 60-65. The left ventricular diastolic function is grade I diastolic dysfunction. Right Ventricle Right ventricular chamber dimension is normal. Right ventricular systolic function is normal. Left Atria Left atrial chamber dimension is normal. Right Atria Right atrial chamber dimension is normal. Aortic Valve The aortic valve is trileaflet. There is moderate aortic valve sclerosis. There is no aortic valve stenosis. There is no aortic valve regurgitation. Pulmonic Valve There is no pulmonic regurgitation. Mitral Valve The mitral valve has a moderately calcified annulus. There is no mitral valve stenosis. There is trace mitral valve regurgitation. Tricuspid Valve There is no tricuspid valve regurgitation. Pericardium/Pleural There is no pericardial effusion. Inferior Vena Cava Normal inferior vena cava with >50% collapse upon inspiration consistent with normal right atrial pressure, 5 mmHg. Aorta The aortic root size at the sinus of Valsalva is normal. Left Ventricular Outflow Tract Name Value Normal LVOT 2D LVOT Diameter 1.8 cm LVOT Doppler LVOT Peak Velocity 144 cm/s LVOT Peak Gradient 8 mmHg LVOT Mean Gradient 5 mmHg LVOT VTI 30 cm LVOT VTI/AV VTI Ratio 0.7 LVOT Stroke Volume 80 ml LVOT CO 10.4 l/min LVOT CI 5.4 l/min/m2 Pulmonic Valve Name Value Normal RVOT Doppler RVOT Peak Velocity 137 cm/s RVOT Peak Gradient 8 mmHg PV Doppler PV Peak Velocity 144 cm/s PV Peak Gradient 8 mmHg Mitral Valve Name Value Normal MV Doppler MV Peak Gradient 17 mmHg MV Mean Gradient 9 mmHg MV Area (Cont Eq VTI) 1.7 cm2 MV Diastolic Function MV E Peak Velocity 132 cm/s MV A Peak Velocity 162 cm/s MV E/A 0.8 MV Decel Time (PW) 252 ms MV Annular TDI MV E/e' (Septal) 12.7 MV E/e' (Lateral) 15.5 MV E/e' (Average) 14.1 Tricuspid Valve Name Value Normal Estimated PAP/RSVP RA Pressure 5 mmHg <=5 Aortic Valve Name Value Normal AV Doppler AV Peak Velocity 240 cm/s AV Peak Gradient 21 mmHg AV Mean Gradient 8 mmHg AV VTI 43 cm AV Area (Cont Eq VTI) 1.9 cm2 >=3.0 AV Area (Cont Eq Philip) 1.6 cm2 AV DI (Philip) 0.60 AV Regurgitation 2D LVOT Area 2.6 cm2 Ventricles Name Value Normal LV Dimensions 2D/MM IVS Diastolic Thickness (2D) 0.9 cm 0.6-1.0 LVID Diastole (2D) 3.6 cm 3.8-5.2 LVIW Diastolic Thickness (2D) 0.8 cm 0.6-0.9 LVID Systole (2D) 2.2 cm 2.2-3.5 LVOT Diameter 1.8 cm LV Mass (2D Cubed) 84.00 g 67.00-162.00 LV Mass Index (2D Cubed) 44 g/m2 43-95 Relative Wall Thickness (2D) 0.44 <=0.42 LV Fractional Shortening/Ejection Fraction 2D/MM LV Fractional Shortening (2D) 38 % 27-45 LV EF (2D Teichholz) 69 % LV Diastolic Volume (4C MOD) 79 ml LV EF (4C MOD) 63 % LV Diastolic Volume (2C MOD) 92 ml LV EF (2C MOD) 63 % LV Diastolic Volume (BP MOD) 89 ml 46-106 LV Diastolic Volume Index (BP MOD) 46 ml/m2 29-61 LV Systolic Volume (BP MOD) 33 ml 14-42 LV Systolic Volume Index (BP MOD) 17 ml/m2 8-24 LV EF (BP MOD) 63 % 54-74 LV Diastolic Length (4C) 7.7 cm LV Systolic Length (4C) 6.1 cm LV Stroke Volume (4C MOD) 50 ml Atria Name Value Normal LA Dimensions LA Volume (4C A-L) 31 ml LA Volume (BP A-L) 42 ml RA Dimensions RA Systolic Major [place] Length (4C) 4.5 cm 2.2-2.8 RA Area (4C) 11.5 cm2 <=18.0 Report Signatures
[2024-12-23] MEDS: IPRATROPIUM 0.5 MG/ALBUTEROL SULFATE 2.5 MG AMPUL.NEB 3 ML INHALATION ×3 (01:20→20:40)
[2024-12-23 05:46] LABS: Alanine Aminotransferase 9 U/L (6-35); Albumin Level 3.7 g/dL (3.5-5.1); Alkaline Phosphatase 80 U/L (38-126); Anion Gap 9 mmol/L (4-12); Aspartate Amino Transferase 18 U/L (14-36); Bilirubin,Total 0.3 mg/dL (0.2-1.3); Blood Urea Nitrogen 11 mg/dL (7-17); Calcium 9.6 mg/dL (8.4-10.2); Carbon Dioxide 25 mmol/L (22-30); Chloride 103 mmol/L (98-107); Estimated CRCL calculation 16 ml/min; Estimated Glomerular Filt Rate 16; Glucose 95 mg/dL (65-110); Sodium 137 mmol/L (137-145); Total Protein 6.7 g/dL (6.3-8.2)
[2024-12-23 05:53] LABS: NT Pro B Type Natriuretic Pept 3780 pg/mL (19.9-100)
[2024-12-23] MEDS: LEVOTHYROXINE SODIUM 88 MCG TABLET PO (05:59)
[2024-12-23 06:47] LABS: Hematocrit 28.6 % (37.0-47.0); Mean Corpuscular HGB Conc 31.5 g/dl (32-36); Mean Corpuscular Hemoglobin 30.4 pg (26-34); Mean Corpuscular Volume 96.6 fl (80-100); Mean Platelet Volume 10.2 fl (7.4-10.4); Platelet Count Result 91 k/mm3 (150-375); Red Blood Count 2.96 M/mm3 (4.2-5.4); Red Cell Distribution Width 14.9 % (11.5-14.5); White Blood Count 6.9 K/mm3 (4.5-10.0)
[2024-12-23] MEDS: SERTRALINE HCL 50 MG TABLET 100 MG PO (09:15)
[2024-12-23] MEDS: PANTOPRAZOLE 40 MG TABLET PO ×2 (09:15→17:20)
[2024-12-23] MEDS: CARBIDOPA/LEVODOPA 10/100 MG TABLET 1 TABLET PO ×2 (09:15→17:20)
[2024-12-23] MEDS: FLUTICASONE PROPIONATE 0.05% NA SPR 16 GM BTL (*BKC) 2 SPRAY NASAL ×2 (09:16→17:19)
[2024-12-23] MEDS: DIVALPROEX SODIUM DR 250 MG TABEC PO ×2 (09:16→17:20)
[2024-12-23] MEDS: AZELASTINE HCL NASAL 0.1% 137 MCG/SPR 30 ML BTL 2 SPRAY NASAL ×2 (09:17→17:19)
[2024-12-23] MEDS: SEVELAMER CARBONATE 800 MG TABLET PO ×2 (12:33→17:20)
--- NOTE | 2024-12-23 14:59 | P.PNIM_ITS ---
Progress Note: A&P Assessment and Plan (1) Chest pain: Code(s): R07.9 - Chest pain, unspecified Status: Acute Assessment and Plan: Possible MSK Troponin less than 0.012 Repeated troponin Reviewed EKG Reviewed chest x-ray Order echo Lexiscan shows :1. Small mild infarct with associated mild reversible ischemia at the mid inferolateral segment.. 2. Left ventricular ejection fraction measuring >70%. (2) Chronic kidney disease: Code(s): N18.9 - Chronic kidney disease, unspecified Status: Acute Assessment and Plan: Chest x-ray shows cardiomegaly with interstitial edema BNP 3930 On dialysis (3) Hyperlipidemia: Code(s): E78.5 - Hyperlipidemia, unspecified Status: Acute Assessment and Plan: Continue simvastatin 20 mg p.o. q.h.s. (4) Hypothyroidism: Code(s): E03.9 - Hypothyroidism, unspecified Status: Acute Assessment and Plan: Continue levothyroxine 88 mcg (5) Pulmonary edema: Code(s): J81.1 - Chronic pulmonary edema Status: Acute Assessment and Plan: Given Lasix in ED Currently undergoing dialysis Will order BNP and if necessary will give Lasix tomorrow (6) COPD (chronic obstructive pulmonary disease): Code(s): J44.9 - Chronic obstructive pulmonary disease, unspecified Status: Acute Assessment and Plan: Continue the home medication Subjective Date/time seen: 12/23/24 14:59 Interval history: Interval history:The patient is a 69-year-old female with a past medical history of Parkinson's, bipolar, hyperlipidemia, COPD, hypothyroidism, hypertension, mild intellectual disability, cyclothymia, end-stage renal disease, dialysis- dependent presented to the ED due to cough and chest pain. . Pertinent ED labs: WBC 6.7, hemoglobin 9.1, platelet 97, sodium 131, potassium 3.9, chloride 93, creatinine 3.9, GFR 11 Nasal MRSA positive Positive for HBS antibody, possibly due to vaccination. Troponin <0.012 The patient is admitted due to shortness of breath and chest pain. A contributing factor to shortness of breath may be missed dialysis. The patient has a past medical history of COPD but no home O2 at baseline and no smoking hx as well. I will continue the home regimen. Regarding the chest pain, there is no evidence of acute coronary syndrome (ACS), possibly due to MSK but still her atypical chest pain has to excluded with Jodee scan. Last year, she visited the ER due to chest pain. Troponin is less than 0.012, and repeated troponin. EKG shows sinus rhythm with first-degree AV block. Chest x-ray shows cardiomegaly with mild interstitial edema. The patient underwent dialysis today. The patient is a poor historian due to intellectual disability. Unable to reach the Legal Guardian. I called the research nurse practitioner, who reported that the patient has no history of stent, CABG, or CVA. She didn't know the reason for her kidney failure. She reports that she recently underwent surgery(November 2024) in her left or right arm due to a rupture of the fistula at [facility]. I called dialysis, and they reported dialysis had been done through her left fistula, and the right fistula could not be used.Ordered PICC line 12/23: Patient underwent Lexiscan. Cardiology consulted Review of Systems Review of Systems: All systems reviewed & are unremarkable except as noted in HPI and below Constitutional: Constitutional: Reports no additional constitutional complaints ENT: Reports system reviewed and no additional complaints, except as documente d Cardiovascular: Cardiovascular: Reports no additional cardiovascular complaints Respiratory: Respiratory: Reports no additional respiratory complaints Musculoskeletal: Musculoskeletal: Reports no additional musculoskeletal complaints Exam Narrative: GENERAL: Chronically ill-appearing, well-nourished, and in no acute distress. HEAD: Normocephalic, atraumatic. EYES: PERRL and EOMI. NECK: Supple. CHEST: Coarse expiratory wheezing bilaterally. No respiratory distress. HEART: Regular rate and rhythm. Normal peripheral pulses. ABDOMEN: Soft, nontender, nondistended. EXTREMITIES: Normal range of motion. No edema. SKIN: Warm, dry, no rash. NEURO: Alert and oriented x3. PSYCH: Normal mood and affect. Objective Data Vital Signs Vital Signs: Vital Signs - 24 hr 12/22/24 15:00 12/22/24 15:15 12/22/24 15:30 Temperature Pulse Rate 83 88 77 Respiratory Rate Blood Pressure 123/61 159/81 H 139/70 Pulse Oximetry Oxygen Delivery 12/22/24 15:45 12/22/24 16:00 12/22/24 16:00 Temperature Pulse Rate 82 76 78 Respiratory Rate Blood Pressure 133/70 97/54 L Pulse Oximetry Oxygen Delivery 12/22/24 16:15 12/22/24 16:34 12/22/24 16:44 Temperature 97.3 F L Pulse Rate 84 82 83 Respiratory Rate 14 Blood Pressure 136/76 149/69 H 153/72 H Pulse Oximetry 97 Oxygen Delivery 12/22/24 20:00 12/22/24 20:07 12/22/24 20:38 Temperature 97.5 F L Pulse Rate 93 87 Respiratory Rate 18 20 Blood Pressure 148/58 H Pulse Oximetry 96 97 Oxygen Delivery Room Air 12/22/24 20:49 12/22/24 21:03 12/22/24 23:00 Temperature Pulse Rate 91 85 83 Respiratory Rate 20 Blood Pressure Pulse Oximetry 96 Oxygen Delivery Room Air 12/23/24 00:00 12/23/24 01:20 12/23/24 01:33 Temperature Pulse Rate 80 85 84 Respiratory Rate 20 20 Blood Pressure Pulse Oximetry Oxygen Delivery 12/23/24 04:00 12/23/24 04:57 12/23/24 08:02 Temperature 98.8 F Pulse Rate 78 78 83 Respiratory Rate 17 Blood Pressure 120/59 L Pulse Oximetry 98 Oxygen Delivery 12/23/24 08:41 12/23/24 08:41 12/23/24 08:48 Temperature 98.1 F Pulse Rate 85 81 Respiratory Rate 20 18 Blood Pressure 119/59 L Pulse Oximetry 96 Oxygen Delivery Room Air 12/23/24 08:54 12/23/24 09:16 12/23/24 09:45 Temperature Pulse Rate 79 77 Respiratory Rate 20 20 Blood Pressure 119/53 L Pulse Oximetry 96 Oxygen Delivery Room Air 12/23/24 12:02 12/23/24 14:00 Temperature 98.1 F Pulse Rate 92 88 Respiratory Rate 20 Blood Pressure 147/58 H Pulse Oximetry 98 Oxygen Delivery Intake/Output Intake/Output: Intake & Output 12/20/24 12/21/24 12/22/24 12/23/24 23:59 23:59 23:59 23:59 Intake Total 490 240 Output Total 1999 Balance -1510 240 Meds/Results Medications: Active Medications Generic Name Dose Route Start Last Admin Trade Name Freq PRN Reason Stop Dose Admin Acetaminophen 650 mg 12/22/24 15:57 Acetaminophen 325 Mg Tablet PO Q6H PRN fever or pain 1-3 Hydrocodone Bitart/Acetaminophen 1 tab 12/22/24 09:45 Hydrocodone/Acetaminophen (*Crx) 5-325 Mg Tablet PO Q4H PRN Pain Rated 4-6 Hydrocodone Bitart/Acetaminophen 1 tab 12/22/24 15:57 Hydrocodone/Acetaminophen (*Crx) 5-325 Mg Tablet PO Q6H PRN pain Al Hydrox/Mg Hydrox/Simethicone 30 ml 12/22/24 15:57 Mag Hydrox/Al Hydrox/Simeth 30 Ml Udc PO Q4H PRN indigestion Albuterol 1 puff 12/22/24 21:00 12/22/24 20:35 Albuterol Sulfate (*Sp) Aerosol 1 Puff INHALATION 1 puff HS DEVORAH Administration Albuterol/Ipratropium 3 ml 12/22/24 14:00 12/23/24 08:40 Ipratropium 0.5 Mg/Albuterol Sulfate 2.5 Mg Ampul.Neb 3 Ml INHALATION 3 ml Q6HRT DEVORAH Administration Azelastine HCl 2 spray 12/22/24 17:00 12/23/24 09:17 Azelastine Hcl Nasal 0.1% 137 Mcg/Spr 30 Ml Btl NASAL 2 spray BID DEVORAH Administration Bisacodyl 10 mg 12/22/24 15:57 Bisacodyl 5 Mg Tablet Ec PO DAILY PRN constipation Bismuth Subsalicylate 262 mg 12/22/24 16:43 Bismuth Subsalicylate 262 Mg Chewable Tablet PO Q3H6XD PRN diarrhea Carbidopa/Levodopa 1 tablet 12/22/24 17:00 12/23/24 09:15 Carbidopa/Levodopa 10/100 Mg Tablet PO 1 tablet BID DEVORAH Administration Divalproex Sodium 250 mg 12/22/24 17:00 12/23/24 09:[address] 250 Mg Tabec PO 250 mg BID DEVORAH Administration Fluticasone Propionate 2 spray 12/22/24 17:00 12/23/24 09:16 Fluticasone Propionate 0.05% Na Spr 16 Gm Btl (*Bkc) NASAL 2 spray BID DEVORAH Administration Guaifenesin 100 mg 12/22/24 15:57 Guaifenesin 200 Mg/10 Ml Udc PO Q4H PRN cough Albumin Human 50 mls @ 999 mls/hr 12/22/24 11:21 Albutein IVPB 01/21/25 11:20 Q10M PRN HYPOTENSION Levothyroxine Sodium 88 mcg 12/23/24 06:30 12/23/24 05:59 Levothyroxine Sodium 88 Mcg Tablet PO 88 mcg DAILY@0630 DEVORAH Administration Ondansetron HCl 4 mg 12/22/24 09:45 Ondansetron Inj 4 Mg/2 Ml Vial IV PUSH Q4H PRN Nausea Pantoprazole Sodium 40 mg 12/22/24 17:00 12/23/24 09:15 Pantoprazole 40 Mg Tablet PO 40 mg BID DEVORAH Administration Perflutren Lipid Microsphere 0 ml 12/22/24 16:07 Perflutren Lipid Microspheres 1.5 Ml Vial Diluted To 10 Ml Total Volume IV PUSH 12/25/24 16:07 ONCE PRN adequate visualization Protocol Polyethylene Glycol 17 gm 12/22/24 15:57 Polyethylene Glycol 3350 17 Gm Powd.Pack PO DAILY PRN constipation Risperidone 0.5 mg 12/22/24 21:00 12/22/24 21:06 Risperidone 0.5 Mg Tablet PO 0.5 mg QHS DEVORAH Administration Sertraline HCl 100 mg 12/23/24 09:00 12/23/24 09:15 Sertraline Hcl 50 Mg Tablet PO 100 mg DAILY DEVORAH Administration Sevelamer Carbonate 800 mg 12/22/24 17:00 12/23/24 12:33 Sevelamer Carbonate 800 Mg Tablet PO 800 mg TIDWM DEVORAH Administration Sevelamer Carbonate 800 mg 12/22/24 15:57 Sevelamer Carbonate 800 Mg Tablet PO PRN PRN TAKE WITH SNACKS Simvastatin 20 mg 12/22/24 21:00 12/22/24 21:06 Simvastatin 20 Mg Tablet PO 20 mg HS DEVORAH Administration Radiology Results: ITS Impressions Chest X-Ray 12/22/24 08:05 Impression: 1: Cardiomegaly with mild interstitial edema. Lexiscan Stress Test 12/23/24 13:04 IMPRESSION: 1. Small mild infarct with associated mild reversible ischemia at the mid inferolateral segment.. 2. Left ventricular ejection fraction measuring >70%. Labs Labs: Laboratory Results - last 24 hr 12/22/24 12/23/24 20:42 04:49 WBC 6.9 RBC 2.96 L Hgb 9.0 L Hct 28.6 L MCV 96.6 MCH 30.4 MCHC 31.5 L RDW 14.9 H Plt Count 91 L MPV 10.2 Sodium 137 Potassium 4.0 Chloride 103 Carbon Dioxide 25 Anion Gap 9 BUN 11 D Creatinine 2.96 H Estim Creat Clear Calc 16 Estimated GFR 16 L Glucose 95 Calcium 9.6 Total Bilirubin 0.3 AST 18 ALT 9 Alkaline Phosphatase 80 Troponin I < 0.012 NT-Pro-B Natriuret Pep 3780 H Total Protein 6.7 Albumin 3.7 Hospitalist MIPS Advance Care Plan I have confirmed that the patient's Advanced Care Plan is present, code status is documented, or surrogate decision maker is listed in patient medical record.: Yes Medication Reconciliation I have utilized all available resources to obtain, update and review the patients current medications (includes all prescriptions, OTC, herbals, cannabis, and nutritional supplements).: Yes
--- NOTE | 2024-12-23 15:11 | P.CONCA_ITS ---
Assessment and Plan Assessment and plan (1) Chest pain: Code(s): R07.9 - Chest pain, unspecified Status: Acute (2) Hyperlipidemia: Code(s): E78.5 - Hyperlipidemia, unspecified Status: Acute (3) Chronic kidney disease: Code(s): N18.9 - Chronic kidney disease, unspecified Status: Acute (4) COPD (chronic obstructive pulmonary disease): Code(s): J44.9 - Chronic obstructive pulmonary disease, unspecified Status: Acute (5) Acute congestive heart failure: Code(s): I50.9 - Heart failure, unspecified Status: Acute Plan Problem list: -Chest pain with cough but none with exertion-negative troponin, positive Lexiscan with small mild infarct and associated mild reversible ischemia at mid inferolateral segment, normal LVEF -Shortness of breath-acute congestive heart failure most likely due to missed HD; elevated BNP; chest x-ray shows interstitial edema; signs and symptoms of heart failure -End-stage renal disease on HD -Anemia with hemoglobin 9 -Thrombocytopenia with platelet [id number] Plan: -Patient reports chest pain occurs with cough and none with exertion. Lexiscan shows only a small infarct and mild reversible ischemia in only 1 segment with normal LVEF. Troponin negative and ACS ruled out. Given absence of current chest pain, stable vitals, no electrical instability, ACS ruled out, and only small infarct/reversible ischemia, recommend Medical management for CAD with aspirin 81 mg daily and statin -Good control of risk factors including hypertension, hyperlipidemia, blood sugars -HD per schedule. Remove fluid at dialysis -check daily weight, ins and outs, renal function -Check and replace electrolytes to keep K greater than 4 and magnesium greater than 2 -Monitor H&H and keep hemoglobin greater than 7 -TTE -Management of other medical problems per primary team Thank you for allowing us to participate in the care of this patient. Cardiology will continue to follow. History of Present Illness History of Present Illness Consult date/time: 12/23/24 15:11 Reason For Visit: volume overload,wheezing Narrative: 69-year-old with history of hyperlipidemia, ESRD on HD, bipolar disease, Parkinson's disease, GERD, COPD not on baseline home oxygen, chronic venous insufficiency, hypothyroidism, mild intellectual disability presents with chief complaint of shortness of breath and chest pain. She has mild intellectual disability. She lives at a [facility] and has a state guardian. She underwent a Lexiscan which was positive. Patient is a poor historian and history was obtained partly from patient and mostly from the medical chart. Patient states that she has cough and chest pain whenever she coughs. She denies any chest pain with exertion. She reports chronic shortness of breath and leg swelling which has gotten worse more recently. She denies dizziness, lightheadedness, syncope. A Lexiscan was performed which showed small mild infarct with associated mild reversible ischemia at mid inferolateral segment and normal LVEF. Cardiology was consulted for further recommendations. Workup: Hemoglobin: 9 Platelets: 91 Creatinine: 2.96 Troponin negative BNP: 3780 EKG: Sinus rhythm with first-degree AV block, nonspecific ST T wave change (no significant change from old EKG in 11/2024) Lexiscan: Small mild infarct with associated mild reversible ischemia at the mid inferolateral segment, LVEF more than 70% Chest x-ray: Cardiomegaly with mild interstitial edema Review of Systems 2 Review of Systems: A complete review of systems was performed and negative other than those mentioned HPI [facility] Past Medical History Medical History (Updated 12/23/24 @ 15:58 by Maria A Pollock MD) Parkinsons disease Bipolar disorder Hyperlipidemia Chronic kidney disease H/O gastroesophageal reflux (GERD) Seasonal allergies COPD (chronic obstructive pulmonary disease) Low back pain Chronic venous insufficiency Personal history of dysmenorrhea Hypothyroidism Hypertension Cyclothymia Mild intellectual disability Surgical History Surgical History Smyer teeth removed History of removal of cyst abdominal Social History Social History Smoking status: Never smoker Second hand tobacco smoke exposure: No Alcohol intake: never Substance use: never Do You Feel Safe in your Home?: Yes Lack of Transportation: No Lack of Food: Never True Current Housing: I Have Housing Concerned About Future Housing: No Difficulty Paying Gas/Electric Bills: No Difficulty Paying for Meds: No Currently Unemployed: No Education: Decline to Answer Difficulty w/ Childcare or Family Care: No Living arrangements: [facility] Additional living arrangements comments: Residential options Occupation/Education: retired Gender identity (if verbalized by the patient): Female Sexual Orientation (if Verbalized by the Patient): Straight or Heterosexual Spiritual care concerns: No Meds Home Medications and Allergies Home Medications ?Medication ?Instructions ?Recorded ?Confirmed ?Type Lactobacillus acidophilus 100 mmu cells PO DAILY 08/29/22 12/22/24 History (Acidophilus capsule) acetaminophen 325 mg capsule 650 mg PO Q6H PRN fever or pain 08/29/22 12/22/24 History albuterol sulfate 90 mcg/actuation 1 inh inhalation HS 08/29/22 12/22/24 History aerosol inhaler aluminum-mag hydroxide-simethicone 5 ml PO ONCE 08/29/22 12/22/24 History 200 mg-200 mg-20 mg/5 mL oral susp (Yin-Lanta) azelastine 205.5 mcg (0.15 %) 2 spray intranasal BID 08/29/22 12/22/24 History nasal spray (Astepro Allergy) bisacodyl 5 mg tablet,delayed 10 mg PO Q12-24H PRN constipation 08/29/22 12/22/24 History release bismuth subsalicylate 262 mg/15 mL 524 mg PO Q1H 08/29/22 12/22/24 History oral suspension (Stomach Relief) carbidopa 10 mg-levodopa 100 mg 1 tablet PO BID 08/29/22 12/22/24 History tablet dextromethorphan HBr 15 mg/5 mL 15 mg PO Q8H PRN cough 08/29/22 12/22/24 History oral syrup diphenhydramine HCl 25 mg capsule 25 mg PO QHS 08/29/22 12/22/24 History (Allergy (diphenhydramine)) divalproex 250 mg tablet,delayed 250 mg PO BID 08/29/22 12/22/24 History release (Depakote) famotidine 20 mg tablet 20 mg PO HS PRN indigestion 08/29/22 12/22/24 History fenofibrate 160 mg tablet 160 mg PO DAILY 08/29/22 12/22/24 History fluticasone propionate 50 2 spray intranasal BID 08/29/22 12/22/24 History mcg/actuation nasal spray,suspension (Allergy Relief (fluticasone)) levothyroxine 88 mcg capsule 88 mcg PO DAILY 08/29/22 12/22/24 History pantoprazole 40 mg tablet,delayed 40 mg PO BID 08/29/22 12/22/24 History release polyethylene glycol 3350 17 17 g PO DAILY PRN constipation 08/29/22 12/22/24 History gram/dose oral powder risperidone 0.5 mg tablet 0.5 mg PO QHS 08/29/22 12/22/24 History sertraline 100 mg tablet 100 mg PO DAILY 08/29/22 12/22/24 History sevelamer carbonate 800 mg tablet 800 mg PO TID 08/29/22 12/22/24 History (Renvela) simvastatin 20 mg tablet 20 mg PO HS 08/29/22 12/22/24 History aluminum-mag hydroxide-simethicone 30 ml PO Q4H PRN indigestion 12/22/24 12/22/24 History 200 mg-200 mg-20 mg/5 mL oral susp (Advanced Antacid-Antigas) bismuth subsalicylate 525 mg/15 mL 262 mg PO Q3H6XD PRN diarrhea 12/22/24 12/22/24 History oral suspension (Stomach Relief) cholecalciferol (vitamin D3) 1,250 50,000 unit PO .Q14 days 12/22/24 12/22/24 History mcg (50,000 unit) capsule diphenhydramine HCl 25 mg capsule 25 mg PO Q6H PRN congestion 12/22/24 12/22/24 History (Banophen) guaifenesin 100 mg/5 mL oral 100 mg PO Q4H PRN cough 12/22/24 12/22/24 History liquid (Chest Congestion Relief) hydrocodone 5 mg-acetaminophen 325 1 tablet PO Q6H PRN pain 12/22/24 12/22/24 History mg tablet sevelamer carbonate 800 mg tablet 800 mg PO PRN PRN kidney failure 12/22/24 12/22/24 History Allergies Allergy/AdvReac Type Severity Reaction Status Date / Time NSAIDS (Non-Steroidal Allergy Mild Unknown Verified 12/22/24 06:48 Anti-Inflamma Vital Signs Vital Signs - 24 hr 12/22/24 15:15 12/22/24 15:30 12/22/24 15:45 Temperature Pulse Rate 88 77 82 Respiratory Rate Blood Pressure 159/81 H 139/70 133/70 Pulse Oximetry Oxygen Delivery 12/22/24 16:00 12/22/24 16:00 12/22/24 16:15 Temperature Pulse Rate 76 78 84 Respiratory Rate Blood Pressure 97/54 L 136/76 Pulse Oximetry Oxygen Delivery 12/22/24 16:34 12/22/24 16:44 12/22/24 20:00 Temperature 36.3 C L Pulse Rate 82 83 Respiratory Rate 14 Blood Pressure 149/69 H 153/72 H Pulse Oximetry 97 96 Oxygen Delivery Room Air 12/22/24 20:07 12/22/24 20:38 12/22/24 20:49 Temperature 36.4 C L Pulse Rate 93 87 91 Respiratory Rate 18 20 Blood Pressure 148/58 H Pulse Oximetry 97 96 Oxygen Delivery Room Air 12/22/24 21:03 12/22/24 23:00 12/23/24 00:00 Temperature Pulse Rate 85 83 80 Respiratory Rate 20 Blood Pressure Pulse Oximetry Oxygen Delivery 12/23/24 01:20 12/23/24 01:33 12/23/24 04:00 Temperature Pulse Rate 85 84 78 Respiratory Rate 20 20 Blood Pressure Pulse Oximetry Oxygen Delivery 12/23/24 04:57 12/23/24 08:02 12/23/24 08:41 Temperature 37.1 C Pulse Rate 78 83 Respiratory Rate 17 Blood Pressure 120/59 L Pulse Oximetry 98 96 Oxygen Delivery Room Air 12/23/24 08:41 12/23/24 08:48 12/23/24 08:54 Temperature 36.7 C Pulse Rate 85 81 79 Respiratory Rate 20 18 20 Blood Pressure 119/59 L Pulse Oximetry Oxygen Delivery 12/23/24 09:16 12/23/24 09:45 12/23/24 12:02 Temperature Pulse Rate 77 92 Respiratory Rate 20 Blood Pressure 119/53 L Pulse Oximetry 96 Oxygen Delivery Room Air 12/23/24 14:00 Temperature 36.7 C Pulse Rate 88 Respiratory Rate 20 Blood Pressure 147/58 H Pulse Oximetry 98 Oxygen Delivery Exam 2 Narrative: General: Alert oriented x3, no acute distress Neck: Supple, JVD + Chest: Bilaterally clear to auscultation, no rales or rhonchi Cardiac: S1, S2 +, regular rate, regular rhythm, no murmurs or rubs Extremities: Bilateral lower extremity edema 1+, no skin rash Neurologic: Alert and oriented x3, no focal neurological deficits Results Labs and Meds 12/23/24 04:49 12/23/24 04:49 Lab results: Cardiac Enzymes 12/22/24 12/23/24 Range/Units 20:42 04:49 AST 18 (14-36) U/L Troponin I < 0.012 (0.000-0.034) ng/mL CBC 12/23/24 Range/Units 04:49 WBC 6.9 (4.5-10.0) K/mm3 RBC 2.96 L (4.2-5.4) M/mm3 Hgb 9.0 L (12.0-15.0) g/dL Hct 28.6 L (37.0-47.0) % Plt Count 91 L (150-375) k/mm3 Comprehensive Metabolic Panel 12/23/24 Range/Units 04:49 Sodium 137 (137-145) mmol/L Potassium 4.0 (3.4-5.0) mmol/L Chloride 103 (98-107) mmol/L Carbon Dioxide 25 (22-30) mmol/L BUN 11 D (7-17) mg/dL Creatinine 2.96 H (0.7-1.0) mg/dL Glucose 95 (65-110) mg/dL Calcium 9.6 (8.4-10.2) mg/dL AST 18 (14-36) U/L ALT 9 (6-35) U/L Alkaline Phosphatase 80 (38-126) U/L Total Protein 6.7 (6.3-8.2) g/dL Albumin 3.7 (3.5-5.1) g/dL Intake and Output 12/22/24 12/23/24 12/23/24 23:59 07:59 15:59 Intake Total 490 0 240 Output Total 1999 Balance -1510 0 240 Intake: Oral 490 0 240 Output: Net UF Removed 1999 Other: # Unmeasured Voids 1 Number of Bowel Movements Today 1 1 Patient Weight 12/23/24 23:59 Weight 80.5 kg
--- NOTE | 2024-12-23 16:08 | EST_ITS ---
Patient Info Name: Aaliyah Enriquez Age: 69 years : 1955 Gender: Female Ht: 62 in Wt: 180 lbs BSA: 1.92 m2 Exam Date: 12/23/2024 4:08 PM Patient Status: I Admit Date: 12/22/2024 Exam Type: CA stress loida w NM A regadenoson stress test was performed. Staff Referring Physician: Joseph Herring Attending Provider: Joseph Herring Exercise Technologist: Heather Allen Exercise Physician: Pacheco Dumont DO Summary 1. 1. Negative lexiscan stress test for ischemic ST changes by ECG criteria. 2. 2. Baseline hypertension. 3. 3. Nuclear scan to follow and will be reported separately. Please correlate with it. 4. 4. Patient informed of the above results. Protocol: Lexiscan Stress ECG Details Stage: REST Duration (min): 1 min : 27 sec HR (bpm): 80 SBP (mmHg): 126 DBP (mmHg): 58 Stage: REST Duration (min): 13 min : 58 sec HR (bpm): 79 SBP (mmHg): 126 DBP (mmHg): 58 Stage: STAGE 1 Duration (min): 1 min : 0 sec HR (bpm): 85 SBP (mmHg): 126 DBP (mmHg): 58 Stage: RECOVERY Duration (min): 1 min : 0 sec HR (bpm): 93 SBP (mmHg): 153 DBP (mmHg): 63 Stage: RECOVERY Duration (min): 2 min : 0 sec HR (bpm): 93 SBP (mmHg): 153 DBP (mmHg): 63 Stage: RECOVERY Duration (min): 3 min : 0 sec HR (bpm): 91 SBP (mmHg): 183 DBP (mmHg): 64 Stage: RECOVERY Duration (min): 3 min : 3 sec HR (bpm): 91 SBP (mmHg): 183 DBP (mmHg): 64 Rest HR: 79 bpm Peak HR: 94 bpm Rest Sys BP: 150 mmHg Peak Sys BP: 183 mmHg Max Pred HR: 150 bpm % Max Pred HR: 63 % Target HR: 128 bpm Max RPP: 17,202 bpm*mmHg Termination Reason: Completed protocol Cardiac Symptoms: Shortness of breath Total Time: 1 min : 0 sec Rest Cope BP: 70 mmHg Peak Cope BP: 64 mmHg Total Dose: 0.4 mg Resting ECG Sinus rhythm. Stress ECG No ST changes. Arrhythmias None. Report Signatures
--- NOTE | 2024-12-23 16:17 | P.PNNP_ITS ---
Progress Note: A&P Assessment and Plan (1) End stage renal disease: Code(s): N18.6 - End stage renal disease Status: Chronic Assessment and Plan: * HD today * continue Fri/Fri/Friday schedule while hospitalized * follow electrolytes, volume status, and clearance (2) Chest pain: Code(s): R07.9 - Chest pain, unspecified Status: Acute Assessment and Plan: * as noted on admission * trend troponins * EKG noted * Cardiology recommendations noted * results of stress test reviewed * follow clinical symptoms (3) Pulmonary edema: Code(s): J81.1 - Chronic pulmonary edema Status: Acute Assessment and Plan: * clinical improvement * presumably secondary to missed dialysis treatment * s/p IV lasix in ER * dialysis for fluid removal/ultrafiltration * follow respiratory status (4) Anemia: Code(s): D64.9 - Anemia, unspecified Status: Chronic Assessment and Plan: * due to ESRD * Epogen with HD * follow trend of H/H Will continue to follow. L Subjective Date/time seen: 12/23/24 16:17 Interval history: Follow-up for end stage renal disease on hemodialysis. Tolerated dialysis treatment yesterday without any issue or problems; stress test earlier this morning with results noted; no apparent distress noted at the time of my visit; no other issues/events overnight or earlier this morning Exam 2 Narrative: General: elderly but WD/WN female in NAD Heart: normal S1 and S2; no rub Lungs: clear anteriorly; coarse at bases Abdomen: soft, nontender, nondistended, positive bowel sounds Extremities: no cyanosis or clubbing; 1+ edema Skin: warm and dry Objective Data Vital Signs Vital Signs: Vital Signs Temp Pulse Resp BP Pulse Ox O2 Del Method 12/23/24 16:02 92 12/23/24 14:00 98.1 F 88 20 147/58 H 98 12/23/24 12:02 92 12/23/24 09:45 77 119/53 L 12/23/24 09:16 20 96 Room Air 12/23/24 08:54 79 20 12/23/24 08:48 98.1 F 81 18 119/59 L 12/23/24 08:41 85 20 12/23/24 08:41 96 Room Air 12/23/24 08:02 83 12/23/24 04:57 98.8 F 78 17 120/59 L 98 12/23/24 04:00 78 12/23/24 01:33 84 20 12/23/24 01:20 85 20 12/23/24 00:00 80 12/22/24 23:00 83 12/22/24 21:03 85 20 12/22/24 20:49 91 96 Room Air 12/22/24 20:38 87 20 12/22/24 20:07 97.5 F L 93 18 148/58 H 97 12/22/24 20:00 96 Room Air Intake/Output Intake/Output: Intake & Output 12/20/24 12/21/24 12/22/24 12/23/24 23:59 23:59 23:59 23:59 Intake Total 490 720 Output Total 2000 Balance -1510 720 Meds/Results Medications: Active Medications Generic Name Dose Route Start Last Admin Trade Name Freq PRN Reason Stop Dose Admin Acetaminophen 650 mg 12/22/24 15:57 Acetaminophen 325 Mg Tablet PO Q6H PRN fever or pain 1-3 Hydrocodone Bitart/Acetaminophen 1 tab 12/22/24 09:45 Hydrocodone/Acetaminophen (*Crx) 5-325 Mg Tablet PO Q4H PRN Pain Rated 4-6 Hydrocodone Bitart/Acetaminophen 1 tab 12/22/24 15:57 Hydrocodone/Acetaminophen (*Crx) 5-325 Mg Tablet PO Q6H PRN pain Al Hydrox/Mg Hydrox/Simethicone 30 ml 12/22/24 15:57 Mag Hydrox/Al Hydrox/Simeth 30 Ml Udc PO Q4H PRN indigestion Albuterol 1 puff 12/22/24 21:00 12/22/24 20:35 Albuterol Sulfate (*Sp) Aerosol 1 Puff INHALATION 1 puff HS DEVORAH Administration Albuterol/Ipratropium 3 ml 12/22/24 14:00 12/23/24 14:00 Ipratropium 0.5 Mg/Albuterol Sulfate 2.5 Mg Ampul.Neb 3 Ml INHALATION Not Given Q6HRT DEVORAH Azelastine HCl 2 spray 12/22/24 17:00 12/23/24 17:19 Azelastine Hcl Nasal 0.1% 137 Mcg/Spr 30 Ml Btl NASAL 2 spray BID DEVORAH Administration Bisacodyl 10 mg 12/22/24 15:57 Bisacodyl 5 Mg Tablet Ec PO DAILY PRN constipation Bismuth Subsalicylate 262 mg 12/22/24 16:43 Bismuth Subsalicylate 262 Mg Chewable Tablet PO Q3H6XD PRN diarrhea Carbidopa/Levodopa 1 tablet 12/22/24 17:00 12/23/24 17:20 Carbidopa/Levodopa 10/100 Mg Tablet PO 1 tablet BID DEVORAH Administration Divalproex Sodium 250 mg 12/22/24 17:00 12/23/24 17:[address] 250 Mg Tabec PO 250 mg BID DEVORAH Administration Fluticasone Propionate 2 spray 12/22/24 17:00 12/23/24 17:19 Fluticasone Propionate 0.05% Na Spr 16 Gm Btl (*Bkc) NASAL 2 spray BID DEVORAH Administration Guaifenesin 100 mg 12/22/24 15:57 Guaifenesin 200 Mg/10 Ml Udc PO Q4H PRN cough Albumin Human 50 mls @ 999 mls/hr 12/22/24 11:21 Albutein IVPB 01/21/25 11:20 Q10M PRN HYPOTENSION Levothyroxine Sodium 88 mcg 12/23/24 06:30 12/23/24 05:59 Levothyroxine Sodium 88 Mcg Tablet PO 88 mcg DAILY@0630 DEVORAH Administration Ondansetron HCl 4 mg 12/22/24 09:45 Ondansetron Inj 4 Mg/2 Ml Vial IV PUSH Q4H PRN Nausea Pantoprazole Sodium 40 mg 12/22/24 17:00 12/23/24 17:20 Pantoprazole 40 Mg Tablet PO 40 mg BID DEVORAH Administration Perflutren Lipid Microsphere 0 ml 12/22/24 16:07 Perflutren Lipid Microspheres 1.5 Ml Vial Diluted To 10 Ml Total Volume IV PUSH 12/25/24 16:07 ONCE PRN adequate visualization Protocol Polyethylene Glycol 17 gm 12/22/24 15:57 Polyethylene Glycol 3350 17 Gm Powd.Pack PO DAILY PRN constipation Risperidone 0.5 mg 12/22/24 21:00 12/22/24 21:06 Risperidone 0.5 Mg Tablet PO 0.5 mg QHS DEVORAH Administration Sertraline HCl 100 mg 12/23/24 09:00 12/23/24 09:15 Sertraline Hcl 50 Mg Tablet PO 100 mg DAILY DEVORAH Administration Sevelamer Carbonate 800 mg 12/22/24 17:00 12/23/24 17:20 Sevelamer Carbonate 800 Mg Tablet PO 800 mg TIDWM DEVORAH Administration Sevelamer Carbonate 800 mg 12/22/24 15:57 Sevelamer Carbonate 800 Mg Tablet PO PRN PRN TAKE WITH SNACKS Simvastatin 20 mg 12/22/24 21:00 12/22/24 21:06 Simvastatin 20 Mg Tablet PO 20 mg HS DEVORAH Administration Radiology Results: ITS Impressions Chest X-Ray 12/22/24 08:05 Impression: 1: Cardiomegaly with mild interstitial edema. Lexiscan Stress Test 12/23/24 13:04 IMPRESSION: 1. Small mild infarct with associated mild reversible ischemia at the mid inferolateral segment.. 2. Left ventricular ejection fraction measuring >70%. Labs Labs: Laboratory Tests 12/23/24 04:49 12/23/24 04:49 Calcium 9.6 Total Bilirubin 0.3 AST 18 ALT 9 Alkaline Phosphatase 80 Troponin I NT-Pro-B Natriuret Pep 3780 H Total Protein 6.7 Albumin 3.7 Microbiology 12/22/24 11:29 Blood Blood Culture - Preliminary 12/22/24 11:15 Blood Blood Culture - Preliminary
[2024-12-23] MEDS: risperiDONE 0.5 MG TABLET PO (22:13)
[2024-12-23] MEDS: SIMVASTATIN 20 MG TABLET PO (22:13)
[2024-12-24] VITALS (25 sets, daily range): BP systolic 91–149; BP diastolic 41–89; PULSE 73–92; RESP 16–24; TEMP 36.6–37; O2SAT 98–100
[2024-12-24] MEDS: IPRATROPIUM 0.5 MG/ALBUTEROL SULFATE 2.5 MG AMPUL.NEB 3 ML INHALATION (02:10)
[2024-12-24 05:19] LABS: Hematocrit 28.3 % (37.0-47.0); Hemoglobin 8.7 g/dL (12.0-15.0); Immature Platelet Fraction Pct 1.7 % (0.9-11.2); Mean Corpuscular HGB Conc 30.7 g/dl (32-36); Mean Corpuscular Hemoglobin 29.8 pg (26-34); Mean Corpuscular Volume 96.9 fl (80-100); Mean Platelet Volume 9.2 fl (7.4-10.4); Platelet Count Result 96 k/mm3 (150-375); Red Blood Count 2.92 M/mm3 (4.2-5.4); Red Cell Distribution Width 14.7 % (11.5-14.5); White Blood Count 5.7 K/mm3 (4.5-10.0)
[2024-12-24 05:39] LABS: Alanine Aminotransferase 6 U/L (6-35); Albumin Level 3.5 g/dL (3.5-5.1); Alkaline Phosphatase 75 U/L (38-126); Anion Gap 10 mmol/L (4-12); Aspartate Amino Transferase 16 U/L (14-36); Bilirubin,Total 0.3 mg/dL (0.2-1.3); Blood Urea Nitrogen 21 mg/dL (7-17); Calcium 9.6 mg/dL (8.4-10.2); Carbon Dioxide 25 mmol/L (22-30); Chloride 104 mmol/L (98-107); Estimated CRCL calculation 13 ml/min; Estimated Glomerular Filt Rate 12; Glucose 94 mg/dL (65-110); Potassium 3.7 mmol/L (3.4-5.0); Sodium 139 mmol/L (137-145); Total Protein 6.6 g/dL (6.3-8.2)
[2024-12-24] MEDS: LEVOTHYROXINE SODIUM 88 MCG TABLET PO (06:45)
--- NOTE | 2024-12-24 09:55 | P.PNNP_ITS ---
Progress Note: A&P Assessment and Plan (1) End stage renal disease: Code(s): N18.6 - End stage renal disease Status: Chronic Assessment and Plan: * HD today * continue Fri/Fri/Friday schedule while hospitalized * follow electrolytes, volume status, and clearance (2) Chest pain: Code(s): R07.9 - Chest pain, unspecified Status: Acute Assessment and Plan: * as noted on admission * trend troponins * EKG noted * Cardiology recommendations noted * results of stress test reviewed * follow clinical symptoms (3) Pulmonary edema: Code(s): J81.1 - Chronic pulmonary edema Status: Acute Assessment and Plan: * clinical improvement * presumably secondary to missed dialysis treatment * s/p IV lasix in ER * dialysis for fluid removal/ultrafiltration * follow respiratory status (4) Anemia: Code(s): D64.9 - Anemia, unspecified Status: Chronic Assessment and Plan: * due to ESRD * Epogen with HD * follow trend of H/H Will continue to follow. L Subjective Date/time seen: 12/24/24 09:55 Interval history: Follow-up for end stage renal disease on hemodialysis. Tolerating dialysis treatment at the time of my visit (seen on HD at 9:45AM); no apparent distress noted when seen; no issues/events overnight or earlier this morning; no further acute complaints voiced. Exam 2 Narrative: General: elderly but WD/WN female in NAD Heart: normal S1 and S2; no rub Lungs: clear anteriorly; coarse at bases Abdomen: soft, nontender, nondistended, positive bowel sounds Extremities: no cyanosis or clubbing; 1+ edema Skin: warm and intact Objective Data Vital Signs Vital Signs: Vital Signs Temp Pulse Resp BP Pulse Ox O2 Del Method 12/24/24 09:45 79 147/66 H 12/24/24 09:30 77 99/73 L 12/24/24 09:15 83 93/71 L 12/24/24 09:08 77 91/68 L 12/24/24 09:00 98.4 F 80 24 H 96/71 L 98 12/24/24 08:00 78 12/24/24 05:40 98.4 F 73 16 130/56 L 98 12/24/24 04:00 77 12/24/24 02:18 79 20 12/24/24 02:10 81 20 12/24/24 00:00 79 12/23/24 20:58 98.4 F 93 18 141/65 H 99 12/23/24 20:50 83 20 12/23/24 20:40 86 20 12/23/24 20:35 86 96 Room Air 12/23/24 20:00 Room Air 12/23/24 20:00 85 Intake/Output Intake/Output: Intake & Output 12/21/24 12/22/24 12/23/24 12/24/24 23:59 23:59 23:59 23:59 Intake Total 490 720 340 Output Total 2000 300 1999 Balance -1510 420 -1660 Meds/Results Medications: Active Medications Generic Name Dose Route Start Trade Name Freq PRN Reason Stop Acetaminophen 650 mg 12/22/24 15:57 Acetaminophen 325 Mg Tablet PO Q6H PRN fever or pain 1-3 Hydrocodone Bitart/Acetaminophen 1 tab 12/22/24 09:45 Hydrocodone/Acetaminophen (*Crx) 5-325 Mg Tablet PO Q4H PRN Pain Rated 4-6 Hydrocodone Bitart/Acetaminophen 1 tab 12/22/24 15:57 Hydrocodone/Acetaminophen (*Crx) 5-325 Mg Tablet PO Q6H PRN pain Al Hydrox/Mg Hydrox/Simethicone 30 ml 12/22/24 15:57 Mag Hydrox/Al Hydrox/Simeth 30 Ml Udc PO Q4H PRN indigestion Albuterol 1 puff 12/22/24 21:00 Albuterol Sulfate (*Sp) Aerosol 1 Puff INHALATION HS DEVORAH Albuterol/Ipratropium 3 ml 12/22/24 14:00 Ipratropium 0.5 Mg/Albuterol Sulfate 2.5 Mg Ampul.Neb 3 Ml INHALATION Q6HRT DEVORAH Azelastine HCl 2 spray 12/22/24 17:00 Azelastine Hcl Nasal 0.1% 137 Mcg/Spr 30 Ml Btl NASAL BID DEVORAH Bisacodyl 10 mg 12/22/24 15:57 Bisacodyl 5 Mg Tablet Ec PO DAILY PRN constipation Bismuth Subsalicylate 262 mg 12/22/24 16:43 Bismuth Subsalicylate 262 Mg Chewable Tablet PO Q3H6XD PRN diarrhea Carbidopa/Levodopa 1 tablet 12/22/24 17:00 Carbidopa/Levodopa 10/100 Mg Tablet PO BID [facility] Divalproex Sodium 250 mg 12/22/24 17:[address] 250 Mg Tabec PO BID [facility] Fluticasone Propionate 2 spray 12/22/24 17:00 Fluticasone Propionate 0.05% Na Spr 16 Gm Btl (*Bkc) NASAL BID [facility] Guaifenesin 100 mg 12/22/24 15:57 Guaifenesin 200 Mg/10 Ml Udc PO Q4H PRN cough Albumin Human 50 mls @ 999 mls/hr 12/22/24 11:21 Albutein IVPB 01/21/25 11:20 Q10M PRN HYPOTENSION Levothyroxine Sodium 88 mcg 12/23/24 06:30 Levothyroxine Sodium 88 Mcg Tablet PO DAILY@0630 [facility] Ondansetron HCl 4 mg 12/22/24 09:45 Ondansetron Inj 4 Mg/2 Ml Vial IV PUSH Q4H PRN Nausea Pantoprazole Sodium 40 mg 12/22/24 17:00 Pantoprazole 40 Mg Tablet PO BID [facility] Perflutren Lipid Microsphere 0 ml 12/22/24 16:07 Perflutren Lipid Microspheres 1.5 Ml Vial Diluted To 10 Ml Total Volume IV PUSH 12/25/24 16:07 ONCE PRN adequate visualization Protocol Polyethylene Glycol 17 gm 12/22/24 15:57 Polyethylene Glycol 3350 17 Gm Powd.Pack PO DAILY PRN constipation Risperidone 0.5 mg 12/22/24 21:00 Risperidone 0.5 Mg Tablet PO QHS [facility] Sertraline HCl 100 mg 12/23/24 09:00 Sertraline Hcl 50 Mg Tablet PO DAILY [facility] Sevelamer Carbonate 800 mg 12/22/24 17:00 Sevelamer Carbonate 800 Mg Tablet PO TIDWM [facility] Sevelamer Carbonate 800 mg 12/22/24 15:57 Sevelamer Carbonate 800 Mg Tablet PO PRN PRN TAKE WITH SNACKS Simvastatin 20 mg 12/22/24 21:00 Simvastatin 20 Mg Tablet PO [facility] Radiology Results: ITS Impressions Chest X-Ray 12/22/24 08:05 Impression: 1: Cardiomegaly with mild interstitial edema. Lexiscan Stress Test 12/23/24 13:04 IMPRESSION: 1. Small mild infarct with associated mild reversible ischemia at the mid inferolateral segment.. 2. Left ventricular ejection fraction measuring >70%. Chest CT 12/24/24 16:06 IMPRESSION: 1. Groundglass nodules in the right apical area. 6 months follow-up CT is advised. Atelectatic changes in the middle lobe. 2. Cholelithiasis. Labs Labs: Laboratory Tests 12/24/24 05:08 12/24/24 05:08 Calcium 9.6 Total Bilirubin 0.3 AST 16 ALT 6 Alkaline Phosphatase 75 Total Protein 6.6 Albumin 3.5
--- NOTE | 2024-12-24 10:16 | PM.DS ---
DS: Admitting Diagnosis Discharge Date 12/24/2024 Admitting Diagnosis Chest pain and cough DS: Discharge Diagnosis Discharge Diagnosis (1) Chest pain: Code(s): R07.9 - Chest pain, unspecified Status: Acute Assessment and Plan: Refer to hospital course for brief summary Possible MSK Troponin less than 0.012 Repeated troponin Reviewed EKG Reviewed chest x-ray Order echo Lexiscan shows :1. Small mild infarct with associated mild reversible ischemia at the mid inferolateral segment.. 2. Left ventricular ejection fraction measuring >70%. (2) Chronic kidney disease: Code(s): N18.9 - Chronic kidney disease, unspecified Status: Acute Assessment and Plan: Chest x-ray shows cardiomegaly with interstitial edema BNP 3930 On dialysis (3) Hyperlipidemia: Code(s): E78.5 - Hyperlipidemia, unspecified Status: Acute Assessment and Plan: Continue simvastatin 20 mg p.o. q.h.s. (4) Hypothyroidism: Code(s): E03.9 - Hypothyroidism, unspecified Status: Acute Assessment and Plan: Continue levothyroxine 88 mcg (5) Pulmonary edema: Code(s): J81.1 - Chronic pulmonary edema Status: Acute Assessment and Plan: Given Lasix in ED Currently undergoing dialysis Will order BNP and if necessary will give Lasix tomorrow (6) COPD (chronic obstructive pulmonary disease): Code(s): J44.9 - Chronic obstructive pulmonary disease, unspecified Status: Acute Assessment and Plan: Continue the home medication DS: Summary Hospital Course Hospital Course: patient is a 69-year-old female with a past medical history of Parkinson's, bipolar, hyperlipidemia, COPD, hypothyroidism, hypertension, mild intellectual disability, cyclothymia, end-stage renal disease, dialysis-dependent presented to the ED due to cough and chest pain. . Pertinent ED labs: WBC 6.7, hemoglobin 9.1, platelet 97, sodium 131, potassium 3.9, chloride 93, creatinine 3.9, GFR 11 Nasal MRSA positive Positive for HBS antibody, possibly due to vaccination. Troponin <0.012 The patient is admitted due to shortness of breath and chest pain. A contributing factor to shortness of breath may be missed dialysis. The patient has a past medical history of COPD but no home O2 at baseline and no smoking hx as well. I will continue the home regimen. Regarding the chest pain, there is no evidence of acute coronary syndrome (ACS), possibly due to MSK but still her atypical chest pain has to excluded with Jodee scan. Last year, she visited the ER due to chest pain. Troponin is less than 0.012, and repeated troponin. EKG shows sinus rhythm with first-degree AV block. Chest x-ray shows cardiomegaly with mild interstitial edema. The patient underwent dialysis today. The patient is a poor historian due to intellectual disability. Unable to reach the Legal Guardian. I called the wildfire prevention specialist, who reported that the patient has no history of stent, CABG, or CVA. She didn't know the reason for her kidney failure. She reports that she recently underwent surgery(November 2024) in her left or right arm due to a rupture of the fistula at [facility]. I called dialysis, and they reported dialysis had been done through her left fistula, and the right fistula could not be used.Ordered peripheral IV line through lower extremity. Patient underwent Lexiscan which showed mild infarction and mild reversible ischemia in only 1 segment with normal LVEF. Troponin negative and ACS ruled out. Given absence of current chest pain, stable vitals, no electrical instability, ACS ruled out, and only small infarct/reversible ischemia, recommend Medical management for CAD with aspirin 81 mg daily and statin. Unfortunately patient is allergic to aspirin and she needs to go to tertiary care hospital for desensitization protocol. Discussed with Cardiology who agrees with the plan. Patient underwent echocardiogram which shows Left ventricular systolic function is normal, estimated at 60-65.The left ventricular diastolic function is grade I diastolic dysfunction. On the day of discharge, the patient was seen and examined. Vital signs were stable. Physical exam were stable and labs were reviewed at length. Discharge instructions, medications, and follow-up appointments were discussed with the patient at length and all day questions were answered. ER warnings were given. Status at Discharge Cognitive/behavioral status at discharge: Stable Time Spent with Patient Time attestation: Total time spent providing and/or coordinating discharge services: 45 minutes Exam Narrative: GENERAL: Chronically ill-appearing, well-nourished, and in no acute distress. HEAD: Normocephalic, atraumatic. EYES: PERRL and EOMI. NECK: Supple. CHEST: Coarse expiratory wheezing bilaterally. No respiratory distress. HEART: Regular rate and rhythm. Normal peripheral pulses. ABDOMEN: Soft, nontender, nondistended. EXTREMITIES: Normal range of motion. No edema. SKIN: Warm, dry, no rash. NEURO: Alert and oriented x3. PSYCH: Normal mood and affect. DS: Data Data Completed and Pending Labs on day of discharge: Labs from last 24 hours 12/24/24 05:08 WBC 5.7 RBC 2.92 L Hgb 8.7 L Hct 28.3 L MCV 96.9 MCH 29.8 MCHC 30.7 L RDW 14.7 H Plt Count 96 L MPV 9.2 % Immature Plt Fraction 1.7 Sodium 139 Potassium 3.7 Chloride 104 Carbon Dioxide 25 Anion Gap 10 BUN 21 H D Creatinine 3.75 H Estim Creat Clear Calc 13 Estimated GFR 12 L Glucose 94 Calcium 9.6 Total Bilirubin 0.3 AST 16 ALT 6 Alkaline Phosphatase 75 Total Protein 6.6 Albumin 3.5 Preliminary micro results at discharge 12/22/24 11:29 Blood Culture - Preliminary Blood 12/22/24 11:15 Blood Culture - Preliminary Blood Imaging Radiologist's impression: ITS Impressions Chest X-Ray 12/22/24 08:05 Impression: 1: Cardiomegaly with mild interstitial edema. Lexiscan Stress Test 12/23/24 13:04 IMPRESSION: 1. Small mild infarct with associated mild reversible ischemia at the mid inferolateral segment.. 2. Left ventricular ejection fraction measuring >70%. Discharge Plan Discharge Attending physician on discharge: Joseph Herring Consulting providers: Bernie Winter; Maria A Pollock Discharging Clinician: Joseph Herring Anticipated Discharge Date/Time: 12/24/24 10:22 Patient Disposition: Home Activity: as tolerated Diet: heart healthy and renal Discharge Instructions: Will need to test for aspirin allergy and desensitize at [facility]. Please obtain medical records from [facility] in regards to her recent surgery for fistula repair for future reference Check blood pressure 1 to 2 times a day. Record and bring into your doctor for review. Call your doctor if your blood pressure is greater than 180/110 or less than 90/45. Walk with cane or other assist device. Take precautions to avoid falls. Rise slowly from a lying or sitting position. Pause before standing or walking. Contact your doctor or call 911 and come to the Emergency Room if you have any type of trauma, lightheadedness with standing or other worrisome symptoms. Avoid NSAIDs (ibuprofen, naproxen, Aleve). Tylenol is safe to take. Follow-up with your primary care provider in 1-2 weeks. Please call for appointment. Follow-up with Cardiology in 2-4 weeks. Please call for an appointment. Thank you for using [facility] for your health care needs. Patient Instructions: Antibiotic Form Patient Language: Sammarinese Stand Alone Forms: General Discharge Information Follow-up/Referrals: Francoise,Heather Beck APRN [Primary Care Provider] - Maria A Pollock MD [Physician] - Discharge Medications: Continued Acidophilus Capsule 100 mmu cells PO DAILY albuterol sulfate 90 mcg/actuation HFA aerosol inhaler 1 inh inhalation HS azelastine [Astepro Allergy] 205.5 mcg (0.15 %) spray,non-aerosol 2 spray intranasal BID Rx Instructions: administer into each nostril carbidopa-levodopa 10-100 mg tablet 1 tablet PO BID divalproex [Depakote] 250 mg tablet,delayed release (DR/EC) 250 mg PO BID fenofibrate 160 mg tablet 160 mg PO DAILY fluticasone propionate [Allergy Relief (fluticasone)] 50 mcg/actuation spray,suspension 2 spray intranasal BID Rx Instructions: administer into each nostril levothyroxine 88 mcg capsule 88 mcg PO DAILY pantoprazole 40 mg tablet,delayed release (DR/EC) 40 mg PO BID sevelamer carbonate [Renvela] 800 mg tablet 800 mg PO TID Rx Instructions: must administer with a meal/food risperidone 0.5 mg tablet 0.5 mg PO QHS sertraline 100 mg tablet 100 mg PO DAILY simvastatin 20 mg tablet 20 mg PO HS acetaminophen 325 mg capsule 650 mg PO Q6H PRN (Reason: fever or pain) bisacodyl 5 mg tablet,delayed release (DR/EC) 10 mg PO Q12-24H PRN (Reason: constipation) Rx Instructions: max 2 doses/48 hours dextromethorphan HBr 15 mg/5 mL syrup 15 mg PO Q8H PRN (Reason: cough) diphenhydramine HCl [Allergy (diphenhydramine)] 25 mg capsule 25 mg PO QHS famotidine 20 mg tablet 20 mg PO HS PRN (Reason: indigestion) alum-mag hydroxide-simeth [Yin-Lanta] 200-200-20 mg/5 mL suspension 5 ml PO ONCE Rx Instructions: administer between meals and at bedtime polyethylene glycol 3350 17 gram/dose powder 17 g PO DAILY PRN (Reason: constipation) bismuth subsalicylate [Stomach Relief] 262 mg/15 mL suspension 524 mg PO Q1H Rx Instructions: do not exceed 8 doses in a 24 hour period cholecalciferol (vitamin D3) 1,250 mcg (50,000 unit) capsule 50,000 unit PO .Q14 days alum-mag hydroxide-simeth [Advanced Antacid-Antigas] 200-200-20 mg/5 mL suspension 30 ml PO Q4H PRN (Reason: indigestion) diphenhydramine HCl [Banophen] 25 mg capsule 25 mg PO Q6H PRN (Reason: congestion) guaifenesin [Chest Congestion Relief] 100 mg/5 mL liquid 100 mg PO Q4H PRN (Reason: cough) hydrocodone-acetaminophen 5-325 mg tablet 1 tablet PO Q6H PRN (Reason: pain) Stomach Relief 525 mg/15 mL suspension 262 mg PO Q3H6XD PRN (Reason: diarrhea) sevelamer carbonate 800 mg tablet 800 mg PO PRN PRN (Reason: kidney failure) Rx Instructions: must administer with a meal/food with snacks Date of admission: 12/23/24 16:17 Primary Care Provider: FrancoiseHeather Admitting Provider: Joseph Herring Attending physician on admission: Joseph Herring Condition: Stable
[2024-12-24] MEDS: EPOETIN ALFA-EPBX 10,000 UNITS/ML VIAL 10000 UNITS IV PUSH (11:29)
[2024-12-24] MEDS: DIVALPROEX SODIUM DR 250 MG TABEC PO (13:16)
[2024-12-24] MEDS: SEVELAMER CARBONATE 800 MG TABLET PO (13:16)
[2024-12-24] MEDS: CARBIDOPA/LEVODOPA 10/100 MG TABLET 1 TABLET PO (13:16)
[2024-12-24] MEDS: SERTRALINE HCL 50 MG TABLET 100 MG PO (13:16)
[2024-12-24] MEDS: PANTOPRAZOLE 40 MG TABLET PO (13:16)
--- NOTE | 2024-12-27 07:26 | P.CDI_ITS ---
CDI Query Clarification Request Please specify type of heart failure if known. * Systolic * Diastolic * Combined Systolic and Diastolic * Unknown The medical chart reflects the following: (2) Chronic kidney disease: Code(s): N18.9 - Chronic kidney disease, unspecified Status: Acute Assessment and Plan: Chest x-ray shows cardiomegaly with interstitial edema BNP 3930 On dialysis (3) Hyperlipidemia: Code(s): E78.5 - Hyperlipidemia, unspecified Status: Acute Assessment and Plan: Continue simvastatin 20 mg p.o. q.h.s. (4) Hypothyroidism: Code(s): E03.9 - Hypothyroidism, unspecified Status: Acute Assessment and Plan: Continue levothyroxine 88 mcg (5) Pulmonary edema: Code(s): J81.1 - Chronic pulmonary edema Status: Acute Assessment and Plan: Given Lasix in ED Currently undergoing dialysis Will order BNP and if necessary will give Lasix tomorrow (6) COPD (chronic obstructive pulmonary disease): Code(s): J44.9 - Chronic obstructive pulmonary disease, unspecified Status: Acute Assessment and Plan: Continue the home medication Cardiology documented: Plan Problem list: -Chest pain with cough but none with exertion-negative troponin, positive Lexiscan with small mild infarct and associated mild reversible ischemia at mid inferolateral segment, normal LVEF -Shortness of breath-acute congestive heart failure most likely due to missed HD; elevated BNP; chest x-ray shows interstitial edema; signs and symptoms of heart failure -End-stage renal disease on HD -Anemia with hemoglobin 9 -Thrombocytopenia with platelet [id number] ECHO Summary 1. Complete two-dimensional, color flow and Doppler transthoracic echocardiogram is performed. 2. Left ventricular chamber dimension is normal. 3. Left ventricular systolic function is normal, estimated at 60-65. 4. The left ventricular diastolic function is grade I diastolic dysfunction. 5. E/e' 13 is mildly elevated. 6. There is moderate aortic valve sclerosis. 7. The mitral valve has a moderately calcified annulus. 8. There is trace mitral valve regurgitation. <Kia Cervantes RN - Last Filed: 12/27/24 07:29> Clarified Diagnosis Clarified Diagnosis: Diastolic <Joseph Herring MD - Last Filed: 12/27/24 14:25>
== END 2024-12-24 15:00 | disposition home or self-care (01) | DRG 682 ==
LOC: ANHED 07:33 → ANH2MED 10:04
PROVIDERS: Internal Medicine Nephrology; Admitting Provider General Practice; Emergency Provider Emergency Medicine; Visit Provider General Practice
DX: I12.0 Hypertensive chronic kidney disease with stage 5 chronic kidney disease or end stage renal disease (principal); I50.31 Acute diastolic (congestive) heart failure; N18.6 End stage renal disease; J81.1 Chronic pulmonary edema; J44.9 Chronic obstructive pulmonary disease, unspecified; I87.2 Venous insufficiency (chronic) (peripheral); E03.9 Hypothyroidism, unspecified; R07.89 Other chest pain; K21.9 Gastro-esophageal reflux disease without esophagitis; G20.A1 Parkinson's disease without dyskinesia, without mention of fluctuations; F70 Mild intellectual disabilities; F34.0 Cyclothymic disorder; F31.9 Bipolar disorder, unspecified; Z20.822 Contact with and (suspected) exposure to COVID-19; Z99.2 Dependence on renal dialysis; Z22.322 Carrier or suspected carrier of Methicillin resistant Staphylococcus aureus
CPT/HCPCS: 36415; 71045; 71250; 78452; 80053; 83880; 84484; 85025; 85027; 85055; 86706; 87040; 87340; 87637; 87641; 93005; 93017; 93306; 94640; 96361; 96374; 96375; 99285; A9270; A9502; G0257; G0378; J2785; J7030; Q5105

== ENCOUNTER 2024-12-30 23:21 | Emergency (ER) | payer MEDICARE, MEDICAID, SELFPAY ==
--- NOTE | ~2024-12-30 | XR_ITS ---
CHEST RADIOGRAPH CLINICAL HISTORY: cp, sob . COMPARISON: Reference is made to a CT examination of the chest performed 6 days earlier. TECHNIQUE: Single portable view of the chest. FINDINGS The cardiomediastinal silhouette is unremarkable. Increased interstitial markings are identified bilaterally, findings suggesting mild pulmonary vascul ar congestion. The lungs are otherwise clear. IMPRESSION: Mild pulmonary vascular congestion, without focal infiltrate or effusion. Reviewed, dictated and finalized at location A.
[2024-12-30 23:15] VITALS: BP 145/65; PULSE 75; RESP 15; TEMP 36.7; O2SAT 100
--- NOTE | 2024-12-30 23:26 | ECG_ITS ---
Test Date: 2024-12-30 23:30:25 Measurements Intervals [place] Rate: 73 P: 52 NE: 240 QRS: -18 QRSD: 109 T: 29 QT: 445 QTc: 491 Interpretive Statements SINUS RHYTHM WITH FIRST DEGREE AV BLOCK NONSPECIFIC ST & T-WAVE ABNORMALITY- DIFFUSE LEADS BORDERLINE ECG Compared to ECG 12/22/2024 07:25:30 NO SIGNIFICANT CHANGE Electronically Signed On 12-31-2024 06:09:28 CDT by Pacheco Dumont D.O.
--- NOTE | 2024-12-30 23:48 | ED.GENADULT ---
HPI - General Adult General Chief complaint: Chest Pain Stated complaint: SOB, chest pain Time Seen by Provider: 12/30/24 23:27 History of Present Illness HPI narrative: 69-year-old female history of chronic kidney disease on dialysis, congestive heart failure, high cholesterol, COPD, Parkinson's presented emergency department for evaluation for shortness of breath and chest pain. Patient states that she was going to bed she had onset chest pain. Patient is also describing increased difficulty breathing. Patient did have wheeze exam by EMS and she was treated with a DuoNeb EN route there patient states that her shortness breath and chest pain resolved. Upon arrival emergency department patient denies any current chest pain states her breathing feels improved. Patient is in no distress time of evaluation. Related Data Home Medications ?Medication ?Instructions ?Recorded ?Confirmed ?Last Taken ?Type Lactobacillus acidophilus 100 mmu cells PO DAILY 08/29/22 12/22/24 Unknown History (Acidophilus capsule) acetaminophen 325 mg capsule 650 mg PO Q6H PRN fever or pain 08/29/22 12/22/24 Unknown History albuterol sulfate 90 mcg/actuation 1 inh inhalation HS 08/29/22 12/22/24 Unknown History aerosol inhaler aluminum-mag hydroxide-simethicone 5 ml PO ONCE 08/29/22 12/22/24 Unknown History 200 mg-200 mg-20 mg/5 mL oral susp (Yin-Lanta) azelastine 205.5 mcg (0.15 %) 2 spray intranasal BID 08/29/22 12/22/24 Unknown History nasal spray (Astepro Allergy) bisacodyl 5 mg tablet,delayed 10 mg PO Q12-24H PRN constipation 08/29/22 12/22/24 Unknown History release bismuth subsalicylate 262 mg/15 mL 524 mg PO Q1H 08/29/22 12/22/24 Unknown History oral suspension (Stomach Relief) carbidopa 10 mg-levodopa 100 mg 1 tablet PO BID 08/29/22 12/22/24 Unknown History tablet dextromethorphan HBr 15 mg/5 mL 15 mg PO Q8H PRN cough 08/29/22 12/22/24 Unknown History oral syrup diphenhydramine HCl 25 mg capsule 25 mg PO QHS 08/29/22 12/22/24 Unknown History (Allergy (diphenhydramine)) divalproex 250 mg tablet,delayed 250 mg PO BID 08/29/22 12/22/24 Unknown History release (Depakote) famotidine 20 mg tablet 20 mg PO HS PRN indigestion 08/29/22 12/22/24 Unknown History fenofibrate 160 mg tablet 160 mg PO DAILY 08/29/22 12/22/24 Unknown History fluticasone propionate 50 2 spray intranasal BID 08/29/22 12/22/24 Unknown History mcg/actuation nasal spray,suspension (Allergy Relief (fluticasone)) levothyroxine 88 mcg capsule 88 mcg PO DAILY 08/29/22 12/22/24 Unknown History pantoprazole 40 mg tablet,delayed 40 mg PO BID 08/29/22 12/22/24 Unknown History release polyethylene glycol 3350 17 17 g PO DAILY PRN constipation 08/29/22 12/22/24 Unknown History gram/dose oral powder risperidone 0.5 mg tablet 0.5 mg PO QHS 08/29/22 12/22/24 Unknown History sertraline 100 mg tablet 100 mg PO DAILY 08/29/22 12/22/24 Unknown History sevelamer carbonate 800 mg tablet 800 mg PO TID 08/29/22 12/22/24 Unknown History (Renvela) simvastatin 20 mg tablet 20 mg PO HS 08/29/22 12/22/24 Unknown History aluminum-mag hydroxide-simethicone 30 ml PO Q4H PRN indigestion 12/22/24 12/22/24 Unknown History 200 mg-200 mg-20 mg/5 mL oral susp (Advanced Antacid-Antigas) bismuth subsalicylate 525 mg/15 mL 262 mg PO Q3H6XD PRN diarrhea 12/22/24 12/22/24 Unknown History oral suspension (Stomach Relief) cholecalciferol (vitamin D3) 1,250 50,000 unit PO .Q14 days 12/22/24 12/22/24 Unknown History mcg (50,000 unit) capsule diphenhydramine HCl 25 mg capsule 25 mg PO Q6H PRN congestion 12/22/24 12/22/24 Unknown History (Banophen) guaifenesin 100 mg/5 mL oral 100 mg PO Q4H PRN cough 12/22/24 12/22/24 Unknown History liquid (Chest Congestion Relief) hydrocodone 5 mg-acetaminophen 325 1 tablet PO Q6H PRN pain 12/22/24 12/22/24 Unknown History mg tablet sevelamer carbonate 800 mg tablet 800 mg PO PRN PRN kidney failure 12/22/24 12/22/24 Unknown History Allergies Allergy/AdvReac Type Severity Reaction Status Date / Time NSAIDS (Non-Steroidal Allergy Mild Unknown Verified 12/22/24 06:48 Anti-Inflamma Review of Systems Review of Systems: All systems reviewed & are unremarkable except as noted in HPI and below PMFSH Past Medical History Medical History (Updated 12/31/24 @ 03:07 by Jared Flores MD) Parkinsons disease Bipolar disorder Hyperlipidemia Chronic kidney disease H/O gastroesophageal reflux (GERD) Seasonal allergies COPD (chronic obstructive pulmonary disease) Low back pain Chronic venous insufficiency Personal history of dysmenorrhea Hypothyroidism Hypertension Cyclothymia Mild intellectual disability Surgical History Surgical History [place] teeth removed History of removal of cyst abdominal Social History Social History Smoking status: Never smoker Second hand tobacco smoke exposure: No Alcohol intake: never Substance use: never Do You Feel Safe in your Home?: Yes Lack of Transportation: No Lack of Food: Never True Current Housing: I Have Housing Concerned About Future Housing: No Difficulty Paying Gas/Electric Bills: No Difficulty Paying for Meds: No Currently Unemployed: No Education: Decline to Answer Difficulty w/ Childcare or Family Care: No Living arrangements: penitentiary Additional living arrangements comments: Residential options Occupation/Education: retired Gender identity (if verbalized by the patient): Female Sexual Orientation (if Verbalized by the Patient): Straight or Heterosexual Spiritual care concerns: No Exam Narrative: APPEARANCE: Well appearing, no pain, no distress, well-nourished. HEAD: normocephalic, atraumatic. EYES: PERRLA/EOMI, conjunctivae clear. NOSE: Normal no drainage EARS:TMS clear with good light reflex. THROAT: Pharynx clear, no exudate. NECK: Supple. No adenopathy, no masses. RESPIRATORY: Airway patent, respirations nonlabored. Clear to auscultation bilaterally, no rales, rhonchi, wheezing. CARDIOVASCULAR: Regular rate and rhythm without murmurs rubs or gallops. ABDOMINAL: Soft, nontender, nondistended, normal bowel sounds MUSCULOSKELETAL: Moves all extremities. Strength/ROM intact, No edema, No calf tenderness. NEURO: Alert. Cranial nerves II through XII intact. Good gait. Good coordination SKIN: Warm, dry. Normal Color PSYCHIATRIC: Normal affect/mood. Course Vital Signs Vital signs: Vital Signs Temperature 98.1 F 12/30/24 23:15 Pulse Rate 75 12/30/24 23:15 Respiratory Rate 15 12/30/24 23:15 Blood Pressure 145/65 H 12/30/24 23:15 Pulse Oximetry 100 12/30/24 23:15 Oxygen Delivery Room Air 12/30/24 23:15 Temperature 98.1 F 12/30/24 23:15 Pulse Rate 71 12/31/24 03:15 Respiratory Rate 22 H 12/31/24 03:15 Blood Pressure 133/64 12/31/24 03:02 Pulse Oximetry 100 12/31/24 03:15 Oxygen Delivery Room Air 12/30/24 23:51 Medical Decision Making MDM Narrative Medical decision making narrative: 69-year-old female presented to the emergency department for evaluation for shortness breath wheeze and chest pain. Patient states her chest pain was resolved after the breathing treatment that she received by EMS. Patient is currently afebrile with no leukocytosis hemoglobin of 9.1 which is similar to her baseline. Patient does do dialysis and patient's creatinine is 4.45 and patient has no significantly elevated potassium, patient's troponins were negative. On re-evaluation patient states that she has no chest pain and no shortness of breath. Chest x-ray shows some pulmonary vascular congestion but patient's oxygenation has been 100% on room air. Patient will be discharged home with instructions for close outpatient follow-up. Differential Diagnosis Differential Diagnosis: Pneumonia, COPD, CHF, ACS Vital Signs Vital Signs: Vital Signs Temperature 98.1 F 12/30/24 23:15 Pulse Rate 75 12/30/24 23:15 Respiratory Rate 15 12/30/24 23:15 Blood Pressure 145/65 H 12/30/24 23:15 Pulse Oximetry 100 12/30/24 23:15 Oxygen Delivery Room Air 12/30/24 23:15 Temperature 98.1 F 12/30/24 23:15 Pulse Rate 71 12/31/24 03:15 Respiratory Rate 22 H 12/31/24 03:15 Blood Pressure 133/64 12/31/24 03:02 Pulse Oximetry 100 12/31/24 03:15 Oxygen Delivery Room Air 12/30/24 23:51 Lab Data Lab results reviewed: Yes I reviewed the patient's lab results. 12/30/24 23:46 12/30/24 23:46 Labs: Lab Results 12/30/24 12/31/24 Range/Units 23:46 02:30 WBC 5.8 (4.5-10.0) K/mm3 RBC 3.07 L (4.2-5.4) M/mm3 Hgb 9.1 L (12.0-15.0) g/dL Hct 28.7 L (37.0-47.0) % MCV 93.5 (80-100) fl MCH 29.6 (26-34) pg MCHC 31.7 L (32-36) g/dl RDW 14.5 (11.5-14.5) % Plt Count 107 L (150-375) k/mm3 MPV 8.9 (7.4-10.4) fl Immature Gran % (Auto) 0.5 (0-0.5) % Neut % (Auto) 58.0 (45.5-73.1) % Lymph % (Auto) 32.5 (18.3-44.2) % Starr % (Auto) 7.6 (2.6-8.5) % Eos % (Auto) 1.2 (0-4.4) % Baso % (Auto) 0.2 (0.2-1.2) % Lymph # (Auto) 1.89 (0.9-3.2) K/mm3 Starr # (Auto) 0.4 (0.1-0.6) K/mm3 Eos # (Auto) 0.1 (0-0.3) K/mm3 Baso # (Auto) 0.0 (0.0-0.1) K/mm3 Abs Immat Gran (auto) 0.03 (0.00-0.031) K/mm3 Absolute Neuts (auto) 3.4 (1.3-6.7) K/mm3 Absolute Nucleated RBC 0.000 (0.0-0.012) K/mm3 Nucleated RBC % 0.0 (0.0-0.2) % % Immature Plt Fraction 1.5 (0.9-11.2) % PT 14.2 (11.1-14.7) Seconds INR 1.1 APTT 30.0 (22.3-36.8) Seconds Sodium 134 L (137-145) mmol/L Potassium 3.9 (3.4-5.0) mmol/L Chloride 95 L (98-107) mmol/L Carbon Dioxide 30 (22-30) mmol/L Anion Gap 9 (4-12) mmol/L BUN 24 H (7-17) mg/dL Creatinine 4.45 H (0.7-1.0) mg/dL Estim Creat Clear Calc 12 ml/min Estimated GFR 10 L (59 - ) Glucose 90 (65-110) mg/dL Calcium 9.3 (8.4-10.2) mg/dL Total Bilirubin 0.2 (0.2-1.3) mg/dL AST 18 (14-36) U/L ALT 6 (6-35) U/L Alkaline Phosphatase 85 (38-126) U/L Troponin I < 0.012 < 0.012 (0.000-0.034) ng/mL Total Protein 6.9 (6.3-8.2) g/dL Albumin 3.9 (3.5-5.1) g/dL Lipase 131 (23-300) U/L Imaging Data Radiologist's impression: Impressions Chest X-Ray 12/31/24 00:07 IMPRESSION: Mild pulmonary vascular congestion, without focal infiltrate or effusion. ECG Data EKG #1: EKG Interpretation: normal rate, sinus rhythm, no ectopy, non-specific ST changes, normal QRS and NL axis Discharge Plan Discharge Clinical Impression: COPD (chronic obstructive pulmonary disease) Patient Disposition: NH Fpc/Asst Living Condition: Stable Instructions: Antibiotic Form, Chest Pain (ED) Additional Instructions: Albuterol for shortness of breath. Have close follow-up with your primary care physician. If you have any worsening symptoms then please call or return to the emergency department. Patient Language: Malagasy Prescriptions: No Action Acidophilus Capsule 100 mmu cells PO DAILY albuterol sulfate 90 mcg/actuation HFA aerosol inhaler 1 inh inhalation HS azelastine [Astepro Allergy] 205.5 mcg (0.15 %) spray,non-aerosol 2 spray intranasal BID Rx Instructions: administer into each nostril carbidopa-levodopa 10-100 mg tablet 1 tablet PO BID divalproex [Depakote] 250 mg tablet,delayed release (DR/EC) 250 mg PO BID fenofibrate 160 mg tablet 160 mg PO DAILY fluticasone propionate [Allergy Relief (fluticasone)] 50 mcg/actuation spray,suspension 2 spray intranasal BID Rx Instructions: administer into each nostril levothyroxine 88 mcg capsule 88 mcg PO DAILY pantoprazole 40 mg tablet,delayed release (DR/EC) 40 mg PO BID sevelamer carbonate [Renvela] 800 mg tablet 800 mg PO TID Rx Instructions: must administer with a meal/food risperidone 0.5 mg tablet 0.5 mg PO QHS sertraline 100 mg tablet 100 mg PO DAILY simvastatin 20 mg tablet 20 mg PO HS acetaminophen 325 mg capsule 650 mg PO Q6H PRN (Reason: fever or pain) bisacodyl 5 mg tablet,delayed release (DR/EC) 10 mg PO Q12-24H PRN (Reason: constipation) Rx Instructions: max 2 doses/48 hours dextromethorphan HBr 15 mg/5 mL syrup 15 mg PO Q8H PRN (Reason: cough) diphenhydramine HCl [Allergy (diphenhydramine)] 25 mg capsule 25 mg PO QHS famotidine 20 mg tablet 20 mg PO HS PRN (Reason: indigestion) alum-mag hydroxide-simeth [Yin-Lanta] 200-200-20 mg/5 mL suspension 5 ml PO ONCE Rx Instructions: administer between meals and at bedtime polyethylene glycol 3350 17 gram/dose powder 17 g PO DAILY PRN (Reason: constipation) bismuth subsalicylate [Stomach Relief] 262 mg/15 mL suspension 524 mg PO Q1H Rx Instructions: do not exceed 8 doses in a 24 hour period cholecalciferol (vitamin D3) 1,250 mcg (50,000 unit) capsule 50,000 unit PO .Q14 days alum-mag hydroxide-simeth [Advanced Antacid-Antigas] 200-200-20 mg/5 mL suspension 30 ml PO Q4H PRN (Reason: indigestion) diphenhydramine HCl [Banophen] 25 mg capsule 25 mg PO Q6H PRN (Reason: congestion) guaifenesin [Chest Congestion Relief] 100 mg/5 mL liquid 100 mg PO Q4H PRN (Reason: cough) hydrocodone-acetaminophen 5-325 mg tablet 1 tablet PO Q6H PRN (Reason: pain) Stomach Relief 525 mg/15 mL suspension 262 mg PO Q3H6XD PRN (Reason: diarrhea) sevelamer carbonate 800 mg tablet 800 mg PO PRN PRN (Reason: kidney failure) Rx Instructions: must administer with a meal/food with snacks Follow-up/Referrals: Francoise,Heather Beck, [employer] [Primary Care Provider] - Quality HEART score for chest pain patients History: slightly suspicious ECG: normal Age: > or = to 65 years Risk factors: 1 or 2 risk factors Troponin: < or = to 1x normal limit Heart score: 3
[2024-12-30 23:51] VITALS: O2SAT 98
[2024-12-30 23:59] LABS: Basophils Percent Auto 0.2 % (0.2-1.2); Eosinophils Absolute Auto 0.1 K/mm3 (0-0.3); Eosinophils Percent Auto 1.2 % (0-4.4); Hematocrit 28.7 % (37.0-47.0); Hemoglobin 9.1 g/dL (12.0-15.0); Immature Granulocyte Absolute 0.03 K/mm3 (0.00-0.031); Immature Granulocyte Percent A 0.5 % (0-0.5); Immature Platelet Fraction Pct 1.5 % (0.9-11.2); Lymphocytes Absolute Auto 1.89 K/mm3 (0.9-3.2); Lymphocytes Percent Auto 32.5 % (18.3-44.2); Mean Corpuscular HGB Conc 31.7 g/dl (32-36); Mean Corpuscular Hemoglobin 29.6 pg (26-34); Mean Corpuscular Volume 93.5 fl (80-100); Mean Platelet Volume 8.9 fl (7.4-10.4); Monocytes Absolute Auto 0.4 K/mm3 (0.1-0.6); Monocytes Percent Auto 7.6 % (2.6-8.5); Neutrophils Absolute Auto 3.4 K/mm3 (1.3-6.7); Platelet Count Result 107 k/mm3 (150-375); Red Blood Count 3.07 M/mm3 (4.2-5.4); Red Cell Distribution Width 14.5 % (11.5-14.5); White Blood Count 5.8 K/mm3 (4.5-10.0)
[2024-12-31] VITALS (8 sets, daily range): BP systolic 128–133; BP diastolic 36–65; PULSE 71–75; RESP 14–24; O2SAT 99–100
[2024-12-31 00:06] LABS: Alanine Aminotransferase 6 U/L (6-35); Albumin Level 3.9 g/dL (3.5-5.1); Alkaline Phosphatase 85 U/L (38-126); Anion Gap 9 mmol/L (4-12); Aspartate Amino Transferase 18 U/L (14-36); Bilirubin,Total 0.2 mg/dL (0.2-1.3); Blood Urea Nitrogen 24 mg/dL (7-17); Calcium 9.3 mg/dL (8.4-10.2); Carbon Dioxide 30 mmol/L (22-30); Chloride 95 mmol/L (98-107); Estimated CRCL calculation 12 ml/min; Estimated Glomerular Filt Rate 10; Glucose 90 mg/dL (65-110); INR 1.1; Lipase 131 U/L (23-300); Potassium 3.9 mmol/L (3.4-5.0); Prothrombin Time 14.2 Seconds (11.1-14.7); Sodium 134 mmol/L (137-145); Total Protein 6.9 g/dL (6.3-8.2)
[2024-12-31 00:17] LABS: Troponin I < 0.012 ng/mL (0.000-0.034)
[2024-12-31 02:58] LABS: Troponin I < 0.012 ng/mL (0.000-0.034)
== END 2024-12-31 03:38 ==
PROVIDERS: Emergency Provider Emergency Medicine
DX: J44.9 Chronic obstructive pulmonary disease, unspecified (principal); G20.A1 Parkinson's disease without dyskinesia, without mention of fluctuations; I13.2 Hypertensive heart and chronic kidney disease with heart failure and with stage 5 chronic kidney disease, or end stage renal disease; N18.6 End stage renal disease; I50.9 Heart failure, unspecified; Z99.2 Dependence on renal dialysis; I87.2 Venous insufficiency (chronic) (peripheral); E78.5 Hyperlipidemia, unspecified; K21.9 Gastro-esophageal reflux disease without esophagitis; F31.9 Bipolar disorder, unspecified; F70 Mild intellectual disabilities; Z79.899 Other long term (current) drug therapy; I44.0 Atrioventricular block, first degree; R94.31 Abnormal electrocardiogram [ECG] [EKG]
CPT/HCPCS: 36415; 71045; 80053; 83690; 84484; 85025; 85055; 85610; 85730; 93005; 99284

== ENCOUNTER 2025-02-19 18:28 | Emergency (ER) | payer MEDICARE, MEDICAID, SELFPAY ==
--- OUTSIDE RECORDS SUMMARY | 2025-02-19 17:43 | XMS_ITS | Clinical Summary ---
Author Organization [facility] Address [address] [place] [address] Care Team Providers Care Elevated Work Platform Operator Name Role Phone Billy Brewer ENVIRONMENTAL SERVICES COORDINATOR-RISK ENGINEER Primary Care Provider [phone] [facility],non-owned Affiliates and Associated Physician Practices is amultiple site organization consisting of ambulatory clinics and hospital sitesin [place], [place], [place] and [place]. This disclosure is being madepursuant to the Care Everywhere program and may not contain all information available regarding this patient. Last updated 18.[facility] Allergies Active Allergy Reactions Criticality Noted Date [...] Active azelastine (Astepro) 205.5 MCG/SPRAY nasal spray Leola 2 (two) sprays into the nose 2 [...] fluticasone propionate (Flonase) 50 MCG/ACT nasal spray Leola 2 (two) sprays into each nostril 2 [...] MG Take 1 (one) tablet by mouth as needed WITH SNACKS 03/19/20 23 Active terbinafine (LamISIL) 1 % cream 2 times daily UNDER BOTH BREASTS 04/21/20 23 Active nystatin (Mycostatin) 715959 UNIT/GM powder Apply to affected area 3 times daily UNDER BOTH BREASTS 07/02/20 23 Active Lactobacillus (Acidophilus Probiotic) 10 MG CAPS 10/23/19 24 Active simvastatin (Zocor) 20 MG tablet Take 1 (one) tablet by mouth at bedtime 11/22/19 24 Active Doxercalciferol (HECTOROL IV) 2 mcg 12/31/19 24 Active Methoxy PEG-Epoetin Beta (MIRCERA IJ) 30 mcg 04/12/20 24 025 Active acetaminophen (Tylenol) 500 MG tablet Take 1 (one) tablet by mouth every 6 hours as needed for Fever or Pain Maximum allowable Acetaminophen amount = 4 Grams (4000 mg) / 24 hours. 07/30/19 25 Active Lactobacillus (ACIDOPHILUS PO) Take 75 mm by mouth once daily At 3 pm Active Cholecalciferol (vitamin D3) 1.25 MG (88619 UT) capsule Take 1 (one) capsule by mouth every 14 days Active sevelamer (Renagel) 800 MG tablet Take 3 (three) tablets by mouth 3 times daily with meals Active bismuth subsalicylate (Pepto-Bismol) 262 MG/15ML suspension Take 524 mg by mouth every 30 minutes as needed for Diarrhea MAX 8 DOSES/24 HOURS Active neomycin-bacitrac in-polymyxin (Neosporin) 3.5-400-5000 topical ointment Apply to affected area every 4 hours as needed Affected area: topically to minor wounds every 4 hours as needed until healed max 2 doses 24 hours Active acetaminophen (Tylenol) 325 MG tablet Take 2 (two) tablets by mouth every 4 hours as needed for Fever or Pain Maximum allowable Acetaminophen amount = 4 Grams (4000 mg) / 24 hours. Active Azelastine HCl 137 MCG/SPRAY SOLN Leola 2 sprays into the nose 2 times daily as needed Active diphenhydrAMINE (Banophen) 25 MG capsule Take 1 (one) capsule by mouth every 6 hours as needed for Itching Active HYDROcodone-aceta minophen ([place]) 5-325 MG tabletIndications :ESRD (end stage renal disease) ([facility]) Take 1 (one) tablet by mouth every 6 hours as needed for Pain 12 tablet 02/16/20 25 Active HYDROcodone-aceta minophen ([place]) 5-325 MG tabletIndications :ESRD (end stage renal disease) ([facility]) Take 1 (one) tablet by mouth every 6 hours as needed for Pain 30 tablet 05/25/20 24 025 Discontin ued(Tx Complete) HYDROcodone-aceta minophen ([place]) 5-325 MG tabletIndications :ESRD (end stage renal disease) ([facility]) Take 1 (one) tablet by mouth every 6 hours as needed for Pain 30 tablet 05/25/20 24 025 Discontin ued(Tx Complete) HYDROcodone-aceta minophen ([place]) 5-325 MG tabletIndications :Pre-op exam Take 1 (one) tablet by mouth every 6 hours as needed for Pain 12 tablet 12/01/19 25 025 Discontin ued(Tx Complete) Active Problems Problem Noted Date Diagnosed Date ESRD (end stage renal disease) 11/30/2024 Encounters Date Type Department Care Team Description 02/15/2025 11:50 AM CDT - 02/15/2025 1:48 PM CDT Surgery [facility] - Perioperative Surgery [address] [place] [address] Chung Stinson MD TRANSPOSITION RIGHT UPPER ARM AV FISTULA; RE-EXPLORATION FOR BLEEDING 02/15/2025 11:48 AM CDT Anesthesia Event [facility] - Perioperative Surgery [address] [place] [address] Samra Wright MD Ford, James D, ENVIRONMENTAL SERVICES COORDINATOR-MANAGER COMMUNITY OUTREACH 02/15/2025 9:56 AM CDT - 02/17/2025 3:52 PM CDT Hospital Encounter [facility] 2S SURG/BARIATRIC [address] [place] [address] Chung Stinson MD Surgery General Discharge Disposition: Home or Self Care 02/15/2025 Travel 01/25/2025 1:22 PM CDT - 01/25/2025 11:59 PM CDT Hospital Encounter [facility] Vascular Services [address] [place] [address], [address] [place] [address] Ben Titus DO Reynolds, Michael D, MD Javed, DO Kayode Walls Thomas B, MD Discharge Disposition: Home or Self Care 01/11/2025 10:30 AM CDT Office Visit [facility] - Surgery [address] [place] [address], [address] [place] [id number] Chung Stinson MD Postop check (Primary Dx) 01/11/2025 10:00 AM CDT - 01/11/2025 11:59 PM CDT Hospital Encounter [facility] Services [address] [place] [address], [address] [place] [address] Chung Stinson MD Discharge Disposition: Home or Self Care 12/14/2024 10:20 AM CDT Office Visit [facility] - Surgery [address] [facility], [address] [place] [address] Chung Stinson MD ESRD (end stage renal disease) (HCC) (Primary Dx) 12/14/2024 Travel 11/30/2024 1:22 PM CDT - 11/30/2024 2:54 PM CDT Surgery [facility] - Perioperative Surgery [address] [place] [address] Chung Stinson MD EXPLORATION CEPHALIC VEIN AND CREATION BRACHIOBASILIC FISTULA 11/30/2024 12:24 PM CDT Anesthesia Event [facility] Perioperative Surgery [address] [place] [address] Oswaldo Uriarte MD Shaw, Thomas J, 11/30/2024 11:23 AM CDT - 11/30/2024 2:56 PM CDT Hospital Encounter [facility] - Perioperative Surgery [address] [place] [address] Chung Stinson MD Surgery General Discharge Disposition: Home or Self Care from Last 3 Months Family History Medical History Relation Name Comments Other Neg Hx neg family hist ory Social History Tobacco Use Types Packs/Day Years Used Date Smoking Tobacco: Never Passive Smoke Exposure: Never Smokeless Tobacco: Never Tobacco Cessation:Counseling Given: No Alcohol Use Standard Drinks/Week Comments Never 0 (1 standard drink = 0.6 oz pur e alcohol) Hunger Vital Sign Answer Date Recorded Within the past 12 months, y ou worried that your food would run out before you got the money to buy more. Never true 02/17/20 25 Within the past 12 months, t he food you bought just didn't last and you didn't have money to get more. Never true 02/16/2025 Comments No Sex and Gender Information Value Date Recorded Sex Assigned at Not on file Legal Sex Female 2:58 PM CDT Gender Identity Not on file Sexual Orientation Not on file Last Filed Vital Signs Vital Sign Reading Time Taken Comments Blood Pressure 133/66 02/17/2025 7:36 AM CDT Pulse 80 02/17/2025 7:36 AM CDT Temperature 37.1 C (98.7 F) 02/17/2025 7:36 AM CDT Respiratory Rate 18 02/17/2025 7:36 AM CDT Oxygen Saturation 99% 02/17/2025 7:3 6 AM CDT o2 94 w/o o2 mask pt refuses cannula pedrito Inhaled Oxygen Concentration - - Weight 78.7 kg (173 lb 9.6 oz) 02/15/2025 10:26 AM CDT Height 165.1 cm (5' 5) 02/15/2025 10:2 6 AM CDT Body Mass Index 28.89 02/15/2025 10:26 AM CDT Plan of Treatment Upcoming Encounters Date Type Department Care Team (Late st Contact Info) Description 03/01/2025 10:00 AM CDT Office Visit [facility] - Surgery [address] [facility], [address] [place] [address] [place] [address] [facility] [address] [place] [phone] Health Maintenance Due Date Last Done Comments [...] VACCINE (1 of 2) 2004 COVID-19 VACCINE ( - season) 2024 05/29/2021, 09/06/2020, 08/08/2020 DEPRESSION SCREENING 07/07/2024 MAMMOGRAM 10/21/2024 10/21/2022, 10/05, 05/16/2021, Additional history exists INFLUENZA VACCINE (#1) 2025 4, 04/16/2023, 03/28/2023, Additional history exists SCREENING FOR DIABETES 02/17/2028 5, 02/15/2025, 05/25/2024, Additional history exists Respiratory Syncytial Virus (RSV) Vaccine Pt: or over 60 yrs (1 - 1-dose 75+ series) 2029 BONE DENSITY TESTING Completed 10/02/2021, 03/01/20 16 HIB VACCINE Aged Out No longer eligi [...] this topic Medical Devices Implanted Type Area Knife Operator Device Identifier Shelf Expiration Date Model / Serial / Lot Graft Vasc 4-7mm 45cm Grtx Std Wl Tpr - [id number] Implanted:Qty: 1 on 05/25/2024 by Ramy Schilling MD at [facility] Left: Arm [employer] 12/28/2028 [id number] / [id number] / Procedures Procedure Name Priority Date/Time Associated Diagnosis Comments APHERESIS/TRANSFUSION ORDER 02/18/2025 11:24 PM CDT HEPATITIS B SURFACE ANTIGEN W RFLX CONFIRMATION Routine 02/16/2025 11:30 AM CDT ESRD (end stage renal disease) (HCC) HEMODIALYSIS INPATIENT Routine 02/16/2025 9:39 AM CDT BASIC METABOLIC PANEL (CALCIUM TOTAL) AM Draw 02/16/2025 2:58 AM CDT CBC W AUTO DIFFERENTIAL AM Draw 02/16/2025 2:58 AM CDT CBC W AUTO DIFFERENTIAL STAT 02/15/2025 6:51 PM CDT TRANSFUSE RED BLOOD CELL LEUKOREDUCED ML(S) STAT 02/15/2025 3:50 PM CDT BLOOD TYPE VERIFICATION Routine 02/15/2025 2:56 PM CDT XR HUMERUS RIGHT 2VW OR MORE Routine 02/15/2025 2:34 PM CDT Encounter for observation for suspected inserted (injected) foreign body ruled out PREPARE RBC LEUKOREDUCED UNIT STAT 02/15/2025 1:59 PM CDT ESRD (end stage renal disease) (HCC) TYPE + SCREEN PANEL Routine 02/15/2025 1 :59 PM CDT LARYNGEAL MASK AIRWAY Routine 02/15/2025 12:04 PM CDT WY ANASTOMOSIS,AV,BASILI C VEIN 02/15/2025 11:37 AM CDT BASIC METABOLIC PANEL (CALCIUM TOTAL) STAT 02/15/2025 10:23 AM CDT Pre-op exam CARDIAC RHYTHM STRIP ORDER 01/27/2025 8:16 PM CDT VAS DIALYSIS EXIST ACCESS SCAN Routine 01/11/2025 10:15 AM CDT ESRD (end stage renal disease) (HCC) LARYNGEAL MASK AIRWAY Routine 11/30/2024 12:34 PM CDT WY ANASTOMOSIS,AV,ANY SITE 11/30/2024 12:14 PM CDT BLOOD GAS+COOX+ELECTROLYTES +METAB VENOUS Routine 11/30/2024 12:10 PM CDT CARDIAC RHYTHM STRIP ORDER 11/23/2024 9:10 PM CDT from Last 3 Months Results * APHERESIS/TRANSFUSION ORDER (02/18/2025 11:24 PM CDT) Narrative 02/18/2025 11:24 PM CDT Ordered by an unspecified provider. us Scanned Document NURSING - VITAL SIGNS AND ASSES SMENT Final Result * HEPATITIS B SURFACE ANTIGEN W RFLX CONFIRMATION (02/16/2025 11:30 AM CDT) [facility] HBsAg Non Reactive Non Reactive 02/16/2025 12:50 PM CDT [facility] Blood BLOOD SPECIMEN / Unknown Venipuncture / Unknown 02/16/2025 11:30 AM CDT 02/16/2025 11:34 AM CDT Cecilia Franks MD LAB - CHEMISTRY ORDERABLES Fin al Result [facility] [facility] [address] [place] [address] * (ABNORMAL) CBC W AUTO DIFFERENTIAL (02/16/2025 2:58 AM CDT) Only the most recent of2 resultswithin the time period is included. [facility] WBC 11.1(H) 4.0 - 10.7 x10E9/L 02/16/2025 4:03 AM CDT [facility] RBC Count 3.49(L) 3.90 - 5.20 x10E12/L 02/16/2025 4:03 AM CDT [facility] Hemoglobin 10.3(L) 11.9 - 15.8 g/dL 02/16/2025 4:03 AM CDT [facility] Hematocrit 32.0(L) 34.8 - 46.1 % 02/16/2025 4:03 AM CDT [facility] MCV 91.7 80.0 - 98.0 fL 02/16/2025 4:03 AM CDT [facility] MCH 29.5 26.7 - 33.6 pg 02/16/2025 4:03 AM CDT [facility] MCHC 32.2 31.7 - 36.3 g/dL 02/16/2025 4:03 AM CDT [facility] RDW-CV 18.5(H) 11.3 - 14.8 % 02/16/2025 4:03 AM CDT [facility] Platelet Count 84(L) 150 - 420 x10E9/L 02/16/2025 4:03 AM CDT [facility] MPV 9.8 7.8 - 11.4 fL 02/16/2025 4:03 AM CDT [facility] Neutrophil % 90.5(H) 41.0 - 74.0 % 02/16/2025 4:03 AM CDT [facility] Lymphocyte % 4.4(L) 17.0 - 47.0 % 02/16/2025 4:03 AM CDT [facility] Monocyte % 4.3 3.0 - 11.0 % 02/16/2025 4:03 AM CDT [facility] Eosinophil % 0.2 0.0 - 7.0 % 02/16/2025 4:03 AM CDT [facility] Basophil % 0.2 0.0 - 1.6 % 02/16/2025 4:03 AM CDT [facility] Immature Granulocytes % 0.4 0.0 - 1.0 % 02/16/2025 4:03 AM CDT [facility] Neutrophil Absolute 10.07(H) 1.60 - 7.50 x10E9/L 02/16/2025 4:03 AM CDT [facility] Lymphocyte Absolute 0.49(L) 1.00 - 4.40 x10E9/L 02/16/2025 4:03 AM CDT [facility] Monocyte Absolute 0.48 0.15 - 1.00 x10E9/L 02/16/2025 4:03 AM CDT [facility] Eosinophil Absolute 0.02 0.00 - 0.60 x10E9/L 02/16/2025 4:03 AM CDT [facility] Basophil Absolute 0.02 0.00 - 0.13 x10E9/L 02/16/2025 4:03 AM T [facility] Blood BLOOD SPECIMEN / Unknown Venipuncture / Unknown 02/16/2025 2:58 AM CDT 02/16/2025 3:39 AM CDT us Chung Stinson MD LAB - HEMATOLOGY ORDERAB LES Final Result [facility] [address] [place] [address] * (ABNORMAL) BASIC METABOLIC PANEL (CALCIUM TOTAL) (02/16/2025 2:58 AM CDT) Only the most recent of2 resultswithin the time period is included. [facility] Signature Glucose 120(H) 70 - 99 mg/dL 02/16/2025 4:00 AM CDT [facility] Sodium 134(L) 136 - 145 mmol/L 02/16/2025 4:00 AM T [facility] Potassium 4.6 3.5 - 5.1 mmol/L 02/16/2025 4:00 AM CDT [facility] Chloride 99 98 - 107 mmol/L 02/16/2025 4:00 AM T [facility] CO2 23 22 - 29 mmol/L 02/16/2025 4:00 AM T [facility] Calcium 8.9 8.4 - 10.4 mg/dL 02/16/2025 4:00 AM T [facility] Anion Gap 12 6 - 16 mmol/L 02/16/2025 4:00 AM CDT [facility] BUN 23 7 - 26 mg/dL 02/16/2025 4:00 AM CDT [facility] Creatinine 4.04(H) 0.57 - 1.11 mg/dL 02/16/2025 4:00 AM T [facility] eGFR by CKD-EPI 11(L) >=90 mL/min/1.7 3 m2 02/16/2025 4:00 AM T [facility] Comment:Estimated Glomerular Filtration Rate (eGFR) calculated using the CKD-EPI Creatinine Equation (2020), per the National Kidney Foundation and [place] Society of Nephrology recommendations. Blood BLOOD SPECIMEN / Unknown Venipuncture / Unknown 02/16/2025 2:58 AM CDT 02/16/2025 3:39 AM CDT us Chung Stinson MD LAB - CHEMISTRY ORDERABL ES Final Result [facility] [address] [place] [address] * TRANSFUSE RED BLOOD CELL LEUKOREDUCED ML(S), 300 mL across aliquots (02/15/2025 6:26 PM CDT) us Samra Wright MD NURSING - BLOOD PROD TSE SFUSION Final Result * BLOOD TYPE VERIFICATION (02/15/2025 2:56 PM CDT) ABO Rh A POS 02/15/2025 3:2 2 PM CDT [facility] Blood Bank BLOOD SPECIMEN / Unknown Venipuncture / Unknown 02/15/2025 2:56 PM CDT 02/15/2025 2:56 PM CDT Chung Stinson MD LAB - BLOOD BANK ORDERAB LES Final Result [facility] [address] [phone] * XR Humerus Right 2Vw or More (02/15/2025 2:34 PM CDT) Anatomical Region Laterality Modality Upper Extremity Computed Radiogr aphy 02/15/2025 2:54 PM CDT Narrative 02/15/2025 3:04 PM CDT PROCEDURE: XR HUMERUS RIGHT 2VW OR MORE DATE/TIME OF EXAM: 02/15/2025 2:34 PM CLINICAL INFORMATION: None relevant/not provided if blank. Indication: Z03.823: Encounter for observation for suspected inserted (injected) foreign body ruled out. Additional History: COMPARISON: None. INDICATION: Request for assessment of retained foreign bodies. There is no mention even with verbal discussion as to what type of foreign body is being questioned has retained. This exam only sensitive for opaque foreign bodies. This is a single view humerus showing gas along the medial arm. At least 13 clips in the right medial arm. These are assumed surgical. Any type of clip-shaped foreign body cannot be excluded. No curved foreign bodies to support a needle. No linear foreign body to suggest a retained sponge marker. The area imaged is from mid right humeral shaft to mid radial ulnar shaft. Edited by Criselda Devi on 02/15/2025 2:58 PM > Interpreting Provider: Dean Mims MD on 02/15/2025 3:04 PM Procedure Note Dean Mims MD - 02/15/2025 PROCEDURE: XR HUMERUS RIGHT 2VW OR MORE DATE/TIME OF EXAM: 02/15/2025 2:34 PM CLINICAL INFORMATION: None relevant/not provided if blank. Indication: Z03.823: Encounter for observation for suspected inserted (injected) foreign body ruled out. Additional History: COMPARISON: None. INDICATION: Request for assessment of retained foreign bodies. There is no mention even with verbal discussion as to what type offoreign body is being questioned has retained. This exam only sensitive for opaque foreign bodies. This is a single view humerus showing gas along the medial arm. At least13 clips in the right medial arm. These are assumed surgical. Any type of clip-shaped foreign body cannot be excluded. No curved foreign bodies to support a needle. No linear foreign body to suggest a retained sponge marker. The area imaged is from mid right humeral shaft to mid radial ulnarshaft. Edited by Criselda Devi on 02/15/2025 2:58 PM > Interpreting Provider: Dean Mims MD on 02/15/2025 3:04 PM Chung Stinson MD DIAGNOSTIC IMAGING ORDER SIMONA Final Result * PREPARE (CROSSMATCH) RBC UNIT(S), 2 Units (02/15/2025 1:59 PM CDT) Unit Description AS1 LR PRBC [facility] Unit ABO A [facility] Unit Rh POS [facility] Product Number R02 [facility] Unit Donor # [id number] [facility]LOOD BANK Unit Status transfused [facility] Product Code X2523E05 [facility] Blood Type Barcode 6200 [facility] Expiration Date [id number] D [facility] Unit Description AS1 LR PRBC [facility] Unit ABO A [facility] Unit Rh POS [facility] Product Number R02 [facility] Unit Donor # [id number] [facility] BLOOD [facility]ANK Unit Status released [facility] Product Code [id number] [facility] Blood Type Barcode 6200 [facility] BLOOD BANK Expiration Date [id number] D [facility] Blood Bank BLOOD SPECIMEN / Unknown 02/15/2025 1:59 PM CDT 02/15/2025 2:04 PM CDT Samra Wright MD LAB - BLOOD BANK ORDERABL ES Final Result Performing Organization Address [facility] Co de Phone Number [facility]LO[facility] [address] [phone] * TYPE + SCREEN PANEL (02/15/2025 1:59 PM CDT) ABO Rh A POS 02/15/2025 2:41 PM CDT [facility] Comment:History checked. Antibody Screen NEG 2:41 PM CDT [facility] Blood Bank BLOOD SPECIMEN / Unknown Venipuncture / Unknown 02/15/2025 1:59 PM CDT 02/15/2025 2:04 PM CDT Chung Stinson MD LAB - BLOOD BANK ORDERAB LES Final Result Performing Organization Address [facility] de Phone Number [facility]LOOD [facility] [address] [phone] * LARYNGEAL MASK AIRWAY (02/15/2025 12:04 PM CDT) Narrative Gray Brewer APRN-MANAGER COMMUNITY OUTREACH - 02/15/2025 12:04 PM CDT Gray Brewer APRN-CRNA 02/15/2025 12:05 PM LMA Placement Procedure/LDA Note: Patient Location: OR. Procedure: LMA Pretreatment: 100% O2 Induction: standard IV Mask Ventilation: not attempted Type: gel LMA Size: 4 Number of Attempts: 1. Placement verified by: direct visualization, bilateral breath sounds and CO2 monitor Dentition unchanged? Yes Staff Section Anesthesia Provider: Gray Brewer, MANAN-MANAGER COMMUNITY OUTREACH, Performed the procedure Samra Wright MD GENERAL ANESTHESIA ORDERA BLES Final Result * CARDIAC RHYTHM STRIP ORDER (01/27/2025 8:16 PM CDT) Only the most recent of2 resultswithin the time period is included. Narrative 01/27/2025 8:16 PM CDT Ordered by an unspecified provider. us Scanned Document CARDIAC SERVICES ORDERABLES Fin al Result * VAS Dialysis Exist Access Scan (01/11/2025 10:15 AM CDT) Anatomical Region Laterality Modality Lower Extremity Ultrasound 01/11/2025 9:47 AM CDT Narrative Procedure Note Chung Stinson MD - 01/11/2025 [facility]ascular [facility] [address] [facility], [address] [place] [address] Hemodialysis Graft Report Pat.Name: AALIYAH CASTILLO Pat.ID: [id number] St.Date: 01/11/2025 Exam Time: 9:47:00 AM Study Type:Hemodialysis Graft Age: 9 1955,69Y Sex: FEMALE Sonogrphr: Javed Arreaga RVT Pat. 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 Consider fistulogram. ++++++++++++++++++++++++++++++++++++ FINDINGS: ++++++++++++++++++++++++++++++++++++ Procedure: B-mode imaging, color flow Doppler and spectral analysis were used to evaluate the AV fistula in the upper arm of the right upper extremity. Study Quality: This study is of adequate technical quality. 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 The average diameter measured 3.2 mm proximally, 6.5 mm mid, and 6.3 mm distally. Signed 01/11/2025 10:28 AM Chung Stinson MD Chung Stinson MD VASCULAR LAB ORDERABLES Edited * LARYNGEAL MASK AIRWAY (11/30/2024 12:34 PM CDT) Narrative Naima Sanford APRN-MANAGER COMMUNITY OUTREACH - 11/30/2024 12:34 PM CDT Naima Sanford APRN-CRNA 11/30/2024 12:35 PM LMA Placement Procedure/LDA Note: Patient Location: OR. Procedure: LMA Pretreatment: 100% O2 Induction: standard IV Patient position: supine. Mask Ventilation: not attempted Type: gel LMA Size: 4 Number of Attempts: 1. Placement verified by: CO2 monitor Dentition unchanged? Yes Staff Section Anesthesia Provider: Naima Sanford APRN-CRNA, Performed the procedure Oswaldo Uriarte MD GENERAL ANESTHESIA ORDERABLES Fi [...] ORDERA BLES Final Result [facility] [address] [place] [address], [facility] [phone] from Last 3 Months Insurance MEDICARE MEDICAID - [place] Advance Directives * Full Code (Latest Code Status on File) Date Activated Date Inactivated Comments 02/15/2025 4:16 PM 02/17/2025 4:57 PM Care Teams Elevated Work Platform Operator Relationship Specialty Start Date End Date Billy Brewer APRN-ELVIA [address] [place] [address] PCP - General 06/03/23
--- OUTSIDE RECORDS SUMMARY | 2025-02-19 17:43 | XMS_ITS | Continuity of Care Document ---
Author Organization [facility] Address [address] [place] [phone] Phone Care Team Providers Care Staff Developer Name Role Phone Jose Luis MORAN, Liss [...] Coded Prq av fstl crtj uxtr 1 [facility] Mod sed same phys/qhp 5/>yrs Mod sed same phys/qhp ea Prq av fstl crtj uxtr 1 [facility] Mod sed same phys/qhp 5/>yrs Mod sed [...] Provider Providers Copied on Encounter [facility], [address] [place] [address], [id number], tel:[phone] [facility] No Information Amaya Liss. [address] [place] [address], [id number], . tel:[phone] [facility], [address] [place] [address], [id number], tel:[phone] [facility] Stricture of ArteryEnd stage renal disease Amaya Liss. [address] [place] [address], [id number], [place]. tel:[phone] Referring Provider: Juan J Ayala, [address] [place] [address], [address]. tel:[phone] [facility], [address] [place] [address], [id number], [place] tel:[phone] [facility] Stricture of ArteryEnd stage renal disease Amaya Liss. [address] [place] [address], [id number], [place]. tel:[phone] Referring Provider: Juan J Ayala, [address] [facility] [address] [facility], [place], [address]. tel:[phone] [facility], [address] [place] [address], [id number], tel:[phone] [facility] Amaya Liss. [address] [place] [address], [id number], . tel:[phone] Referring Provider: Juan J Ayala, [address] [address], [place], [address]. tel:[phone] [facility], [address] [place] [address], [id number], [place] tel:[phone] [facility] Amaya Liss. [address] [place] [address], [id number], . tel:[phone] Referring Provider: Juan J Ayala, [address] [place] [address] [address] [facility], [place], [address]. tel:[phone] [facility], [address] [place] [address], [id number], [place] tel:[phone] [facility] Amaya Liss. [address] [place] [address], [id number], [place]. tel:[phone] Referring Provider: Juan J Ayala, [address] [place] [address], [place], [address]. tel:[phone] [facility], [address] [place] [address], [id number], [place] tel:[phone] [facility] Amaya Liss. [address] [place] [address], [id number], [place]. tel:[phone] Referring Provider: Juan J Ayala, [address] [place] [address], [place], [address]. tel:[phone] [facility], [address] [place] [address], [id number], [place] tel:[phone] [facility] Albovias Jostin. [address] [place] [address], [id number], [place]. tel:[phone] Referring Provider: Juan J Ayala, [address] [place] [address] [address] [facility], [place], [address]. tel:[phone] [facility], [address] [place] [address], [id number], [place] tel:[phone] [facility] Albovias Jostin. [address] [place] [address], [id number], [place]. tel:[phone] Referring Provider: Juan J Ayala, [address] [facility] [address], [place], [address]. tel:[phone] As per patient privacy policy some of the clinical information may not be visible. Family History Family Member Type Diagnosis Age At Onset No Information Payers Payer name Insurance type Covered democrat ID Authoriza tion(s) Medicare [facility] [id number] Medicaid [place] [id number] Social History Type Description Quantity Date Captured Comments Sex Female Smoking Status No Information Gender Identity Female Chief Complaint And Reason For Visit No Information Reason For Referral Reason For Referral No Information Plan Of Treatment Date Type Action Status Future Order: Radiology Order Up per Body Flouroscopy ([id number]), Ordered on: Ordered Future Order: Radiology Order Up per Body Flouroscopy ([id number]), Ordered on: Ordered Future Order: Radiology Order Up per Body Flouroscopy ([id number]), Ordered on: Ordered History Of Present Illness Encounter Date Complaint History Of Prese nt Illness No Information Functional Status Date Functional Assessmen t No Information Instructions Date Instruction Additional Infor mation No Information Assessments Type Assessment Date No Information Patient Care Teams Name Effective Dates (start - stop) Status Members No Information
--- OUTSIDE RECORDS SUMMARY | 2025-02-19 17:43 | XMS_ITS | Encounter Summary ---
Author Organization [facility] Address [address] [place] [address] Care Team Providers Care Quality Assurance Advisor Name Role Phone Billy Brewer DENTIST-FULLER BRUSH WORKER Primary Care Provider [phone] Reason for Referral * Radiology Services (Routine) - Closed Specialty Diagnoses / Procedures Referred By Rocio dupree Referred To Contact Vascular Lab Diagnoses ESRD (end stage renal disease) on dialysis (HCC) Procedures IR Angio [place] [id number] [place] [address] [place] [phone] Phone: tel: fax: [facility] [address] [place] [address], [address] [place] [address] Phone: tel: fax: Referral ID Status Reason Start Date Expiration Date Visits Re quested Visits Authorized [id number] Closed 11/16/2024 11/18/2024 1 1 Encounter Details Date Type Department Care Team (Late st Contact Info) Description 11/16/2024 Telephone [facility] Vascular Services [address] [place] [address], [address] [place] [address] Gloria Allen, RN Social History [...] Description 03/01/2025 10:00 AM CDT Office Visit [facility] - Surgery [id number] [place] [address], [address] [address] Chung Stinson MD [address] [place] [phone] Pending Results Name Type Priority Associated Diagnoses Date /Time IR Angio Av Shunt Imaging Imaging Routine ESRD (end stage renal disease) on dialysis ([facility]) 11/18/2024 3:24 PM CDT Scheduled Orders Name Type Priority Associated Diagnoses Orde r Schedule IR Angio Av Shunt Imaging Imaging Routine ESRD (end stage renal disease) on dialysis ([facility]) 1 Occurrences starting 11/16/2024 until 11/16/2025 documented as of this encounter Visit Diagnoses Diagnosis ESRD (end stage renal disease) on dialysis (HCC)- Primary End stage renal disease documented in this encounter Care Teams Quality Assurance Advisor Relationship Specialty Start Date End Date Billy Brewer APRN-FULLER BRUSH WORKER [address] [place] [address] PCP - General 06/03/23 documented as of this encounter
--- OUTSIDE RECORDS SUMMARY | 2025-02-19 17:43 | XMS_ITS | Encounter Summary ---
Author Organization [facility] Address [address] [place] [address] Care Team Providers Care Transportation Maintenance Worker Name Role Phone Tate Butt ETYMOLOGY PROFESSOR-DESKTOP PUBLISHING SPECIALIST Primary Care Provider Billy Brewer ETYMOLOGY PROFESSOR-DESKTOP PUBLISHING SPECIALIST Primary Care Provider [phone] Encounter Details Date Type Department Care Team (Late st Contact Info) Description 04/24/2018 Lab Requisition [facility] - Laboratory [address] [place] [address] Juan J Obregon MD [address] [place] [address] [address] Anemia in chronic kidney disease (CODE) Social [...] Description 03/01/2025 10:00 AM CDT Office Visit [facility] - Surgery [address] [facility], [address] [place] [address] [place] [address] [facility] [address] [place] [address] documented as of this encounter Procedures Procedure Name Priority Date/Time Associated Diagnosis Comments HEMOGLOBIN Routine 04/24/2018 9:52 AM CDT Anemia in chronic kidney disease (CODE) documented in this encounter Results * HEMOGLOBIN (04/24/2018 9:52 AM CDT) Hemoglobin 12.0 12.0 - 15.6 gm/dL 04/24/2018 9:59 AM CDT [facility] Blood BLOOD SPECIMEN / Unknown Venipuncture / Unknown 04/24/2018 9:52 AM CDT 04/24/2018 9:55 AM CDT us Juan J Obregon MD LAB - HEMATOLOGY ORDERABLES Fi nal Result [facility] [address] [place] [address] documented in this encounter Visit Diagnoses Diagnosis Anemia in chronic kidney disease (CODE) documented in this encounter Care Teams Transportation Maintenance Worker Relationship Specialty Start Date End Date Tate Butt APRN-DESKTOP PUBLISHING SPECIALIST [address] [place] [phone] PCP - General Nurse Practitioner Family 05/26/23 Billy Brewer APRN-CNP [address] [place] [phone] PCP - General 06/03/23 documented as of this encounter
--- OUTSIDE RECORDS SUMMARY | 2025-02-19 17:43 | XMS_ITS | Patient Health Record ---
Author Organization [facility] Address [address] [place] [address] Care Team Providers Care Hospitality Coordinator Name Role Phone Migration, Provider Unavailable Unavailable Pao Mills Unavailable [phone] Mohan Bettina Unavailable [phone] Allergies Allergen (clinical drug ingredient) Drug/Non Drug [...] 100 MG 1 tablet Oral Once a day; Duration: 30 days Active Ketorolac Tromethamine 0.5 % Ophthalmic 11/20/2023 Active Divalproex Sodium ER 250 MG 1 tablet Oral twice a day; Duration: 30 days Active Carbidopa-Levodopa 10-100 MG Oral 11/20/2023 Active risperiDONE 0.5 MG 1 tablet at bedtime Oral Once a day; Duration: 30 days Active Nystatin 465485 UNIT/GM External 11/20/2023 Active Famotidine 20 MG Oral 11/20/2023 Ac tive Simvastatin 20 MG Oral 11/20/2023 A ctive prednisoLONE Acetate 1 % Ophthalmic 11/20/2023 Active ACIDOPHILUS-PECTIN 75 million cell -100 mg Oral *Reorder from [employer] for eRx and Interaction Alerts* 11/20/2023 Active Renvela 800 MG Oral 11/20/2023 Acti ve ASTEPRO ALLERGY 205.5 MCG (0.15 %) NASAL SPRAY *Reorder from [facility] for eRx and Interaction Alerts* 11/20/2023 Active Nystop 673125 UNIT/GM External 11/20/2023 Active Fluticasone Propionate Diskus 50 MCG/ACT Inhalation *Reorder from [facility] for eRx and Interaction Alerts* 11/20/2023 Active [...] 1st dose Unknown 05/29/2021 Ad ministered Novel [id number], preservative free Unknown 04/24/2015 Administered Novel [id number]-[id number], preservative free Unknown 04/07/2017 Administered Pneumococcal conjugate [...] NoDo you have a medical power of deputy commonwealth's attorney?: NoPublic Health and TravelHave you been [...] Do you have a medical power of deputy commonwealth's attorney?: No Gender Identity and LGBTQ Identity Gender identity: Identifies as Female Assigned sex at : Female Problems Problem Type SNOMED Code ICD Code Onset Dates Problem Status W/U Status Risk Notes Problem Schizoaffective disorder, bipolar type (79584897) Schizoaffective disorder, bipolar type (F25.0) 11/20/19 24 Active confirmed Problem Generalized anxiety disorder (18450127) Generalized anxiety disorder (F41.1) 11/20/19 24 Active confirmed Problem End stage renal disease (58494293) End stage renal disease (N18.6) 11/20/19 24 Active confirmed Problem Intellectual functioning disability (764088015) Intellectual functioning disability (F79) Active confirmed Vital Signs Height-cm 160.02 cm 05/04/2024 Height 63.00 in 05/04/2024 Encounters Encounter Location Date [facility] [address] [facility] [address] [place] [address] 05/04/2024 Pao Gene Schizoaffective disorder, bipolar type F25.0 ; Generalized anxiety disorder F41.1 ; Intellectual functioning disability F79 and End stage renal disease N18.[address] [facility] [address] [place] [address] 08/03/2024 Bettina Preston Assessments Encounter Date Diagnosis (ICD Code) Assessment Notes Treatment Notes Treatment Clinical Notes Section Notes 05/04/2024 Schizoaffective disorder, bipolar type (ICD-10 - F25.0) cont depakote ER 250mg bid cont risperidone 0.5mg hs resides at [facility] dialysis on friday, friday and fridaystable, cont current meds; education on meds/treatment coursef/u in 3 months, earlier if concerns -discussed transition to new provider as I am leaving the practice after this month 05/04/2024 Generalized anxiety disorder (ICD-10 - F41.1) cont sertraline 100mg daily 05/04/2024 Intellectual functioning disability (ICD-10 - F79) supportive care 05/04/2024 End stage renal disease (ICD-10 - N18.6) dialysis m-w-f Plan Of Treatment No Information Insurance Providers Payer Name Payer Address Payer Phone Subscriber Number Group Number Insured Name Patient Relationship to Insured Coverage Start Date Coverage End Date Medicare-I l Medicare [address] [place] [phone] [id number] PRATIK CASTILLO Self - patient is the insured Medicaid-I l Medicaid [address] [address] [place] [address] [id number] PRATIK CASTILLO Self - patient is the insured Medical (General) History Medical History History ICD Code Problems: End stage renal failure on xenia lysis Generalized anxiety disorder Intellectual functioning disability Long-term current use of drug therapy Schizoaffective disorder, bipolar type Surgical History Surgery Date(Month/Year) dialysis port removed 12/2023
[2025-02-19 17:44] VITALS: BP 158/86; PULSE 78; RESP 18; TEMP 36.5; O2SAT 100
[2025-02-19 21:59] VITALS: BP 101/56; PULSE 73; RESP 19; TEMP 36.5; O2SAT 100
[2025-02-19] MEDS: CELLULOSE OXIDIZED 2 x 14 INCH 1 PKT XX (22:14)
--- NOTE | 2025-02-19 22:25 | ED_ITS ---
HPI - Skin/Abscess/Foreign Bdy General Chief complaint: Skin/Abscess/Foreign Body Stated complaint: Dialysis port sutures bleeding Time Seen by Provider: 02/19/25 21:49 History of Present Illness HPI narrative: 69-year-old female with a history of chronic kidney disease on dialysis Friday, Friday, Friday, dementia. She presents with some drainage from her right upper extremity AV fistula site. She had this recently placed by her surgeon Dr. Stinson at [facility] several days ago and she was discharged home yesterday. Has been doing well without any complaints but [facility] that there has been some drainage from the fistula site so they referred her to the hospital for evaluation. No active bleeding, scant serosanguineous discharge from the fistula site is noted. No fevers or chills. Patient has no complaints and does not appear to have any pain in this area. Surrounding bruising from the surgery itself with no active bleed noted. No purulence or fluctuant palpable masses. She denies any complaints and wants to go home. Her follow-up appointment with vascular surgery is in 10 days. Related Data Home Medications ?Medication ?Instructions ?Recorded ?Confirmed ?Last Taken ?Type acetaminophen 325 mg capsule 650 mg PO Q6H PRN fever or pain 08/29/22 02/01/25 Unknown History albuterol sulfate 90 mcg/actuation 1 inh inhalation HS 08/29/22 02/01/25 Unknown History aerosol inhaler aluminum-mag hydroxide-simethicone 5 ml PO ONCE 08/29/22 02/01/25 Unknown History 200 mg-200 mg-20 mg/5 mL oral susp (Yin-Lanta) azelastine 205.5 mcg (0.15 %) 2 spray intranasal BID 08/29/22 02/01/25 Unknown History nasal spray (Astepro Allergy) bisacodyl 5 mg tablet,delayed 10 mg PO Q12-24H PRN constipation 08/29/22 02/01/25 Unknown History release bismuth subsalicylate 262 mg/15 mL 524 mg PO Q1H 08/29/22 02/01/25 Unknown History oral suspension (Stomach Relief) carbidopa 10 mg-levodopa 100 mg 1 tablet PO BID 08/29/22 02/01/25 Unknown History tablet dextromethorphan HBr 15 mg/5 mL 15 mg PO Q8H PRN cough 08/29/22 02/01/25 Unknown History oral syrup diphenhydramine HCl 25 mg capsule 25 mg PO QHS 08/29/22 02/01/25 Unknown History (Allergy (diphenhydramine)) divalproex 250 mg tablet,delayed 250 mg PO BID 08/29/22 02/01/25 Unknown History release (Depakote) famotidine 20 mg tablet 20 mg PO HS PRN indigestion 08/29/22 02/01/25 Unknown History fenofibrate 160 mg tablet 160 mg PO DAILY 08/29/22 02/01/25 Unknown History fluticasone propionate 50 2 spray intranasal BID 08/29/22 02/01/25 Unknown History mcg/actuation nasal spray,suspension (Allergy Relief (fluticasone)) levothyroxine 88 mcg capsule 88 mcg PO DAILY 08/29/22 02/01/25 Unknown History pantoprazole 40 mg tablet,delayed 40 mg PO BID 08/29/22 02/01/25 Unknown History release polyethylene glycol 3350 17 17 g PO DAILY PRN constipation 08/29/22 02/01/25 Unknown History gram/dose oral powder risperidone 0.5 mg tablet 0.5 mg PO QHS 08/29/22 02/01/25 Unknown History sertraline 100 mg tablet 100 mg PO DAILY 08/29/22 02/01/25 Unknown History sevelamer carbonate 800 mg tablet 800 mg PO TID 08/29/22 02/01/25 Unknown History (Renvela) simvastatin 20 mg tablet 20 mg PO HS 08/29/22 02/01/25 Unknown History aluminum-mag hydroxide-simethicone 30 ml PO Q4H PRN indigestion 12/22/24 02/01/25 Unknown History 200 mg-200 mg-20 mg/5 mL oral susp (Advanced Antacid-Antigas) bismuth subsalicylate 525 mg/15 mL 262 mg PO Q3H6XD PRN diarrhea 12/22/24 02/01/25 Unknown History oral suspension (Stomach Relief) cholecalciferol (vitamin D3) 1,250 50,000 unit PO .Q14 days 12/22/24 02/01/25 Unknown History mcg (50,000 unit) capsule diphenhydramine HCl 25 mg capsule 25 mg PO Q6H PRN congestion 12/22/24 02/01/25 Unknown History (Banophen) guaifenesin 100 mg/5 mL oral 100 mg PO Q4H PRN cough 12/22/24 02/01/25 Unknown History liquid (Chest Congestion Relief) hydrocodone 5 mg-acetaminophen 325 1 tablet PO Q6H PRN pain 12/22/24 02/01/25 Unknown History mg tablet Lactobacillus acidophilus 75 mmu cells PO DAILY 02/01/25 02/01/25 Unknown History (Acidophilus capsule) Allergies Allergy/AdvReac Type Severity Reaction Status Date / Time NSAIDS (Non-Steroidal Allergy Mild Unknown Verified 12/22/24 06:48 Anti-Inflamma Review of Systems 2 Review of Systems: As reviewed above in [facility] Past Medical History Medical History Parkinsons disease Bipolar disorder Hyperlipidemia Chronic kidney disease H/O gastroesophageal reflux (GERD) Seasonal allergies COPD (chronic obstructive pulmonary disease) Low back pain Chronic venous insufficiency Personal history of dysmenorrhea Hypothyroidism Hypertension Cyclothymia Mild intellectual disability Surgical History Surgical History Davis teeth removed History of removal of cyst abdominal Social History Social History Smoking status: Never smoker Second hand tobacco smoke exposure: No Alcohol intake: never Substance use: never Do You Feel Safe in your Home?: Yes Lack of Transportation: No Lack of Food: Never True Current Housing: I Have Housing Concerned About Future Housing: No Difficulty Paying Gas/Electric Bills: No Difficulty Paying for Meds: No Currently Unemployed: No Education: Decline to Answer Difficulty w/ Childcare or Family Care: No Living arrangements: [facility] Additional living arrangements comments: Residential options Occupation/Education: retired Gender identity (if verbalized by the patient): Female Sexual Orientation (if Verbalized by the Patient): Straight or Heterosexual Spiritual care concerns: No Exam 2 Narrative: GENERAL: [Well-appearing, well-nourished, and in no acute distress.] HEAD: [Normocephalic, atraumatic.] EYES: [PERRLA and EOMI.] ENT: Nares clear, no rhinorrhea or epistaxis. Mucous membranes moist. NECK: Supple. CHEST: [Clear to auscultation. No respiratory distress.] HEART: [Regular rate and rhythm]. No murmur heard. [Normal peripheral pulses.] ABDOMEN: [Soft, nondistended], [nontender], [No rigidity or guarding] EXTREMITIES: Old left upper extremity fistula, right upper extremity fistula is new with stitches still in place, 1 states has popped and some scant serosanguineous drainage is noted. No bleeding noted. Palpable thrill noted. 2+ distal pulses. Good capillary refill. No signs of infection or any purulent drainage. Overlying bruising from surgery. No fluid collections or palpable masses noted. SKIN: Warm, dry, no rash. NEURO: [No focal deficits]. Alert and oriented at her baseline PSYCH: [Normal mood and affect.] Course Vital Signs Vital signs: Vital Signs Temperature 36.5 C 02/19/25 17:44 Pulse Rate 78 02/19/25 17:44 Respiratory Rate 18 02/19/25 17:44 Blood Pressure 158/86 H 02/19/25 17:44 Pulse Oximetry 100 02/19/25 17:44 Oxygen Delivery Room Air 02/19/25 17:44 Temperature 36.5 C 02/19/25 21:59 Pulse Rate 75 02/20/25 00:47 Respiratory Rate 18 02/20/25 00:47 Blood Pressure 108/63 02/20/25 00:47 Pulse Oximetry 100 02/20/25 00:47 Oxygen Delivery Room Air 02/19/25 17:44 MDM - Skin/Abscess/Foreign Bdy MDM Narrative Medical decision making narrative: 69-year-old female with a history of chronic kidney disease on dialysis Friday, Friday, Friday, dementia. She presents with some drainage from her right upper extremity AV fistula site. She had this recently placed by her surgeon Dr. Stinson at [facility] several days ago and she was discharged home yesterday. Has been doing well without any complaints but [facility] has noticed that there has been some drainage from the fistula site so they referred her to the hospital for evaluation. No active bleeding, scant serosanguineous discharge from the fistula site is noted. No fevers or chills. Patient has no complaints and does not appear to have any pain in this area. Surrounding bruising from the surgery itself with no active bleed noted. No purulence or fluctuant palpable masses. She denies any complaints and wants to go home. Her follow-up appointment with vascular surgery is in 10 days. Old left upper extremity fistula, right upper extremity fistula is new with stitches still in place, 1 stitch has popped and some scant serosanguineous drainage is noted. No bleeding noted. Palpable thrill noted. 2+ distal pulses. Good capillary refill. No signs of infection or any purulent drainage. Overlying bruising from surgery. No fluid collections or palpable masses noted. Patient is hemodynamically stable without any tachycardia, fever, hypoxia or significant blood pressure concerns. Examination is reassuring for normal postop changes and serosanguineous drainage. She is missing 1 stitch, but the wound is not dehisced and does not appear to have any active bleeding or any signs of infection. She is afebrile. No palpable fluid collections or masses, no drainable collections of fluid. Laboratory studies obtained to assess for any leukocytosis or anemia. Initially we did discuss CT angiography of the extremity but no clinical indications at this time with palpable thrill, good pulses and no active bleeding or signs of infection. Patient's labs are reassuring. No leukocytosis or signs of infection. Anemia of 9.7 around her baseline. Platelets at her normal level. Normal coagulation panel. Electrolytes unremarkable without any hyperkalemia. BUN and creatinine reflective refer normal end-stage renal disease. Normal glucose. Normal LFTs. Patient remains hemodynamically stable and asymptomatic during re-evaluations. She had some minor serosanguineous drainage and her bandages were exchanged and wrapped again. No ongoing bleeding or any hemorrhage. No concerns on her labs or any signs of infection. Safe for discharge with outpatient follow-up with her vascular surgeon. Given return precautions and instructions to change the dressings whenever they get soiled and return if there is any evidence of bleeding or infection. Medical Records Attestation: I reviewed the patient's medical records. Lab Data Attestation: I reviewed the patient's lab results. 02/19/25 22:30 02/19/25 22:30 Labs: Lab Results 02/19/25 Range/Units 22:30 WBC 4.5 (4.5-10.0) K/mm3 RBC 3.31 L (4.2-5.4) M/mm3 Hgb 9.7 L (12.0-15.0) g/dL Hct 31.1 L (37.0-47.0) % MCV 94.0 (80-100) fl MCH 29.3 (26-34) pg MCHC 31.2 L (32-36) g/dl RDW 17.6 H (11.5-14.5) % Plt Count 82 L (150-375) k/mm3 MPV 9.7 (7.4-10.4) fl Immature Gran % (Auto) 0.7 H (0-0.5) % Neut % (Auto) 53.9 (45.5-73.1) % Lymph % (Auto) 32.4 (18.3-44.2) % [place] % (Auto) 9.5 H (2.6-8.5) % Eos % (Auto) 3.1 (0-4.4) % Baso % (Auto) 0.4 (0.2-1.2) % Lymph # (Auto) 1.47 (0.9-3.2) K/mm3 [place] # (Auto) 0.4 (0.1-0.6) K/mm3 Eos # (Auto) 0.1 (0-0.3) K/mm3 Baso # (Auto) 0.0 (0.0-0.1) K/mm3 Abs Immat Gran (auto) 0.03 (0.00-0.031) K/mm3 Absolute Neuts (auto) 2.5 (1.3-6.7) K/mm3 Absolute Nucleated RBC 0.000 (0.0-0.012) K/mm3 Nucleated RBC % 0.0 (0.0-0.2) % % Immature Plt Fraction 2.2 (0.9-11.2) % PT 13.9 (11.1-14.7) Seconds INR 1.1 APTT 30.4 (22.3-36.8) Seconds Sodium 132 L (137-145) mmol/L Potassium 3.6 (3.4-5.0) mmol/L Chloride 92 L (98-107) mmol/L Carbon Dioxide 29 (22-30) mmol/L Anion Gap 11 (4-12) mmol/L BUN 28 H (7-17) mg/dL Creatinine 3.67 H (0.7-1.0) mg/dL Estim Creat Clear Calc Not Reportable Estimated GFR 12 L (59 - ) Glucose 89 (65-110) mg/dL Calcium 9.5 (8.4-10.2) mg/dL Total Bilirubin 0.5 (0.2-1.3) mg/dL AST 22 (14-36) U/L ALT 10 (6-35) U/L Alkaline Phosphatase 95 (38-126) U/L Total Protein 6.8 (6.3-8.2) g/dL Albumin 3.9 (3.5-5.1) g/dL Blood Type A Positive Antibody Screen Negative Discharge Plan Discharge Clinical Impression: Draining postoperative wound Patient Disposition: Home Condition: Stable Instructions: Antibiotic Form Additional Instructions: Wound has normal postoperative draining without any signs of infection or bleeding. Laboratory studies are all normal, no fevers or any white count or inflammatory marker elevations. Follow-up with your vascular surgeon, return if you start developing fevers, thick pus draining or any pulsatile bleeding. The drainage that you are seeing now is normal and serosanguineous and likely postoperative and reactive fluid which is non concerning. Change the dressings as they become soiled and return with any emergent concerns. Patient Language: Dutch Prescriptions: No Action albuterol sulfate 90 mcg/actuation HFA aerosol inhaler 1 inh inhalation HS azelastine [Astepro Allergy] 205.5 mcg (0.15 %) spray,non-aerosol 2 spray intranasal BID Rx Instructions: administer into each nostril carbidopa-levodopa 10-100 mg tablet 1 tablet PO BID divalproex [Depakote] 250 mg tablet,delayed release (DR/EC) 250 mg PO BID fenofibrate 160 mg tablet 160 mg PO DAILY fluticasone propionate [Allergy Relief (fluticasone)] 50 mcg/actuation spray,suspension 2 spray intranasal BID Rx Instructions: administer into each nostril levothyroxine 88 mcg capsule 88 mcg PO DAILY pantoprazole 40 mg tablet,delayed release (DR/EC) 40 mg PO BID sevelamer carbonate [Renvela] 800 mg tablet 800 mg PO TID Rx Instructions: must administer with a meal/food risperidone 0.5 mg tablet 0.5 mg PO QHS sertraline 100 mg tablet 100 mg PO DAILY simvastatin 20 mg tablet 20 mg PO HS acetaminophen 325 mg capsule 650 mg PO Q6H PRN (Reason: fever or pain) bisacodyl 5 mg tablet,delayed release (DR/EC) 10 mg PO Q12-24H PRN (Reason: constipation) Rx Instructions: max 2 doses/48 hours dextromethorphan HBr 15 mg/5 mL syrup 15 mg PO Q8H PRN (Reason: cough) diphenhydramine HCl [Allergy (diphenhydramine)] 25 mg capsule 25 mg PO QHS famotidine 20 mg tablet 20 mg PO HS PRN (Reason: indigestion) alum-mag hydroxide-simeth [Yin-Lanta] 200-200-20 mg/5 mL suspension 5 ml PO ONCE Rx Instructions: administer between meals and at bedtime polyethylene glycol 3350 17 gram/dose powder 17 g PO DAILY PRN (Reason: constipation) bismuth subsalicylate [Stomach Relief] 262 mg/15 mL suspension 524 mg PO Q1H Rx Instructions: do not exceed 8 doses in a 24 hour period Acidophilus Capsule 75 mmu cells PO DAILY cholecalciferol (vitamin D3) 1,250 mcg (50,000 unit) capsule 50,000 unit PO .Q14 days alum-mag hydroxide-simeth [Advanced Antacid-Antigas] 200-200-20 mg/5 mL suspension 30 ml PO Q4H PRN (Reason: indigestion) diphenhydramine HCl [Banophen] 25 mg capsule 25 mg PO Q6H PRN (Reason: congestion) guaifenesin [Chest Congestion Relief] 100 mg/5 mL liquid 100 mg PO Q4H PRN (Reason: cough) hydrocodone-acetaminophen 5-325 mg tablet 1 tablet PO Q6H PRN (Reason: pain) Stomach Relief 525 mg/15 mL suspension 262 mg PO Q3H6XD PRN (Reason: diarrhea) Follow-up/Referrals: Joaquín,Heather Beck, OPERATIONS LABEL CLERK [Primary Care Provider] - Time of Disposition: 00:55
[2025-02-19 22:50] LABS: INR 1.1; Partial Thromboplastin Time 30.4 Seconds (22.3-36.8); Prothrombin Time 13.9 Seconds (11.1-14.7)
--- OUTSIDE RECORDS SUMMARY | 2025-02-19 22:50 | XMS_ITS | Encounter Summary ---
Author Organization [facility] Address [address] [place] [address] Care Team Providers Care Front Office Developer Name Role Phone Billy Brewer UNIT TENDER-FLOAT OPERATOR Primary Care Provider [phone] Reason for Referral * Radiology Services (Routine) - Closed Specialty Diagnoses / Procedures Referred By Rocio dupree Referred To Contact Vascular Lab Diagnoses ESRD (end stage renal disease) on dialysis (HCC) Procedures IR Angio [place] [id number] [place] [address] [place] [phone] Phone: tel: fax: [facility] Vascular Services [address] [place] [address], [address] [place] [address] Phone: tel: fax: Referral ID Status Reason Start Date Expiration Date Visits Re quested Visits Authorized [id number] Closed 11/16/2024 11/18/2024 1 1 Encounter Details Date Type Department Care Team (Late st Contact Info) Description 11/16/2024 Telephone [facility] Health Vascular Services [address] [place] [address], [address] [place] [address] Gloria Allen, RN Social History [...] Assessment Author Yes 05/25/2024 1:08 PM Gaston Andrse RN * Is person blind or have [...] Description 03/01/2025 10:00 AM CDT Office Visit [facility] - Surgery [id number] [place] [address], [address] [address] Chung Stinson MD [address] [place] [phone] Pending Results Name Type Priority Associated Diagnoses Date /Time IR Angio Av Shunt Imaging Imaging Routine ESRD (end stage renal disease) on dialysis ([facility]) 11/18/2024 3:24 PM CDT Scheduled Orders Name Type Priority Associated Diagnoses Orde r Schedule IR Angio Av Shunt Imaging Imaging Routine ESRD (end stage renal disease) on dialysis ([facility]) 1 Occurrences starting 11/16/2024 until 11/16/2025 documented as of this encounter Visit Diagnoses Diagnosis ESRD (end stage renal disease) on dialysis (HCC)- Primary End stage renal disease documented in this encounter Care Teams Front Office Developer Relationship Specialty Start Date End Date Billy Brewer APRN-FLOAT OPERATOR [address] [place] [address] PCP - General 06/03/23 documented as of this encounter
--- OUTSIDE RECORDS SUMMARY | 2025-02-19 22:50 | XMS_ITS | Continuity of Care Document ---
Author Organization [facility] Address [address] [place] [phone] Phone Care Team Providers Care Sheet Rock Installer Name Role Phone Jose Luis MORAN, Liss [...] Coded Prq av fstl crtj uxtr 1 [facility] Mod sed same phys/qhp 5/>yrs Mod sed same phys/qhp ea Prq av fstl crtj uxtr 1 [facility] Mod sed same phys/qhp 5/>yrs Mod sed [...] Diagnoses Date Provider Providers Copied on Encounter [facility], [address] [place] [address], [id number], tel:[phone] [facility] No Information Amaya Liss. [address] [place] [address], [id number], . tel:[phone] [facility], [address] [place] [address], [id number], tel:[phone] [facility] Stricture of ArteryEnd stage renal disease Amaya Liss. [address] [place] [address], [id number], [place]. tel:[phone] Referring Provider: Juan J Ayala, [address] [place] [address], [id number]. tel:[phone] [facility], [address] [place] [address], [id number], [place] tel:[phone] [facility] Stricture of ArteryEnd stage renal disease Amaya Liss. [address] [place] [address], [id number], [place]. tel:[phone] Referring Provider: Juan J Ayala, [address] [facility] [address] [facility], [place], [address]. tel:[phone] [facility], [address] [place] [address], [id number], tel:[phone] [facility] Amaya Liss. [address] [place] [address], [id number], . tel:[phone] Referring Provider: Juan J Ayala, [address] [address], [place], [address]. tel:[phone] [facility], [address] [place] [address], [id number], [place] tel:[phone] [facility] Amaya Liss. [address] [place] [address], [id number], . tel:[phone] Referring Provider: Juan J Ayala, [address] [place] [address] Suite [facility], [place], [address]. tel:[phone] [facility], [address] [place] [address], [id number], [place] tel:[phone] [facility] Amaya Liss. [address] [place] [address], [id number], [place]. tel:[phone] Referring Provider: Juan J Ayala, [address] [place] [address], [place], [address]. tel:[phone] [facility], [address] [place] [address], [id number], [place] tel:[phone] [facility] Amaya Liss. [address] [place] [address], [id number], [place]. tel:[phone] Referring Provider: Juan J Ayala, [address] [place] [address], [place], [address]. tel:[phone] [facility], [address] [place] [address], [id number], [place] tel:[phone] [facility] Albovias Jostin. [address] [place] [address], [id number], [place]. tel:[phone] Referring Provider: Juan J Ayala, [address] [place] [address] Suite [facility], [place], [address]. tel:[phone] [facility], [address] [place] [address], [id number], [place] tel:[phone] [facility] Albovias Jostin. [address] [place] [address], [id number], [place]. tel:[phone] Referring Provider: Juan J Ayala, [address] [facility] [address], [place], [address]. tel:[phone] As per patient privacy policy some of the clinical information may not be visible. Family History Family Member Type Diagnosis Age At Onset No Information Payers Payer name Insurance type Covered democrat ID Authoriza tion(s) Medicare [facility] [id number] Medicaid [place] [id number] Social History Type Description Quantity Date Captured Comments Sex Female Smoking Status No Information Gender Identity Female Chief Complaint And Reason For Visit No Information Reason For Referral Reason For Referral No Information Plan Of Treatment Date Type Action Status Future Order: Radiology Order Up per Body Flouroscopy ([id number]), Ordered on: Ordered Future Order: Radiology Order Up per Body Flouroscopy ([id number]), Ordered on: Ordered Future Order: Radiology Order Up per Body Flouroscopy ([id number]), Ordered on: Ordered History Of Present Illness Encounter Date Complaint History Of Prese nt Illness No Information Functional Status Date Functional Assessmen t No Information Instructions Date Instruction Additional Infor mation No Information Assessments Type Assessment Date No Information Patient Care Teams Name Effective Dates (start - stop) Status Members No Information
--- OUTSIDE RECORDS SUMMARY | 2025-02-19 22:50 | XMS_ITS | Encounter Summary ---
Author Organization [facility] Address [address] [place] [address] Care Team Providers Care Washing And Screening Plant Supervisor Name Role Phone Tate Butt INSTRUMENTAL MUSIC TEACHER-URBAN REDEVELOPMENT SPECIALIST Primary Care Provider Billy Brewer INSTRUMENTAL MUSIC TEACHER-URBAN REDEVELOPMENT SPECIALIST Primary Care Provider [phone] Encounter Details Date Type Department Care Team (Late st Contact Info) Description 04/24/2018 Lab Requisition [facility] - Laboratory [address] [place] [address] Juan J Obregon MD [address] [place] [address] [address] Anemia in chronic kidney disease (CODE) Social [...] Description 03/01/2025 10:00 AM CDT Office Visit [facility] - Surgery [address] [facility], [address] [place] [address] [place] [address] [facility] [facility] [address] [place] [address] documented as of this encounter Procedures Procedure Name Priority Date/Time Associated Diagnosis Comments HEMOGLOBIN Routine 04/24/2018 9:52 AM CDT Anemia in chronic kidney disease (CODE) documented in this encounter Results * HEMOGLOBIN (04/24/2018 9:52 AM CDT) Hemoglobin 12.0 12.0 - 15.6 gm/dL 04/24/2018 9:59 AM CDT [facility] Blood BLOOD SPECIMEN / Unknown Venipuncture / Unknown 04/24/2018 9:52 AM CDT 04/24/2018 9:55 AM CDT us Juan J Obregon MD LAB - HEMATOLOGY ORDERABLES Fi nal Result [facility] [address] [place] [address] documented in this encounter Visit Diagnoses Diagnosis Anemia in chronic kidney disease (CODE) documented in this encounter Care Teams Washing And Screening Plant Supervisor Relationship Specialty Start Date End Date Tate Butt APRN-URBAN REDEVELOPMENT SPECIALIST [address] [place] [phone] PCP - General Nurse Practitioner Family 05/26/23 Billy Brewer APRN-CNP [address] [place] [phone] PCP - General 06/03/23 documented as of this encounter
--- OUTSIDE RECORDS SUMMARY | 2025-02-19 22:50 | XMS_ITS | Clinical Summary ---
Author Organization [facility] Address [address] [place] [address] Care Team Providers Care Skidder Loader Name Role Phone Billy Brewer GEAR MACHINE OPERATOR-CHIEF INFORMATION SECURITY OFFICER Primary Care Provider [phone]- [phone] Source Comments [facility],non-owned Affiliates and Associated Physician Practices is amultiple site organization consisting of ambulatory clinics and hospital sitesin [place], [place], [place] and [place]. This disclosure is being madepursuant to the Care Everywhere program and may not contain all information available regarding this patient. Last updated 18.[facility] Allergies Active Allergy Reactions Criticality Noted Date [...] Active azelastine (Astepro) 205.5 MCG/SPRAY nasal spray [place] 2 (two) sprays into the nose 2 [...] fluticasone propionate (Flonase) 50 MCG/ACT nasal spray [place] 2 (two) sprays into each nostril 2 [...] BOTH BREASTS 04/21/20 23 Active nystatin (Mycostatin) 456140 UNIT/GM powder Apply to affected area 3 [...] pm Active Cholecalciferol (vitamin D3) 1.25 MG (39938 UT) capsule Take 1 (one) capsule by [...] hours. Active Azelastine HCl 137 MCG/SPRAY SOLN [place] 2 sprays into the nose 2 times daily as needed Active diphenhydrAMINE (Banophen) 25 MG capsule Take 1 (one) capsule by mouth every 6 hours as needed for Itching Active HYDROcodone-aceta minophen ([place]) 5-325 MG tabletIndications :ESRD (end stage renal disease) ([facility]) Take 1 (one) tablet by mouth every 6 hours as needed for Pain 12 tablet 02/16/20 25 Active HYDROcodone-aceta minophen ([place]) 5-325 MG tabletIndications :ESRD (end stage renal disease) ([facility]) Take 1 (one) tablet by mouth every 6 hours as needed for Pain 30 tablet 05/25/20 24 025 Discontin ued(Tx Complete) HYDROcodone-aceta minophen ([place]) 5-325 MG tabletIndications :ESRD (end stage renal disease) ([facility]) Take 1 (one) tablet by mouth every 6 hours as needed for Pain 30 tablet 05/25/20 24 025 Discontin ued(Tx Complete) HYDROcodone-aceta minophen ([place]) 5-325 MG tabletIndications :Pre-op exam Take 1 (one) tablet by mouth every 6 hours as needed for Pain 12 tablet 12/01/19 25 025 Discontin ued(Tx Complete) Active Problems Problem Noted Date Diagnosed Date ESRD (end stage renal disease) 11/30/2024 Encounters Date Type Department Care Team Description 02/15/2025 11:50 AM CDT - 02/15/2025 1:48 PM CDT Surgery [facility] - Perioperative Surgery [address] [place] [address] Chung Stinson MD TRANSPOSITION RIGHT UPPER ARM AV FISTULA; RE-EXPLORATION FOR BLEEDING 02/15/2025 11:48 AM CDT Anesthesia Event [facility] - Perioperative Surgery [address] [place] [address] Samra Wright MD Ford, James D, GEAR MACHINE OPERATOR-ELECTRICAL ESTIMATOR 02/15/2025 9:56 AM CDT - 02/17/2025 3:52 PM CDT Hospital Encounter [facility] 2S SURG/BARIATRIC [address] [place] [address] Chung Stinson MD Surgery General Discharge Disposition: Home or Self Care 02/15/2025 Travel 01/25/2025 1:22 PM CDT - 01/25/2025 11:59 PM CDT Hospital Encounter [facility] [address] [place] [address], [address] [place] [address] Ben Titus DO Reynolds, Michael D, MD Javed, DO Kayode Walls Thomas B, MD Discharge Disposition: Home or Self Care 01/11/2025 10:30 AM CDT Office Visit [facility] - Surgery [address] [place] [address], [address] [place] [id number] Chung Stinson MD Postop check (Primary Dx) 01/11/2025 10:00 AM CDT - 01/11/2025 11:59 PM CDT Hospital Encounter [facility] [address] [place] [address], [address] [place] [address] Chung Stinson MD Discharge Disposition: Home or Self Care 12/14/2024 10:20 AM CDT Office Visit [facility] - Surgery [address] [facility], [address] [place] [address] Chung Stinson MD ESRD (end stage renal disease) (HCC) (Primary Dx) 12/14/2024 Travel 11/30/2024 1:22 PM CDT - 11/30/2024 2:54 PM CDT Surgery [facility] - Perioperative Surgery [address] [place] [address] Chung Stinson MD EXPLORATION CEPHALIC VEIN AND CREATION BRACHIOBASILIC FISTULA 11/30/2024 12:24 PM CDT Anesthesia Event [facility] Perioperative Surgery [address] [place] [address] Oswaldo Uriarte MD Shaw, Thomas J, 11/30/2024 11:23 AM CDT - 11/30/2024 2:56 PM CDT Hospital Encounter [facility] - Perioperative Surgery [address] [place] [address] Chung Stinson MD Surgery General Discharge Disposition: [...] Description 03/01/2025 10:00 AM CDT Office Visit [facility] - Surgery [address] [facility], [address] [place] [address] [place] [address] [facility] [address] [place] [id number] Health Maintenance Due Date Last Done Comments [...] this topic Medical Devices Implanted Type Area It Applications Developer Device Identifier Shelf Expiration Date Model / Serial / Lot Graft Vasc 4-7mm 45cm Grtx Std Wl Tpr - [id number] Implanted:Qty: 1 on 05/25/2024 by Ramy Schilling MD at [facility] Left: Arm [employer] 12/28/2028 [id number] / [id number] / Procedures Procedure Name Priority Date/Time Associated [...] MASK AIRWAY Routine 02/15/2025 12:04 PM CDT NM ANASTOMOSIS,AV,BASILI C VEIN 02/15/2025 11:37 AM CDT BASIC METABOLIC PANEL (CALCIUM TOTAL) STAT 02/15/2025 10:23 AM CDT Pre-op exam CARDIAC RHYTHM STRIP ORDER 01/27/2025 8:16 PM CDT VAS DIALYSIS EXIST ACCESS SCAN Routine 01/11/2025 10:15 AM CDT ESRD (end stage renal disease) (HCC) LARYNGEAL MASK AIRWAY Routine 11/30/2024 12:34 PM CDT NM ANASTOMOSIS,AV,ANY SITE 11/30/2024 12:14 PM CDT BLOOD [...] W RFLX CONFIRMATION (02/16/2025 11:30 AM CDT) [facility] HBsAg Non Reactive Non Reactive 02/16/2025 12:50 PM CDT [facility] Blood BLOOD SPECIMEN / Unknown Venipuncture / Unknown 02/16/2025 11:30 AM CDT 02/16/2025 11:34 AM CDT Cecilia Franks MD LAB - CHEMISTRY ORDERABLES Fin al Result [facility] [address] [place] [address] * (ABNORMAL) CBC W AUTO DIFFERENTIAL (02/16/2025 2:58 AM CDT) Only the most recent of2 resultswithin the time period is included. [facility] WBC 11.1(H) 4.0 - 10.7 x10E9/L 02/16/2025 4:03 AM CDT [facility] RBC Count 3.49(L) 3.90 - 5.20 x10E12/L 02/16/2025 4:03 AM CDT [facility] Hemoglobin 10.3(L) 11.9 - 15.8 g/dL 02/16/2025 4:03 AM CDT [facility] Hematocrit 32.0(L) 34.8 - 46.1 % 02/16/2025 4:03 AM CDT [facility] MCV 91.7 80.0 - 98.0 fL 02/16/2025 4:03 AM CDT [facility] MCH 29.5 26.7 - 33.6 pg 02/16/2025 4:03 AM CDT [facility] MCHC 32.2 31.7 - 36.3 g/dL 02/16/2025 4:03 AM CDT [facility] RDW-CV 18.5(H) 11.3 - 14.8 % 02/16/2025 4:03 AM CDT [facility] Platelet Count 84(L) 150 - 420 x10E9/L 02/16/2025 4:03 AM CDT [facility] MPV 9.8 7.8 - 11.4 fL 02/16/2025 4:03 AM CDT [facility] Neutrophil % 90.5(H) 41.0 - 74.0 % 02/16/2025 4:03 AM CDT [facility] Lymphocyte % 4.4(L) 17.0 - 47.0 % 02/16/2025 4:03 AM CDT [facility] Monocyte % 4.3 3.0 - 11.0 % 02/16/2025 4:03 AM CDT [facility] Eosinophil % 0.2 0.0 - 7.0 % 02/16/2025 4:03 AM CDT [facility] Basophil % 0.2 0.0 - 1.6 % 02/16/2025 4:03 AM CDT [facility] Immature Granulocytes % 0.4 0.0 - 1.0 % 02/16/2025 4:03 AM CDT [facility] Neutrophil Absolute 10.07(H) 1.60 - 7.50 x10E9/L 02/16/2025 4:03 AM CDT [facility] Lymphocyte Absolute 0.49(L) 1.00 - 4.40 x10E9/L 02/16/2025 4:03 AM CDT [facility] Monocyte Absolute 0.48 0.15 - 1.00 x10E9/L 02/16/2025 4:03 AM CDT [facility] Eosinophil Absolute 0.02 0.00 - 0.60 x10E9/L 02/16/2025 4:03 AM CDT [facility] Basophil Absolute 0.02 0.00 - 0.13 x10E9/L 02/16/2025 4:03 AM T [facility] Blood BLOOD SPECIMEN / Unknown Venipuncture / Unknown 02/16/2025 2:58 AM CDT 02/16/2025 3:39 AM CDT us Chung Stinson MD LAB - HEMATOLOGY ORDERAB LES Final Result [facility] [address] [place] [address] * (ABNORMAL) BASIC METABOLIC PANEL (CALCIUM TOTAL) (02/16/2025 2:58 AM CDT) Only the most recent of2 resultswithin the time period is included. [facility] Signature Glucose 120(H) 70 - 99 mg/dL 02/16/2025 4:00 AM CDT [facility] Sodium 134(L) 136 - 145 mmol/L 02/16/2025 4:00 AM T [facility] Potassium 4.6 3.5 - 5.1 mmol/L 02/16/2025 4:00 AM CDT [facility] Chloride 99 98 - 107 mmol/L 02/16/2025 4:00 AM T [facility] CO2 23 22 - 29 mmol/L 02/16/2025 4:00 AM T [facility] Calcium 8.9 8.4 - 10.4 mg/dL 02/16/2025 4:00 AM T [facility] Anion Gap 12 6 - 16 mmol/L 02/16/2025 4:00 AM CDT [facility] BUN 23 7 - 26 mg/dL 02/16/2025 4:00 AM CDT [facility] Creatinine 4.04(H) 0.57 - 1.11 mg/dL 02/16/2025 4:00 AM T [facility] eGFR by CKD-EPI 11(L) >=90 mL/min/1.7 3 m2 02/16/2025 4:00 AM T [facility] Comment:Estimated Glomerular Filtration Rate (eGFR) calculated using the CKD-EPI Creatinine Equation (2020), per the National Kidney Foundation and [place] [employer] Nephrology recommendations. Blood BLOOD SPECIMEN / Unknown Venipuncture / Unknown 02/16/2025 2:58 AM CDT 02/16/2025 3:39 AM CDT us Chung Stinson MD LAB - CHEMISTRY ORDERABL ES Final Result [facility] [address] [place] [address] * TRANSFUSE RED BLOOD CELL LEUKOREDUCED ML(S), 300 mL across aliquots (02/15/2025 6:26 PM CDT) us Samra Wright MD NURSING - BLOOD PROD TSE SFUSION Final Result * BLOOD TYPE VERIFICATION (02/15/2025 2:56 PM CDT) ABO Rh A POS 02/15/2025 3:2 2 PM CDT [facility] Blood Bank BLOOD SPECIMEN / Unknown Venipuncture / Unknown 02/15/2025 2:56 PM CDT 02/15/2025 2:56 PM CDT Chung Stinson MD LAB - BLOOD BANK ORDERAB LES Final Result [facility] [address] [phone] * XR Humerus Right 2Vw or More [...] R02 [facility] Unit Donor # [id number] DP C BLOOD BANK Unit Status transfused [facility] Product Code [id number] [facility] Blood Type Barcode 6200 [facility] Expiration Date [id number] [facility] [place] [facility] Unit Description AS1 LR PRBC [facility] Unit ABO A [facility] Unit Rh POS [facility] B[facility] Product Number R02 [facility]OD [facility] Unit Donor # [id number] [facility] BLOOD BANK Unit Status released [facility] B[facility] OD BANK Product Code [id number] [facility] Blood Type Barcode 6200 [facility]OD BANK Expiration Date [id number] [facility] [place] [facility] Blood Bank BLOOD SPECIMEN / Unknown 02/15/2025 1:59 PM CDT 02/15/2025 2:04 PM CDT Samra Wright MD LAB - BLOOD BANK ORDERABL ES Final Result Performing Organization Address [facility] Co de Phone Number [facility] [address] [phone] * TYPE + SCREEN PANEL (02/15/2025 1:59 PM CDT) ABO Rh A POS 02/15/2025 2:41 PM CDT [facility] Comment:History checked. Antibody Screen NEG 2:41 PM CDT [facility] Blood Bank BLOOD SPECIMEN / Unknown Venipuncture / Unknown 02/15/2025 1:59 PM CDT 02/15/2025 2:04 PM CDT Chung Stinson MD LAB - BLOOD BANK ORDERAB LES Final Result Performing Organization Address [facility] de Phone Number [facility]OD [facility] [address] [phone] * LARYNGEAL MASK AIRWAY (02/15/2025 12:04 PM CDT) Narrative Gray Brewer APRN-ELECTRICAL ESTIMATOR - 02/15/2025 12:04 PM CDT Gray Brewer APRN-CRNA 02/15/2025 12:05 PM LMA Placement Procedure/LDA Note: Patient Location: OR. Procedure: LMA Pretreatment: 100% O2 Induction: standard IV Mask Ventilation: not attempted Type: gel LMA Size: 4 Number of Attempts: 1. Placement verified by: direct visualization, bilateral breath sounds and CO2 monitor Dentition unchanged? Yes Staff Section Anesthesia Provider: Gray Brewer, MANAN-ELECTRICAL ESTIMATOR, Performed the procedure Samra Wright MD GENERAL [...] Procedure Note Chung Stinson MD - 01/11/2025 [facility] [address] [facility], [address] [place] [address] Hemodialysis Graft Report Pat.Name: AALIYAH CASTILLO Pat.ID: [id number] St.Date: 01/11/2025 Exam Time: 9:47:00 AM Study Type:Hemodialysis Graft Age: 9 1955,69Y Sex: FEMALE Sonogrphr: Javed Arreaga RVT Pat. Stat.:Outpatient CPT - 4: 41742 Reason for Study: AV Fistula Evaluation Procedures: AV Fistula Evaluation Race: 1 Visit ID: [id number] ++++++++++++++++++++++++++++++++++++ SUMMARY: ++++++++++++++++++++++++++++++++++++ Patent right brachial basilic [...] (11/30/2024 12:34 PM CDT) Narrative Naima Sanford APRN-ELECTRICAL ESTIMATOR - 11/30/2024 12:34 PM CDT Naima Sanford [...] ORDERA BLES Final Result [facility] [address] [place] [address], [facility] [phone] from Last 3 Months Insurance MEDICARE MEDICAID - [place] Advance Directives * Full Code (Latest Code Status on File) Date Activated Date Inactivated Comments 02/15/2025 4:16 PM 02/17/2025 4:57 PM Care Teams Skidder Loader Relationship Specialty Start Date End Date Billy Brewer APRN-ELVIA [address] [place] [phone] PCP - General 06/03/23
[2025-02-19 22:56] LABS: Alanine Aminotransferase 10 U/L (6-35); Albumin Level 3.9 g/dL (3.5-5.1); Alkaline Phosphatase 95 U/L (38-126); Anion Gap 11 mmol/L (4-12); Aspartate Amino Transferase 22 U/L (14-36); Bilirubin,Total 0.5 mg/dL (0.2-1.3); Blood Urea Nitrogen 28 mg/dL (7-17); Calcium 9.5 mg/dL (8.4-10.2); Carbon Dioxide 29 mmol/L (22-30); Chloride 92 mmol/L (98-107); Estimated Glomerular Filt Rate 12; Glucose 89 mg/dL (65-110); Potassium 3.6 mmol/L (3.4-5.0); Sodium 132 mmol/L (137-145); Total Protein 6.8 g/dL (6.3-8.2)
[2025-02-19 23:06] LABS: Hematocrit 31.1 % (37.0-47.0); Hemoglobin 9.7 g/dL (12.0-15.0); Immature Granulocyte Percent A 0.7 % (0-0.5); Immature Platelet Fraction Pct 2.2 % (0.9-11.2); Lymphocytes Absolute Auto 1.47 K/mm3 (0.9-3.2); Mean Corpuscular HGB Conc 31.2 g/dl (32-36); Mean Corpuscular Hemoglobin 29.3 pg (26-34); Mean Corpuscular Volume 94.0 fl (80-100); Nucleated Red Blood Cells Absolute Auto 0.000 K/mm3 (0.0-0.012); Nucleated Red Blood Cells Perc 0.0 % (0.0-0.2); Platelet Count Result 82 k/mm3 (150-375); Red Blood Count 3.31 M/mm3 (4.2-5.4); White Blood Count 4.5 K/mm3 (4.5-10.0)
[2025-02-20 00:47] VITALS: BP 108/63; PULSE 75; RESP 18; O2SAT 100
== END 2025-02-20 01:15 | disposition home or self-care (01) ==
PROVIDERS: Emergency Provider Student in an Organized Health Care Education/Training Program
DX: Z48.01 Encounter for change or removal of surgical wound dressing (principal); I12.0 Hypertensive chronic kidney disease with stage 5 chronic kidney disease or end stage renal disease; N18.6 End stage renal disease; Z99.2 Dependence on renal dialysis; G20.A1 Parkinson's disease without dyskinesia, without mention of fluctuations; F03.90 Unspecified dementia, unspecified severity, without behavioral disturbance, psychotic disturbance, mood disturbance, and anxiety; I87.2 Venous insufficiency (chronic) (peripheral); J44.9 Chronic obstructive pulmonary disease, unspecified; E78.5 Hyperlipidemia, unspecified; E03.9 Hypothyroidism, unspecified; F70 Mild intellectual disabilities; Z79.899 Other long term (current) drug therapy
CPT/HCPCS: 36415; 80053; 85025; 85055; 85610; 85730; 86850; 86900; 86901; 99283

== ENCOUNTER 2025-03-01 08:24 | Outpatient (CLI) | payer MEDICARE, MEDICAID, SELFPAY ==
--- OUTSIDE RECORDS SUMMARY | 2025-03-01 08:31 | XMS_ITS | Encounter Summary ---
Author Organization [facility] Address [address] [facility] [place] [address] Care Team Providers Care Handicapper [employer] Name Role Phone Tate Butt DEPOSITING MACHINE OPERATOR-GASOLINE ATTENDANT Primary Care Provider Billy Brewer DEPOSITING MACHINE OPERATOR-GASOLINE ATTENDANT Primary Care Provider +1- [phone] Encounter Details Date Type Department Care Team (Late st Contact Info) Description 04/24/2018 Lab Requisition Pending sale to [facility] - Laboratory [address] [place] [address] Juan J Obregon MD [address] [place] [address] [address] Anemia in chronic kidney disease (CODE) Social [...] Description 03/01/2025 10:00 AM CDT Office Visit [facility] - Surgery [address] [facility], [address] [place] [address] [place] [address] [facility] [address] [place] [address] documented as of this encounter [...] Fi nal Result [facility] [address] [place] [address] documented in this encounter Visit Diagnoses Diagnosis Anemia in chronic kidney disease (CODE) documented in this encounter Care Teams Handicapper [employer] Relationship Specialty Start Date End Date Tate Butt APRN-GASOLINE ATTENDANT [address] [place] [phone] PCP - General Nurse Practitioner Family 05/26/23 Billy Brewer APRN-CNP [address] [place] [phone] PCP - General 06/03/23 documented as of this encounter
--- OUTSIDE RECORDS SUMMARY | 2025-03-01 08:31 | XMS_ITS | Clinical Summary ---
Author Organization [facility] Address [address] [place] [address] Care Team Providers Care Public Relations Counselor Name Role Phone Billy Brewer CASH SALES AUDIT CLERK-MANAGER FLORAL Primary Care Provider [phone]- [phone] Source Comments [facility],non-owned Affiliates and Associated Physician Practices is amultiple site organization consisting of ambulatory clinics and hospital sitesin [place], [place], [place] and [place]. This disclosure is being madepursuant to the Care Everywhere program and may not contain all information available regarding this patient. Last updated 18.[facility] Allergies Active Allergy Reactions Criticality Noted Date [...] Active azelastine (Astepro) 205.5 MCG/SPRAY nasal spray [place] 2 (two) sprays into the nose 2 [...] fluticasone propionate (Flonase) 50 MCG/ACT nasal spray [place] 2 (two) sprays into each nostril 2 [...] BOTH BREASTS 04/21/20 23 Active nystatin (Mycostatin) 139060 UNIT/GM powder Apply to affected area 3 [...] pm Active Cholecalciferol (vitamin D3) 1.25 MG (34320 UT) capsule Take 1 (one) capsule by [...] hours. Active Azelastine HCl 137 MCG/SPRAY SOLN [place] 2 sprays into the nose 2 times daily as needed Active diphenhydrAMINE (Banophen) 25 MG capsule Take 1 (one) capsule by mouth every 6 hours as needed for Itching Active HYDROcodone-aceta minophen ([place]) 5-325 MG tabletIndications :ESRD (end stage renal disease) ([facility]) Take 1 (one) tablet by mouth every 6 hours as needed for Pain 12 tablet 02/16/20 25 Active HYDROcodone-aceta minophen ([place]) 5-325 MG tabletIndications :ESRD (end stage renal disease) ([facility]) Take 1 (one) tablet by mouth every 6 hours as needed for Pain 30 tablet 05/25/20 24 025 Discontin ued(Tx Complete) HYDROcodone-aceta minophen ([place]) 5-325 MG tabletIndications :ESRD (end stage renal disease) ([facility]) Take 1 (one) tablet by mouth every 6 hours as needed for Pain 30 tablet 05/25/20 24 025 Discontin ued(Tx Complete) HYDROcodone-aceta minophen ([place]) 5-325 MG tabletIndications :Pre-op exam Take 1 (one) tablet by mouth every 6 hours as needed for Pain 12 tablet 12/01/19 25 025 Discontin ued(Tx Complete) Active Problems Problem Noted Date Diagnosed Date ESRD (end stage renal disease) 11/30/2024 Encounters Date Type Department Care Team Description 02/25/2025 Telephone [facility] Standard [address] [place] [id number] Ellie Mckeon, CASH SALES AUDIT CLERK-MANAGER FLORAL Chest Pain 02/22/2025 Telephone [facility] Surgery [address] [place] [address], [address] [place] [address] Chung Stinson MD Question 02/15/2025 11:50 AM CDT - 02/15/2025 1:48 PM CDT Surgery [facility] - Perioperative Surgery [address] [place] [address] Chung Stinson MD TRANSPOSITION RIGHT UPPER ARM AV FISTULA; RE-EXPLORATION FOR BLEEDING 02/15/2025 11:48 AM CDT Anesthesia Event [facility] - Perioperative Surgery [address] [place] [address] Samra Wright MD Ford, James D, CASH SALES AUDIT CLERK-BUNDLE HELPER 02/15/2025 9:56 AM CDT - 02/17/2025 3:52 PM CDT Hospital Encounter [facility] SURG/BARIATRIC [address] [place] [address] Chung Stinson MD Surgery General Discharge Disposition: Home or Self Care 02/15/2025 Travel 01/25/2025 1:22 PM CDT - 01/25/2025 11:59 PM CDT Hospital Encounter [facility] Vascular Services [address] [place] [address], [address] [place] [address] Ben Titus DO Reynolds, Michael D, MD Javed, Mohammad Ali, DO Charles, Thomas B, MD Discharge Disposition: Home or Self Care 01/11/2025 10:30 AM CDT Office Visit [facility] - Surgery [address] [place] [address], [address] [place] [address] Chung Stinson MD Postop check (Primary Dx) 01/11/2025 10:00 AM CDT - 01/11/2025 11:59 PM CDT Hospital Encounter [facility] Services [address] [place] [address], [address] [place] [address] Chung Stinson MD Discharge Disposition: Home or Self Care 12/14/2024 10:20 AM CDT Office Visit [facility] Surgery [address] [place] [address], [address] [place] [address] Chung Stinson MD ESRD (end stage renal disease) (HCC) (Primary Dx) 12/14/2024 Travel 11/30/2024 1:22 PM CDT - 11/30/2024 2:54 PM CDT Surgery [facility] - Perioperative Surgery [address] [place] [address] Chung Stinson MD EXPLORATION CEPHALIC VEIN AND CREATION BRACHIOBASILIC FISTULA 11/30/2024 12:24 PM CDT Anesthesia Event [facility] Perioperative Surgery [address] [place] [address] Oswaldo Uriarte MD Shaw, Thomas J, DO 11/30/2024 11:23 AM CDT - 11/30/2024 2:56 PM CDT Hospital Encounter [facility] Perioperative Surgery [address] [place] [address] Chung Stinson MD Surgery General Discharge Disposition: [...] Description 03/01/2025 10:00 AM CDT Office Visit [facility] - Surgery [address] [place] [address], [address] [place] [address] [place] [id number] [place] [address] [place] [address] Health Maintenance Due Date Last Done Comments [...] this topic Medical Devices Implanted Type Area Grievance And Appeals Coordinator Device Identifier Shelf Expiration Date Model / Serial / Lot Graft Vasc 4-7mm 45cm Grtx Std Tpr - [id number] Implanted:Qty: 1 on 05/25/2024 by Ramy Schilling MD at [facility] Left: Arm [employer] 12/28/2028 [id number] / [id number] / Procedures Procedure Name Priority Date/Time Associated [...] ESRD (end stage renal disease) ([facility]) TYPE + SCREEN PANEL Routine 02/15/2025 1 :59 PM CDT LARYNGEAL MASK AIRWAY Routine 02/15/2025 12:04 PM CDT TX ANASTOMOSIS,AV,BASILI C VEIN 02/15/2025 11:37 AM CDT BASIC METABOLIC PANEL (CALCIUM TOTAL) STAT 02/15/2025 10:23 AM CDT Pre-op exam CARDIAC RHYTHM STRIP ORDER 01/27/2025 8:16 PM CDT VAS DIALYSIS EXIST ACCESS SCAN Routine 01/11/2025 10:15 AM CDT ESRD (end stage renal disease) ([facility]) LARYNGEAL MASK AIRWAY Routine 11/30/2024 12:34 PM CDT TX ANASTOMOSIS,AV,ANY SITE 11/30/2024 12:14 PM CDT BLOOD GAS+COOX+ELECTROLYTES +METAB VENOUS Routine 11/30/2024 12:10 PM CDT from Last 3 Months Results * APHERESIS/TRANSFUSION ORDER (02/18/2025 11:24 PM CDT) Narrative 02/18/2025 11:24 PM CDT Ordered by an unspecified provider. us Scanned Document NURSING - VITAL SIGNS AND ASSES SMENT Final Result * HEPATITIS B SURFACE ANTIGEN W RFLX CONFIRMATION (02/16/2025 11:30 AM CDT) [facility] HBsAg Non Reactive Non Reactive 02/16/2025 12:50 PM CDT [facility] Blood BLOOD SPECIMEN / Unknown Venipuncture / Unknown 02/16/2025 11:30 AM CDT 02/16/2025 11:34 AM CDT us Cecilia Franks MD LAB - CHEMISTRY ORDERABLES Fin al Result [facility] [address] [place] [address] * (ABNORMAL) CBC W AUTO DIFFERENTIAL (02/16/2025 2:58 AM CDT) Only the most recent of2 resultswithin the time period is included. [facility] WBC 11.1(H) 4.0 - 10.7 x10E9/L 02/16/2025 4:03 AM CDT [facility] RBC Count 3.49(L) 3.90 - 5.20 x10E12/L 02/16/2025 4:03 AM CDT [facility] Hemoglobin 10.3(L) 11.9 - 15.8 g/dL 02/16/2025 4:03 AM CDT [facility] Hematocrit 32.0(L) 34.8 - 46.1 % 02/16/2025 4:03 AM CDT [facility] MCV 91.7 80.0 - 98.0 fL 02/16/2025 4:03 AM CDT [facility] MCH 29.5 26.7 - 33.6 pg 02/16/2025 4:03 AM CDT [facility] MCHC 32.2 31.7 - 36.3 g/dL 02/16/2025 4:03 AM CDT [facility] RDW-CV 18.5(H) 11.3 - 14.8 % 02/16/2025 4:03 AM CDT [facility] Platelet Count 84(L) 150 - 420 x10E9/L 02/16/2025 4:03 AM CDT [facility] MPV 9.8 7.8 - 11.4 fL 02/16/2025 4:03 AM CDT [facility] Neutrophil % 90.5(H) 41.0 - 74.0 % 02/16/2025 4:03 AM CDT [facility] Lymphocyte % 4.4(L) 17.0 - 47.0 % 02/16/2025 4:03 AM CDT [facility] Monocyte % 4.3 3.0 - 11.0 % 02/16/2025 4:03 AM CDT [facility] Eosinophil % 0.2 0.0 - 7.0 % 02/16/2025 4:03 AM CDT [facility] Basophil % 0.2 0.0 - 1.6 % 02/16/2025 4:03 AM CDT [facility] Immature Granulocytes % 0.4 0.0 - 1.0 % 02/16/2025 4:03 AM CDT [facility] Neutrophil Absolute 10.07(H) 1.60 - 7.50 x10E9/L 02/16/2025 4:03 AM CDT [facility] Lymphocyte Absolute 0.49(L) 1.00 - 4.40 x10E9/L 02/16/2025 4:03 AM CDT [facility] Monocyte Absolute 0.48 0.15 - 1.00 x10E9/L 02/16/2025 4:03 AM T [facility] Eosinophil Absolute 0.02 0.00 - 0.60 x10E9/L 02/16/2025 4:03 AM CDT [facility] Basophil Absolute 0.02 0.00 - 0.13 x10E9/L 02/16/2025 4:03 AM CDT [facility] Blood BLOOD SPECIMEN / Unknown Venipuncture / Unknown 02/16/2025 2:58 AM CDT 02/16/2025 3:39 AM CDT Chung Stinson MD LAB - HEMATOLOGY ORDERAB LES Final Result Performing Organization Address City/[facility]/ZIP Co de Phone Number [facility] [address] [place] [address] * (ABNORMAL) BASIC METABOLIC PANEL (CALCIUM TOTAL) (02/16/2025 2:58 AM CDT) Only the most recent of2 resultswithin the time period is included. [facility] Glucose 120(H) 70 - 99 mg/dL 02/16/2025 4:00 AM CDT [facility] Sodium 134(L) 136 - 145 mmol/L 02/16/2025 4:00 AM CDT [facility] Potassium 4.6 3.5 - 5.1 mmol/L 02/16/2025 4:00 AM CDT [facility] Chloride 99 98 - 107 mmol/L 02/16/2025 4:00 AM CDT [facility] CO2 23 22 - 29 mmol/L 02/16/2025 4:00 AM CDT [facility] Calcium 8.9 8.4 - 10.4 mg/dL 02/16/2025 4:00 AM T [facility] Anion Gap 12 6 - 16 mmol/L 02/16/2025 4:00 AM CDT [facility] BUN 23 7 - 26 mg/dL 02/16/2025 4:00 AM CDT [facility] Creatinine 4.04(H) 0.57 - 1.11 mg/dL 02/16/2025 4:00 AM T [facility] eGFR by CKD-EPI 11(L) >=90 mL/min/1.7 3 m2 02/16/2025 4:00 AM T [facility] Comment:Estimated Glomerular Filtration Rate (eGFR) calculated using the CKD-EPI Creatinine Equation (2020), per the National Kidney Foundation and [place] [employer] Nephrology recommendations. Blood BLOOD SPECIMEN / Unknown Venipuncture / Unknown 02/16/2025 2:58 AM CDT 02/16/2025 3:39 AM CDT Chung Stinson MD LAB - CHEMISTRY ORDERABL ES Final Result Performing Organization Address City/[facility]/ZIP Co de Phone Number [facility] [address] [place] [address] * TRANSFUSE RED BLOOD CELL LEUKOREDUCED ML(S), 300 mL across aliquots (02/15/2025 6:26 PM CDT) us Samra Wright MD NURSING - BLOOD PROD TSE SFUSION Final Result * BLOOD TYPE VERIFICATION (02/15/2025 2:56 PM CDT) ABO Rh A POS 02/15/2025 3:2 2 PM CDT [facility] Blood Bank BLOOD SPECIMEN / Unknown Venipuncture / Unknown 02/15/2025 2:56 PM CDT 02/15/2025 2:56 PM CDT Chung Stinson MD LAB - BLOOD BANK ORDERAB LES Final Result Performing Organization Address [facility] Co de Phone Number [facility] [address] [phone] * XR Humerus Right 2Vw or More [...] R02 [facility] Unit Donor # [id number] [facility]OD B[facility] Unit Status transfused [facility] Product Code [id number] [facility] Blood Type Barcode 6200 [facility] Expiration Date [id number] D [facility] Unit Description AS1 LR PRBC [facility] B[facility]OD [facility]ANK Unit ABO A [facility] Unit Rh POS [facility] B[facility] Product Number R02 [facility]OD [facility] Unit Donor # [id number] [facility] BLOOD BANK Unit Status released [facility] BLO OD [facility] Product Code [id number] [facility] Blood Type Barcode 6200 [facility] Expiration Date [id number] D [facility] B[facility]OD [facility] Blood Bank BLOOD SPECIMEN / Unknown 02/15/2025 1:59 PM CDT 02/15/2025 2:04 PM CDT Samra Wright MD LAB - BLOOD BANK ORDERABL ES Final Result Performing Organization Address [facility] de Phone Number [facility] [address] [place] [address] * TYPE + SCREEN PANEL (02/15/2025 1:59 PM CDT) ABO Rh A POS 02/15/2025 2:41 PM CDT [facility] Comment:History checked. Antibody Screen NEG 2:41 PM CDT [facility] Blood Bank BLOOD SPECIMEN / Unknown Venipuncture / Unknown 02/15/2025 1:59 PM CDT 02/15/2025 2:04 PM CDT Chung Stinson MD LAB - BLOOD BANK ORDERAB LES Final Result Performing Organization Address [facility] de Phone Number [address] [phone] * LARYNGEAL MASK AIRWAY (02/15/2025 12:04 PM CDT) Narrative Gray Brewer APRN-CRNA - 02/15/2025 12:04 PM CDT Gray Brewer APRN-CRNA 02/15/2025 12:05 PM LMA Placement Procedure/LDA Note: Patient Location: OR. Procedure: LMA Pretreatment: 100% O2 Induction: standard IV Mask Ventilation: not attempted Type: gel LMA Size: 4 Number of Attempts: 1. Placement verified by: direct visualization, bilateral breath sounds and CO2 monitor Dentition unchanged? Yes Staff Section Anesthesia Provider: Gray Brewer APRN-CRNA, Performed the procedure Samra Wright MD GENERAL ANESTHESIA ORDERA BLES Final Result * CARDIAC RHYTHM STRIP ORDER (01/27/2025 8:16 PM CDT) Narrative 01/27/2025 8:16 PM CDT Ordered by an unspecified provider. us Scanned Document CARDIAC SERVICES ORDERABLES Fin al Result * VAS Dialysis Exist Access Scan (01/11/2025 10:15 AM CDT) Anatomical Region Laterality Modality Lower Extremity Ultrasound 01/11/2025 9:47 AM CDT Narrative Procedure Note Chung Stinson MD - 01/11/2025 [facility] [place] [address], [address] [place] [address] Hemodialysis Graft Report Pat.Name: AALIYAH CASTILLO Pat.ID: [id number] .Date: 01/11/2025 Exam Time: 9:47:00 AM Study Type:Hemodialysis Graft Age: 9 1955,69Y Sex: FEMALE Sonogrphr: Javed Arreaga RVT Pat. Stat.:Outpatient CPT - 4: 60396 Reason for Study: AV Fistula Evaluation Procedures: AV Fistula Evaluation Race: 1 Visit ID: [id number] ++++++++++++++++++++++++++++++++++++ SUMMARY: ++++++++++++++++++++++++++++++++++++ Patent right brachial basilic [...] ORDERA BLES Final Result [facility] RESP THERAPY [id number] [place] [id number], [facility] [phone] from Last 3 Months Insurance MEDICARE MEDICAID - [place] Advance Directives * Full Code (Latest Code Status on File) Date Activated Date Inactivated Comments 02/15/2025 4:16 PM 02/17/2025 4:57 PM Care Teams Public Relations Counselor Relationship Specialty Start Date End Date Billy Brewer APRN-ELVIA [address] [place] [phone] PCP - General 06/03/23
--- OUTSIDE RECORDS SUMMARY | 2025-03-01 08:31 | XMS_ITS | Patient Health Record ---
Author Organization [facility] [employer] Address [address] [place] [address] Care Team Providers Care Television Writer Name Role Phone Migration, Provider Unavailable Unavailable [place] Unavailable [phone] Bettina Preston Unavailable [phone] Allergies Allergen (clinical drug ingredient) Drug/Non Drug Allergy documented on EMR Reaction Allergy Type Onset Date Status Non-steroidal anti-inflammatory agent (FN) NSAIDS (NON-STEROIDAL ANTI-INFLAMMATORY DRUG) (uncoded) Unknown Allergy 11/20/2023 Active Reason For Referral No Information Medications Medication SIG (Take, Route, Frequency, Duration) Notes Start Date End Date Status Terbinafine HCl 1% Cream External 11/20/2023 Active Ofloxacin 0.30% Solution Ophthalmic 11/20/2023 Active Polyethylene Glycol 3350 Powder Oral 11/20/2023 Active Sertraline HCl 100 MG Tablet 1 tablet Oral Once a day; Duration: 30 days Active Ketorolac Tromethamine 0.5 % Solution Ophthalmic 11/20/2023 Active Divalproex Sodium ER 250 MG Tablet Extended Release 24 Hour 1 tablet Oral twice a day; Duration: 30 days Active Carbidopa-Levodopa 10-100 MG Tablet Oral 11/20/2023 Active risperiDONE 0.5 MG Tablet 1 tablet at bedtime Oral Once a day; Duration: 30 days Active Nystatin 332419 UNIT/GM Powder External 11/20/2023 Active Famotidine 20 MG Tablet Oral 11/20/2023 Active Simvastatin 20 MG Tablet Oral 11/20/2023 Active prednisoLONE Acetate 1 % Suspension Ophthalmic 11/20/2023 Active ACIDOPHILUS-PECTIN 75 million cell -100 mg Capsule Oral *Reorder from [employer] for eRx and Interaction Alerts* 11/20/2023 Active Renvela 800 MG Tablet Oral 11/20/2023 Active ASTEPRO ALLERGY 205.5 MCG (0.15 %) NASAL SPRAY *Reorder from [employer] for eRx and Interaction Alerts* 11/20/2023 Active Nystop 114753 UNIT/GM Powder External 11/20/2023 Active Fluticasone Propionate Diskus 50 MCG/ACT Aerosol Powder Breath Activated Inhalation *Reorder from [employer] for eRx and Interaction Alerts* 11/20/2023 Active Ventolin HFA 108 (90 Base) MCG/ACT Aerosol Solution Inhalation 11/20/2023 Active Levothyroxine Sodium 88 MCG Tablet Oral 11/20/2023 Active Pantoprazole Sodium 40 MG Tablet Delayed Release Oral 11/20/2023 Active Clopidogrel Bisulfate 75 MG Tablet Oral 11/20/2023 Active Immunizations Vaccine Route Administration [...] 1st dose Unknown 05/29/2021 Ad ministered Novel [id number], preservative free Unknown 04/24/2015 Administered Novel [id number], preservative free Unknown 04/07/2017 Administered Pneumococcal conjugate [...] History Observation Description Sex Assigned At Female Social History Tobacco Use: Social Info Question Answer Notes Tobacco Control (Standard) Tobacco use: Nonsmoker Additional Details Category Social Info Options Details Migrated Social History Migrated Social History Alcohol Intake: None 07/30/2018,Tobacco Years: Never smoker 07/30/2018 Section Notes: Substance UseDo you or have [...] NoDo you have a medical power of flooring salesperson?: NoPublic Health and TravelHave you been to [...] Do you have a medical power of flooring salesperson?: No Gender Identity and LGBTQ Identity Gender identity: Identifies as Female Assigned sex at : Female Problems Problem Type SNOMED Code ICD Code Onset Dates Problem Status W/U Status Risk Notes Problem Schizoaffective disorder, bipolar type (02034426) Schizoaffective disorder, bipolar type (F25.0) 11/20/19 24 Active confirmed Problem Generalized anxiety disorder (03829941) Generalized anxiety disorder (F41.1) 11/20/19 24 Active confirmed Problem End stage renal disease (N18.6) 11/20/19 24 Active confirmed Problem Intellectual functioning disability (894619030) Intellectual functioning disability (F79) Active confirmed Vital Signs Height-cm 160.02 cm 05/04/2024 Height 63.00 in 05/04/2024 Encounters Encounter Location Date Provider Diagnosis [facility] [address] [facility] [address] [place] [address] 05/04/2024 Pao Blanccristhianrc Schizoaffective disorder, bipolar type F25.0 ; Generalized anxiety disorder F41.1 ; Intellectual functioning disability F79 and End stage renal disease N18.6 [facility] [employer] [place] [address] [address] 08/03/2024 Bettina Preston Assessments Encounter Date Diagnosis (ICD Code) Assessment Notes Treatment Notes Treatment Clinical Notes Section Notes 05/04/2024 Schizoaffective disorder, bipolar type (ICD-10 - F25.0) cont depakote ER 250mg bid cont risperidone 0.5mg hs resides at long term[facility] dialysis on friday, friday and fridaystable, cont [...] End Date Medicare-I l Medicare [address] [place] [address] [id number] PAULA CASTILLOE Self - patient is the insured Medicaid-I l Medicaid [address] [address] [place] [address] [id number] PRATIK CASTILLO Self - patient is the insured Medical (General) History Medical History History ICD Code Problems: End stage renal failure on xenia lysis Generalized anxiety disorder Intellectual functioning disability Long-term current use of drug therapy Schizoaffective disorder, bipolar type Surgical History Surgery Date(Month/Year) dialysis port removed 12/2023
--- OUTSIDE RECORDS SUMMARY | 2025-03-01 08:31 | XMS_ITS | Encounter Summary ---
Author Organization [facility] Address [address] [facility] [place] [address] Care Team Providers Care Plant Attendant Or Assistant Operator Name Role Phone Billy Brewer DAIRY TRUCK DRIVER-PLANTING MACHINE OPERATOR Primary Care Provider [phone] Reason for Referral * Radiology Services (Routine) - Closed Specialty Diagnoses / Procedures Referred By Rocio dupree Referred To Contact Vascular Lab Diagnoses ESRD (end stage renal disease) on dialysis (HCC) Procedures IR Angio [facility] [place] [id number] [place] [address] [place] [address] Phone: tel: fax: [facility] Services [address] [place] [address], [address] [place] [address] Phone: tel: fax: Referral ID Status Reason Start Date Expiration Date Visits Re quested Visits Authorized [id number] Closed 11/16/2024 11/18/2024 1 1 Encounter Details Date Type Department Care Team (Late st Contact Info) Description 11/16/2024 Telephone [facility] Health Vascular Services [address] [place] [address], [address] [place] [address] Gloria Allen, RN Social History [...] Description 03/01/2025 10:00 AM CDT Office Visit [facility] - Surgery [address] [place] [address], [address] [address] Chung Stinson MD [address] [place] [phone] Pending Results Name Type Priority Associated Diagnoses Date /Time IR Angio Av Shunt Imaging Imaging Routine ESRD (end stage renal disease) on dialysis ([facility]) 11/18/2024 3:24 PM CDT Scheduled Orders Name Type Priority Associated Diagnoses Orde r Schedule IR Angio Av Shunt Imaging Imaging Routine ESRD (end stage renal disease) on dialysis ([facility]) 1 Occurrences starting 11/16/2024 until 11/16/2025 documented as of this encounter Visit Diagnoses Diagnosis ESRD (end stage renal disease) on dialysis (HCC)- Primary End stage renal disease documented in this encounter Care Teams Plant Attendant Or Assistant Operator Relationship Specialty Start Date End Date Billy Brewer APRN-PLANTING MACHINE OPERATOR [address] [place] [address] PCP - General 06/03/23 documented as of this encounter
== END 2025-03-01 08:25 | disposition home or self-care (01) ==
LOC: ANHAUDIO 08:24
DX: H91.93 Unspecified hearing loss, bilateral (principal)
CPT/HCPCS: 92557; 92567

== ENCOUNTER 2025-06-18 18:47 | Emergency (ER) | payer MEDICARE, MEDICAID, SELFPAY ==
--- OUTSIDE RECORDS SUMMARY | 2023-04-30 02:43 | XMS_ITS | Continuity of Care Document ---
Author Organization [facility] Address [address] [place] [id number] Phone Care Team Providers Care Sulky Driver Name Role Phone Jose Luis MORAN, Liss Unavailable Unavailable Allergies, Adverse Reactions, Alerts Substance Reaction Status Criticality NSAIDS (Non-Steroidal Anti-Inflammatory Drug) Active No Information Medications Medication Instructions Dosage Effective Dates (start - stop) Status Comments Ventolin HFA 90 mcg/actuation aerosol inhaler - Active polyethylene glycol 3350 17 gram/dose oral powder - Active levothyroxine 88 mcg tablet - Active pantoprazole 40 mg tablet,delayed release - Active Astepro Allergy 205.5 mcg (0.15 %) nasal spray - Active benzonatate 200 mg capsule - Active azelastine 0.15 % (205.5 mcg) nasal spray spray 2 spray by intranasal route 2 times every day in each nostril 411 MCG - Active Acidophilus-Pectin 75 million cell-100 mg capsule one capsule by oral route once a day - Active carbidopa 10 mg-levodopa 100 mg tablet take 1 tablet by oral route 2 times every day 1 tablet - Active divalproex ER 250 mg tablet,extended release 24 hr take 1 tablet by oral route 2 times every day 250 MG - Active famotidine 20 mg tablet take 1 tablet by oral route every day at bedtime, PRN - Active fenofibrate micronized 67 mg capsule take 1 capsule by oral route every day with food 67 MG - Active fluticasone propionate 50 mcg/actuation nasal spray,suspension inhale 2 spray by intranasal route 2 times every day in each nostril 100 MCG - Active Tirosint 88 mcg capsule take 1 capsule by oral route every day 88 MCG - Active pantoprazole 40 mg tablet,delayed release take 1 tablet by oral route 2 times every day 40 MG - Active ProAir HFA 90 mcg/actuation aerosol inhaler inhale 2 puff by inhalation route every 4 - 6 hours as needed - Active Renvela 800 mg tablet take 1 tablet by o ral route 3 times every day with food 800 MG - Active sertraline 100 mg tablet take 1 tablet by oral route every day 100 MG - Active simvastatin 20 mg tablet take 1 tablet by oral route every day in the evening 20 MG - Active risperidone 0.5 mg tablet take 2 tablet by oral route every day at bedtime - Active Procedures Procedure Date Intro cath dialysis circuit Place catheter in artery Artery x-rays arm/leg Mod sed same phys/qhp 5/>yrs Mod sed same phys/qhp ea CONTRAST, 300/ML, PER ML MOD SED BY OR SUP BY PHYSICIAN INTRO CATH DIALYSIS CIRCUIT Radiation Exposure Documented To Be Coded Intro cath dialysis circuit Place catheter in artery Artery x-rays arm/leg Mod sed same phys/qhp 5/>yrs Mod sed same phys/qhp ea MOD SED BY OR SUP BY PHYSICIAN Radiation Exposure Documented To Be Coded Prq av fstl crtj uxtr 1 [facility] Mod sed same phys/qhp 5/>yrs Mod sed same phys/qhp ea Prq av fstl crtj uxtr 1 [facility] Mod sed same phys/qhp 5/>yrs Mod sed same phys/qhp ea Injection ext venography Vein x-ray arms/legs Vein x-ray chest CONTRAST, 300/ML, PER ML Radiation Exposure Documented INJ PROC EXTREMITY VENOGRAPHY VENOGRAPHY EXT BILAT DUPLEX UPPER EXTREM ARTERIES BILAT DUPL SCAN EXTREMITY VEINS COMPLETE To Be Coded Injection ext venography Vein x-ray arms/legs Vein x-ray chest Repair tunneled cv cath REPAIR TUNNELED CV CATH To Be Coded Repair tunneled cv cath Advance Directives Directive Yes / No Effective Date File Name No Information Encounters Encounter Description Practice Location Reason(s) For Visit Diagnoses Date Provider Providers Copied on Encounter [facility], [address] [place] [address], [id number], tel:[phone] [facility] No Information Amaya Liss. [address] [place] [address], [id number], . tel:[phone] [facility], [address] [place] [address], [id number], tel:[phone] [facility] Stricture of ArteryEnd stage renal disease Amaya Liss. [address] [place] [address], [id number], [place]. tel:[phone] Referring Provider: Juna J Ayala, [address] [place] [address], [id number]. tel:[phone] [facility], [address] [place] [address], [id number], [place] tel:[phone] [facility] Stricture of ArteryEnd stage renal disease Amaya Liss. [address] [place] [address], [id number], [place]. tel:[phone] Referring Provider: Juan J Ayala, [address] [facility] [address] [facility], [place], [address]. tel:[phone] [facility], [address] [place] [address], [id number], tel:[phone] [facility] Amaya Liss. [address] [place] [address], [id number], . tel:[phone] Referring Provider: Juan J Ayala, [address] [address], [place], [address]. tel:[phone] [facility], [address] [place] [address], [id number], [place] tel:[phone] [facility] Amaya Liss. [address] [place] [address], [id number], . tel:[phone] Referring Provider: Juan J Ayala, [address] [place] [address] [address] [facility], [place], [address]. tel:[phone] [facility], [address] [place] [address], [id number], [place] tel:[phone] [facility] Amaya Liss. [address] [place] [address], [id number], [place]. tel:[phone] Referring Provider: Juan J Ayala, [address] [place] [address], [place], [address]. tel:[phone] [facility], [address] [place] [address], [id number], [place] tel:[phone] [facility] Amaya Liss. [address] [place] [address], [id number], [place]. tel:[phone] Referring Provider: Juan J Ayala, [address] [place] [address], [place], [address]. tel:[phone] [facility], [address] [place] [address], [id number], [place] tel:[phone] [facility] Albovias Jostin. [address] [place] [address], [id number], [place]. tel:[phone] Referring Provider: Juan J Ayala, [address] [place] [address] [address] [facility], [place], [address]. tel:[phone] [facility], [address] [place] [address], [id number], [place] tel:[phone] [facility] Albovias Jostin. [address] [place] [address], [id number], [place]. tel:[phone] Referring Provider: Juan J Ayala, [address] [facility] [address], [place], [address]. tel:[phone] As per patient privacy policy some of the clinical information may not be visible. Family History Family Member Type Diagnosis Age At Onset No Information Payers Payer name Insurance type Covered libertarian ID Authoriza tion(s) Medicare [facility] [id number] Medicaid [place] [id number] Social History Type Description Quantity Date Captured Comments Sex Female Smoking Status No Information Gender Identity Female Chief Complaint And Reason For Visit No Information Reason For Referral Reason For Referral No Information Plan Of Treatment Date Type Action Status Future Order: Radiology Order Up per Body Flouroscopy ([id number]), Ordered on: Ordered Future Order: Radiology Order Up per Body Flouroscopy ([id number]), Ordered on: Ordered Future Order: Radiology Order Up per Body Flouroscopy ([id number]), Ordered on: Ordered History Of Present Illness Encounter Date Complaint History Of Prese nt Illness No Information Functional Status Date Functional Assessmen t No Information Instructions Date Instruction Additional Infor mation No Information Assessments Type Assessment Date No Information Patient Care Teams Name Effective Dates (start - stop) Status Members No Information
--- OUTSIDE RECORDS SUMMARY | 2025-06-18 18:49 | XMS_ITS | Patient Health Record ---
Author Organization [facility] Address [address] [place] [address] Care Team Providers Care Drafter Apprentice Name Role Phone Migration, Provider Unavailable Unavailable Bettina Preston Unavailable [phone] Allergies Allergen (clinical drug ingredient) Drug/Non Drug [...] a day; Duration: 30 days Active Nystatin 281029 UNIT/GM Powder External 11/20/2023 Active Famotidine 20 MG Tablet Oral 11/20/2023 Active Simvastatin 20 MG Tablet Oral 11/20/2023 Active prednisoLONE Acetate 1 % Suspension Ophthalmic 11/20/2023 Active ACIDOPHILUS-PECTIN 75 million cell -100 mg Capsule Oral *Reorder from [email or web address] for eRx and Interaction Alerts* 11/20/2023 Active Renvela 800 MG Tablet Oral 11/20/2023 Active ASTEPRO ALLERGY 205.5 MCG (0.15 %) NASAL SPRAY *Reorder from [employer] for eRx and Interaction Alerts* 11/20/2023 Active Nystop 639949 UNIT/GM Powder External 11/20/2023 Active Fluticasone Propionate Diskus 50 MCG/ACT Aerosol Powder Breath Activated Inhalation *Reorder from [employer] for eRx and Interaction Alerts* 11/20/2023 Active [...] PCV 13 Unknown 04/10/2015 Admini stered Novel [id number], preservative free Unknown 04/24/2015 Administered Novel [id number], preservative free Unknown 04/07/2017 Administered Moderna Covid-19 [...] Years: Never smoker 07/30/2018 Section Notes: Substance Use Do you or [...] you have a medical power of deputy attorney general?: No Gender Identity and LGBTQ Identity Gender [...] you have a medical power of deputy attorney general?: NoPublic Health and TravelHave you been to an area known to be high risk for COVID-19?: NoGender Identity and LGBTQ IdentityGender identity: Identifies as FemaleAssigned sex at : Female Problems Problem Type SNOMED Code ICD Code Onset Dates Problem Status W/U Status Risk Notes Problem Schizoaffective disorder, bipolar type (28293920) Schizoaffective disorder, bipolar type (F25.0) 11/20/19 Active confirmed Problem Generalized anxiety disorder (20279638) Generalized anxiety disorder (F41.1) 11/20/19 Active confirmed Problem End stage renal disease (56717112) End stage renal disease (N18.6) 11/20/19 Active confirmed Problem Intellectual functioning disability (111293491) Intellectual functioning disability (F79) Active confirmed Encounters Encounter Location Date Provider Diagnosis [facility] [address] [facility] [address] [place] [address] 08/03/2024 Bettina Preston Plan Of Treatment No Information Insurance Providers Payer Name Payer Address Payer Phone Subscriber Number Group Number Insured Name Patient Relationship to Insured Coverage Start Date Coverage End Date Medicare-I l Medicare [address] [place] [address] [id number] PRATIK CASTILLO Self - patient is the insured Medicaid-I l Medicaid [address] [address] [place] [address] [id number] PRATIK CASTILLO Self - patient is the insured Medical (General) History Medical History History ICD Code Problems: End stage renal failure on xenia lysis Generalized anxiety disorder Intellectual functioning disability Long-term current use of drug therapy Schizoaffective disorder, bipolar type Surgical History Surgery Date(Month/Year) dialysis port removed 12/2023
--- OUTSIDE RECORDS SUMMARY | 2025-06-18 18:50 | XMS_ITS | Clinical Summary ---
Author Organization [facility] Address [address] [place] [address] Care Team Providers Care It Telecom Technician Name Role Phone Heather Owusu Primary Care Provider [phone] Source Comments [facility],non-owned Affiliates and Associated Physician Practices is amultiple site organization consisting of ambulatory clinics and hospital sitesin [place], [place], [place] and [place]. This disclosure is being madepursuant to the Care Everywhere program and may not contain all information available regarding this patient. Last updated 18.[facility] Allergies Active Allergy Reactions Criticality Noted Date [...] mouth every 4 hours as needed for heartburn Active azelastine (Astepro) 205.5 MCG/SPRAY nasal spray [place] 2 (two) sprays into the nose 2 times daily 3pm & 9pm Active bisacodyl EC (Dulcolax) 5 MG tablet Take 2 (two) tablets by mouth as needed Active carbidopa-levodop a [...] fluticasone propionate (Flonase) 50 MCG/ACT nasal spray [place] 2 (two) sprays into each nostril 2 [...] BOTH BREASTS 04/21/20 23 Active nystatin (Mycostatin) 389346 UNIT/GM powder Apply to affected area 3 times daily UNDER BOTH BREASTS 07/02/20 23 Active Lactobacillus (Acidophilus Probiotic) 10 MG CAPS 10/23/19 24 Active simvastatin (Zocor) 20 MG tablet Take 1 (one) tablet by mouth at bedtime 11/22/19 24 Active Doxercalciferol (HECTOROL IV) 2 mcg 12/31/19 24 Active Methoxy PEG-Epoetin Beta (MIRCERA IJ) 30 mcg 04/12/20 24 Active acetaminophen (Tylenol) 500 MG tablet Take 1 (one) tablet by mouth every 6 hours as needed for Fever or Pain Maximum allowable Acetaminophen amount = 4 Grams (4000 mg) / 24 hours. 07/30/19 25 Active Additional Information Patient not taking.Reason: Other, Informant: AL/Facility MAR, Reported on 06/14/2025 Lactobacillus (ACIDOPHILUS PO) Take 75 mm by mouth once daily At 3 pm Active Cholecalciferol (vitamin D3) 1.25 MG (92378 UT) capsule Take 1 (one) capsule by mouth every 14 days Active sevelamer (Renagel) 800 MG tablet Take 3 (three) tablets by mouth 3 times daily with meals Active bismuth subsalicylate (Pepto-Bismol) 262 MG/15ML suspension Take 30 mL by mouth every 30 minutes as needed for diarrhea MAX 8 DOSES/24 HOURS Active neomycin-bacitrac in-polymyxin (Neosporin) 3.5-400-5000 topical ointment Apply to affected area every 4 hours as needed Affected area: topically to minor wounds every 4 hours as needed until healed max 2 doses 24 hours Active acetaminophen (Tylenol) 325 MG tablet Take 2 (two) tablets by mouth every 4 hours as needed for fever or pain Maximum allowable Acetaminophen amount = 4 Grams (4000 mg) / 24 hours. Active Azelastine HCl 137 MCG/SPRAY SOLN [place] 2 sprays into the nose 2 times daily as needed Active diphenhydrAMINE (Banophen) 25 MG capsule Take 1 (one) capsule by mouth every 6 hours as needed for itching Active HYDROcodone-aceta minophen ([place]urora) 5-325 MG tabletIndications :ESRD (end stage renal disease) (HCC) Take 1 (one) tablet by mouth every 6 hours as needed for Pain 12 tablet 02/16/20 25 Active Additional Information Patient not taking.Reason: Other, Informant: AL/Facility MAR, Reported on 06/14/2025 HYDROcodone-aceta minophen (Aurora) 5-325 MG tabletIndications :ESRD (end stage renal disease) (HCC) Take 1 (one) tablet by mouth every 6 hours as needed for Pain 12 tablet 04/26/20 25 Active Additional Information Patient not taking.Reported on 06/14/2025 Fluticasone-Salme terol (ADVAIR DISKUS IN) Inhale 1 puff by mouth once daily Active omeprazole (PriLOSEC) 40 MG capsule Take 1 (one) capsule by mouth once daily At 3 pm Active Active Problems Problem Noted Date Diagnosed Date Left arm swelling 05/31/2025 Venous hypertension of upper extremity End stage renal disease 05/17/2025 ESRD (end stage renal disease) 11/30/2024 Encounters Date Type Department Care Team Description 06/14/2025 10:40 AM WIND ENERGY MECHANIC Office Visit [facility] - Surgery [address] [place] [address], [address] [place] [phone] Chung Stinson MD Postop check (Primary Dx) 06/14/2025 Travel 05/31/2025 11:59 AM WIND ENERGY MECHANIC Anesthesia Event [facility] - Perioperative Surgery [address] [place] [address] Dada Mcnair MD Han, Jason A, MD 05/31/2025 11:50 AM WIND ENERGY MECHANIC - 05/31/2025 1:04 PM WIND ENERGY MECHANIC Surgery [facility] - Perioperative Surgery [address] [place] [address] Chung Stinson MD LIGATION LEFT UPPER ARM ARTERIOVENOUS GRAFT 05/31/2025 9:41 AM WIND ENERGY MECHANIC - 05/31/2025 1:59 PM WIND ENERGY MECHANIC Hospital Encounter [facility] - Perioperative Surgery [address] [place] [address] Chung Stinson MD Surgery General Discharge Disposition: Home or Self Care 05/31/2025 Travel 05/17/2025 10:20 AM WIND ENERGY MECHANIC Office Visit [facility] - Surgery [address] [place] [address], [address] [phone] Chung Stinson MD End stage renal disease (HCC) (Primary Dx) 05/17/2025 Travel 05/10/2025 Telephone [facility] - Surgery [address] [place] [address], [address] [phone] hCung Stinson MD Question 04/26/2025 1:38 PM CDT Anesthesia Event [facility] - Perioperative Surgery [address] [place] [address] Oswaldo Uriarte MD Maestas, Karolyn E, RADIATION THERAPIST-DOOR TECHNICIAN 04/26/2025 1:23 PM CDT - 04/26/2025 3:12 PM CDT Surgery [facility] - Perioperative Surgery [id number] [place] [address] Chung Stinson MD LIGATION RIGHT AV FISTULA, PLACEMENT RIGHT AV GRAFT 04/26/2025 11:37 AM CDT - 04/26/2025 4:24 PM CDT Hospital Encounter [facility] - Perioperative Surgery [address] [place] [address] Chung Stinson MD Surgery General Discharge Disposition: Home or Self Care 04/26/2025 Travel 04/21/2025 Travel 04/20/2025 8:21 AM CDT - 04/20/2025 11:59 PM CDT Hospital Encounter [facility] [address] [place] [address], [address] [place] [address] Chung Stinson MD Discharge Disposition: Home or Self Care 04/20/2025 Orders Only [facility] - Surgery [id number] [place] [address], [address] [place] [address] Chung Stinson MD 04/20/2025 Travel 03/23/2025 8:10 AM CDT - 03/23/2025 11:59 PM CDT Hospital Encounter [facility] [address] [place] [address], [address] [place] [address] Chung Stinson MD Discharge Disposition: Home or Self Care 03/23/2025 Travel from Last 3 Months Family History [...] Sign Reading Time Taken Comments Blood Pressure 185/90 05/31/2025 1:19 PM WIND ENERGY MECHANIC Pulse 75 05/31/2025 1:16 PM WIND ENERGY MECHANIC Temperature 36.1 C (97 F) 05/31/2025 1:02 PM WIND ENERGY MECHANIC Respiratory Rate 17 05/31/2025 1:02 PM WIND ENERGY MECHANIC Oxygen Saturation 99% 05/31/2025 1:16 PM WIND ENERGY MECHANIC Inhaled Oxygen Concentration - - Weight 80.3 kg (177 lb) 06/14/2025 10:56 AM WIND ENERGY MECHANIC Height 162.6 cm (5' 4) 06/14/2025 10:56 AM WIND ENERGY MECHANIC Body Mass Index 30.38 06/14/2025 10:56 AM WIND ENERGY MECHANIC Plan of Treatment Health Maintenance Due Date Last Done Comments [...] Tdap) 1973 PNEUMOCOCCAL VACCINE 50+ (1 of 1 - PCV) 2004 ZOSTER VACCINE (1 of 2) 2004 DEPRESSION SCREENING 07/07/2024 MAMMOGRAM 10/21/2024 10/21/2022, 10/05, 05/16/2021, Additional history exists COVID-19 VACCINE ( season) 2025 05/29/2021, 09/06/2020, 08/08/2020 INFLUENZA VACCINE (#1) 2025 4, 04/16/2023, 03/28/2023, Additional history exists SCREENING FOR DIABETES 02/17/2028 5, 02/15/2025, 05/25/2024, Additional history exists Respiratory Syncytial Virus (RSV) Vaccine Pt: or over 60 yrs (1 - 1-dose 75+ series) 2029 BONE DENSITY TESTING Completed 10/02/2021, 03/01/20 16 HEPATITIS B VACCINE Aged Out No longe r eligible based on patient's age to complete this topic HIB VACCINE Aged Out No longer eligi [...] this topic Medical Devices Implanted Type Area Supervisor Frame Sample And Pattern Device Identifier Shelf Expiration Date Model / Serial / Lot Graft Vasc 4-7mm 45cm Grtx Std Wl Tpr - [id number] Implanted:Qty: 1 on 05/25/2024 by Ramy Schilling MD at [facility] Left: Arm [employer] 12/28/2028 [id number] / [id number] / Graft Vasc 4-7mm 45cm Grtx Std Wl Tpr - [id number] Implanted:Qty: 1 on 04/26/2025 by Chung Stinson MD at [facility] Right: Arm [employer] 03/07/2030 [id number] / [id number] / Procedures Procedure Name Priority Date/Time Associated Diagnosis Comments DC LIGATN ANGIOACCESS AV FISTULA 05/31/2025 11:50 AM WIND ENERGY MECHANIC End stage renal disease (HCC) DC ARTERY-VEIN GRAFT,NONAUTOGENOUS 04/26/2025 1:31 PM CDT DC LIGATN ANGIOACCESS AV FISTULA 04/26/2025 1:31 PM CDT PERIPHERAL BLOCK Routine 04/26/2025 1:29 PM CDT CARDIAC RHYTHM STRIP ORDER 04/21/2025 7:45 PM CDT IR ANGIO AV SHUNT IMAGING Routine 04/20/2025 9:07 AM CDT ESRD (end stage renal disease) (HCC) CARDIAC RHYTHM STRIP ORDER 03/24/2025 9:04 PM CDT IR ANGIO AV SHUNT IMAGING Routine 03/23/2025 9:38 AM CDT ESRD (end stage renal disease) (HCC) BASIC METABOLIC PANEL (CALCIUM TOTAL) AM Draw 02/16/2025 2:58 AM CDT from Last 3 Months or Most Recently Relevant to Health Maintenance Results * Peripheral Nerve Block (04/26/2025 1:29 PM CDT) Narrative Dada Mcnair MD - 04/26/2025 1:29 PM CDT Dada Mcnair MD 04/26/2025 1:29 PM Peripheral Nerve Block Procedure: Peripheral Nerve Block Patient Location: Pre-op Preprocedure Section: Indications: at surgeon's request and surgical anesthesia. Pre-anesthetic Checklist: Patient identified, IV Checked, Site examined and clear, Risks and benefits discussed, Surgical consent verified, Monitors and equipment, Time-out performed, Informed consent obtained, Pre-op evaluation done, Questions answered/anesthesia questions answered, Allergies reviewed and Removal hand/wrist jewelry Monitors: Pulse Ox. Patient Condition: sedated, meaningful contact maintained throughout procedure Patient Position: supine Patient Sedated? Yes Sedation Type: moderate Procedure Section Laterality: right Block Performed: Supraclavicular Needle Length: 50 mm Ultrasound Guided? Yes Technique: out of plane Visualization: Preliminary scan performed, No intraneural or intravascular puncture occurred, Local visualized surrounding nerve on ultrasound and Ultrasound image in chart Injection was made incrementally with constant monitoring and aspirations every 5 mL's Procedure Tolerance: tolerated well Assessment: completed Staff Section Anesthesia Provider: Dada Mcnair MD, Performed the procedure us Oswaldo Uriarte MD GENERAL ANESTHESIA ORDERABLES Fi nal Result * CARDIAC RHYTHM STRIP ORDER (04/21/2025 7:45 PM CDT) Only the most recent of2 resultswithin the time period is included. Narrative 04/21/2025 7:45 PM CDT Ordered by an unspecified provider. us Scanned Document CARDIAC SERVICES ORDERABLES Fin al Result * IR Angio Av [facility] (04/20/2025 9:07 AM CDT) Only the most recent of2 resultswithin the time period is included. Anatomical Region Laterality Modality Lower Extremity, Upper Extremity, Chest X-Ray Angiography Narrative 04/20/2025 9:15 AM CDT Chung Stinson MD 04/20/2025 9:[facility] 1955 DATE OF PROCEDURE: 04/20/2025 ORDERING PHYSICIAN: Milad PROCEDURE: Right AV fistulogram INDICATIONS FOR PROCEDURE: Poorly developing right AV fistula DESCRIPTION OF PROCEDURE:The patient s right upper arm was prepped and draped in the normal sterile manner. Using local anesthesia and ultrasound guidance the access was punctured with the needle directed towards the central circulation. A guidewire was advanced under fluoroscopy and a 5 Georgian catheter placed. Digital subtraction images were obtained from the arterial anastomosis to the level of the SVC. Reflux examination showed a reasonably good and patent arterial anastomosis. There was irregular stenosis in the fistula and the outflow vein which had been previously stented was nicely patent. Centrally, there was no evidence of venous stenosis. This is not going to develop into an adequate access and therefore no intervention was performed today. The patient will be scheduled for fistula ligation and graft placement. A total of 15 cc of contrast and 1.8 mGy radiation were used for the procedure. The sheath was removed and direct digital pressure was used for hemostasis. The patient left the center in stable and satisfactory condition. FINDINGS: Irregular stenosis within the transposed basilic vein IMPRESSION: Irregular stenosis within the transposed basilic vein. Patient will be scheduled for conversion to graft DICTATED BY: Chung Stinson M.D. DATE DICTATED: 04/20/2025 Interventional Post-Operative/Procedure Notes Surgeon: Milad Pre Procedure Diagnosis: ESRD Post Procedure Diagnosis: ESRD Anesthesia: Local 1% lidocaine Disposition: OPS Status: Stable Drain or Pack: None Additional Information/Complications: None Estimated Blood Loss: Negligible Specimen: None us Chung Stinson MD IR ORDERABLES Final Re sult * (ABNORMAL) BASIC METABOLIC PANEL (CALCIUM TOTAL) (02/16/2025 2:58 AM CDT) Glucose 120(H) 70 - 99 mg/dL 02/16/2025 4:00 AM [facility] Sodium 134(L) 136 - 145 mmol/L 02/16/2025 4:00 AM T [facility] Potassium 4.6 3.5 - 5.1 mmol/L 02/16/2025 4:00 AM T [facility] Chloride 99 98 - 107 mmol/L 02/16/2025 4:00 AM T [facility] CO2 23 22 - 29 mmol/L 02/16/2025 4:00 AM T [facility] Calcium 8.9 8.4 - 10.4 mg/dL 02/16/2025 4:00 AM [facility] Anion Gap 12 6 - 16 mmol/L 02/16/2025 4:00 AM T [facility] BUN 23 7 - 26 mg/dL 02/16/2025 4:00 AM T [facility] Creatinine 4.04(H) 0.57 - 1.11 mg/dL 02/16/2025 4:00 AM [facility] eGFR by CKD-EPI 11(L) >=90 mL/min/1.7 3 m2 02/16/2025 4:00 AM [facility] Comment:Estimated Glomerular Filtration Rate (eGFR) calculated using the CKD-EPI Creatinine Equation (2020), per the National Kidney Foundation and [place] [employer]ph[employer] recommendations. Blood BLOOD SPECIMEN / Unknown Venipuncture / Unknown 02/16/2025 2:58 AM CDT 02/16/2025 3:39 AM T Chung Stinson MD LAB - CHEMISTRY ORDERABL ES Final Result [facility] [address] [place] [address] from Last 3 Months or Most Recently Relevant to Health Maintenance Insurance MEDICARE MEDICAID - [place] Advance Directives * Full Code (Latest Code Status on File) Date Activated Date Inactivated Comments 02/15/2025 4:16 PM 02/17/2025 4:57 PM Care Teams It Telecom Technician Relationship Specialty Start Date End Date Heather Owusu [address] [place] [phone] PCP - General 05/31/25
--- OUTSIDE RECORDS SUMMARY | 2025-06-18 18:50 | XMS_ITS | Continuity of Care Document ---
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 Name Role Phone FRANCK WHATLEY Primary Care Provider Assessment Encounter Date Assessment Date Assessment LastModified by Organization Details LastModified Time 03/24/2025 03/24/2025 Assessment: Mild OSAHS, AHI = 5 Hypoventilation Plan: The following were reviewed and explained to the patient: Chest CT 12/24/24 8.4 mm right apical [facility] diagnostic sleep study 03/09/25 sleep onset = 14.5 minutes, REM onset = 186.5 minutes, AHI = 5, REM AHI = 7, PLMI = 0.0 General information on sleep disordered breathing, evaluation of sleep disordered breathing, treatment with PAP therapy, and living with PAP therapy were covered. PSG is medically necessary to determine the management of sleep apnea. We discussed with the patient the impact of weight on: Sleep disordered breathing Mixed hyperlipidemia Hypertension CHRISTI Cholelithiasis ESRD PVD OA Right bunion Foot callus We discussed with the patient the benefit of PAP therapy on: Sleep disordered breathing Bipolar depression Rhinitis Hypertension CHRISTI Educated the patient on sleep hygiene measures. Relaxing rituals to rest easy, understanding foods with positive and negative impact on sleep, creating a peaceful sleep environment, timing of exercise, using herbal sleep aids, and practicing sleep-friendly meditation were covered. To determine how much sleep is needed, the patient will assess where she falls on the spectrum, examine what lifestyle factor such as stress is affecting the quality and quantity of sleep. In general, adults need 7-9 hours of sleep. Educated the patient regarding foods that promote sleep. These include but are not limited to cherries, bananas, toast, oatmeal, and warm milk. Educated the patient regarding foods and drinks to avoid before bedtime. These include but are not limited to aged cheese, chocolate, spicy foods, tomato-based sauces, soy, ginseng tea and processed meat. Advocated influenza vaccination annually and pneumonia vaccination BENJY. Advocated weight loss through diet and exercise. Patient's ideal body weight according to height and gender is up to 130 lbs. Encouraged patient to adjust caloric intake to maintain/achieve ideal body weight, emphasizing on fruits, vegetables, whole grains, and fat-free or low-fat products. These include lean meats, poultry, fish, beans, eggs, and nuts and foods that are low in saturated fats, trans-fats, cholesterol, salt (sodium), and glycemic index. Stressed the importance of regular exercise up to the patient's capacity limits. In this case, we recommend 20 min daily walking, 2 days a week of resistance training. Patient to monitor BP daily and bring records to PCP for further management. Follow-up: 1 week after titration sleep study [email or web address] Not available 03/24/2025 14:36:50 Plan of Treatment Reminders Order Date Submit Date Provider Last Modified By Organization Details Last Modified Time Details Appointments Any 15 2025 09:00A Brian Bowen MD Not available Not available Not available Lab None recorded. Referral None recorded. Procedures None recorded. Surgeries None recorded. Imaging polysomno gram, titration study - Please call patient to schedule. 2024 025 [email or web address] [facility], [address] [place], [address], 04/26/2025 09:33:44 Medication Orders None recorded. Patient TargetsNo targets recorded. Patient InstructionsNo instructions recorded. Reason for Referral None Reported. Results Created Date Observation Date Name Description Value Unit Range Abnormal Flag Note LastModifiedBy Organization Detail LastModifiedTime 03/15/20 25 03/09/2025 polys omnog kraig, diagn ostic , 6 yrs or older No observ ation record ed. [facility] [place] [address] [place], [address], 03/15/2025 13:44:11 05/13/20 25 05/11/2025 polys omnog kraig, titra tion study No observ ation record ed. [facility] [place] [address] [place], [address], 05/13/2025 15:53:45 Result Notes None recorded. Problems Name Problem SNOMED Code Status Onset Date Resolution Date Notes Provider Name and Address Organization Details Recorded Time Mild intellectua l disability 52379888 Active 2022 Bharat Bowen MD [address], [address], [place], [address], [facility] 5 11:05:10 Cyclothymia 40768377 Active 2022 Bharat Bowen MD [address], [address], [place], [address], [facility] 5 11:05:34 Essential hypertensio n 45077516 Active 2022 Bharat Bowen MD [address], [place], [address], [facility] 5 11:05:27 Hypothyroid ism 30239235 Active 2022 Bharat Bowen MD [address], [address], [place], [address], [facility] 5 11:05:11 Arthritis 9577696 Active 2022 Bharat Bowen MD [address], [address], [place], [address], [facility] 5 11:05:42 Gastroesoph ageal reflux disease without esophagitis 861122635 Active 2022 Bharat Bowen MD [address] [facility], [address], [place], [address], [facility] 5 11:05:20 Hyperlipide celeste 77664622 Active 2022 Bharat Bowen MD [address], [address], [place], [address], [facility] 5 11:05:13 Bipolar disorder 25305783 Active 2022 Bharat Bowen MD [address], [address], [place], [address], [facility] 5 11:05:40 Parkinson's disease 59179831 Active 2022 Bharat Bowen MD [address], [address], [place], [address], [facility] 5 11:05:08 Elevated blood-press ure reading without diagnosis of hypertensio n 083959659 Completed 202210/07/2024 MAXIME Wallace [address], [address], [place], [address], [facility] [employer] [facility] 5 11:21:38 Hearing loss 47268420 Active 2022 Bharat Bowen MD [address], [address], [place], [address], [facility] 5 11:05:16 Peripheral venous insufficien cy 67094317 Active 2022 Bharat Bowen MD [address], [address], [place], [address], [facility] 5 11:05:06 Foot callus 331924583 Active 2022 Bharat Bowen MD [address], [address], [place], [address], [facility] 5 11:05:23 Bunion 440800818 Active 2022 Bharat Bowen MD [address], [address], [place], [address], [facility] 5 11:05:37 Allergic rhinitis 92923810 Active 2024 Bharat Bowen MD [address], [address], [place], [address], [facility] 5 11:05:46 Decreased hearing 953276105 Active 2024 Bharat Bowen MD [address], [address], [place], [address], [facility] 11:05:31 Obstructive sleep apnea syndrome 66658077 Active 2024 Bharat Bowen MD [address], [address], [place], [address], [facility] 19:25:45 Notes:Medical History: Intel lectual disability Parkinson's disease Bipolar depression Bilateral hearing loss Rhinitis 8.4 mm right apical GGO Treatment-emergent central apneas Obesity with mild OSAHS, AHI = 5, 03/09/25, on autoCPAP c/o Provider Plus Hypothyroidism Mixed hyperlipidemia Hypertension CHRISTI Cholelithiasis ESRD on HD M-W-F Thrombocytopenia PVD OA Right bunion Foot callus Procedure History: Appendectomy Port-A-Cath placement Port-A-Cath removal Left arm AV shunt Bilateral cataract extraction with IOL Occupational History: [employer] participant Problem Notes None recorded. Procedures Surgical History Date Name Laterality Status Provider Name and Address Organization Details Recorded Time 02/10/20 24 Ear Irrigation completed RIGO CarrilloP-C [address], [address], [place], [address], [facility] 02/10/2024 14:16:41 09/30/19 24 Medicare Wellness CPT Code, subsequent completed RIGO CarrilloP-C [address], [address], [place], [address], [facility] 10/07/2023 09:39:16 05/13/20 23 Nail Debridement completed Frank Maza DPM [address], [address], [place], [address], [facility] 05/13/2023 15:23:14 05/13/20 23 Callus Debridement, One completed Frank Maza DPM [address], [address], [place], [address], [facility] 05/13/2023 15:23:06 02/12/20 23 Ear Irrigation completed MAXIME Moreau [address], [facility] [address], [place], [address], [employer] 02/11/2023 12:42:54 Appendectomy completed Randa Rendon [place] [employer] [facility] [employer] 05/13/2023 12:09:57 Imaging Results None recorded. Procedure Notes None recorded. Medical Equipment None Reported. Allergies Allergen ID Allergen Name Allergen Category Reaction Reaction Severity Criticality Documentation Date Start Date Code Code System Note Provider Name and Address Organization Details Recorded Time 69994 Non-stero idal anti-infl ammatory agent (substanc e) medicatio n Not available Not available Not available 11/19/2022 12307 5008 SNOMED Ana Bhatt RN null, [place] [employer] [facility] [employer] 11:02:22 Medications Name Sig Start Date Stop Date Status Note LastModified by Organization Details LastModified Time terbinafine HCl 1 % topical cream active Not Available Not Available Not Available divalproex 250 mg tablet,payton yed release Take 1 tablet twice a day by oral route. 01/19 completed Not Available Not Available Not Available ofloxacin 0.3 % eye drops 05/13 completed Not Available Not Available Not Available benzonatate 200 mg capsule 05/13 completed Not Available Not Available Not Available hydrocodone 5 mg-acetamin ophen 325 mg tablet active Not Available Not Available No t Available Nystop 100,000 unit/gram topical powder active Not Available Not Available Not Available sertraline 100 mg tablet active Not Available Not Available Not Available Zithromax Z-Wisam 250 mg tablet TAKE 2 TABLETS (500 MG) BY ORAL ROUTE ONCE DAILY FOR 1 DAY THEN 1 TABLET (250 MG) BY ORAL ROUTE ONCE DAILY FOR 4 DAYS 01/21 completed Not Available Not Available Not Available clopidogrel [...] pantoprazol e 40 mg tablet,payton yed release active Not Available Not Available Not Available simvastatin 20 mg tablet active Not Available Not Available Not Available diphenhydra mine 25 mg capsule Take 1 capsule every 4 hours by oral route. 01/21 completed Not Available Not Available Not Available carbidopa 10 mg-levodopa 100 mg tablet active Not Available Not Available Not Available azelastine 137 mcg (0.1 %) nasal spray [place] 2 sprays twice a day by intranasa l route as needed for 30 days. active Not Available Not Available No t Available polyethylen e glycol 3350 17 gram/dose oral powder active Not Available Not Available Not Available fluticasone propionate 50 mcg/actuati on nasal spray,suspe nsion active Not Available Not Available Not Available risperidone 0.5 mg tablet 1 tab at bedtime active Not Available Not Available No t Available Acidophilus capsule Take by oral route. 05/16 completed Not Available Not Available Not Available Ventolin HFA 90 mcg/actuati on aerosol inhaler Inhale 2 puffs 3 times a day by inhalatio n route as needed for 30 days. active Not Available Not Available No t Available bisacodyl 5 mg tablet Take 1 tablet as needed by oral route. 01/21 completed Not Available Not Available Not Available divalproex ER 250 mg tablet,exte nded [...] capsule Take as needed by oral route. 01/21 completed Not Available Not Available Not Available Acidophilus -Pectin 75 million cell-100 mg capsule 01/21 completed Not Available Not Available Not Available Lactobacill us acidophilus 500 million cell capsule 10/07 completed Not Available Not Available Not Available Astepro Allergy 205.5 mcg (0.15 %) nasal spray 01/21 completed Not Available Not Available Not Available Vitals Date Recorded Heart rate Oxygen saturation Heart rate Respiratory rate Provider Name and Address Organization Details Last Updated DateTime 03/24/2025 79 /min 95 % 79 /min 15 /min Bharat Bowen MD [address] [facility], [facility] [address], [place], [address] , [place] [employer] [facility] [employer] 03/24/2025 14:49:54 Date Recorded Body height Body mass index (BMI) Body weight Body temperature Systolic And Diastolic Provider Name and Address Organization Details Last Updated DateTime 03/24/2025 162.56 cm 29.9 kg/m2 55993.0 7 g 97.9 [degF] 116/64 mm[Hg] Shilpa Leo MA [place] [facility] [facility] [employer] 14:41:32 Social History Question Answer Notes LastModified by Organizat ion Details LastModified Time Tobacco Smoking Status Never Smoker Ana Bhatt RN null, [place] [facility] [facility] [employer] 11/19/2022 11:07:45 Are You Blind Or Do You Have Difficulty Seeing? No Information n ot available 10/07/2024 What Is Your Level Of Caffeine Consumption? Occasional Information not available 05/16/2025 In The 14 Days Before Symptom Onset, [...] Information not available 10/07/2024 Do You Have An Electrostatic Air Filter? No Information not available 03/24/2025 Do You Have A Humidifier? No Information not available 03/24/2025 Do You Have Moisture Problems In Your Home? No Information not available 03/24/2025 What Was The Date Of Your Most Recent Tobacco Screening? 05/16/2025 Information not available 05/16/2025 Do You Have Any Pets? No Information not available 10/07/2024 What Is Your Relationship Status? Single Information not available 10/07/2024 Do You Use Your Seat Belt Or Car Seat Routinely? Yes Information not available 10/07/2024 Do You Have Smoke And Carbon Monoxide Detectors In Your Home? Yes Information not available 10/07/2024 Are You Passively Exposed To Smoke? No Information no t available 03/24/2025 Do You Participate In Social Media? No Information not available 10/07/2024 Do You Use Sunscreen Routinely? No Information not available 03/24/2025 Have You Recently Traveled Abroad? No Information not available 10/07/2024 Do You Have Difficulty Walking Or Climbing Stairs? Yes Information not available 10/07/2024 Sex: Unknown Functional Status Question Answer Note LastModified by Organizat ion Details LastModified Time Do you use any illicit or recreational drugs? No Information not available 05/16/2025 Do you or have you ever used any other forms of tobacco or nicotine? No Information not available 03/24/2025 What is your level of alcohol consumption? None [email or web address] Information not available 11/19/2022 Are you currently employed? No Information not available 10/07/2024 Have you been exposed to chemicals or toxins? not that aware of Information not available 05/16/2025 Do you have transportation difficulties? Yes Information not available 10/07/2024 Are you able to walk independently without assistance or assistive devices? YESLIMIT Information not available 10/07/2024 Do you have difficulty doing errands alone? Yes Information not available 10/07/2024 Are you able to care for yourself independently? Yes Information not available 10/07/2024 Do you have difficulty dressing, bathing, grooming, or toileting? Yes Information not available 10/07/2024 Mental Status Question Answer Note LastModified by Organizat ion Details LastModified Time Do you feel stressed (tense, restless, nervous, or anxious, or unable to sleep at night)? HC6331-5 Information not available 10/07/2024 Do you have difficulty concentrating, remembering or making decisions? Yes Information no t available 10/07/2024 Family History Nothing Reported. Medical History Condition Response ALLERGIES/HAYFEVER Y OTHER # 1 Y MENTAL DISORDER/ILLNESS Y DIALYSIS Y COPD Y MUSCLE,JOINT OR BONE PROBLEMS Y HYPERTENSION Y HYPERTHYROIDISM Y OBESITY Y BACK / NECK PROBLEMS Y PAIN Y Gynecological HistoryNo gynecological history recorded. Obstetrics History GPAL:G 0 P 0 0 0 0 Immunizations Vaccine Type Date Status Note Provider Nam e and Address Organization Details Recorded Time Tdap 5 completed Rani Zamudio RN [facility], [facility] [employer] 10/07/2024 11:58:14 Influenza, split virus, quadrivalent, preservative 6 completed Heather Vegas APRN [address], [address], [place], [address], [facility] [employer] 03/16/2024 13:44:51 COVID-19, mRNA, LNP-S, PF, 100 mcg/0.5mL dose or 50 mcg/0.25mL dose 1 completed Heather Vegas APRN [address], [address], [place], [address], [facility] [employer] [facility] 03/16/2024 13:44:51 COVID-19, mRNA, LNP-S, PF, 100 mcg/0.5mL dose or 50 mcg/0.25mL dose 1 completed Heather Vegas APRN [address], [address], [place], [address], [facility] [employer] [facility] 03/16/2024 13:44:51 COVID-19, mRNA, LNP-S, PF, 100 mcg/0.5mL dose or 50 mcg/0.25mL dose 1 completed Heather Vegas APRN [address], [address], [place], [address], [facility] [employer] [facility] 03/16/2024 13:44:51 Pneumococcal conjugate PCV20, polysaccharide FQS198 conjugate, adjuvant, PF [address], [place], [address], [facility] [employer] [facility] 03/16/2024 13:44:51 pneumococcal polysaccharide PPV23 4 completed [address], [place], [address], [facility] [employer] [facility] 03/16/2024 13:44:51 influenza, unspecified formulation 8 completed [address], [address], [place], [address], [facility] [employer] [facility] [employer] [facility] 03/16/2024 13:44:51 Tdap 8 completed MANAN [address], [address], [place], [address], [facility] [employer] [facility] [employer] [facility] 03/16/2024 13:44:51 Pneumococcal conjugate PCV 13 5 completed MANAN [address], [address], [place], [address], [facility] [employer] [facility] 03/16/2024 13:44:51 varicella 4 completed MANAN [address], [address], [place], [address], [facility] [employer] [facility] 03/16/2024 13:44:51 varicella 4 completed [address], [address], [place], [address], [facility] [employer] [facility] 03/16/2024 13:44:51 zoster live 6 completed MANAN [address], [address], [place], [address], [facility] [employer] [facility] 03/16/2024 13:44:51 zoster live 9 completed Heather Shasta, [employer] [address], [address], [place], [address], [facility] [employer] [facility] [employer] [facility] 03/16/2024 13:44:51 Influenza, split virus, trivalent, preservative 3 completed Heather Vegas, [employer] [address], [address], [place], [address], [facility] [employer] [facility] [employer] [facility] 03/16/2024 13:44:51 Influenza, split virus, trivalent, preservative 4 completed Heather Vegas, [employer] [address], [address], [place], [address], [employer] [facility] [employer] [facility] 03/16/2024 13:44:51 Td (adult), 2 Lf tetanus toxoid, preservative free, adsorbed 8 completed Heather Vegas APRN [address], [address], [place], [address], [employer] [facility] [employer] [facility] 03/16/2024 13:44:51 DTaP 8 completed Heather Vegas APRN [address], [address], [place], [address], [employer] [facility] [employer] [facility] 03/16/2024 13:44:51 Influenza, split virus, quadrivalent, PF 2 completed Heather Vegas APRN [address], [address], [place], [address], [employer] [facility] [employer] [facility] 03/16/2024 13:44:51 Influenza, split virus, quadrivalent, PF 7 completed Heather Vegas APRN [address], [address], [place], [address], [employer] [facility] [employer] [facility] 03/16/2024 13:44:51 Influenza, split virus, quadrivalent, PF 1 completed Heather Vegas APRN [address], [address], [place], [address], [employer] [facility] [employer] [facility] 03/16/2024 13:44:51 Influenza, split virus, quadrivalent, PF 5 completed Heather Vegas, [employer] [address], [address], [place], [address], [facility] [employer] [facility] 03/16/2024 13:44:51 COVID-19, mRNA, LNP-S, PF, 50 mcg/0.5 mL 3 completed Heather Vegas, [employer] [address], [address], [place], [address], [facility] [employer] [facility] [employer] [facility] 03/16/2024 13:44:58 Influenza, split virus, quadrivalent, PF 3 completed Heather Vegas, [employer] [address], [address], [place], [address], [facility] [employer] [facility] 03/16/2024 13:44:58 Past Encounters Encounter ID Performer Location Encounter Start Date Encounter Closed Date Diagnosis/Indication Diagnosis SNOMED-CT Code Diagnosis ICD10 Code Diagnosis IMO Codes Diagnosis Note [id number] Bharat Bowen MD [facility] [address] [place] [address] 03/24/2025 14:25:15 03/25/2025 15:17:33 Obstructive sleep apnea syndrome 35770539 G47.33 G47.30 R06.89 79248 Health Concerns Section Related Observation LastModified by Organization Detai ls LastModified Time None Recorded Concern Status LastModified by Organization Details LastModified Time None Recorded Payers Encounter Date Sequence Insurance Name Policy Number Policy Garsia Covered Member ID Garsia Member ID Guarantor Name 03/24/2025 1 [place] Aaliyah Enriquez [id number] Aaliyah Enriquez 03/24/2025 2 [place] WHEN MEDICARE OR MEDICARE REPLACEMENT PRIMARY) Aaliyah Enriquez [id number] Aaliyah Enriquez Notes Date Note Type Note Provider Name and Address Organization Details Recorded Time 03/24/2025 text/html Primary care/Referring provider: MAXIME Wilson During the [facility] diagnostic sleep study on 03/09/25, sleep onset = 14.5 minutes, REM onset = 186.5 minutes, AHI = 5, REM AHI = 7, PLMI = 0.0. At home, the patient sleeps from 8 pm to 5 am and wakes up with caregiver. Snoring: heavySnorting: noChoking: noCoughing: yesGasping: noGagging: noSighing: noWitnessed apnea: yesTwitching or jerking of leg(s), arm(s), body, head: noTeeth grinding: noTeeth clenching: noSleeptalking: noSleepwalking: noSleep crying: noBedwetting: yesTongue/lip/gum/derrick k biting: noSleeping with open mouth: yesSleep paralysis: noHypnagogic hallucinations: noHypnopompic hallucinations: noVivid dreams: noDifficulty with sleep onset: noDifficulty with sleep maintenance: yesSleep interruptions: nocturia x 1Patient wakes up with: fatigue, mobility impairmentDaytime cataplexy: noMorning hypersomnolence: noAfternoon hypersomnolence: yesCaffeine sources in diet: coffee 1 cup per day, soda 1 fountain drink per month Associated medical and psychiatric conditions:Congestive heart failure: noCoronary artery disease: noMyocardial infarction: noHypertension: yesStroke: noBronchial asthma: noChronic obstructive pulmonary disease: noDepression: yesBipolar disorder: noAnxiety: noPanic disorder: noPosttraumatic stress disorder: noAttention deficit and hyperactivity disorder: noObsessive Compulsive disorder: noSchizophrenia: noSchizoaffective disorder: noPersonality disorder: noChronic analgesic use: noChronic sedative/hypnotic use: no EPWORTH SLEEPINESS SCALE (ESS) CHANCE OF DOZING SCORE0 = would never doze1 = slight chance of dozing2 = moderate chance of dozing3 = high chance of dozing SITUATION AND CHANCE OF DOZINGSitting and reading - 2Watching television - 2Sitting inactive in a public place (e.g. a theater or meeting) - 2As a passenger in a car for an hour without a break - 3Lying down to rest in the afternoon when circumstances permit - 3Sitting and talking to someone - 0Sitting quietly after lunch without alcohol - 0In a car, while stopped for a few minutes in the traffic - 0TOTAL SCORE 12Subjectively, patient has a moderate chance of dozing. Bharat Bowen MD [address] [place] [address], [place], [phone], [facility] 03/24/2025 15:00:17 OBGyn Episode No OBEpisode recorded.
--- OUTSIDE RECORDS SUMMARY | 2025-06-18 18:50 | XMS_ITS | Encounter Summary ---
Author Organization [facility] Address [address] [facility] [place] [address] Care Team Providers Care Fish Frog Or Oyster Farmer Name Role Phone ButtTate CORPORATE TRAVEL COORDINATOR-CURATOR [employer] Primary Care Provider Billy Brewer CORPORATE TRAVEL COORDINATOR-CURATOR [employer] Primary Care Provider [phone] Heather Owusu Primary Care Provider [phone] Encounter Details Date Type Department Care Team (Late st Contact Info) Description 04/24/2018 Lab Requisition Formerly [facility] - Laboratory [address] [place] [address] Juan J Obregon MD [address] [place] [address] [address] Anemia in chronic kidney disease (CODE) Social History Tobacco Use Types Packs/Day Years Used Date Smoking Tobacco: Never Assessed Comments Unknown Sex and Gender Information Value Date Recorded Sex Assigned at Not on file Legal Sex Female 2:58 PM CDT Gender Identity Not on file Sexual Orientation Not on file documented as of this encounter Plan of Treatment Not on file documented as of this encounter Procedures Procedure Name Priority Date/Time Associated Diagnosis Comments HEMOGLOBIN Routine 04/24/2018 9:52 AM CDT Anemia in chronic kidney disease (CODE) documented in this encounter Results * HEMOGLOBIN (04/24/2018 9:52 AM CDT) Hemoglobin 12.0 12.0 - 15.6 gm/dL 04/24/2018 9:59 AM CDT [facility] Blood BLOOD SPECIMEN / Unknown Venipuncture / Unknown 04/24/2018 9:52 AM CDT 04/24/2018 9:55 AM CDT us Juan J Obregon MD LAB - HEMATOLOGY ORDERABLES Fi nal Result [facility] [address] [place] [address] documented in this encounter Visit Diagnoses Diagnosis Anemia in chronic kidney disease (CODE) documented in this encounter Care Teams Fish Frog Or Oyster Farmer Relationship Specialty Start Date End Date Tate Butt, CORPORATE TRAVEL COORDINATOR-CURATOR [employer] [address] [place] [phone] PCP - General Nurse Practitioner Family 05/26/23 Billy Brewer APRN-CURATOR [employer] [address] [place] [id number] PCP - General 06/03/23 05/30/25 Heather Owusu [address] [place], [place] [address] [phone] PCP - General 05/31/25 documented as of this encounter
--- OUTSIDE RECORDS SUMMARY | 2025-06-18 18:50 | XMS_ITS | Encounter Summary ---
Author Organization [facility] Address [address] [facility] [place] [address] Care Team Providers Care Secretary To The Vice President Name Role Phone BrewerBilly MANAN-ELVIA Primary Care Provider [phone] Heather Owusu Primary Care Provider [phone] Reason for Referral * Radiology Services (Routine) - Closed Specialty Diagnoses / Procedures Referred By Contac t Referred To Contact Vascular Lab Diagnoses ESRD (end stage renal disease) on dialysis (HCC) Procedures [facility] [place] [id number] [place] [address] [place] [phone] Phone: tel: fax: [facility] [address] [place] [address], [address] [place] [address] Phone: tel: fax: Referral ID Status Reason Start Date Expiration Date Visits Re quested Visits Authorized [id number] Closed 11/16/2024 11/18/2024 1 1 Encounter Details Date Type Department Care Team (Late st Contact Info) Description 11/16/2024 Telephone [facility] [address] [place] [address], [address] [place] [address] Gloria Allen, RN Social History Tobacco [...] of Assessment Author No 05/25/2024 1:08 PM Nalini Andres RN * Does person have serious [...] documented in this encounter Plan of Treatment Pending Results Name Type Priority Associated Diagnoses Date /Time [facility] Imaging Routine ESRD (end stage renal disease) on dialysis (HCC) 11/18/2024 3:24 PM CDT Scheduled Orders Name Type Priority Associated Diagnoses Orde r Schedule IR [facility] Imaging Routine ESRD (end stage renal disease) on dialysis (HCC) 1 Occurrences starting 11/16/2024 until 11/16/2025 documented as of this encounter Visit Diagnoses Diagnosis ESRD (end stage renal disease) on dialysis (HCC)- Primary End stage renal disease documented in this encounter Care Teams Secretary To The Vice President Relationship Specialty Start Date End Date Billy Brewer APRN-CHIEF OPERATOR LOCK TENDER [address] [place] [address] [place] [phone] PCP - General 06/03/23 05/30/25 Heather Owusu [address] [place] [address] [place] [phone] PCP - General 05/31/25 documented as of this encounter
--- OUTSIDE RECORDS SUMMARY | 2025-06-18 18:50 | XMS_ITS | Continuity of Care Document ---
Author Organization [place] [facility], [facility] [place] Address [address] [address] Care Team Providers Care Stock Repairer Name Role Phone FRANCK WHATLEY Primary Care Provider Assessment Encounter Date Assessment Date Assessment LastModified by Organization Details LastModified Time 05/16/2025 05/16/2025 Assessment: Hypertension Mild OSAHS, AHI = 5 Plan: The following were reviewed and explained to the patient: Chest CT 12/24/24 8.4 mm right apical GGO [facility] diagnostic sleep study 03/09/25 sleep onset = 14.5 minutes, REM onset = 186.5 minutes, AHI = 5, REM AHI = 7, PLMI = 0.0 [facility] titration sleep study 05/11/25 sleep onset = 6 minutes, REM onset = 229.5 minutes, ResMed medium AirFit F20 full face mask @ 5-15 cmH2O, PLMI = 1 Educated the patient on problems and solutions associated with positive airway pressure (PAP) use. Difficulty tolerating pressure, mask leaks, intolerance of interface, nasal congestion, claustrophobic response, dry mouth, and unintentional mask removal during sleep were covered. Patient has some difficulty tolerating pressure. Patient is advised to practice wearing PAP daily while awake, lower pressure with or without sleeping on sides, activate PAP ramp feature, have blower checked to make sure pressure is set as prescribed and return to sleep center for consideration of auto-adjusting PAP therapy. Dry mouth is a normal occurrence for people who just start out on PAP therapy because they are not used to air blowing in to the throat to hold open. Dry mouth is exacerbated for people who wear nasal PAP mask and whose jaw drops open during sleep. Not only does this create a much less efficient therapy because of leakage, it also causes dry mouth. There are a couple solutions to help prevent this type of problem. A simple solution would be to wear a chinstrap which essentially holds the jaw in place. A second solution would be a switch to a full face mask which covers both the nose and mouth. Although this is another easy solution, using a full face mask for some could seem claustrophobic or confining. There is no silver bullet solution as no single mask is right for everybody. Sometimes it takes a bit of experimentation to find a PAP mask which best meets the patient's needs as well as fits comfortably. Another tactic is to use a humidifier on your PAP machine. Most new PAP machines have integrated humidifiers. Humidification is sanchez when dealing with symptoms of dry mouth because the humidifier can supply both warm and room temperate air. Even a small amount of humidity in the airflow will help nasal passages to stay hydrated. If a person is using both a full face mask and a PAP machine with a heated humidifier and is still experiencing dry mouth, an ill-fitted PAP mask might be causing the problem. Leakage can be caused by a mask that is to large or small, the wrong style mask, the cushion is degraded or simply because the mask's straps aren't adjusted correctly. If leakage occurs, dry air from the room can leak in while humidification escapes. The result is reduced humidification within the circuit and resulting in dry throat and mouth. Finally, beyond factors involving the PAP machine and mask, dry mouth can also be caused or worsened by dehydration. The general recommendation to during eight 8 oz. glasses of water a day might be too little for many people. When people drink large amounts of coffee or other caffeine beverages, or sweat a lot during the day, making sure to rehydrate is an important part of PAP therapy. ResMed Air Sense 11 auto set unit with heated humidifier, supplies and ResMed medium AirFit F20 full face mask @ 5-15 cmH2O ordered. Further titration will be based on clinical response. Provided the patient with a list of local home care stores where positive airway pressure (PAP) units, accoutrement, and services are available. Home care store selection is based on patient's insurance carrier. Patient will setup an appointment with [facility] for supplies and pressure adjustments. A major predictor of success with use of PAP is follow-up with both the respiratory supplier and the treating physician. The respiratory supplier optimally will follow-up within two weeks after starting use while the treating physician optimally will follow-up within 90 days after starting therapy to assess adherence and effectiveness of treatment. The download results can show the treating physician information about adherence to treatment, residual AHI while on treatment and presence of large mask leakage. This information is especially helpful if the patient has residual sleepiness despite treatment. General information on sleep disordered breathing, evaluation of sleep disordered breathing, treatment with PAP therapy, and living with PAP therapy were covered. We discussed with the patient the impact [...] records to PCP for further management. Follow-up: 3 months, August, [email or web address] Not available 05/16/2025 09:02:04 Plan of Treatment Reminders Order Date Submit Date Provider Last Modified By Organization Details Last Modified Time Details Appointments Any 15 026 09:00AM Bharat Bowen MD Not available Not available Not available Lab None record ed. Referral None record ed. Procedures None record ed. Surgeries None record ed. Imaging None record ed. Medication Orders None record ed. Patient TargetsNo targets recorded. Patient InstructionsNo instructions recorded. Reason for Referral None Reported. Results Created Date Observation Date Name Description Value Unit Range Abnormal Flag Note LastModifiedBy Organization Detail LastModifiedTime 05/13/2005/11/2025 polys omnog kraig, titra tion study No observ ation record ed. [facility] [address] [place], [address], 05/13/2025 15:53:45 Result Notes None recorded. Problems Name Problem SNOMED Code Status Onset Date Resolution Date Notes Provider Name and Address Organization Details Recorded Time Mild intellectua l disability 48741434 Active 2022 Bharat Bowen MD [address], [place] [address], [place], [address], [employer] 5 11:05:10 Cyclothymia 83029084 Active 2022 Bharat Bowen MD [address], [place] [address], [place], [address], [employer] 5 11:05:34 Essential hypertensio n 52783939 Active 2022 Bharat Bowen MD [address], [place], [address], [employer] 5 11:05:27 Hypothyroid ism 65472717 Active 2022 Bharat Bowen MD [address], [address], [place], [address], [employer] 5 11:05:11 Arthritis 3339104 Active 2022 Bharat Bowen MD [address], [address], [place], [address], [employer] [facility] [employer] [facility] 5 11:05:42 Gastroesoph ageal reflux disease without esophagitis 622238327 Active 2022 Bharat Bowen MD [address], [address], [place], [address], [employer] [facility] 5 11:05:20 Hyperlipide celeste 43925402 Active 2022 Bharat Bowen MD [address], [address], [place], [address], [employer] [facility] [employer] [facility] 5 11:05:13 Bipolar disorder 38805227 Active 2022 Bharat Bowen MD [address], [address], [place], [address], [employer] [facility] [employer] [facility] 5 11:05:40 Parkinson's disease 60516359 Active 2022 Bharat Bowen MD [address], [address], [place], [address], [employer] [facility] [employer] [facility] 5 11:05:08 Elevated blood-press ure reading without diagnosis of hypertensio n 450220967 Completed 202210/07/2024 MAXIME Wallace [address], [address], [place], [address], [employer] [facility] 5 11:21:38 Hearing loss 91090578 Active 2022 Bharat Bowen MD [address], [address], [place], [address], [employer] [facility] [employer] [facility] 5 11:05:16 Peripheral venous insufficien cy 89281489 Active 2022 Bharat Bowen MD [address], [address], [place], [address], [employer] [facility] 5 11:05:06 Foot callus 117729360 Active 2022 Bharat Bowen MD [address], [address], [place], [address], [employer] 5 11:05:23 Bunion 194844394 Active 2022 Bharat Bowen MD [address], [address], [place], [address], [employer] 5 11:05:37 Allergic rhinitis 92396640 Active 2024 Bharat Bowen MD [address], [address], [place], [address], [employer] 5 11:05:46 Decreased hearing 058948832 Active 2024 Bharat Bowen MD [address], [address], [place], [address], [employer] 5 11:05:31 Obstructive sleep apnea syndrome 35962967 Active 2024 Bharat Bowen MD [address], [place], [place], [address], [employer] 19:25:45 Notes:Medical History: Intel lectual disability Parkinson's [...] cataract extraction with IOL Occupational History: [employer] participant Problem Notes None recorded. Procedures Surgical History Date Name Laterality Status Provider Name and Address Organization Details Recorded Time 02/10/20 24 Ear Irrigation completed MAXIME Carrillo-[address], [address], [place], [address], [employer] 02/10/2024 14:16:41 09/30/19 24 Medicare Wellness CPT Code, subsequent completed Billy Brewer [facility] [address], [place], [place], [address], [facility] [employer] [facility] 10/07/2023 09:39:16 05/13/20 23 Nail Debridement completed Frank Maza DPM [address], [address], [place], [address], [facility] [employer] [facility] 05/13/2023 15:23:14 05/13/20 23 Callus Debridement, One completed Frank Maza DPM [address], [address], [place], [address], [facility] [employer] [facility] 05/13/2023 15:23:06 02/12/20 23 Ear Irrigation completed MAXIME Moreau [address], [address], [place], [address], [facility] [employer] [facility] 02/11/2023 12:42:54 Appendectomy completed Randa Rendon [facility] [employer] [facility] 05/13/2023 12:09:57 Imaging Results None recorded. Procedure Notes None recorded. Medical Equipment None Reported. Allergies Allergen ID Allergen Name Allergen Category Reaction Reaction Severity Criticality Documentation Date Start Date Code Code System Note Provider Name and Address Organization Details Recorded Time 18858 Non-stero idal anti-infl ammatory agent (substanc e) medicatio n Not available Not available Not available 11/19/2022 85169 5008 SNOMED Ana Bhatt RN [facility], [facility] [employer] [facility] 11:02:22 Medications Name Sig Start Date Stop [...] azelastine 137 mcg (0.1 %) nasal spray Diamondhead 2 sprays twice a day by intranasa [...] Not Available Vitals Date Recorded Heart rate Respiratory rate Systolic And Diastolic Provider Name and Address Organization Details Last Updated DateTime 05/16/2025 77 /min 15 /min 142/82 mm[Hg] Bharat Bowen MD [address] [facility] [address], [place], [address], [facility] [employer] 05/16/2025 09:00:38 Date Recorded Body height Body mass index (BMI) Body weight Body temperature Heart rate Oxygen saturation Provider Name and Address Organization Details Last Updated DateTime 162.56 cm 31.2 kg/m2 77105.8 1 g 98.2 [degF] 77 /min 96 % Shilpa Leo MA [facility] [employer] 08:43:36 Social History Question Answer Notes LastModified by Organizat ion Details LastModified Time Tobacco Smoking Status Never Smoker Ana Bhatt RN null, [facility] [employer] 11/19/2022 11:07:45 Are You Blind Or Do [...] anxious, or unable to sleep at night)? [id number] Information not available 10/07/2024 Do you have [...] Time Tdap 5 completed Rani Zamudio RN [facility], [employer] 10/07/2024 11:58:14 Influenza, split virus, quadrivalent, preservative 6 completed Heather Vegas APRN [address], [address], [place], [address], [employer] 03/16/2024 13:44:51 COVID-19, mRNA, LNP-S, PF, 100 mcg/0.5mL dose or 50 mcg/0.25mL dose 1 completed Heather Vegas APRN [address], [address], [place], [address], [employer] 03/16/2024 13:44:51 COVID-19, mRNA, LNP-S, PF, 100 mcg/0.5mL dose or 50 mcg/0.25mL dose 1 completed Heather Vegas APRN [address], [address], [place], [address], [facility] 03/16/2024 13:44:51 COVID-19, mRNA, LNP-S, PF, 100 mcg/0.5mL dose or 50 mcg/0.25mL dose 1 completed Heather Vegas APRN [address], [address], [place], [address], [facility] 03/16/2024 13:44:51 Pneumococcal conjugate PCV20, polysaccharide VRE791 conjugate, adjuvant, PF [address], [address], [place], [address], [facility] 03/16/2024 13:44:51 pneumococcal polysaccharide PPV23 4 [address], [address], [place], [address], [facility] [employer] [facility] 03/16/2024 13:44:51 influenza, unspecified formulation 8 completed MANAN [address], [address], [place], [address], [facility] 03/16/2024 13:44:51 Tdap 8 completed [address], [address], [place], [address], [facility] 03/16/2024 13:44:51 Pneumococcal conjugate PCV 13 5 completed Heather Vegas APRN [address], [address], [place], [address], [facility] 03/16/2024 13:44:51 varicella 4 completed [address], [address], [place], [address], [facility] [employer] [facility] 03/16/2024 13:44:51 varicella 4 completed Heather Vegas APRN [address], [address], [place], [address], [facility] [employer] [facility] 03/16/2024 13:44:51 zoster live 6 completed MANAN [address], [address], [place], [address], [facility] [employer] [facility] 03/16/2024 13:44:51 zoster live 9 completed MA[address], [address], [place], [address], [facility] [employer] [facility] 03/16/2024 13:44:51 Influenza, split virus, trivalent, preservative 3 completed [address], [address], [place], [address], [facility] [employer] [facility] 03/16/2024 13:44:51 Influenza, split virus, trivalent, preservative 4 completed Heather Vegas APRN [address], [address], [place], [address], [facility] [employer] [facility] 03/16/2024 13:44:51 Td (adult), 2 Lf tetanus toxoid, preservative free, adsorbed 8 completed [address], [address], [place], [address], [facility] [employer] [facility] 03/16/2024 13:44:51 DTaP [address], [address], [place], [address], [facility] [employer] [facility] 03/16/2024 13:44:51 Influenza, split virus, quadrivalent, PF [address], [address], [place], [address], [facility] [employer] [facility] 03/16/2024 13:44:51 Influenza, split virus, quadrivalent, PF 7 completed Heather Vegas APRN [address] [facility], [facility] [address], [place], [address], [facility] [employer] [facility] [employer] [facility] 03/16/2024 13:44:51 Influenza, split virus, quadrivalent, PF 1 completed Heather Vegas APRN [address] [facility], [facility] [address], [place], [address], [facility] [employer] [facility] [employer] [facility] 03/16/2024 13:44:51 Influenza, split virus, quadrivalent, PF 5 completed Heather Vegas APRN [address] [facility], [facility] [address], [place], [address], [facility] [employer] [facility] 03/16/2024 13:44:51 COVID-19, mRNA, LNP-S, PF, 50 mcg/0.5 mL 3 completed Heather Vegas APRN [address] [facility], [facility] [address], [place], [address], [facility] [employer] [facility] 03/16/2024 13:44:58 Influenza, split virus, quadrivalent, PF 3 completed Heather Vegas APRN [address] [facility], [facility] [address], [place], [address], [facility] [employer] [facility] 03/16/2024 13:44:58 Past Encounters Encounter ID Performer Location Encounter Start Date Encounter Closed Date Diagnosis/Indication Diagnosis SNOMED-CT Code Diagnosis ICD10 Code Diagnosis IMO Codes Diagnosis Note [id number] Bharat Bowen MD [facility] [place] [address] [place] [address] [address] [place] [phone] 05/16/2025 08:34:19 05/19/2025 11:30:40 Obstructive sleep apnea syndrome 52695344 G47.33 12384 Health Concerns Section Related Observation LastModified by Organization Detai ls LastModified Time None Recorded Concern Status LastModified by Organization Details LastModified Time None Recorded Payers Encounter Date Sequence Insurance Name Policy Number Policy Garsia Covered Member ID Garsia Member ID Guarantor Name 05/16/2025 1 [place] Aaliyah Enriquez [id number] Aaliyah Enriquez 05/16/2025 2 [place] WHEN MEDICARE OR MEDICARE REPLACEMENT PRIMARY) Aaliyah Enriquez [id number] Aaliyah Enriquez Notes Date Note Type Note Provider Name and Address Organization Details Recorded Time 05/16/2025 text/html Primary care/Referring provider: MAXIME Wilson During the [facility] diagnostic sleep study on 03/09/25, sleep onset = 14.5 minutes, REM onset = 186.5 minutes, AHI = 5, REM AHI = 7, PLMI = 0.0. During the [facility] titration sleep study on05/11/25, sleep onset = 6 minutes, REM onset = 229.5 minutes, PLMI = 1. The patient uses a ResMed AirSense 11 autoset unit with heated humidification. The patient does not need the ramp to start low and go up slowly on the pressure. There is some xerostomia in a.m. There is no hose/mask condensation with water. The patient wears a ResMed medium AirFit F20 full face mask without chin strap. There is no claustrophobia, no nostril/nose bridge irritation, no facial rash, no facial numbness, no nose bleeding. The patient feels more refreshed upon waking and daytime alertness is improved. Energy levels are sustained for the remainder of the day. At home, the patient sleeps from 8 [...] AND CHANCE OF DOZINGSitting and reading - 0Watching television - 3Sitting inactive in a public place (e.g. a theater or meeting) - 3As a passenger in a car for an hour without a break - 2Lying down to rest in the afternoon when circumstances permit - 3Sitting and talking to someone - 0Sitting quietly after lunch without alcohol - 2In a car, while stopped for a few minutes in the traffic - 0TOTAL SCORE 13Subjectively, patient has a moderate chance of dozing. Bharat Bowen MD [address] [place] [address], [facility] [address], [place], [address], [place] [facility] 05/16/2025 09:07:48 OBGyn Episode No OBEpisode recorded.
[2025-06-18 18:58] VITALS: BP 149/76; PULSE 69; RESP 18; TEMP 36.8; O2SAT 98
--- NOTE | 2025-06-18 19:55 | ED.NECK ---
HPI - Neck Pain/Injury General Chief Complaint: Neck Pain/Injury Stated Complaint: neck pain Time Seen by Provider: 06/18/25 19:20 History of Present Illness HPI Narrative: 70-year-old female With a history of Parkinson's disease, intellectual delay, bipolar disorder, hypothyroidism. Presenting from skilled care facility for concerns of left-sided neck pain. She also had a sore throat Today. Denies any fever chills. Patient has dialysis Friday has not missed any sessions. She states that she has some pain her left-sided neck when she sleeps and feels like it could have been strained. Denies any new pillows or support systems. Has not tried anything besides topical ice and heat as well as Tylenol. Was otherwise in her normal state of health. States that her left-sided neck hurts with movement and palpation as well as sometimes swallowing. Denies any dysphagia. No difficulty swallowing otherwise. No speech deficits. No other complaints. No restricted range of motion. Movement of the back and left upper extremity did not elicit any pain her neck. No fever chills. No sick contacts but she does reside at a care facility. Patient presents with her caregiver at bedside. Related Data Home Medications ?Medication ?Instructions ?Recorded ?Confirmed ?Last Taken ?Type acetaminophen 325 mg capsule 650 mg PO Q6H PRN fever or pain 08/29/22 02/01/25 Unknown History albuterol sulfate 90 mcg/actuation 1 inh inhalation HS 08/29/22 02/01/25 Unknown History aerosol inhaler aluminum-mag hydroxide-simethicone 5 ml PO ONCE 08/29/22 02/01/25 Unknown History 200 mg-200 mg-20 mg/5 mL oral susp (Yin-Lanta) azelastine 205.5 mcg (0.15 %) 2 spray intranasal BID 08/29/22 02/01/25 Unknown History nasal spray (Astepro Allergy) bisacodyl 5 mg tablet,delayed 10 mg PO Q12-24H PRN constipation 08/29/22 02/01/25 Unknown History release bismuth subsalicylate 262 mg/15 mL 524 mg PO Q1H 08/29/22 02/01/25 Unknown History oral suspension (Stomach Relief) carbidopa 10 mg-levodopa 100 mg 1 tablet PO BID 08/29/22 02/01/25 Unknown History tablet dextromethorphan HBr 15 mg/5 mL 15 mg PO Q8H PRN cough 08/29/22 02/01/25 Unknown History oral syrup diphenhydramine HCl 25 mg capsule 25 mg PO QHS 08/29/22 02/01/25 Unknown History (Allergy (diphenhydramine)) divalproex 250 mg tablet,delayed 250 mg PO BID 08/29/22 02/01/25 Unknown History release (Depakote) famotidine 20 mg tablet 20 mg PO HS PRN indigestion 08/29/22 02/01/25 Unknown History fenofibrate 160 mg tablet 160 mg PO DAILY 08/29/22 02/01/25 Unknown History fluticasone propionate 50 2 spray intranasal BID 08/29/22 02/01/25 Unknown History mcg/actuation nasal spray,suspension (Allergy Relief (fluticasone)) levothyroxine 88 mcg capsule 88 mcg PO DAILY 08/29/22 02/01/25 Unknown History pantoprazole 40 mg tablet,delayed 40 mg PO BID 08/29/22 02/01/25 Unknown History release polyethylene glycol 3350 17 17 g PO DAILY PRN constipation 08/29/22 02/01/25 Unknown History gram/dose oral powder risperidone 0.5 mg tablet 0.5 mg PO QHS 08/29/22 02/01/25 Unknown History sertraline 100 mg tablet 100 mg PO DAILY 08/29/22 02/01/25 Unknown History sevelamer carbonate 800 mg tablet 800 mg PO TID 08/29/22 02/01/25 Unknown History (Renvela) simvastatin 20 mg tablet 20 mg PO HS 08/29/22 02/01/25 Unknown History aluminum-mag hydroxide-simethicone 30 ml PO Q4H PRN indigestion 12/22/24 02/01/25 Unknown History 200 mg-200 mg-20 mg/5 mL oral susp (Advanced Antacid-Antigas) bismuth subsalicylate 525 mg/15 mL 262 mg PO Q3H6XD PRN diarrhea 12/22/24 02/01/25 Unknown History oral suspension (Stomach Relief) cholecalciferol (vitamin D3) 1,250 50,000 unit PO .Q14 days 12/22/24 02/01/25 Unknown History mcg (50,000 unit) capsule diphenhydramine HCl 25 mg capsule 25 mg PO Q6H PRN congestion 12/22/24 02/01/25 Unknown History (Banophen) guaifenesin 100 mg/5 mL oral 100 mg PO Q4H PRN cough 12/22/24 02/01/25 Unknown History liquid (Chest Congestion Relief) hydrocodone 5 mg-acetaminophen 325 1 tablet PO Q6H PRN pain 12/22/24 02/01/25 Unknown History mg tablet Lactobacillus acidophilus 75 mmu cells PO DAILY 02/01/25 02/01/25 Unknown History (Acidophilus capsule) Allergies Allergy/AdvReac Type Severity Reaction Status Date / Time NSAIDS (Non-Steroidal Allergy Mild Unknown Verified 12/22/24 06:48 Anti-Inflamma Review of Systems Review of Systems: As reviewed above in HPI All systems reviewed & are unremarkable except as noted in HPI and below PMFSH Past Medical History Medical History Parkinsons disease Bipolar disorder Hyperlipidemia Chronic kidney disease H/O gastroesophageal reflux (GERD) Seasonal allergies COPD (chronic obstructive pulmonary disease) Low back pain Chronic venous insufficiency Personal history of dysmenorrhea Hypothyroidism Hypertension Cyclothymia Mild intellectual disability Surgical History Surgical History [place] teeth removed History of removal of cyst abdominal Social History Social History Smoking status: Never smoker Second hand tobacco smoke exposure: No Alcohol intake: never Substance use: never Lack of Transportation: No Lack of Food: Never True Current Housing: I Have Housing Concerned About Future Housing: No Difficulty Paying Gas/Electric Bills: No Difficulty Paying for Meds: No Currently Unemployed: No Education: Decline to Answer Difficulty w/ Childcare or Family Care: No Living arrangements: prison Additional living arrangements comments: Residential options Occupation/Education: retired Gender identity (if verbalized by the patient): Female Sexual Orientation (if Verbalized by the Patient): Straight or Heterosexual Spiritual care concerns: No Exam Narrative: GENERAL: [Well-appearing, well-nourished, and in no acute distress.] HEAD: [Normocephalic, atraumatic.] EYES: [PERRLA and EOMI.] ENT: Nares clear, no rhinorrhea or epistaxis. Mucous membranes moist. No posterior oropharyngeal swelling or erythema. No exudates. Uvula midline. NECK: left-sided paraspinal muscle spasm and tenderness to palpation. No right-sided paraspinal muscle tenderness. No cervical midline tenderness or deformity. Pain with manipulation of the left-sided neck without any midline deformity. Mild pain with rotation on the right side and positive Spurling test on the left. CHEST: [Clear to auscultation. No respiratory distress.] HEART: [Regular rate and rhythm]. No murmur heard. [Normal peripheral pulses.] ABDOMEN: [Soft, nondistended], [nontender], [No rigidity or guarding] EXTREMITIES: Normal range of motion. [No edema.] SKIN: Warm, dry, no rash. NEURO: [No focal deficits]. Alert and oriented [x3.] PSYCH: [Normal mood and affect.] Course Vital Signs Vital signs: Vital Signs Temperature 36.8 C 06/18/25 18:58 Pulse Rate 69 06/18/25 18:58 Respiratory Rate 18 06/18/25 18:58 Blood Pressure 149/76 H 06/18/25 18:58 Pulse Oximetry 98 06/18/25 18:58 Oxygen Delivery Room Air 06/18/25 18:58 Temperature 36.8 C 06/18/25 18:58 Pulse Rate 69 06/18/25 18:58 Respiratory Rate 18 06/18/25 18:58 Blood Pressure 149/76 H 06/18/25 18:58 Pulse Oximetry 98 06/18/25 18:58 Oxygen Delivery Room Air 06/18/25 18:58 [facility] Narrative Medical decision making narrative: 70-year-old female with a history of Parkinson's disease, intellectual delay, bipolar disorder, hypothyroidism. Presenting from skilled care facility for concerns of left-sided neck pain. She also had a sore throat Today. Denies any fever chills. Patient has dialysis Friday has not missed any sessions. She states that she has some pain her left-sided neck when she sleeps and feels like it could have been strained. Denies any new pillows or support systems. Has not tried anything besides topical ice and heat as well as Tylenol. Was otherwise in her normal state of health. States that her left-sided neck hurts with movement and palpation as well as sometimes swallowing. Denies any dysphagia. No difficulty swallowing otherwise. No speech deficits. No other complaints. No restricted range of motion. Movement of the back and left upper extremity did not elicit any pain her neck. No fever chills. No sick contacts but she does reside at a care facility. Patient presents with her caregiver at bedside. Nares clear, no rhinorrhea or epistaxis. Mucous membranes moist. No posterior oropharyngeal swelling or erythema. No exudates. Uvula midline. Left-sided paraspinal muscle spasm and tenderness to palpation. No right-sided paraspinal muscle tenderness. No cervical midline tenderness or deformity. Pain with manipulation of the left-sided neck without any midline deformity. Mild pain with rotation on the right side and positive Spurling test on the left. Posterior oropharynx is unremarkable. Suspect musculoskeletal neck pain, torticollis, low suspicion cervical pathology or occult fracture given lack of trauma. Will apply lidocaine patch and give her muscle relaxation with Robaxin. Swabs for COVID and strep were obtained. Swabs are negative. Patient is safe for discharge back to her care facility and her print operator will drive her home. Given return precautions and follow-up instructions. Prescription sent to their pharmacy. Differential Diagnosis Differential Diagnosis: Suspect musculoskeletal neck pain, torticollis, low suspicion cervical pathology or occult fracture given lack of trauma. Lab Data MDM Lab Attestation statement: I personally reviewed the patient's lab results. Labs: Lab Results 06/18/25 Range/Units 19:38 Influenza A (RT-PCR) Negative (Negative) Influenza B (RT-PCR) Negative (Negative) RSV (RT-PCR) Negative (Negative) SARS-CoV-2 RNA (RT-PCR) Negative (Negative) Group A Strep (PCR) Not detected (Negative) Discharge Plan Discharge Clinical Impression: Neck pain on left side, Acute torticollis Patient Disposition: Home Condition: Stable Instructions: Antibiotic Form, Spasmodic Torticollis (ED), Neck Pain (ED) Additional Instructions: swabs were negative for COVID, flu, RSV and strep. Your symptoms are consistent with spasmodic torticollis which is a muscle spasm and pain from the muscle ache and your left-sided neck. Exam consistent with benign musculoskeletal cause. We will treat this with topical lidocaine patches and muscle relaxation medications in addition you can take ice and heat packs and Tylenol. Follow-up with regular primary care provider. Return with any emergent concerns or worsening symptoms. Patient Language: Scottish Prescriptions: New methocarbamol 750 mg tablet 750 mg PO TID PRN (Reason: pain) Qty: 20 0RF lidocaine 5 % adhesive patch,medicated 1 patch topical DAILY Qty: 15 0RF Rx Instructions: leave on most painful area for up to 12 hrs No Action albuterol sulfate 90 mcg/actuation HFA aerosol inhaler 1 inh inhalation HS azelastine [Astepro Allergy] 205.5 mcg (0.15 %) spray,non-aerosol 2 spray intranasal BID Rx Instructions: administer into each nostril carbidopa-levodopa 10-100 mg tablet 1 tablet PO BID divalproex [Depakote] 250 mg tablet,delayed release (DR/EC) 250 mg PO BID fenofibrate 160 mg tablet 160 mg PO DAILY fluticasone propionate [Allergy Relief (fluticasone)] 50 mcg/actuation spray,suspension 2 spray intranasal BID Rx Instructions: administer into each nostril levothyroxine 88 mcg capsule 88 mcg PO DAILY pantoprazole 40 mg tablet,delayed release (DR/EC) 40 mg PO BID sevelamer carbonate [Renvela] 800 mg tablet 800 mg PO TID Rx Instructions: must administer with a meal/food risperidone 0.5 mg tablet 0.5 mg PO QHS sertraline 100 mg tablet 100 mg PO DAILY simvastatin 20 mg tablet 20 mg PO HS acetaminophen 325 mg capsule 650 mg PO Q6H PRN (Reason: fever or pain) bisacodyl 5 mg tablet,delayed release (DR/EC) 10 mg PO Q12-24H PRN (Reason: constipation) Rx Instructions: max 2 doses/48 hours dextromethorphan HBr 15 mg/5 mL syrup 15 mg PO Q8H PRN (Reason: cough) diphenhydramine HCl [Allergy (diphenhydramine)] 25 mg capsule 25 mg PO QHS famotidine 20 mg tablet 20 mg PO HS PRN (Reason: indigestion) alum-mag hydroxide-simeth [Yin-Lanta] 200-200-20 mg/5 mL suspension 5 ml PO ONCE Rx Instructions: administer between meals and at bedtime polyethylene glycol 3350 17 gram/dose powder 17 g PO DAILY PRN (Reason: constipation) bismuth subsalicylate [Stomach Relief] 262 mg/15 mL suspension 524 mg PO Q1H Rx Instructions: do not exceed 8 doses in a 24 hour period Acidophilus Capsule 75 mmu cells PO DAILY cholecalciferol (vitamin D3) 1,250 mcg (50,000 unit) capsule 50,000 unit PO .Q14 days alum-mag hydroxide-simeth [Advanced Antacid-Antigas] 200-200-20 mg/5 mL suspension 30 ml PO Q4H PRN (Reason: indigestion) diphenhydramine HCl [Banophen] 25 mg capsule 25 mg PO Q6H PRN (Reason: congestion) guaifenesin [Chest Congestion Relief] 100 mg/5 mL liquid 100 mg PO Q4H PRN (Reason: cough) hydrocodone-acetaminophen 5-325 mg tablet 1 tablet PO Q6H PRN (Reason: pain) Stomach Relief 525 mg/15 mL suspension 262 mg PO Q3H6XD PRN (Reason: diarrhea) Follow-up/Referrals: Francoise,Heather Beck, [employer] [Primary Care Provider, Unknown] Time of Disposition: 20:32
[2025-06-18] MEDS: LIDOCAINE 5% PATCH 1 PATCH TRANSDERM (20:06)
[2025-06-18 20:09] LABS: Strep Group A RT-PCR NOT DETECTED (Negative)
[2025-06-18 20:21] LABS: Influenza A QL RT-PCR Negative (Negative); Influenza B QL RT-PCR Negative (Negative); RSV RNA, RT-PCR Negative (Negative); SARS-CoV-2 RNA PCR Negative (Negative)
--- NOTE | 2025-06-18 20:45 | PC.NURSE ---
RN attempted to call legal guardian and phone went to voicemail.
== END 2025-06-18 20:58 ==
PROVIDERS: Emergency Provider Student in an Organized Health Care Education/Training Program
DX: M43.6 Torticollis (principal); Z20.822 Contact with and (suspected) exposure to COVID-19; I12.9 Hypertensive chronic kidney disease with stage 1 through stage 4 chronic kidney disease, or unspecified chronic kidney disease; N18.9 Chronic kidney disease, unspecified; I87.2 Venous insufficiency (chronic) (peripheral); J44.9 Chronic obstructive pulmonary disease, unspecified; E03.9 Hypothyroidism, unspecified; G20.A1 Parkinson's disease without dyskinesia, without mention of fluctuations; K21.9 Gastro-esophageal reflux disease without esophagitis; F70 Mild intellectual disabilities; F31.9 Bipolar disorder, unspecified; Z79.899 Other long term (current) drug therapy
CPT/HCPCS: 87637; 87651; 99283; A9270